=== PATIENT | male | born 1995 | race African-American/Black ===

== ENCOUNTER 2023-10-28 12:27 | Outpatient (OUT) | payer OTHER, SELFPAY ==
--- NOTE | 2023-10-28 12:35 | XR_ITS ---
The [address] [address] Patient Name: AMBROSIO MALONE MRN: [id number] date: 1995 Sex: M Assigned Patient Location: RAD Current Patient Location: Accession/Order Number: [id number] Exam Date: 10/28/2023 12:47 Report Date: 10/29/2023 10:49 At the request of: JOSUE KHAN Procedure: XR hand LT min 3V PROCEDURE: XR hand LT min 3V HISTORY: Chronic Pain Of Left Hand M79.642 ; pain between second and third metacarpals. COMPARISON: None. FINDINGS: BONES:No fracture, acute abnormality, or significant arthropathy. SOFT TISSUES:No visible soft tissue swelling. EFFUSION:None visible. OTHER: Negative. XR/XR hand LT min 3V IMPRESSION: 1. No abnormal or suspicious findings to account for patient's symptoms. Electronically authenticated by: BELIA HUMPHREY Date: 10/29/2023 10:49
== END 2023-10-28 12:28 | disposition home or self-care (01) ==
LOC: RAD 12:30
PROVIDERS: Visit Provider Physician Assistant
DX: M79.642 Pain in left hand (principal); G89.29 Other chronic pain
CPT/HCPCS: 73130

== ENCOUNTER 2023-11-05 09:11 | Outpatient (OUT) | payer OTHER, SELFPAY ==
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
--- NOTE | 2023-11-05 09:42 | XR_ITS ---
The [address] [address] Patient Name: AMBROSIO MALONE MRN: [id number] date: 1995 Sex: M Assigned Patient Location: RAD Current Patient Location: RAD Accession/Order Number: [id number] Exam Date: 11/05/2023 09:30 Report Date: 11/05/2023 09:56 At the request of: JOSUE KHAN Procedure: XR knee YURIY 4V EXAMINATION: XR knee standing BI, XR knee YURIY 4V HISTORY: chronic pain of left knee COMPARISON: No relevant comparison available. FINDINGS: RIGHT FINDINGS: BONES: Normal. No significant arthropathy or acute abnormality. SOFT TISSUES: Negative. No visible soft tissue swelling. OTHER: Negative. LEFT FINDINGS: BONES: Normal. No significant arthropathy or acute abnormality. SOFT TISSUES: Negative. No visible soft tissue swelling. OTHER: Negative. XR/XR knee YURIY 4V IMPRESSION: RIGHT CONCLUSION: Normal LEFT CONCLUSION: Normal Electronically authenticated by: GOLD SADLER Date: 11/05/2023 09:56
--- NOTE | 2023-11-05 09:45 | XR_ITS ---
The [address] [address] Patient Name: AMBROSIO MALONE MRN: [id number] date: 1995 Sex: M Assigned Patient Location: RAD Current Patient Location: RAD Accession/Order Number: [id number] Exam Date: 11/05/2023 09:38 Report Date: 11/05/2023 09:56 At the request of: JOSUE KHAN Procedure: XR knee standing BI EXAMINATION: XR knee standing BI, XR knee YURIY 4V HISTORY: chronic pain of left knee COMPARISON: No relevant comparison available. FINDINGS: RIGHT FINDINGS: BONES: Normal. No significant arthropathy or acute abnormality. SOFT TISSUES: Negative. No visible soft tissue swelling. OTHER: Negative. LEFT FINDINGS: BONES: Normal. No significant arthropathy or acute abnormality. SOFT TISSUES: Negative. No visible soft tissue swelling. OTHER: Negative. XR/XR knee standing BI IMPRESSION: RIGHT CONCLUSION: Normal LEFT CONCLUSION: Normal Electronically authenticated by: GOLD SADLER Date: 11/05/2023 09:56
== END 2023-11-05 09:12 | disposition home or self-care (01) ==
LOC: RAD 09:12
PROVIDERS: Visit Provider Physician Assistant
DX: M25.562 Pain in left knee (principal); G89.29 Other chronic pain; M25.561 Pain in right knee
CPT/HCPCS: 73564; 73565

== ENCOUNTER 2024-04-22 23:00 | Emergency (ER) | payer OTHER, SELFPAY ==
[2024-04-22] VITALS (7 sets, daily range): BP systolic 126; BP diastolic 93; PULSE 103–122; TEMP 37; O2SAT 83–100; BMI 21.1
--- OUTSIDE RECORDS SUMMARY | 2024-04-22 23:07 | XMS_ITS | CCD ---
Author Organization [facility] Informat ion Partnership [facility] Care Team Providers Care Wire Harness Design Engineer Name Role Phone Elizabeth Milton Unavailable RA REHMAN Admitting Unavailable RA REHMAN Attending Unavailable REQUEST, NONE LISTED Primary Care Unavaila ble RA REHMAN Consulting Unavailable JOSUE CHING Attending Unavailable JOSUE [...] 30 mg oral tablet (1 source) Uncompetitive F-jvxcpb-F-aspartate Receptor Antagonist, Sigma-1 Agonist Start: 11-02-2021 take 1 tablet by mouth every six hours [place] DMT 30-30 MG 1 tablet Orally every [...] Test Name Value Interpretation Reference Range Facil ity COVID Quick Testingon 2021 Result Negative [facility] Other Vital Signs Date Time Vital Sign Value Performing Clinician Facility 11-01-2023 10:48-0500 Body mass index (BMI) [Ratio] 21.77 kg/m2 Josue TELLEZ Work Phone: [facility] 11-01-2023 10:48-0500 Body weight 63.05 kg Josue TELLEZ Work Phone: [facility] 11-01-2023 10:48-0500 Diastolic blood pressure 68 mm[Hg] Josue Garciabritt PA Work Phone: [facility] 11-01-2023 10:48-0500 Heart rate 83 /min Josue Garciabritt PA Work Phone: [facility] 11-01-2023 10:48-0500 SaO2% (BldA) [Mass fraction] 94 % Josue Garciabritt PA Work Phone: [facility] 11-01-2023 10:48-0500 Systolic blood pressure 112 mm[Hg] Josue Garciabritt PA Work Phone: [facility] 11-02-2021 14:30-0500 Body height 170.18 cm Elizabeth Yanezault Other [facility] Other 11-02-2021 14:30-0500 Body mass index (BMI) [Ratio] 21.92 kg/m2 Elizabeth Karine Other [facility] Other 11-02-2021 14:30-0500 Body temperature 98.7 [degF] Elizabeth Karine Other [facility] Other 11-02-2021 14:30-0500 Body weight 63.5 kg Elizabeth Karine Other [facility] Other 11-02-2021 14:30-0500 Respiratory rate 21 /min Elizabeth Karine Other [facility] Other 11-02-2021 14:30-0500 SaO2% (BldA) [Mass fraction] 98 % Elizabeth Karine Other [facility] Other Encounters Encounter Date Encounter Type Care Provider Facility Start: 11-01-2023 End: 11-01-2023 ambulatory JOSUE M HEMMER Not Available Start: 11-01-2023 End: 11-01-2023 Office [...] Not Available Start: 08-17-2022 End: 08-17-2022 ambulatory RATHI REHMAN Facility: Start: 11-02-2021 End: 11-02-2021 ambulatory Elizabeth Milton Other [facility] Other Start: 11-02-2021 Office outpatient vi sit 15 minutes Elizabeth Milton [facility] Plan of Treatment Date Care Activity Detail Author Start: 11-01-2023 End: 11-01-2024 XR Knee - bilateral AP W standing XR knees anteroposterior standing bilateral Imaging Routine Chronic pain of left knee Chronic pain of right knee Expected: 11/01/2023, Expires: 11/01/2024 [facility] Work Phone: Comment on above: Expected: 11/01/2023 , Expires: 11/01/2024 Start: 11-01-2023 End: 11-01-2024 XR Knee - left 4 Views XR knee 4+ views left Imaging Routine Chronic pain of left knee Expected: 11/01/2023, Expires: 11/01/2024 [facility] Comment on above: Expected: 11/01/2023 , Expires: 11/01/2024 Start: 11-01-2023 End: 11-01-2024 XR Knee - right 4 Views XR knee 4+ views right Imaging Routine Chronic pain of right knee Expected: 11/01/2023, Expires: 11/01/2024 [facility] Comment on above: Expected: 11/01/2023 , Expires: 11/01/2024 Start: 11-01-2023 End: 11-01-2023 Patient encounter procedure 11/01/2023 11:00 AM EST Office Visit [facility] [address] [facility] [address] [place] [id number] Josue Ching PA [address] [facility] [address] [place] [address] [facility] Start: 05-24-2023 Influenza vaccination Influenza Vacc ine (#1) [facility] Payers Date Payer Category Payer Medicaid [id number] 2023 Medicaid [employer] [facility] [place] [id number] 2023-Present [address] [place] [address] [id number] 1993 Unknown [id number] 1995 Unknown [id number] 1993 Unknown [id number] 1959 Unknown [id number] Social History Date Type Detail Facility Start: 10-24-2023 End: 11-01-2023 Sex Assigned At [facility] [employer] Other Start: 04-19-2006 [facility] Start: 04-19-2006 History of tobacco use Cigarette Smo ker [facility] Start: 10-24-2023 End: 11-01-2023 Cigarettes smoked current (pack per day) - Reported 0.5 [facility] Start: 10-24-2023 Tobacco use and exposure Smokeless tobacco non-user [facility] Start: 10-31-2023 End: 11-01-2023 Alcohol intake Ex-drinker (finding) [facility] Start: 10-24-2023 Tobacco Comment 6-10 cigs/day [facility] Start: 1995 Sex Assigned At Not on file [facility] History of Present illness Narrative 11-01-2023 [...] fail to improve. documented in this encounter [facility] Evaluation note 11-02-2021 Note Date & Type Note Facility 11-02-2021 Evaluation note Encounter Date Diagnosis Assessment Notes 10 Feb, 2022 Contact with and (suspected) exposure to other [...] Patient care instructions given in writting by [facility] document. [facility] Other History general Narrative - Reported 09-23-2015 Note Date & Type Note Facility 09-23-2015 History general N arrative - Reported Type Hospitalization History [facility] 2015 [facility] Other Evaluation note Note Date & Type [...] [facility] DATE CREATED AUTHOR AUTHOR'S EVERETT SANTIAGO 11/02/2023 [facility] FOR RECORDS PERTAINING TO PATIENTS WHO ARE [...] BE BASED ON THE PRIMARY CLINICAL RECORDS. [facility] [employer] provides no warranty or guarantee of the accuracy or completeness of information in this document.
--- NOTE | 2024-04-22 23:12 | XR_ITS ---
The [address] [address] Patient Name: AMBROSIO MALONE MRN: [id number] date: 1995 Sex: M Assigned Patient Location: ER Current Patient Location: ER Accession/Order Number: [id number] Exam Date: 04/22/2024 23:27 Report Date: 04/23/2024 00:41 At the request of: DINAH MCDONALD Procedure: XR chest 1V EXAM: XR chest 1V HISTORY: CP COMPARISON: None. TECHNIQUE: One view of the chest was obtained. FINDINGS: The cardiac silhouette is normal in size. The lungs are clear. There is no significant pneumothorax or pleural effusion. No acute osseous abnormality is seen. XR/XR chest 1V IMPRESSION: 1. No acute cardiopulmonary abnormality. Electronically authenticated by: Esvin TAVERAS Date: 04/23/2024 00:41
--- NOTE | 2024-04-22 23:12 | ECG_ITS ---
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
--- NOTE | 2024-04-22 23:14 | ED.CHESTPAI1 ---
HPI - Chest Pain General Chief Complaint: Chest Pain Stated Complaint: chest pain Time Seen by Provider: 04/22/24 23:07 Source: patient Mode of arrival: walk-in Limitations: no limitations History of Present Illness HPI narrative: 29-year-old male presents to the emergency department for a chief complaint of chest pain. It has been there continuously since 9 AM, about 14 hours. It is in the middle part of his chest and it does not radiate. He does not have a sense of palpitations and he has had no fever cough or complaints to me of shortness of breath. It feels like a heavy pressure on his chest. Related Data Home Medications ?Medication ?Instructions ?Recorded ?Confirmed No Known Home Medications 04/22/24 04/22/24 Allergies Allergy/AdvReac Type Severity Reaction Status Date / Time No Known Drug Allergies Allergy Verified 04/22/24 23:11 Review of Systems ROS Narrative A ten point review of systems is negative except as noted above. Exam Narrative Exam Narrative: Nurses note and vital signs reviewed and patient is not hypoxic. General: The patient appears well and in no apparent distress. Patient is resting comfortably on cart. Skin: Warm, dry, no pallor noted. There is no rash noted. Head: Normocephalic, atraumatic Eye: Normal conjunctiva, no drainage Ears, Nose, Mouth, and Throat: oral mucosa is moist. Nares patent. Cardiovascular: Regular Rate and Rhythm, tachycardic Respiratory: Patient is in no distress, no accessory muscle use, lungs are clear to auscultation, no wheezing, rales or rhonchi Back: non-tender GI: Soft and nontender Musculoskeletal: The patient has no evidence of calf tenderness, no pitting edema, symmetrical pulses noted bilaterally Neurological: A&O, normal speech Psychiatric: Cooperative Constitutional Vital Signs, click to edit/add: Last Vital Signs Temp 98.6 F 04/22/24 23:05 Pulse 87 04/23/24 03:10 Resp 18 04/23/24 03:10 BP 117/69 04/23/24 01:57 Pulse Ox 97 04/23/24 03:10 O2 Del Method Room Air 04/22/24 23:05 Course Vital Signs Vital signs: Vital Signs Temperature 98.6 F 04/22/24 23:05 Pulse Rate 122 H 04/22/24 23:05 Respiratory Rate 18 04/22/24 23:05 Blood Pressure 126/93 H 04/22/24 23:05 Pulse Oximetry 100 04/22/24 23:05 Oxygen Delivery Method Room Air 04/22/24 23:05 Temperature 98.6 F 04/22/24 23:05 Pulse Rate 87 04/23/24 03:10 Respiratory Rate 18 04/23/24 03:10 Blood Pressure 117/69 04/23/24 01:57 Pulse Oximetry 97 04/23/24 03:10 Oxygen Delivery Method Room Air 04/22/24 23:05 MDM - Chest Pain MDM Narrative Medical decision making narrative: Laboratory analysis is negative including troponin. He was given IV Toradol and then IV morphine and he feels improved. I suspect that the patient might have pericarditis and I cannot rule this out. He will be transferred to [facility] and he is excepted there by the hospitalist. He is stable and agreeable for transfer. Treatment diagnosis and disposition were discussed with the patient. Differential Diagnosis Differential diagnosis: Likely pneumothorax, unstable angina pectoris, atypical chest pain, st elevation myocardial infarction, chest pain and other (Pericarditis, myocarditis) Lab Data Attestation: I reviewed the patient's lab results. Labs: Lab Results 04/22/24 04/23/24 Range/Units 23:14 01:55 WBC 14.8 H (4.0-11.0) 10^3/uL RBC 4.23 L (4.70-6.10) 10^6/uL Hgb 14.0 (14.0-18.0) g/dL Hct 40.0 L (42.0-54.0) % MCV 94.6 H (80.0-94.0) fL MCH 33.1 (25.9-34.0) pg MCHC 35.0 (29.9-35.2) g/dL RDW 13.5 (11.0-15.0) % Plt Count 226 (150-450) 10^3/uL MPV 9.7 (9.5-13.5) fL Neut % (Auto) 76.6 H (43.0-75.0) % Lymph % (Auto) 13.0 L (20.5-60.0) % [place] % (Auto) 9.7 (1.7-12.0) % Eos % (Auto) 0.1 L (0.9-7.0) % Baso % (Auto) 0.3 (0.2-2.0) % Neut # (Auto) 11.3 H (1.4-6.5) 10^3/uL Lymph # (Auto) 1.9 (1.2-3.8) 10^3/uL [place] # (Auto) 1.4 H (0.3-0.8) 10^3/uL Eos # (Auto) 0.0 (0.0-0.7) 10^3/uL Baso # (Auto) 0.1 (0.0-0.1) 10^3/uL Abs Immat Gran (auto) 0.05 H (0.00-0.03) 10^3/uL Imm/Tot Granulo (auto) 0.3 (0.0-0.5) % D-Dimer 0.32 (<=0.59) mg/L FEU Sodium 143 (136-145) mmol/L Potassium 3.6 (3.5-5.1) mmol/L Chloride 105 (98-107) mmol/L Carbon Dioxide 28.8 (21.0-32.0) mmol/L Anion Gap 12.8 BUN 7.0 (7.0-18.0) mg/dL Creatinine 0.88 (0.70-1.30) mg/dL Est GFR ( Amer) >60 (>=60) Est GFR (Non-Af Amer) >60 (>=60) BUN/Creatinine Ratio 8.0 Glucose 103 (74-106) mg/dL Calcium 9.2 (8.5-10.1) mg/dL Total Creatine Kinase 276 (39-308) U/L Myoglobin 43 (16-96) ng/mL Troponin I High Sens <4.0 L <4.0 L (4.0-76.1) pg/mL Imaging Data Chest x-ray: Radiologist's impression: ITS Impressions Chest X-Ray 04/22/24 23:12 IMPRESSION: 1. No acute cardiopulmonary abnormality. Electronically authenticated by: Esvin TAVERAS Date: 04/23/2024 00:41 ECG Data Attestation: I personally reviewed and interpreted this ECG as follows: (EKG on my interpretation shows sinus tachycardia with a rate of 115. There seems to be very slight diffuse ST segment elevation. There appears to be some areas of [place] depression) Heart Score History: Moderately Suspicious ECG: NS Repolarization Age: <45 years Risk Factors: No Risk Factors Troponin: <Normal Limit Total Heart Score Recommendations & Risks:: 2 Discharge Plan Discharge Chief Complaint: Chest Pain Clinical Impression: Chest pain Patient Disposition: [facility] Time of Disposition Decision: 01:02 Discharge Location: [facility] Condition: Fair Mode of Transportation: EMS
[2024-04-22 23:23] LABS: Basophils Absolute Auto 0.1 10^3/uL (0.0-0.1); Basophils Percent Auto 0.3 % (0.2-2.0); Eosinophils Percent Auto 0.1 % (0.9-7.0); Immature Granulocytes Abs Auto 0.05 10^3/uL (0.00-0.03); Immature Granulocytes Pct Auto 0.3 % (0.0-0.5); Lymphocytes Absolute Auto 1.9 10^3/uL (1.2-3.8); Mean Corpuscular Hemoglobin 33.1 pg (25.9-34.0); Mean Corpuscular Volume 94.6 fL (80.0-94.0); Mean Platelet Volume 9.7 fL (9.5-13.5); Monocytes Absolute Auto 1.4 10^3/uL (0.3-0.8); Monocytes Percent Auto 9.7 % (1.7-12.0); Neutrophils Absolute Auto 11.3 10^3/uL (1.4-6.5); Neutrophils Percent Auto 76.6 % (43.0-75.0); Platelet Count 226 10^3/uL (150-450); Red Blood Count 4.23 10^6/uL (4.70-6.10); Red Cell Distribution Width 13.5 % (11.0-15.0); White Blood Count 14.8 10^3/uL (4.0-11.0)
[2024-04-22 23:38] LABS: Anion Gap 12.8; Calcium 9.2 mg/dL (8.5-10.1); Carbon Dioxide 28.8 mmol/L (21.0-32.0); Chloride 105 mmol/L (98-107); Estimated GFR (African America >60 (>=60); Estimated GFR (Non-African Ame >60 (>=60); Glucose 103 mg/dL (74-106); Potassium 3.6 mmol/L (3.5-5.1); Sodium 143 mmol/L (136-145)
[2024-04-22 23:40] LABS: D Dimer 0.32 mg/L FEU (<=0.59)
[2024-04-22 23:46] LABS: Troponin I High Sensitivity <4.0 pg/mL (4.0-76.1)
[2024-04-22 23:49] LABS: Creatine Kinase 276 U/L (39-308); Myoglobin 43 ng/mL (16-96)
[2024-04-22] MEDS: KETOROLAC TROMETHAMINE 30 MG/ML VIAL IVP (23:49)
[2024-04-23] VITALS (21 sets, daily range): BP systolic 117; BP diastolic 69; PULSE 82–105; O2SAT 96–100
[2024-04-23] MEDS: MORPHINE SULFATE 4 MG/ML VIAL IV (00:16)
[2024-04-23 02:24] LABS: Troponin I High Sensitivity <4.0 pg/mL (4.0-76.1)
== END 2024-04-23 04:35 | disposition short-term general hospital (02) ==
PROVIDERS: Emergency Provider Emergency Medicine
DX: R07.9 Chest pain, unspecified (principal)
CPT/HCPCS: 36415; 71045; 80048; 82550; 83874; 84484; 85025; 85378; 93005; 96374; 96375; 99285; J1885; J2270

== ENCOUNTER 2024-05-04 10:01 | Outpatient (OUT) | payer OTHER, SELFPAY | END 2024-05-04 10:02 | disposition home or self-care (01) | LOC: CARD 10:01 | PROVIDERS: Visit Provider Physician Assistant | DX: I30.9 Acute pericarditis, unspecified (principal); R00.2 Palpitations | CPT/HCPCS: 93246 ==

== ENCOUNTER 2024-06-08 07:43 | Outpatient (OUT) | payer OTHER, SELFPAY ==
--- OUTSIDE RECORDS SUMMARY | 2024-06-08 07:47 | XMS_ITS | CCD ---
Author Organization [facility] Care Team Providers Care Director Sales Support Name Role Phone Elizabeth Milton Unavailable RA REHMAN Admitting Unavailable RA REHMAN Attending Unavailable JAVIER, NONE LISTED Primary Care Unavaila RA Roche Consulting Unavailable Unavailable Primary Care Provider UnavailMD Martin Chen Admit Provider WANDA Khan Primary Care Provider MD Rani Delong Attending Provider SHIRLEY Perdomo Other Provider Unavailable MD Gilberto Sosa Other Provider MD Mickey Long Other Provider [phone] MD Ashlee Moura Other Provider DO Betty Tubbs Other Provider Fabiola Perdomo Consulting Unavailable Grisel Khan Primary Care Unavailable Martin Phillip Admitting Unavailable Rani Delong Attending Unavailable Gilberto Sosa Consulting Unavailable Mickey Long Consulting Ashlee Villanueva Consulting Unavailable Betty Tubbs Consulting Unavailable GRISEL KHAN Attending Unavailable GRISEL KHAN Attending Unavailable GRISEL KHAN Attending Unavailable GRISEL KHAN Attending Unavailable Medications Current Medications Medication Drug Class(es) Dates Sig (Normalized) Sig (Original) amoxicillin 500 mg oral capsule (1 source) Penicillin-class Antibacterial Start: 11-02-2021 take 1 capsule by mouth three times daily Amoxicillin 500 MG 1 capsule Orally 3 times per day for 10 day(s) Oct, Active colchicine 0.6 mg oral tablet (1 source) Start: 04-24-2024 take 0.6 mg by mouth twice daily Colchicine Active 0.6 MG PO Twice daily 60 April 24, 2024 12:00am dextromethorphan hydrobromide 30 mg / pyrilamine maleate 30 mg oral tablet (1 source) Uncompetitive E-xjjefc-Y-aspartat e Receptor Antagonist, Sigma-1 Agonist Start: 11-02-2021 take 1 tablet by mouth every six hours Swanzey DMT 30-30 MG 1 tablet Orally every 6 hours for 7 days Oct, Active diphenhydrAMINE hydrochloride 25 mg oral capsule (1 source) Histamine-1 Receptor Antagonist Start: 05-27-2018 take 2 capsules by mouth every six hours Diphenhydramine Hcl (Benadryl) 25 mg capsule Active 50 MG PO Q6H May 27, 2018 12:00am until resolution of severe allergic reaction famotidine 20 mg oral tablet (1 source) Histamine-2 Receptor Antagonist Start: 05-27-2018 take 1 tablet by mouth twice daily Famotidine (Pepcid) 20 mg tablet Active 20 MG PO Twice daily May 27, 2018 12:00am fluocinonide 1 mg/ml topical cream (1 source) Corticosteroid Start: 05-27-2018 Fluocinonide Active 1 APPLIC TOPICAL Twice daily May 27, 2018 12:00am fluticasone propionate 0.05 mg/actuat metered dose nasal spray (1 source) Corticosteroid Start: 11-02-2021 take 1 spray(s) nasal route once daily Fluticasone Propionate 50 MCG/ACT 1 spray in each nostril Nasally Once a day for 30 day(s) Oct, Active ibuprofen 800 mg oral tablet (2 sources) Nonsteroidal Anti-inflammatory Drug Start: 04-24-2024 take 800 mg by mouth three times daily Ibuprofen Active 800 MG PO Three times daily 42 April 24, 2024 12:00am Start: 03-28-2018 End: 05-27-2018 take 600 mg by mouth three times daily Ibuprofen Discontinued 600 MG PO Three times daily March 28, 2018 12:00am May 27, 2018 12:59pm meloxicam 15 mg oral tablet (1 source) [...] with food. 30 tablet 2 11/01/2023 Active pantoprazole 40 mg delayed release oral tablet (1 source) Proton Pump Inhibitor Start: 04-24-2024 take 40 mg by mouth once daily Pantoprazole Active 40 MG PO Daily 14 April 24, 2024 12:00am Completed/Discontinued Medications Medication Drug Class(es) Dates Sig (Normalized) Sig (Original) cyclobenzaprine hydrochloride 10 mg oral tablet (1 source) Muscle Relaxant Start: 03-28-2018 End: 05-27-2018 take 10 mg by mouth at bedtime Cyclobenzaprine Discontinued 10 MG PO Bedtime March 28, 2018 2:45pm May 27, 2018 12:59pm Problems Active Problems Problem Classification Problem Date Documented Da te Episodic/Chronic Headache; including migraine (1 source) Headache; Translations: [Headache] 02-13-2021 Episodic Mood disorders (1 source) Manic bipolar I disorder; Translations: [Bipolar disorder, current episode manic without psychotic features, unspecified] Chronic Nonspecific chest pain (3 sources) Chest pain; Translations: [Chest pain, unspecified] Onset: 04-23-2024 04-23-2024 Episodic Other connective tissue disease (3 sources) Chronic pain of left upper limb; Translations: [Pain in left hand] Onset: 10-24-2023 10-24-2023 Episodic Other non-traumatic joint disorders (4 sources) Pain in left knee; Translations: [Pain in joint, lower leg] Onset: 11-01-2023 11-01-2023 Episodic Other skin disorders (4 sources) Rash and other nonspecific skin eruption; Translations: [RASH OTH NONSPECIFIC SKIN ERUPTION] Onset: 08-17-2022 Episodic Ciera-; endo-; and myocarditis; cardiomyopathy (except that caused by tuberculosis or sexually transmitted disease) (3 sources) Acute pericarditis; Translations: [Acute pericarditis, unspecified] Onset: 04-23-2024 04-23-2024 Episodic Substance-related disorders (5 sources) Tobacco dependence syndrome; Translations: [Nicotine dependence, unspecified, uncomplicated] Onset: 10-24-2023 10-24-2023 Chronic Substance-related disorders (3 sources) Marijuana user; Translations: [Cannabis use, unspecified, uncomplicated] Onset: 04-23-2024 04-23-2024 Episodic Viral infection (1 source) Zoster without complications; [...] Results Test Name Value Interpretation Reference Range Facility Alanine aminotransferase [En zymatic activity/volume] in Serum or PlasmaOrdered By: Martin Phillip on 04-24-2024 ALT [Catalytic activity/Vol] 9 U/L Normal 7-52 [facility] Comment on above: Performed By: #### H S TROP, A1C [facility] eA #### [facility] [address] [place] [address] [place] Albumin [Mass/volume] in Ser um or Plasma by Bromocresol green (BCG) dye binding methoOrdered By: Martin Phillip on 04-24-2024 Albumin BCG dye [Mass/Vol] 4.4 g/dL 3.5-5.7 [facility] Alkaline phosphatase [Enzyma tic activity/volume] in Serum or PlasmaOrdered By: Martin Phillip on 04-24-2024 ALP [Catalytic activity/Vol] 61 U/L Normal 34-104 [facility] Comment on above: Performed By: #### H S TROP, A1C WT eA #### [facility] [address] [place] [address] [place] Aspartate aminotransferase [ Enzymatic activity/volume] in Serum or PlasmaOrdered By: Martin Phillip on 04-24-2024 AST [Catalytic activity/Vol] 15 U/L Normal 13-39 [facility] Comment on above: Performed By: #### H S TROP, A1C WTH eA #### [address] Automated basophil %Ordered By: Martin Phillip on 04-24-2024 Basophils/100 WBC (Bld) 0.7 % Normal . [facility] Comment on above: Performed By: #### C BC #### [address] Automated basophil countOrde red By: Martin Phillip on 04-24-2024 Basophils (Bld) [#/Vol] 0.1 10*3/uL Normal 0.0-0.2 [facility] Comment on above: Result Comment: PERF ORMED BY: [place] [address] PATHOLOGIST [employer]IEF DANA GRIJALVA M.D. Performed By: #### C BC #### [address] Automated blood monocyte cou ntOrdered By: Martin Phillip on 04-24-2024 Monocytes (Bld) [#/Vol] 1.3 10*3/uL High 0.0-0.8 [facility] Comment on above: Performed By: #### C BC #### [address] Automated eosinophil %Ordere d By: Martin Phillip on 04-24-2024 Eosinophils/100 WBC (Bld) 3.8 % Normal . [facility] Comment on above: Performed By: #### C BC #### [address] Automated eosinophil countOr dered By: Martin Phillip on 04-24-2024 Eosinophils (Bld) [#/Vol] 0.3 10*3/uL Normal 0.0-0.45 [facility] Comment on above: Performed By: #### C BC #### [address] Automated monocyte %Ordered By: Martin Phillip on 04-24-2024 Monocytes/100 WBC (Bld) 16.2 % Normal . [facility] Comment on above: Performed By: #### C BC #### [facility] [address] Automated neutrophil %Ordere d By: Martin Phillip on 04-24-2024 Neutrophils/100 WBC (Bld) 40.6 % Normal . [facility] Comment on above: Performed By: #### C BC #### [address] Bilirubin.total [Mass/volume ] in Serum or PlasmaOrdered By: Martin Phillip on 04-24-2024 Bilirubin [Mass/Vol] 1.3 mg/dL High 0.3-1.0 [facility] Comment on above: Samples from patient s who have taken Naproxen have shown spurious elevation in Total Bilirubin levels. A metabolite of Naproxen, O-desmethylnaproxen, has been shown to interfere with the Jendrassik-Grof method for measuring Total Bilirubin. Result Comment: Samp les from patients who have taken Naproxen have shown spurious elevation in Total Bilirubin levels. A metabolite of Naproxen, O-desmethylnaproxen, has been shown to interfere with the Jendrassik-Grof method for measuring Total Bilirubin. Performed By: #### H S TROP, A1C WTH eA #### [address] Calcium [Mass/volume] in Ser um or PlasmaOrdered By: Martin Phillip on 04-24-2024 Calcium [Mass/Vol] 9.7 mg/dL Normal 8.6-10.3 [facility] Comment on above: Performed By: #### H S TROP, A1C WTH eA #### [address] Carbon dioxide, total [Moles /volume] in Serum or PlasmaOrdered By: Martin Phillip on 04-24-2024 CO2 [Moles/Vol] 29.7 mmol/L Normal 21.0-31.0 [facility] Comment on above: Performed By: #### H S TROP, A1C WTH eA #### [address] Chloride [Moles/volume] in S casey or PlasmaOrdered By: Martin Phillip on 04-24-2024 Chloride [Moles/Vol] 106 mmol/L Normal 98-107 [facility] Comment on above: Performed By: #### H S TROP, A1C WTH eA #### [address] Complete Blood Count Auto Di ffon 04-24-2024 Mean Corpuscular HGB Conc 33.7 g/dL Normal 32.5-35.6 [facility] Comment on above: Performed By: #### C BC #### [address] NRBC% 0.2 /100{WBC} Normal 0-0.5 [facility] Comment on above: Performed By: #### C BC #### [address] Comprehensive Metabolic Pane wolfgang 04-24-2024 Albumin [Mass/Vol] 4.4 g/dL Normal 3.5-5.7 [facility] Comment on above: Performed By: #### H S TROP, A1C WT eA #### [address] Creatinine Clr Calc Pharmacy 125.20 Normal [facility] Comment on above: Result Comment: PERF ORMED BY: [place] [address] PATHOLOGIST [employer]IEF DANA GRIJALVA M.D. Performed By: #### H S TROP, A1C WT eA #### [place] [address] [place] GFR/1.73 sq M.predicted MDRD (S/P/Bld) [Vol rate/Area] mL/min/{1.73_m2} Normal [facility] Comment on above: Performed By: #### H S TROP, A1C WTH eA #### [place] [address] [place] Creatinine [Mass/volume] in Serum or PlasmaOrdered By: Martin Phillip on 04-24-2024 Creatinine [Mass/Vol] 0.74 mg/dL Normal 0.70-1.30 [facility] Comment on above: Performed By: #### H S TROP, A1C WTH eA #### [facility] [address] Erythrocyte distribution wid th [Ratio] by Automated countOrdered By: Martin Phillip on 04-24-2024 Erythrocyte distribution width (RBC) [Ratio] 14.5 % Normal 12.0-14.8 [facility] Comment on above: Performed By: #### C BC #### [address] Erythrocytes [#/volume] in B lood by Automated countOrdered By: Martin Phillip on 04-24-2024 RBC (Bld) [#/Vol] 4.42 10*6/uL Normal 3.90-5.60 [facility] Comment on above: Performed By: #### C BC #### [address] Glucose [Mass/volume] in Ser um or PlasmaOrdered By: Martin Phillip on 04-24-2024 Glucose [Mass/Vol] 83 mg/dL Normal 70-100 [facility] Comment on above: ADA recommended refe rence rangeRandom Glucose Reference Range is dependent on time and content of last meal. Glucose of more than 200 mg/dL in a nonstressed, ambulatory subject supports the diagnosis of Diabetes Mellitus. Result Comment: [place] om Glucose Reference Range is dependent on time and content of last meal. Glucose of more than 200 mg/dL in a nonstressed, ambulatory subject supports the diagnosis of Diabetes Mellitus. ADA recommended reference range Performed By: #### H S TROP, A1C WTH eA #### [address] Hematocrit [Volume Fraction] of Blood by Automated countOrdered By: Martin Phillip on 04-24-2024 Hematocrit (Bld) [Volume fraction] 42.4 % Normal 38.8-50.0 [facility] Comment on above: Performed By: #### C BC #### [address] Hemoglobin [Mass/volume] in BloodOrdered By: Martin Phillip on 04-24-2024 Hemoglobin (Bld) [Mass/Vol] 14.3 g/dL Normal 13.0-17.0 [facility] Comment on above: Performed By: #### C BC #### [address] Leukocytes [#/volume] correc aba for nucleated erythrocytes in Blood by Automated counOrdered By: Martin Phillip on 04-24-2024 WBC corrected for nucl RBC Auto (Bld) [#/Vol] 7.9 10*3/uL 4.1-10.5 [facility] Leukocytes [#/volume] in Blo od by Automated countOrdered By: Martin Phillip on 04-24-2024 WBC (Bld) [#/Vol] 7.9 10*3/uL Normal 4.1-10.5 [facility] Comment on above: Performed By: #### C BC #### [place] [address] [place] Lymphocytes [#/volume] in Bl ood by Automated countOrdered By: Martin Phillpi on 04-24-2024 Lymphocytes (Bld) [#/Vol] 3.1 10*3/uL Normal 1.00-4.8 [facility] Comment on above: Performed By: #### C BC #### [place] [address] [place] Lymphocytes/100 leukocytes i n Blood by Automated countOrdered By: Martin Phillip on 04-24-2024 Lymphocytes/100 WBC (Bld) 38.7 % Normal . [facility] Comment on above: Performed By: #### C BC #### [address] MCH [Entitic mass] by Automa aba countOrdered By: Martin Phillip on 04-24-2024 MCH (RBC) [Entitic mass] 32.4 pg Normal 27.5-35.2 [facility] Comment on above: Performed By: #### C BC #### [facility] [address] [place] [address] MCHC Auto (RBC) [Mass/Vol]Or dered By: Martin Phillip on 04-24-2024 MCHC (RBC) [Mass/Vol] 33.7 g/dL 32.5-35.6 [facility] MCV [Entitic volume] by Auto mated countOrdered By: Martin Phillip on 04-24-2024 MCV (RBC) [Entitic vol] 96.1 fL Normal 83.5-101 [facility] Comment on above: Performed By: #### C BC #### [address] Neutrophils [#/volume] in Bl ood by Automated countOrdered By: Martin Phillip on 04-24-2024 Neutrophils (Bld) [#/Vol] 3.2 10*3/uL Normal 1.8-7.7 [facility] Comment on above: Performed By: #### C BC #### [address] No Panel InformationOrdered By: Martin Phillip on 04-24-2024 Estimated GFR (CKD-EPI) > 60.0 mL/Min [facility] Creatinine Clearance (Chem 125.20 [facility] Nucleated erythrocytes [Pres ence] in Blood by Automated countOrdered By: Martin Phillip on 04-24-2024 Nucleated RBC Auto Ql (Bld) 0.2 /100{WBC} 0-0.5 [facility] Platelet mean volume [Entiti c volume] in Blood by Automated countOrdered By: Martin Phillip on 04-24-2024 Platelet mean volume (Bld) [Entitic vol] 8.2 fL Normal 6.6-10.1 [facility] Comment on above: Performed By: #### C BC #### [address] Platelets [#/volume] in Bloo d by Automated countOrdered By: Martin Phillip on 04-24-2024 Platelets (Bld) [#/Vol] 230 10*3/uL Normal 150-450 [facility] Comment on above: Performed By: #### C BC #### [facility] [address] Potassium [Moles/volume] in Serum or PlasmaOrdered By: Martin Phillip on 04-24-2024 Potassium [Moles/Vol] 4.1 mmol/L Normal 3.5-5.1 [facility] Comment on above: Performed By: #### H S TROP, A1C WTH eA #### [facility] [address] Protein [Mass/volume] in Ser um or PlasmaOrdered By: Martin Phillip on 04-24-2024 Protein [Mass/Vol] 7.1 g/dL Normal 6.4-8.9 [facility] Comment on above: Performed By: #### H S TROP, A1C WTH eA #### [facility] [address] [place] [address] Serum globulin measurement b y calculation (mass/volume)Ordered By: Martin Phillip on 04-24-2024 Globulin (S) [Mass/Vol] 2.7 g/dL Normal [facility] Comment on above: Performed By: #### H S TROP, A1C WTH eA #### [address] Serum or plasma albumin/glob ulin mass ratioOrdered By: Martin Phillip on 04-24-2024 Albumin/Globulin [Mass ratio] 1.6 {ratio} Normal [facility] Comment on above: Performed By: #### H S TROP, A1C WTH eA #### [facility] [address] [place] [address] Serum or plasma anion gap de terminationOrdered By: Martin Phillip on 04-24-2024 Anion gap [Moles/Vol] 9.4 mmol/L Normal 6.0-15.0 [facility] Comment on above: Performed By: #### H S TROP, A1C WTH eA #### [facility] [address] [place] [address] [place] Sodium [Moles/volume] in Ser um or PlasmaOrdered By: Martin Phillip on 04-24-2024 Sodium [Moles/Vol] 141 mmol/L Normal 136-145 [facility] Comment on above: Performed By: #### H S TROP, A1C WTH eA #### [address] Urea nitrogen [Mass/volume] in Serum or PlasmaOrdered By: Martin Phillip on 04-24-2024 Urea nitrogen [Mass/Vol] 10 mg/dL Normal 7-25 [facility] Comment on above: Performed By: #### H S TROP, A1C WTH eA #### [address] A1C with Estimated Average G luon 04-23-2024 Glucose [Mass/Vol] 114 mg/dL Normal [facility] Comment on above: Result Comment: PERF ORMED BY: [place] [address] PATHOLOGIST [employer] CHIEF DANA GRIJALVA M.D. Performed By: #### H S TROP, A1C WT eA #### [address] NATALIE with Reflexon 04-23-2024 NATALIE with Reflex Negative Normal Negative [facility] Comment on above: Result Comment: Perf ormed at: - [facility] [address] [id number] Program Medical Director: Jevon Enriquez PhD, Phone: [phone] PERFORMED BY: [place] [address] PATHOLOGIST [employer] CHIEF DAAN GRIJALVA M.D. Performed By: #### A NA CHOICE #### [facility] , Amphetamine Screen Ql (U)Ord ered By: Martin Phillip on 04-23-2024 Amphetamines Ql (U) Negative Negative [facility] Barbiturates [Presence] in U rine by Screen methodOrdered By: Martin Phillip on 04-23-2024 Barbiturates Screen Ql (U) Negative Negative [facility] Benzodiazepines Screen Ql (U )Ordered By: Martin Phillip on 04-23-2024 Benzodiazepines Ql (U) Negative Negative [facility] Benzoylecgonine [Presence] i n Urine by Screen methodOrdered By: Martin Phillip on 04-23-2024 Benzoylecgonine Screen Ql (U) Negative Negative [facility] C reactive protein [Mass/vol ume] in Serum or PlasmaOrdered By: Martin Phillip on 04-23-2024 CRP [Mass/Vol] 3.0 mg/dL High 0.0-0.5 [facility] C-Reactive Proteinon 024 C-Reactive Protein 3.0 mg/dL High 0.0-0.5 [facility] Comment on above: Result Comment: PERF ORMED BY: [place] [address] PATHOLOGIST [employer]IE[employer] DANA GRIJALVA M.D. Performed By: #### C RP, CMP #### [facility] [address] [place] [address] Cannabinoids [Presence] in U rine by Screen methodOrdered By: Martin Phillip on 04-23-2024 Cannabinoids Screen Ql (U) Positive High Negative [facility] Comment on above: These are unconfirme d results and should not be used for legal purposes. Drug Cut-Off Concentration: AMPH 1000 ng/mL ANNAMARIA 200 ng/mL KATHRYN 200 ng/mL COCM 300 ng/mL OP 300 ng/mL PCP 25 ng/mL THC 20 ng/mL Cholesterol [Mass/volume] in Serum or PlasmaOrdered By: Martin Phillip on 04-23-2024 Cholesterol [Mass/Vol] 124 mg/dL Low 140-200 [facility] Comment on above: Chol less than 200 m g/dl low riskChol 201-239 mg/dl borderline riskChol 240 mg/dl and greater high risk Result Comment: Chol less than 200 mg/dl low risk Chol 201-239 mg/dl borderline risk Chol 240 mg/dl and greater high risk Performed By: #### H S TROP, A1C WTH eA #### [address] [address] [place] Cholesterol in LDL Calc [Mas s/Vol]Ordered By: Martin Phillip on 04-23-2024 Cholesterol in LDL [Mass/Vol] 57 mg/dL 0-100 [facility] Comment on above: LDL ATP III CLASSIFI CATIONLDL less than 100 mg/dL OptimalLDL 100-129 mg/dL Near or above optimalLDL 130-159 mg/dL Borderline highLDL 160-189 mg/dL HighLDL greater than 189 mg/dL Very high Cholesterol in VLDL Calc [Ma ss/Vol]Ordered By: Martin Phillip on 04-23-2024 Cholesterol in VLDL [Mass/Vol] 8 mg/dL [facility] Complete Blood Count Auto Di ffon 04-23-2024 Basophils (Bld) [#/Vol] 0.1 10*3/uL Normal 0.0-0.2 [facility] Comment on above: Performed By: #### H S TROP, A1C WTH eA #### [facility] [address] [place] [address] [place] Basophils/100 WBC (Bld) 0.6 % Normal . [facility] Comment on above: Performed By: #### H S TROP, A1C WTH eA #### [facility] [address] [place] [address] [place] Eosinophils (Bld) [#/Vol] 0.1 10*3/uL Normal 0.0-0.45 [facility] Comment on above: Performed By: #### H S TROP, A1C WTH eA #### [facility] [address] [place] [address] [place] Eosinophils/100 WBC (Bld) 0.8 % Normal . [facility] Comment on above: Performed By: #### H S TROP, A1C WTH eA #### [facility] [address] [place] [address] [place] Erythrocyte distribution width (RBC) [Ratio] 14.2 % Normal 12.0-14.8 [facility] Comment on above: Performed By: #### H S TROP, A1C WTH eA #### [facility] [address] [place] [address] [place] Hematocrit (Bld) [Volume fraction] 38.7 % Low 38.8-50.0 [facility] Comment on above: Performed By: #### H S TROP, A1C WTH eA #### [address] Hemoglobin (Bld) [Mass/Vol] 12.9 g/dL Low 13.0-17.0 [facility] Comment on above: Performed By: #### H S TROP, A1C WTH eA #### [address] Lymphocytes (Bld) [#/Vol] 3.3 10*3/uL Normal 1.00-4.8 [facility] Comment on above: Performed By: #### H S TROP, A1C WTH eA #### [address] Lymphocytes/100 WBC (Bld) 27.2 % Normal . [facility] Comment on above: Performed By: #### H S TROP, A1C WTH eA #### [address] MCH (RBC) [Entitic mass] 32.0 pg Normal 27.5-35.2 [facility] Comment on above: Performed By: #### H S TROP, A1C WTH eA #### [address] MCV (RBC) [Entitic vol] 96.4 fL Normal 83.5-101 [facility] Comment on above: Performed By: #### H S TROP, A1C WTH eA #### [address] Mean Corpuscular HGB Conc 33.2 g/dL Normal 32.5-35.6 [facility] Comment on above: Performed By: #### H S TROP, A1C WTH eA #### [address] Monocytes (Bld) [#/Vol] 1.6 10*3/uL High 0.0-0.8 [facility] Comment on above: Performed By: #### H S TROP, A1C WTH eA #### [facility] [address] [place] [address] [place] Monocytes/100 WBC (Bld) 13.2 % Normal . T vazquez [facility] Comment on above: Performed By: #### H S TROP, A1C WTH eA #### [facility] [address] [place] [address] [place] Neutrophils (Bld) [#/Vol] 7.1 10*3/uL Normal 1.8-7.7 [facility] Comment on above: Performed By: #### H S TROP, A1C WTH eA #### [facility] [address] [place] [address] [place] Neutrophils/100 WBC (Bld) 58.2 % Normal . [facility] Comment on above: Performed By: #### H S TROP, A1C WTH eA #### [facility] [address] [place] [address] [place] NRBC% 0.1 /100{WBC} Normal 0-0.5 [facility] Comment on above: Performed By: #### H S TROP, A1C WTH eA #### [facility] [address] [place] [address] [place] Platelet mean volume (Bld) [Entitic vol] 8.0 fL Normal 6.6-10.1 [facility] Comment on above: Performed By: #### H S TROP, A1C WTH eA #### [facility] [address] [place] [id number] [place] Platelets (Bld) [#/Vol] 202 10*3/uL Normal 150-450 [facility] Comment on above: Performed By: #### H S TROP, A1C WTH eA #### [facility] [address] [place] [id number] [place] RBC (Bld) [#/Vol] 4.01 10*6/uL Normal 3.90-5.60 [facility] Comment on above: Performed By: #### H S TROP, A1C WTH eA #### [facility] [address] [place] [id number] [place] WBC (Bld) [#/Vol] 12.2 10*3/uL High 4.1-10.5 [facility] Comment on above: Performed By: #### H S TROP, A1C WTH eA #### [address] Comprehensive Metabolic Pane wolfgang 04-23-2024 Albumin [Mass/Vol] 4.1 g/dL Normal 3.5-5.7 [facility] Comment on above: Performed By: #### C RP, CMP #### [address] Albumin/Globulin [Mass ratio] 1.8 {ratio} Normal [facility] Comment on above: Performed By: #### C RP, CMP #### [address] ALP [Catalytic activity/Vol] 60 U/L Normal 34-104 [facility] Comment on above: Performed By: #### C RP, CMP #### [address] ALT [Catalytic activity/Vol] 8 U/L Normal 7-52 [facility] Comment on above: Performed By: #### C RP, CMP #### [address] Anion gap [Moles/Vol] 7.9 mmol/L Normal 6.0-15.0 [facility] Comment on above: Performed By: #### C RP, CMP #### [address] AST [Catalytic activity/Vol] 15 U/L Normal 13-39 [facility] Comment on above: Performed By: #### C RP, CMP #### [address] Bilirubin [Mass/Vol] 1.8 mg/dL High 0.3-1.0 [facility] Comment on above: Result Comment: Samp les from patients who have taken Naproxen have shown spurious elevation in Total Bilirubin levels. A metabolite of Naproxen, O-desmethylnaproxen, has been shown to interfere with the Jencarlaik-Grof method for measuring Total Bilirubin. Performed By: #### C RP, CMP #### [facility] [address] Calcium [Mass/Vol] 8.9 mg/dL Normal 8.6-10.3 [facility] Comment on above: Performed By: #### C RP, CMP #### [address] Chloride [Moles/Vol] 106 mmol/L Normal 98-107 [facility] Comment on above: Performed By: #### C RP, CMP #### [facility] [address] CO2 [Moles/Vol] 28.5 mmol/L Normal 21.0-31.0 [facility] Comment on above: Performed By: #### C RP, CMP #### [address] Creatinine [Mass/Vol] 0.78 mg/dL Normal 0.70-1.30 [facility] Comment on above: Performed By: #### C RP, CMP #### [place] [address] [place] Creatinine Clr Calc Pharmacy 118.78 Normal [facility] Comment on above: Performed By: #### C RP, CMP #### [place] [address] [place] GFR/1.73 sq M.predicted MDRD (S/P/Bld) [Vol rate/Area] mL/min/{1.73_m2} Normal [facility] Comment on above: Performed By: #### C RP, CMP #### [place] [address] [place] Globulin (S) [Mass/Vol] 2.3 g/dL Normal [facility] Comment on above: Performed By: #### C RP, CMP #### [place] [address] [place] Glucose [Mass/Vol] 97 mg/dL Normal 70-100 [facility] Comment on above: Result Comment: [place] Glucose Reference Range is dependent on time and content of last meal. Glucose of more than 200 mg/dL in a nonstressed, ambulatory subject supports the diagnosis of Diabetes Mellitus. ADA recommended reference range Performed By: #### C RP, CMP #### [address] Potassium [Moles/Vol] 3.4 mmol/L Low 3.5-5.1 [facility] Comment on above: Performed By: #### C RP, CMP #### [address] Protein [Mass/Vol] 6.4 g/dL Normal 6.4-8.9 [facility] Comment on above: Performed By: #### C RP, CMP #### [address] Sodium [Moles/Vol] 139 mmol/L Normal 136-145 [facility] Comment on above: Performed By: #### C RP, CMP #### [address] Urea nitrogen [Mass/Vol] 7 mg/dL Normal 7-25 [facility] Comment on above: Performed By: #### C RP, CMP #### [address] Drug Screen,Urineon 04-23-20 24 Amphetamine Screen,Urine Negative Normal Negative [facility] Comment on above: Performed By: #### U RDS #### [address] Barbiturate Screen,Urine Negative Normal Negative [facility] Comment on above: Performed By: #### U RDS #### [address] Benzodiazepines Screen,Urine Negative Normal Negative [facility] Comment on above: Performed By: #### U RDS #### [address] Cannabinoid Screen,Urine Positive High Negative [facility] Comment on above: Result Comment: Thes e are unconfirmed results and should not be used for legal purposes. Drug Cut-Off Concentration: AMPH 1000 ng/mL ANNAMARIA 200 ng/mL KATHRYN 200 ng/mL COCM 300 ng/mL OP 300 ng/mL PCP 25 ng/mL THC 20 ng/mL PERFORMED BY: [place] [address] PATHOLOGIST [employer] CHIEF DANA GRIJALVA M.D. Performed By: #### U RDS #### [address] Cocaine Screen,Urine Negative Normal Negative [facility] Comment on above: Performed By: #### U RDS #### [address] Opiate Screen,Urine Positive High Negative [facility] Comment on above: Performed By: #### U RDS #### [address] Phencyclidine Screen,Urine Negative Normal Negative [facility] Comment on above: Performed By: #### U RDS #### [address] ECG 12 lead ECGon 04-23-2024 ECG 12 lead ECG [facility] Main [place] [address] [place] [address] Electrocardiograph Report Signed Patient: Sean Malone MR#: [id number] : 1995 Acct:[id number] Age/Sex: 29 / M ADM Date: 04/23/24 Loc: Room: [address] [place] [address] Type: ADM INOo Attending Dr: Rani Delong MD Ordering Provider: Rani Delong MD Date of Service: 04/23/2410/16/926 ECG/ECG 12 lead ECG: chest pain Copies to: Test Reason : Blood Pressure : */* mmHG Vent. Rate : 81 BPM Atrial Rate : 81 BPM P-R Int : 142 ms QRS Dur : 92 ms QT Int : 342 ms P-R-T Axes : 33 71 60 degrees QTcB Int : 397 ms Normal sinus rhythm ST elevation, probably due to early repolarization Borderline ECG When compared with ECG of 23-Apr-2024 05:31, (Unconfirmed) No significant change was found Confirmed by BETH MULLIGAN [facility] ([id number][facility] on 04/23/2024 12:35:37 PM Referred By: Electronically Signed By: SHANA WORLEY MD [facility] Transcribed By: MUS Signed By Shana Worley MD, [facility] 04/23/24 1235 Normal [facility] ECG 12 lead ECG [facility] Main [place] [id number] Electrocardiograph Report Signed Patient: Sean Malone MR#: [id number] : 1995 Acct:[id number] Age/Sex: 29 / M ADM Date: 04/23/24 Loc: Room: [address] [place] [address] Type: DIS INOo Attending Dr: Rani Delong MD Ordering Provider: Rani Delong MD Date of Service: 04/23/2410/16/530 ECG/ECG 12 lead ECG: rhythm check Copies to: Test Reason : Blood Pressure : */* mmHG Vent. Rate : 77 BPM Atrial Rate : 77 BPM P-R Int : 136 ms QRS Dur : 88 ms QT Int : 344 ms P-R-T Axes : 30 66 58 degrees QTcB Int : 389 ms Normal sinus rhythm Minimal voltage criteria for LVH, may be normal variant ( Sokolow-Galarza ) St elevation likely early repolarization less likely STEMI; clinical correlation advised Borderline ECG No previous ECGs available Confirmed by Betty Tubbs ([id number]) on 04/28/2024 6:59:05 PM Referred By: Electronically Signed By: Betty Tubbs Transcribed By: MUS Signed By Betty Tubbs DO 4 1859 Normal [facility] ECH echo transthoracicon ECH echo transthoracic [facility] Main [address] [address] Echocardiogram Signed Patient: Sean Malone MR#: [id number] : 1995 Acct:[id number] Age/Sex: 29 / M ADM Date: 04/23/24 Loc: Room: [address] [place] [address] Type: ADM INOo Attending Dr: Rani Delong MD Ordering Provider: Matrin Phillip MD Date of Service: 04/23/2410/16/555 ECH/ECH echo transthoracic: Suspicion of acute pericarditis Copies to: MD Shana Ramires MD, [facility] BSA: 1.7 m2 BP: 111/72 mmHg HR: 81 Reason For Study: Suspicion of acute pericarditis History: Smoker. Interpretation Summary Ejection Fraction = 55-60%. The left ventricular size, thickness and function are normal The left ventricular wall motion is normal. There is no prior echocardiogram noted for this patient. Normal transthoracic echocardiogram. Procedure/Quality: A two-dimensional transthoracic echocardiogram with color flow and Doppler was performed. The study was technically good in quality. There is no prior echocardiogram noted for this patient. Left Ventricle: The left ventricular size, thickness and function are normal. Ejection Fraction = 55-60%. The left ventricular wall motion is normal. Left Atrium: The left atrium appears normal in size. The atrial septum appears normal. Right Atrium: The right atrium appears normal in size. Right Ventricle: The right ventricular size, thickness and function are normal. Aortic Valve: The aortic valve is normal in structure and function. No aortic regurgitation is present. Mitral Valve: The mitral valve is normal in structure and function. There is no mitral regurgitation noted. Tricuspid Valve: The tricuspid valve is normal in structure and function. No tricuspid regurgitation. Pulmonic Valve: The pulmonic valve is normal in structure and function. Arteries: The aortic root is normal size. Pericardium/Pleura: No pericardial effusion seen. There is no pleural effusion. IVC/Hepatic Veins: The inferior vena cava is normal in size, with a normal collapsibility index. Miscellaneous: No thrombus, vegetation or mass is seen. Measurements with Normals IVSd: 0.90 cm (0.7-1.1 cm)LVIDd: 4.2 cm (3.7-5.4 cm) LVPWd: 1.1 cm (0.7-1.1 cm)LVIDs: 3.3 cm (2.3-3.6 cm) LA dimension: 2.7 cm (2.3-4.0 cm)Ao root diam: 2.7 cm(2.0-3.6 cm) asc Aorta Diam: 2.6 cm(2.1-3.4cm) Doppler with Normals RVSP(TR): 28.3 mmHg (18-35mmHg) LV V1 max: 76.4 cm/sec (0.7-1.7m/s)MV E max jose de jesus: 71.6 cm/sec(0.8-1.3m/s) MV A max jose de jesus: 69.4 cm/sec(0.0-0.0m/s) MV E/A: 1.0 (<1.5) MMode/2D Measurements Calculations RVDd: 2.4 cm RV Base: 3.0 cm FS: 21.4 % Ao root area: TAPSE: 2.0 cm RV Mid: 2.2 cm EDV(Teich): 5.7 cm2 RV S Jose De Jesus: RV Length: 5.2 cm 78.6 ml 10.2 cm/sec ESV(Teich): 44.1 ml EF(Teich): 43.8 % __ LVOT diam: 2.0 cm LVLd ap4: 7.3 cm SV(MOD-sp4): LVOT area: 3.1 cm2 EDV(MOD-sp4): 28.0 ml 51.4 ml LVLs ap4: 6.0 cm ESV(MOD-sp4): 23.4 ml EF(MOD-sp4): 54.5 % Doppler Measurements Calculations MV dec time: MV V2 max: E/E' lat: 6.3 MV dec slope: 0.21 sec 71.1 cm/sec E/E' med: 5.3 340.0 cm/sec2 MV max P.0 mmHg MV V2 mean: 48.6 cm/sec MV mean P.0 mmHg MV V2 VTI: 19.5 cm MVA(VTI): 2.4 cm2 __ Ao V2 max: LV V1 max PG: TV max PG: TR max jose de jesus: 102.0 cm/sec 2.3 mmHg 20.0 mmHg 225.0 cm/sec Ao max P.2 mmHg LV V1 mean PG: TR max P.3 mmHg Ao mean P.0 mmHg RAP systole: 8.0 mmHg 2.0 mmHg LV V1 mean: Ao V2 mean: 55.9 cm/sec 74.9 cm/sec LV V1 VTI: 14.6 cm Ao V2 VTI: 18.7 cm RAFAELA(I,D): 2.5 cm2 RAFAELA(V,D): 2.4 cm2 Transcribed By: SCYolis Performed At: 04/23/24 0931 Signed By: Shana Worley MD, [facility] 04/23/24 1639 Normal [facility] Erythrocyte Sedimentation Ra tereza 04-23-2024 ESR (Bld) [Velocity] 4 mm/h Normal 0-14 [facility] Comment on above: Result Comment: PERF ORMED BY: [place] [address] PATHOLOGIST [employer] CHIEF DANA GRIJALVA M.D. Performed By: #### H S TROP, A1C WTH eA #### [address] Erythrocyte sedimentation ra te by Photometric methodOrdered By: Martin Phillip on 04-23-2024 ESR Photometric method (Bld) [Velocity] 4 mm/hr 0-14 [facility] Glucose mean value [Mass/vol ume] in Blood Estimated from glycated hemoglobinOrdered By: Martin Phillip on 04-23-2024 Average glucose Estimated from glycated hemoglobin (Bld) [Mass/Vol] 114 mg/dL [facility] Hemoglobin A1c percentageOrd ered By: Martin Phillip on 04-23-2024 HbA1c (Bld) [Mass fraction] 5.6 % Normal 4.3-5.6 [facility] Comment on above: Increased risk for d iabetes: 5.7 - 6.4diabetes: >6.4glycemic control for adults with diabetes: <7.0 Result Comment: Incr eased risk for diabetes: 5.7 - 6.4 diabetes: >6.4 glycemic control for adults with diabetes: <7.0 Performed By: #### H S TROP, A1C WT eA #### [facility] [address] Lipid Panelon 04-23-2024 LDL Cholesterol,Calculated 57 mg/dL Normal 0-100 [facility] Comment on above: Result Comment: LDL ATP III CLASSIFICATION LDL less than 100 mg/dL Optimal LDL 100-129 mg/dL Near or above optimal LDL 130-159 mg/dL Borderline high LDL 160-189 mg/dL High LDL greater than 189 mg/dL Very high Performed By: #### H S TROP, A1C WT eA #### [facility] [address] Triglyceride w/Reflex 44 mg/dL Normal 0-149 [facility] Comment on above: Result Comment: TRIG ATP III CLASSIFICATION TRIG less than 150 mg/dL Normal TRIG 150-199 mg/dL Borderline high TRIG 200-500 mg/dL High TRIG greater than 500 mg/dL Very high Standard traceable to the Center for Disease Conrtrol and Prevention (CDC) test method. Performed By: #### H S TROP, [address] eA #### [facility] [address] VLDL CHOLESTEROL 8 mg/dL Normal [facility] Comment on above: Performed By: #### H S TROP, [facility] WT eA #### [facility] [address] [place] [id number] [facility] Magnesium [Mass/volume] in S casey or PlasmaOrdered By: Martin Phillip on 04-23-2024 Magnesium [Mass/Vol] 1.8 mg/dL Low 1.9-2.7 [facility] Comment on above: Performed By: #### H S TROP, A1C WT eA #### [facility] [address] Opiates [Presence] in Urine by Screen methodOrdered By: Martin Phillip on 04-23-2024 Opiates Screen Ql (U) Positive High Negative [facility] Phencyclidine Screen Ql (U)O rdered By: Martin Phillip on 04-23-2024 Phencyclidine Ql (U) Negative Negative [facility] Phosphate [Mass/volume] in S casey or PlasmaOrdered By: Martin Phillip on 04-23-2024 Phosphate [Mass/Vol] 4.0 mg/dL Normal 2.5-4.5 [facility] Comment on above: Performed By: #### H Anette ALMONTE, A1C WT eA #### [facility] [address] Serum or plasma high density lipoprotein (HDL) cholesterol measurementOrdered By: Martin Phillip on 04-23-2024 Cholesterol in HDL [Mass/Vol] 58 mg/dL Normal 23-92 [facility] Comment on above: HDL CHOL ATP-III CLA SSIFICATION Cardiovascular RiskHDL > or equal to 60 mg/dL LOWHDL < 40 mg/dL HIGH Result Comment: HDL CHOL ATP-III CLASSIFICATION Cardiovascular Risk HDL > or equal to 60 mg/dL LOW HDL < 40 mg/dL HIGH Performed By: #### H Anette ALMONTE, A1C WT eA #### [facility] [address] Serum or plasma total choles terol/high density lipoprotein (HDL) cholesterol mass ratOrdered By: Martin Phillip on 04-23-2024 Cholesterol.total/Krystyna sterol in HDL [Mass ratio] 2.1 {ratio} Normal <5.0 [facility] Comment on above: Result Comment: PERF ORMED BY: [place] [address] PATHOLOGIST [employer] CHIEF DANA GRIJALVA M.D. Performed By: #### H Anette ALMONTE, [facility] WT eA #### [address] Triglyceride [Mass/volume] i n Serum or PlasmaOrdered By: Martin Phillip on 04-23-2024 Triglyceride [Mass/Vol] 44 mg/dL 0-149 [facility] Comment on above: TRIG ATP III CLASSIF ICATIONTRIG less than 150 mg/dL NormalTRIG 150-199 mg/dL Borderline highTRIG 200-500 mg/dL High TRIG greater than 500 mg/dL Very highStandard traceable to the Center for Disease Conrtrol and Prevention (CDC) test method. Troponin I High Sensitivityo n 04-23-2024 Troponin I High Sensitivity 3.2 pg/mL Normal 0.0-20.0 [facility] Comment on above: Result Comment: PERF ORMED BY: [facility] [address] [place] [address] PATHOLOGIST [employer] CHIEF DANA GRIJALVA M.D. Performed By: #### H S TROP, A1C WTH eA #### [facility] [address] [place] [id number] [facility] Troponin I.cardiac [Mass/vol ume] in Serum or Plasma by Detection limit <= 0.01 ng/Ordered By: Martin Phillip on 04-23-2024 Troponin I.cardiac DL <= 0.01 ng/mL [Mass/Vol] 3.2 pg/mL 0.0-20.0 [facility] COVID Quick Testingon 2021 Result Negative [facility] Other Vital Signs Date Time Vital Sign Value Performing Clinician Facility 04-24-2024 11:31-0400 Body temperature 98.6 [degF] MD Martin Phillip Work Phone: [facility] 04-24-2024 11:31-0400 Diastolic blood pressure 78 mm[Hg] MD Martin Phillip Work Phone: [facility] 04-24-2024 11:31-0400 Heart rate 88 /min MD Martin Phillip Work Phone: [facility] 04-24-2024 11:31-0400 Respiratory rate 16 /min MD Martin Phillip Work Phone: [facility] 04-24-2024 11:31-0400 SaO2% (BldA) [Mass fraction] 100 % MD Martin Phillip Work Phone: [facility] 04-24-2024 11:31-0400 Systolic blood pressure 121 mm[Hg] MD Martin Phillip Work Phone: [facility] 04-24-2024 06:00-0400 Body weight 60.4 kg MD Martin Phillip Work Phone: [facility] 04-23-2024 13:32-0400 Body height 170.18 cm MD Martin Phillip Work Phone: [facility] 11-01-2023 10:48-0500 Body mass index (BMI) [Ratio] 21.77 kg/m2 Grisel Hemmer PA Work Phone: [facility] [email or web address] 11-01-2023 10:48-0500 Body weight 63.05 kg Grisel Hemmer PA Work Phone: [facility] 11-01-2023 10:48-0500 Diastolic blood pressure 68 mm[Hg] Grisel Hemmer PA Work Phone: [facility] 11-01-2023 10:48-0500 Heart rate 83 /min Grisel Hemmer PA Work Phone: [facility] [email or web address] 11-01-2023 10:48-0500 SaO2% (BldA) [Mass fraction] 94 % Grisel Hemmer PA Work Phone: [facility] [email or web address] 11-01-2023 10:48-0500 Systolic blood pressure 112 mm[Hg] Grisel Hemmer PA Work Phone: [facility] [email or web address] 11-02-2021 14:30-0500 Body height 170.18 cm Elizabeth Milton Other [facility] Other 11-02-2021 14:30-0500 Body mass index (BMI) [Ratio] 21.92 kg/m2 Elizabeth Milton Other [facility] Other 11-02-2021 14:30-0500 Body temperature 98.7 [degF] Elizabeth Milton Other [facility] Other 11-02-2021 14:30-0500 Body weight 63.5 kg Elizabeth Milton Other [facility] Other 11-02-2021 14:30-0500 Respiratory rate 21 /min Elizabeth Milton Other [facility] Other 11-02-2021 14:30-0500 SaO2% (BldA) [Mass fraction] 98 % Elizabeth Milton Other [facility] Other Encounters Encounter Date Encounter Type Care Provider Facility Start: 06-01-2024 End: 06-01-2024 ambulatory GRISEL KHAN Not Available Start: 04-30-2024 End: 04-30-2024 ambulatory GRISEL KHAN Not Available Start: 04-23-2024 Non-patient / Non-visit MD Ronnie Phillip Work Phone: [facility] Work Phone: Start: 04-23-2024 End: 04-24-2024 Evaluation and management of inpatient MD Martin Phillip Work Phone: [facility] Work Phone: Start: 04-23-2024 End: 04-24-2024 observation encounter MD Martin Phillip Work Phone: [facility] Work Phone: Start: 04-23-2024 End: 04-24-2024 ambulatory Fabiola Mischler Facility:[facility] Start: 11-01-2023 End: 11-01-2023 Office outpatient visit 25 minutes Grisel Khan PA Work Phone: [facility] Comment on above: Chronic pain of left knee (Primary Dx); Chronic pain of right knee; Chronic pain of left hand Start: 11-01-2023 End: 11-01-2023 ambulatory GRISEL KHAN Not Available Start: 10-31-2023 Chart abstracting Grisel Abel er PA Work Phone: [facility] Start: 10-24-2023 End: 10-24-2023 ambulatory GRISEL KHAN Not Available Start: 08-17-2022 End: 08-17-2022 ambulatory RA REHMAN Facility: Start: 11-02-2021 End: 11-02-2021 ambulatory Elizabeth Karine Other [employer] Other Start: 11-02-2021 Office outpatient vi sit 15 minutes Elizabeth Milton [facility] Plan of Treatment Date Care Activity Detail Author Start: 05-02-2024 [facility] Start: 05-01-2024 [facility] Start: 04-30-2024 [facility] Start: 04-29-2024 [facility] Start: 04-28-2024 [facility] Start: 04-27-2024 [facility] Start: 04-26-2024 [facility] Start: 04-25-2024 [facility] Start: 04-24-2024 [facility] Start: 04-23-2024 Hospital admission [facility] Start: 04-23-2024 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 [facility] Start: 04-23-2024 [facility] Start: 11-01-2023 End: 11-01-2024 XR Knee - bilateral AP W standing XR knees anteroposterior standing bilateral Imaging Routine Chronic pain of left knee Chronic pain of right knee Expected: 11/01/2023, Expires: 11/01/2024 [facility] [email or web address] Work Phone: Comment on above: Expected: 11/01/2023 , Expires: 11/01/2024 Start: 11-01-2023 End: 11-01-2024 XR Knee - left 4 Views XR knee 4+ views left Imaging Routine Chronic pain of left knee Expected: 11/01/2023, Expires: 11/01/2024 [facility] [email or web address] Comment on above: Expected: 11/01/2023 , Expires: 11/01/2024 Start: 11-01-2023 End: 11-01-2024 XR Knee - right 4 Views XR knee 4+ views right Imaging Routine Chronic pain of right knee Expected: 11/01/2023, Expires: 11/01/2024 [facility] Comment on above: Expected: 11/01/2023 , Expires: 11/01/2024 Start: 11-01-2023 End: 11-01-2023 Patient encounter procedure 11/01/2023 11:00 AM EST Office Visit [facility] [address] [facility] [address] [place] [phone] Grisel Khan PA [address] [facility] [address] [place] [address] [facility] Start: 05-24-2023 Influenza vaccination Influenza Vacc ine (#1) [facility] Cefuroxime free [Mass/volume] in Serum or Plasma [facility] Patient Education Pericarditis, Adult (DC) Know your Meds [facility] Work Phone: Patient referral [facility] Work Phone: Payers Date Payer Category Payer Self-pay [id number] 2023 Medicaid [facility] [employer] [place] [id number] 2023-Present [address] [place] [address] [id number] 2023 Medicaid [id number] 1993 Unknown [id number] 1993 Unknown [id number] 1993 Unknown [id number] 1993 Unknown [id number] 1993 Unknown [id number] 1959 Unknown [id number] Unknown [facility] [id number] Unknown Regular Insurance [id number] Unknown HCAP/HFA/FAP Active [id number] Unknown [id number] Social History Date Type Detail Facility Start: 10-24-2023 End: 11-01-2023 Sex Assigned At [facility] [employer] Other Start: 04-19-[address] [facility] Smokes tobacco daily [facility] Start: 04-19-2006 History of tobacco use [...] At Not on file N [facility] Start: 04-23-[address] [facility] Smoker (finding) [facility] Start: 1995 Sex Assigned At Male F [facility] Functional Status Date Assessment Result Facility 04-24-2024 Functional status Patient at Baseline [facility] Work Phone: Mental Status Date Assessment Result Facility 04-24-2024 Cognitive function Cognitive Sta tus Patient at Baseline [facility] Work Phone: Discharge summary 04-24-2024 Note Date & Type Note Facility 04-24-2024 Discharge summary Note Date/Time April 24, 2024 12:47pm [facility] [address] [place] [address] Discharge Summary Signed Patient: Sean Malone MR#: [id number] : 1995 Acct:[id number] Age/Sex: 29 / M Adm Date: 4 Loc: Room: [address] [place] [address]: Rani Delong MD Copies to: SPENCER Ivey MD~ Providers Date of Discharge: 04/24/24 Discharging Provider: Rani Delong Primary Care Provider: Grisel Khan Consults: 04/23/24 05:51 Consult to Cardiology Routine Comment: Consulting Provider: [facility] - Cardiology Reason For Exam: Acute pericarditis Has Provider Been Notified: Yes Date of Notification: 04/23/24 Time of Notification: 07:36 Discharge Diagnosis (1) Acute pericarditis: (2) Tobacco use disorder: (3) Marijuana use: Final Diagnosis Final Discharge Diagnosis: as above Summary Hospital Course Hospital course: Mr. Malone is a 29 year old male with history of tobacco and marijuana use but nosignificant medical history who presented with 1 day history of severe chest pain. Pt states he was in his usual state of health when he developed constant pleuritic chest pain that worsened with laying flat associated with dyspnea. He denied fevers/chills or flu like illness prior to symptoms. He had a wisdom tooth pulled out last week but denied fevers following the procedure. He did notreceive antibiotics. He smokes 1/2 PPD tobacco and marijuana daily but denies illicit drug use. Denies recent weight loss/appetite changes. No family history of lupus. EKG was consistent with diffuse ST elevations with TX depression in aVR consistent with pericarditis. Labs were significant for elevated CRP; normaltroponin; mildly elevated WBC. UDS was positive for opiates (took tramadol for pain) & marijuana. Patient was monitored in the hospital and started on colchicine and ibuprofen with significant improvement and complete resolution ofhis chest pain. Cardiology was consulted, echocardiogram was done which appearsnormal. Recommendation to continue to maintain colchicine for 3 months and ibuprofen for 2 weeks, patient also been initiated on Protonix daily for 2 weekswhile on high-dose NSAIDs, and NATALIE screening still pending at this time. This event could be related to his dental procedure since patient reported some swelling in his mouth and possible infection however he did not receive antibiotics. As of today, patient remained chest pain-free, hemodynamically appears stable, counseled on smoking cessation, patient is feeling much better and back to baseline. Discussed with patient bedside, all question answered, patient is comfortable in agreement with discharge plan at this time. Time spent discussing smoking cessation with patient: 3 to 10 minutes Condition Condition at Discharge: Stable Time Spent with Patient Time spent providing/coordinating discharge services (# min): 32 Discharge Plan Discharge Plan Patient Disposition: Home Activity: No Activity Restriction Diet: Regular Instructions: Pericarditis, Adult (DC), Know your Meds Stand Alone Forms: Work/School Release Form Prescriptions: New ibuprofen 800 mg Tablet 800 mg PO TID 14 Days Qty: 42 0RF pantoprazole 40 mg Tablet,Delayed Release (Dr/Ec) 40 mg PO DAILY 14 Days Qty: 14 0RF colchicine 0.6 mg Tablet 0.6 mg PO BID 30 Days Qty: 60 2RF Continued diphenhydramine HCl [Benadryl] 25 mg capsule 50 mg PO Q6H PRN (Reason: allergic reaction) Qty: 30 0RF Rx Instructions: until resolution of severe allergic reaction fluocinonide 0.1 % cream 1 applic TOPICAL BID PRN (Reason: rash) Qty: 30 0RF Held famotidine [Pepcid] 20 mg tablet 20 mg PO BID Qty: 20 0RF Hold Instructions: Hold while taking protonix since its also antiacid Follow Up: Grisel Khan NP-C [Primary Care Provider] - 04/30/24 9:30 am (You have been scheduled for a follow up appointment for the following date and time, please call to reschedule if needed.) Ashlee Moura MD [Active Staff] - 05/28/24 9:00 am Exam Physical Exam Vital Signs: Temp Pulse Resp BP Pulse Ox O2 Del Method 98.6 F 88 16 121/78 100 Room Air 04/24/24 11:31 04/24/24 11:31 04/24/24 11:31 04/24/24 11:31 04/24/24 11:31 04/24/24 11:31 Narrative: Const General: cooperative HEENT Normal oropharyngeal mucosa without any ulcers or exudates Eyes: Conjunctiva normal Pulmonary Auscultation: clear to auscultation , no crackles, no wheezes Cardiovascular Rate: normal rate Rhythm: regular rhythm Heart Sounds: S1 normal, S2 normal and no murmurs GI Inspection: non-distended Palpation: soft, not firm and nontender. No rigidity or rebound. Deferred Neuro General: alert, awake and oriented x3. No obvious new focal deficit Musculoskeletal: normal range of motion Extrem General: no cyanosis, no pedal edema Psych Appearance: appropriate affect. Grossly normal Diagnostic Studies Completed and Pending Studies Pending studies at discharge: 04/23/24 14:41 NATALIE with Reflex Routine 04/25/24 05:00 Complete Blood Count Auto Diff IN AM 04/26/24 05:00 Complete Blood Count Auto Diff IN AM 04/27/24 05:00 Complete Blood Count Auto Diff IN AM 04/28/24 05:00 Complete Blood Count Auto Diff IN AM 04/29/24 05:00 Complete Blood Count Auto Diff IN AM 04/30/24 05:00 Complete Blood Count Auto Diff IN AM 05/01/24 05:00 Complete Blood Count Auto Diff IN AM 05/02/24 05:00 Complete Blood Count Auto Diff IN AM Labs on day of discharge: 04/24/24 05:03: Corrected WBC 7.9, Uncorrected WBC Count 7.9, RBC 4.42, Hgb 14.3, Hct 42.4, MCV 96.1, MCH 32.4, MCHC 33.7, RDW 14.5, Plt Count 230, MPV 8.2,Neut % (Auto) 40.6, Lymph % (Auto) 38.7, [place] % (Auto) 16.2, Eos % (Auto) 3.8, Baso % (Auto) 0.7, Nucleat RBC Rel Count 0.2, Neut # (Auto) 3.2, Lymph # (Auto) 3.1, [place] # (Auto) 1.3 H, Eos # (Auto) 0.3, Baso # (Auto) 0.1, PHA Creatinine Clear 125.20, Sodium 141, Potassium 4.1, Chloride 106, Carbon Dioxide 29.7, Anion Gap 9.4, BUN 10, Creatinine 0.74, Est GFR (CKD-EPI) > 60.0, Glucose 83, Calcium 9.7, Total Bilirubin 1.3 H, AST 15, ALT 9, Alkaline Phosphatase 61, Total Protein 7.1, Albumin 4.4, Globulin 2.7, Albumin/Globulin Ratio 1.6 Documented By: Rani Delong MD 04/24/24 12 44 Signed By: <Electronically signed by Rani Delong MD> 04/24/24 [id number] [facility] Work Phone: Progress note 04-24-2024 Note Date & Type Note Facility 04-24-2024 Progress note Note Date/Time April 24, 2024 12:28pm [facility] [address] [place] [address] Cardiology Progress Note Signed Patient: Sean Malone MR#: [id number] : 1995 Acct:[id number] Age/Sex: 29 / M Adm Date: 4 Loc: Room: [address] [place] [address] Type: ADM INOo Attending Dr: Rani Delong MD Copies to: ~ Date of Service: 04/24/2024 Subjective Interval history: Mr. Malone is a 29 year old male with history of tobacco and marijuana use but nosignificant medical history who presented with 1 day history of severe chest pain. Pt states he was in his usual state of health when he developed constant pleuritic chest pain that worsened with laying flat associated with dyspnea. He denied fevers/chills or flu like illness prior to symptoms. He had a wisdom tooth pulled out last week but denied fevers following the procedure. He did notreceive antibiotics. He smokes 1/2 PPD tobacco and marijuana daily but denies illicit drug use. Denies recent weight loss/appetite changes. No family history of lupus. EKG was consistent with diffuse ST elevations with TX depression in aVR consistent with pericarditis. Labs were significant for elevated CRP; normal troponin; mildly elevated WBC. UDS was positive for opiates (took tramadol for pain) & marijuana. He was started on colchicine and Ibuprofen. Interim evaluation 04/24/2024: No acute events overnight. Doing well this am. Chest pain has resolved. He has ambulated in the room with no issues. Denies dyspnea, palpitations or light headedness. Afebrile; WBC down to normal. Exam Physical Exam Vital Signs: Temp Pulse Resp BP Pulse Ox O2 Del Method 98.6 F 88 16 121/78 100 Room Air 04/24/24 11:31 04/24/24 11:31 04/24/24 11:31 04/24/24 11:31 04/24/24 11:31 04/24/24 11:31 Narrative: GEN: AAOx3. No acute distress. Neck: No JVD. Lungs: Clear to auscultation bilaterally Heart: Regular rate and rhythm. Normal S1 and S2. No murmurs or rubs appreciated. Abdomen: Soft, nontender, nondistended, bowel sounds present. Extremities: No BLE edema. Neuro: AAOx3. No focal deficits. Objective Labs 04/24/24 05:03 04/24/24 05:03 Labs: Laboratory Results - last 24 hr 04/24/24 05:03 Corrected WBC 7.9 Uncorrected WBC Count 7.9 RBC 4.42 Hgb 14.3 Hct 42.4 MCV 96.1 MCH 32.4 MCHC 33.7 RDW 14.5 Plt Count 230 MPV 8.2 Neut % (Auto) 40.6 Lymph % (Auto) 38.7 [place] % (Auto) 16.2 Eos % (Auto) 3.8 Baso % (Auto) 0.7 Nucleat RBC Rel Count 0.2 Neut # (Auto) 3.2 Lymph # (Auto) 3.1 [place] # (Auto) 1.3 H Eos # (Auto) 0.3 Baso # (Auto) 0.1 PHA Creatinine Clear 125.20 Sodium 141 Potassium 4.1 Chloride 106 Carbon Dioxide 29.7 Anion Gap 9.4 BUN 10 Creatinine 0.74 Est GFR (CKD-EPI) > 60.0 Glucose 83 Calcium 9.7 Total Bilirubin 1.3 H AST 15 ALT 9 Alkaline Phosphatase 61 Total Protein 7.1 Albumin 4.4 Globulin 2.7 Albumin/Globulin Ratio 1.6 A&P - Cardiology (1) Acute pericarditis: Code(s): I30.9 - Acute pericarditis, unspecified (2) Tobacco use disorder: Code(s): F17.200 - Nicotine dependence, unspecified, uncomplicated (3) Marijuana use: Code(s): F12.90 - Cannabis use, unspecified, uncomplicated Plan Assessment: Acute pericarditis. Unclear etiology Tobacco and marijuana use disorder Plan: - ECHO showed Normal LVEF 60-65% with normal wall motion. No pericardial effusion. - Symptoms have significantly improved with Ibuprofen and colchicine. Continue medical therapy: Colchicine 0.6mg BID for 3 months and Ibuprofen 800mg TID for 2weeks. - Protonix 40mg daily for 2 weeks while on high dose NSAIDS - NAATLIE screening sent and pending. Will follow results as outpatient. - Discussed importance of compliance with medication to prevent recurrent pericarditis. - Advised on tobacco cessation - OK to discharge today. Follow up with [facility] in 4 weeks. Documented By: Ashlee Moura MD 04/24/24 1223 Signed By: <Electronically signed by Ashlee Moura MD> 04/24/24 1228 [facility] Work Phone: Consult note 04-23-2024 Note Date & Type Note Facility 04-23-2024 Consult note Note Date/Time April 23, 2024 2:1 8pm [facility] [address] [place] [address] Cardiology Consult Note Signed Patient: Sean Malone MR#: [id number] : 1995 Acct:[id number] Age/Sex: 29 / M Adm Date: 4 Loc: Room: [address] [place] [address] Type: ADM INOo Attending Dr: Rani Delong MD Copies to: SPENCER Ivey MD Obaydah M Daromar, MD~ Cardiology HPI History of Present Illness Consult Date: 04/23/24 Reason for Consult: Acute pericarditis HPI: Mr. Malone is a 29 year old male with history of tobacco and marijuana use but nosignificant medical history who presented with 1 day history of severe chest pain. Pt states he was in his usual state of health when he developed constant pleuritic chest pain that worsened with laying flat associated with dyspnea. He denied fevers/chills or flu like illness prior to symptoms. He had a wisdom tooth pulled out last week but denied fevers following the procedure. He did notreceive antibiotics. He smokes 1/2 PPD tobacco and marijuana daily but denies illicit drug use. Denies recent weight loss/appetite changes. No family history of lupus. EKG was consistent with diffuse ST elevations with TX depression in aVR consistent with pericarditis. Labs were significant for elevated CRP; normal troponin; mildly elevated WBC. UDS was positive for opiates (took tramadol for pain) & marijuana. He was started on colchicine and Ibuprofen. Review of Systems Review of Systems All other systems reviewed & are negative unless noted below or in HPI [facility] Medical History (Updated 04/23/24 @ 15:01 by Ashlee Moura MD) No pertinent past medical history Surgical History (Updated 02/13/21 @ 01:58 by Sanjuanita Fuentes RN) No pertinent past surgical history Social History Smoking Status: Current every day smoker Tobacco Type: cigarettes Substance Use Type: Marijuana Meds Medications and Allergies Allergies No Known Allergies Allergy (Verified 02/13/21 01:58) Home Medications diphenhydramine HCl 25 mg capsule (Benadryl) 50 mg (2 x 25 mg) PO Q6H PRN allergic reaction #30 caps 05/27/18 [Rx] famotidine 20 mg tablet (Pepcid) 20 mg PO BID #20 tabs 05/27/18 [Rx] fluocinonide 0.1 % topical cream 1 applic topical BID PRN rash #30 grams 05/27/18 [Rx] Exam Physical Exam Vital Signs: Temp Pulse Resp BP Pulse Ox O2 Del Method 98.4 F 81 16 115/75 98 Room Air 04/23/24 11:41 04/23/24 11:41 04/23/24 11:41 04/23/24 11:41 04/23/24 11:41 04/23/24 12:00 Narrative: GEN: AAOx3. No acute distress. Neck: No JVD. Lungs: Clear to auscultation bilaterally Heart: Regular rate and rhythm. Normal S1 and S2. No murmurs or rubs appreciated. Abdomen: Soft, nontender, nondistended, bowel sounds present. Extremities: No BLE edema. Neuro: AAOx3. No focal deficits. Results - Cardiology Labs 04/23/24 07:24 04/23/24 07:24 Lab results: Cardiac Enzymes 04/23/24 Range/Units 07:24 AST 15 (13-39) U/L Lipids 04/23/24 Range/Units 07:24 Triglycerides 44 (0-149) mg/dL Cholesterol 124 L (140-200) mg/dL HDL Cholesterol 58 (23-92) mg/dL Cholesterol/HDL Ratio 2.1 (<5.0) CBC 04/23/24 Range/Units 07:24 RBC 4.01 (3.90-5.60) X10E6/uL Hgb 12.9 L (13.0-17.0) g/dL Hct 38.7 L (38.8-50.0) % Plt Count 202 (150-450) x10E3/uL Neut # (Auto) 7.1 (1.8-7.7) x10E3/uL Lymph # (Auto) 3.3 (1.00-4.8) x10E3/uL [place] # (Auto) 1.6 H (0.0-0.8) x10E3/uL Eos # (Auto) 0.1 (0.0-0.45) x10E3/uL Baso # (Auto) 0.1 (0.0-0.2) x10E3/uL Comprehensive Metabolic Panel 04/23/24 Range/Units 07:24 Sodium 139 (136-145) mmol/L Potassium 3.4 L (3.5-5.1) mmol/L Chloride 106 (98-107) mmol/L Carbon Dioxide 28.5 (21.0-31.0) mmol/L BUN 7 (7-25) mg/dL Creatinine 0.78 (0.70-1.30) mg/dL Glucose 97 (70-100) mg/dL Calcium 8.9 (8.6-10.3) mg/dL AST 15 (13-39) U/L ALT 8 (7-52) U/L Alkaline Phosphatase 60 (34-104) U/L Total Protein 6.4 (6.4-8.9) gm/dL Albumin 4.1 (3.5-5.7) gm/dL Intake and Output 04/22/24 04/23/24 04/23/24 23:59 07:59 15:59 Intake Total 0 / 0 Output Total 0 / 0 Balance 0 / 0 Intake: Oral 0 / 0 Output: Urine 0 / 0 Other: Weight 61.2 kg Patient Weight 04/23/24 23:59 Weight 61.2 kg A&P - Cardiology (1) Acute pericarditis: Code(s): I30.9 - Acute pericarditis, unspecified (2) Tobacco use disorder: Code(s): F17.200 - Nicotine dependence, unspecified, uncomplicated (3) Marijuana use: Code(s): F12.90 - Cannabis use, unspecified, uncomplicated Plan Assessment: Acute pericarditis. Unclear etiology Tobacco and marijuana use disorder Plan: - Reviewed ECHO completed today- Normal LVEF 60-65% with normal wall motion. No pericardial effusion. - Symptoms have significantly improved with Ibuprofen and colchicine. Continue medical therapy: Colchicine 0.6mg BID for 3 months and Ibuprofen 800mg TID for 2 weeks. - Protonix 40mg daily for 2 weeks while on high dose NSAIDS - NATALIE screening. - Discussed importance of compliance with medication to prevent recurrent pericarditis. - Advised on tobacco cessation - Plan for discharge tomorrow with [facility] cardiology follow up. Documented By: Ashlee Moura MD 04/23/24 1414 Signed By: <Electronically signed by Ashlee Moura MD> 04/23/24 4643 [facility] Work Phone: Progress note 04-23-2024 Note Date & Type Note Facility 04-23-2024 Progress note Note Date/Time April 23, 2024 12:54pm [facility] [address] [place] [address] Hospitalist Progress Note Signed Patient: Sean Malone MR#: [id number] : 1995 Acct:[id number] Age/Sex: 29 / M Adm Date: 4 Loc: Room: [address] [place] [address] Type: ADM INOo Attending Dr: Rani Delong MD Copies to: ~ Date of Service: 04/23/2024 Subjective Subjective Narrative: This is a 29-year-old male with no significant past medical history presented [facility] ED with main complaints of chest pressure like symptoms which started yesterday morning when he woke up and continued throughout the day gets worse with deep inspiration and with movement. Denies any history of hypertension, diabetes or dyslipidemia. Patient smokes half a pack of cigarettes a day. Denies any family history of heart disease. Denies any drug abuse. Patient also denies any recent viral syndrome. EKG done in [place] shows ST elevation in multiple leads with TX depression. Troponins at [place] was negative Interval history 04/23/2024: Patient was seen and evaluated at bedside. remained afebrile here, WBC 12.2. CRPof 3, ESR WNL. Patient denies any chest pain whatsoever after received Colchicine and ibuprofen here. He reports his chest pain started yesterday morning when he woke up. Reports recent dental procedure with his wisdom tooth removal, did not receive antibiotics at that time and reported some swelling in his oral cavity after dental procedure. Denies recent travel, denies family hx of heart disease , does not take any meds at home, smoker since he was 10 with half a pack a day. Cardiology been consulted. Exam Physical Exam Vital Signs: Temp Pulse Resp BP Pulse Ox O2 Del Method 98.4 F 81 16 115/75 98 Room Air 04/23/24 11:41 04/23/24 11:41 04/23/24 11:41 04/23/24 11:41 04/23/24 11:41 04/23/24 12:00 Narrative: Const General: cooperative HEENT Normal oropharyngeal mucosa without any ulcers or exudates Eyes: Conjunctiva normal Pulmonary Auscultation: clear to auscultation , no crackles, no wheezes Cardiovascular Rate: normal rate Rhythm: regular rhythm Heart Sounds: S1 normal, S2 normal and no murmurs GI Inspection: non-distended Palpation: soft, not firm and nontender. No rigidity or rebound. Deferred Neuro General: alert, awake and oriented x3. No obvious new focal deficit Musculoskeletal: normal range of motion Extrem General: no cyanosis, no pedal edema Psych Appearance: appropriate affect. Grossly normal Objective Lab Results 04/23/24 07:24 04/23/24 07:24 Meds Allergies and Active Meds Allergies No Known Allergies Allergy (Verified 02/13/21 01:58) Active Meds: Active Medications Generic Name Dose Route Start Last Admin Trade Name Freq PRN Reason Stop Dose Admin Acetaminophen 650 mg 04/23/24 05:51 Acetaminophen 325 Mg Tablet PO 04/23/25 05:50 Q6HR PRN Pain Scale 1 - 3 or fever Colchicine 1 mg 04/23/24 09:00 04/23/24 08:22 Colchicine 0.6 Mg Tablet PO 04/23/24 21:01 1 mg BID ELLIE Administration Ibuprofen 600 mg 04/23/24 12:00 04/23/24 11:42 Ibuprofen 600 Mg Tablet PO 04/23/25 11:59 600 mg Q6HR ELLIE Administration Sodium Chloride 0 ml 04/23/24 06:00 04/23/24 09:27 Sodium Chloride 0.9 % 10 Ml Syringe IV-PUSH 04/23/25 05:59 Not Given QSHIFT ELLIE A&P - Hospitalist Assessment/Plan (1) Chest pain: Plan Assessment-with chest pain worse with breathing and movement and EKG findings and no significant risk factors for coronary artery disease high suspicion for acute pericarditis Plan: - telemetry -Started on ibuprofen and colchicine for suspicion of acute pericarditis -Cardiology consulted. Further recs to follow - ESR WNL and CRP slightly elevated -pending echo Patient reports complete resolution of his chest pain with ibuprofen and colchicine, repeat EKG this morning showed diffuse ST elevation, clinically appears more consistent with acute pericarditis, likely precipitated by his recent dental procedure. Awaiting further input from cardiology to determine discharge plan. Discussed with patient at bedside, all questions answered. Documented By: Rani Delong MD 04/23/24 12 49 Signed By: <Electronically signed by Rani Delong MD> 04/23/24 9565 [facility] Work Phone: History and physical note 04-23-2024 Note Date & Type Note Facility 04-23-2024 History and physi avis note Note Date/Time April 23, 2024 6:11am [facility] [address] [place] [address] Hospitalist H&P Signed Patient: Sean Malone MR#: [id number] : 1995 Acct:[id number] Age/Sex: 29 / M Adm Date: 4 Loc: Room: [address] [place] [address] Type: ADM IN Attending Dr: Martin Phillip MD Copies to: MD Grisel Ramires PA-C~ HPI DATE OF EXAMINATION: 04/23/24 CHIEF COMPLAINT: Chest pain HISTORY OF PRESENT ILLNESS: This is a 29-year-old male with no significant past medical history presented [facility] ED with main complaints of chest pressure like symptoms which started yesterday morning when he woke up and continued throughout the day gets worse with deep inspiration and with movement. Denies any history of hypertension, diabetes or dyslipidemia. Patient smokes half a pack of cigarettes a day. Denies any family history of heart disease. Denies any drug abuse. Patient also denies any recent viral syndrome. EKG done in [place] shows ST elevation in multiple leads with TX depression. Troponins at [place] was negative Review of Systems Review of Systems All other systems reviewed & are negative unless noted below or in HPI [facility] Medical History (Updated 04/23/24 @ 06:08 by Martin Phillip MD) No pertinent past medical history Surgical History (Updated 02/13/21 @ 01:58 by Sanjuanita Fuentes RN) No pertinent past surgical history Social History Smoking Status: Current every day smoker Tobacco Type: cigarettes Substance Use Type: Marijuana Meds Medications and Allergies Allergies No Known Allergies Allergy (Verified 02/13/21 01:58) Home Medications diphenhydramine HCl 25 mg capsule (Benadryl) 50 mg (2 x 25 mg) PO Q6H PRN allergic reaction #30 caps 05/27/18 [Rx] famotidine 20 mg tablet (Pepcid) 20 mg PO BID #20 tabs 05/27/18 [Rx] fluocinonide 0.1 % topical cream 1 applic topical BID PRN rash #30 grams 05/27/18 [Rx] Exam Physical Exam Vital Signs: Temp Pulse Resp BP Pulse Ox O2 Del Method 98.4 F 84 18 132/86 100 Room Air 04/23/24 05:39 04/23/24 05:39 04/23/24 05:39 04/23/24 05:39 04/23/24 05:39 04/23/24 05:39 Narrative: General: Awake alert, no acute distress HEENT: head atraumatic, normocephalic, moist mucous membranes Neck: supple no masses, no lymphadenopathy CVS: regular rate and rhythm, no murmurs or gallops Respiratory: clear to auscultation bilaterally, no wheezing or crackles, symmetric expansion GI: soft, nondistended, obese, nontender, positive bowel sounds with no organomegaly Extremity: moves all extremities, no restrictions of movements, no calf tenderness Neuro: AOx3, CN II-VII intact. Moves all extremities in all planes of motion. Skin: dry, intact no rashes or lesions Assessment & Plan Assessment/Plan (1) Chest pain: Plan Assessment-with chest pain worse with breathing and movement and EKG findings and no significant risk factors for coronary artery disease high suspicion for acute pericarditis Plan: -Admit in the regular nursing floor -Continuous telemetry -Started on ibuprofen and colchicine for suspicion of acute pericarditis -Cardiology consulted -Follow-up ESR and CRP -Follow-up labs -Follow-up echo CODE STATUS-full code -DVT prophylaxis-not indicated IP vs OBS Justification Based on differential dx, clinical care plan, and risk of adverse events, if untreated, in my clinical judgement this patient requires an acute care setting as: OBSERVATION because of an expectation of an under 2 midnight stay. Estimated length of stay (# of days): 2 Documented By: Martin Phillip MD 04/23/24605 Signed By: <Electronically signed by Martin Phillip MD> 04/23/[address] [facility] Work Phone: History of Present illness Narrative 11-01-2023 ROSALINDA Ivey - 11/01/2023 11:00 AM EST Note Date & Type Note Facility 11-01-2023 History of Presen t illness Narrative Subjective Patient ID: Sean Malone is a 28 y.o. male who presents [...] fail to improve. documented in this encounter [facility] Healthcare Evaluation note 11-02-2021 Note Date & [...] Patient care instructions given in writting by [facility] At Home document. [facility] Other History general Narrative - Reported 09-23-2015 Note Date & Type Note Facility 09-23-2015 History general N arrative - Reported Type Hospitalization History [facility] [place] [facility] Other Evaluation note Note Date & Type Note Facility Evaluation note Diagnosis Chronic pain of left knee- Primary Chronic pain of right knee Chronic pain of left hand documented in this encounter [facility] Evaluation note Note Date & Type Note Facility Evaluation note Diagnosis Onset Date Acute pericarditis acute Chest pain acute Marijuana use acute Tobacco use disorder acute [facility] Work Phone: Summary Purpose Family History No Family History Records FoundNo Family History Records FoundNo Family History Records Found Advance Directives No Advanced Directives Records Found Advance Directive Response Recorded Date/ Time Advance Directives No March 28 8 2:48pm Chief Complaint and Reason for Visit Chief Complaint r/o pericarditis r/o pericarditis Reason for Visit Acute pericarditis Chest pain Marijuana use Tobacco use disorder Additional Source Comments REASON FOR VISIT (unrecogniz ed section and content) Reason Comments Knee Pain (unrecognized sect ion and content) No Status Records FoundNo Status Records FoundNo Status Records Found INFORMATION SOURCE (unrecogn ized section and content) DATE CREATED AUTHOR 08/21/2022 [facility] DATE CREATED AUTHOR AUTHOR'S ORGANIZ ATION 05/16/2024 [facility] DATE CREATED AUTHOR AUTHOR'S ORGANIZ ATION 06/01/2024 [facility] EPIC Care Teams (unrecognized sec tion and content) Team Status: Active Member Role Status Dates WANDA Landon Primary Care Provider Active Team Status: Inactive Member Role Status Dates Martin Phillip MD Admit Provider Active Start: 2023 End: April 24, 2024 WANDA Landon Primary Care Provider Active Start: April 23, 2024 End: April 24, 2024 Rani Delong MD Attending Provider Active Start: April 23, 2024 End: April 24, 2024 Fabiola Perdomo RN Other Provider Active Star t: April 23, 2024 End: April 24, 2024 Gilberto Sosa MD Other Provider Active Start: A ugust 2023 End: April 24, 2024 Mickey Long MD Other Provider Active Start: April 23, 2024 End: April 24, 2024 Ashlee Moura MD Other Provider Active Start: April 23, 2024 End: April 24, 2024 Betty Tubbs DO Other Provider Active Start: April 23, 2024 End: April 24, 2024 Team Status: Active Member Role Status Dates Martin Phillip MD Admit Provider Active Start: Micheline martines 2023 Grisel Khan NP-C Primary Care Provider Active Start: April 23, 2024 Rani Delong MD Other Provider Active Sta rt: April 23, 2024 Fabiola Perdomo RN Other Provider Active Star t: April 23, 2024 Gilberto Sosa MD Other Provider Active Start: A ugust 2023 Mickey Long MD Other Provider Active Start: April 23 Ashlee Moura MD Attending Provider, Other Provider Active Start: April 23, 2024 Betty Tubbs DO Other Provider Active Start: April 23, 2024 Goals (unrecognized section and content) Goals may be documented in a n alternate section FOR RECORDS PERTAINING TO PATIENTS WHO ARE [...] BE BASED ON THE PRIMARY CLINICAL RECORDS. [employer] provides no warranty or guarantee of the accuracy or completeness of information in this document.
--- NOTE | 2024-06-08 08:00 | CA_ITS ---
Patient Name: AMBROSIO MALONE MR#: [id number] : 1995 Exam Date: 06/08/2024 Ordering Doctor: DR JOSUE TELLEZ ECHOCARDIOGRAM REPORT PROCEDURE: CA ECHO DOPPLER COMPLETE INDICATIONS: Chest pain, pericarditis COMPARISON: None. DESCRIPTION: COMPLETE ECHOCARDIOGRAM Real-time transthoracic echocardiography with 2D, M-mode, spectral and color flow Doppler performed. QUALITY: Technical quality was good. LEFT VENTRICLE: Normal chamber size. Normal left ventricular wall thickness. LV EF: Global left ventricular systolic function is normal; visually estimated ejection fraction is 55%. No significant wall motion abnormalities DIASTOLIC: Normal diastolic function. ATRIAL SEPTUM: Visually appears intact. LEFT ATRIUM: Normal chamber size. RIGHT ATRIUM: Normal chamber size. RIGHT VENTRICLE: Normal chamber size. Normal right ventricular systolic function. TRICUSPID VALVE: Normal mobility and thickness. No stenosis with trivial regurgitation. MITRAL VALVE: Normal mobility and thickness. No evidence of mitral valve stenosis. There is no mitral annular calcification. Trivial mitral regurgitation. AORTIC VALVE: Normal trileaflet appearance. No visible sclerosis. Normal leaflet mobility. No evidence of aortic valve stenosis. No aortic regurgitation. AORTIC ROOT: Normal diameter and appearance. PULMONIC VALVE: Normal thickness and mobility. No stenosis. Trivial regurgitation. PERICARDIUM: No evidence of pericardial effusion. IVC: Not well visualized. CONCLUSION: 1. Global left ventricular systolic function is normal; visually estimated ejection fraction is 55% 2. Normal right ventricular size and systolic function 3. Normal diastolic function 4. The left atrium is normal in size 5. No significant valvular abnormalities 6. No pericardial effusion Adult Echocardiography Procedure Report Left Ventricle LVEDD (3.7 - 5.6 cm): 4.58 cm LVESD (2.2 - 4.0 cm): 3.55 cm LVIVS thickness (0.6 - 1.2 cm): 0.93 cm LVPW thickness (0.5 - 1.0 cm): 0.82 cm e': 0.16 m/s E - e': 3.58 LVOT Max Gradient: 2.64 mm[Hg] LVOT Area (cm2): 0.81 m/s Peak Velocity (LVOT): 0.81 m/s Mean Velocity (LVOT): 0.56 m/s LVOT Diameter 2.16 cm Left Atrium LA Volume Index (2D A2C): 32.00 ml/m2 Left Atrium Systolic Dimension: 2.50 cm Mitral Valve MV E to A Ratio: 0.84 Mitral Valve A-Wave Peak Velocity: 0.70 m/s Mitral Valve E-Wave Peak Velocity: 0.59 m/s Right Ventricle Aorta AO Root Diam: 3.00 cm Aortic Valve AoV Area (Peak Jose De Jesus): 3.37 cm2, 3.37 cm2 AoV Area (VTI): 3.25 cm2, 3.25 cm2 Peak Velocity(Antegrade Flow): 0.88 m/s Peak Gradient(Antegrade Flow): 3.13 mm[Hg] Mean Velocity(Antegrade Flow): 0.58 m/s Mean Gradient(Antegrade Flow): 1.60 mm[Hg] Velocity Time Integral: 18.64 cm Tricuspid Valve Pulmonic Valve Mean Gradient: 2.00 mm[Hg] Mean Velocity: 0.65 m/s Peak Velocity: 0.99 m/s, 0.95 m/s Peak Gradient: 3.59 mm[Hg], 3.92 mm[Hg] Right Atrium Right Atrium Systolic Pressure: 58.04 ml, 58.04 ml Dictated by: Guillermo Bishop M.D. on 06/08/2024 at 14:48 Approved by: Guillermo Bishop M.D. on 06/08/2024 at 14:51
== END 2024-06-08 07:44 | disposition home or self-care (01) ==
LOC: CARD 07:44
PROVIDERS: PCP Physician Assistant; Visit Provider Physician Assistant
DX: I49.8 Other specified cardiac arrhythmias (principal); I49.3 Ventricular premature depolarization; R07.89 Other chest pain; I30.9 Acute pericarditis, unspecified; I44.1 Atrioventricular block, second degree
CPT/HCPCS: 93306

== ENCOUNTER 2025-04-05 10:43 | Outpatient (OUT) | payer SELFPAY ==
--- OUTSIDE RECORDS SUMMARY | 2025-04-02 09:30 | XMS_ITS | Encounter Summary ---
Author Organization [facility] Address [address] [facility] [place] [address] Care Team Providers Care Building Supervisor Name Role Phone Meghann Moffett MD Primary Care Provider [phone] Reason for Visit * Reason Comments medication follow up Encounter Details Date Type Department Care Team (Late st Contact Info) Description 04/02/2025 9:30 AM EDT Office Visit [facility] [address] [facility] [address] [place] [address] Grisel Ching PA 112 [facility] 110 [place] [address] Chronic pain of left hand (Primary Dx); PVC's (premature ventricular contractions); Chronic pain of right knee; Tobacco dependence; Fall, initial encounter Social History Tobacco Use Types Packs/Day Years Used Date Smoking Tobacco: Every Day Cigarettes 0.5 19 Started: 04/19/2006 Smokeless Tobacco: Never Comments:6-10 cigs/day Alcohol Use Standard Drinks/Week Comments Yes 2 (1 standard drink = 0.6 oz pur e alcohol) Twisted Tea Sex and Gender Information Value Date Recorded Sex Assigned at Male 04/29/2024 10:27 AM EDT Legal Sex Male 9:44 PM EDT Gender Identity Male 04/29/2024 10:27 AM EDT Sexual Orientation Not on file documented as of this encounter Last Filed Vital Signs Vital Sign Reading Time Taken Comments Blood Pressure 96/72 04/02/2025 9:40 AM EDT Pulse 68 04/02/2025 9:40 AM EDT Temperature - - Respiratory Rate 16 04/02/2025 9:40 AM EDT Oxygen Saturation 98% 04/02/2025 9:40 AM EDT Inhaled Oxygen Concentration - - Weight 63 kg (139 lb) 04/02/2025 9:40 AM EDT Height 170.2 cm (5' 7 ) 04/02/2025 9:40 AM EDT Body Mass Index 21.77 04/02/2025 9:40 AM EDT documented in this encounter Progress Notes * ROSALINDA Ivey - 04/02/2025 9:30 AM EDT Images from the original note were not included. Subjective Patient ID: Sean Rodriguez is a 30 y.o. male who presents for hand pain. Sean is present today for follow chronic hand pain. Pt has chronic hand pain and is on Meloxicamand is working well for him. On had a fall in the street and hurt his right knee. Has had pain ever since then, feels he hyperextended his knee when he fell. It is swollen and the pain is on the inside of the knee. He has been taking tylenol, Ibuprofen and meloxicam all at the same time and does not help the pain. Was back up to 0.5 PPD smoking, but is back down to 4-5 a day. States he is going to counseling after his appointment today. States mood has been stable. Current Outpatient Medications on File Prior to Visit Medication Sig Dispense Refill escitalopram (Lexapro) 5 MG tablet Take 5 mg by mouth Daily hydrOXYzine pamoate (Vistaril) 50 MG capsule Take 50 mg by mouth every 6 (six) hours if needed for anxiety meloxicam (Mobic) 15 MG tablet Take 1 tablet (15 mg) by mouth Daily Take with food 30 tablet 5 metoprolol succinate XL (Toprol-XL) 25 MG 24 hr tablet Take 25 mg by mouth Daily Do not crush or chew. nicotine (Nicoderm, Step 3) 7 MG/24HR patch Place 1 patch on the skin Daily traZODone (Desyrel) 50 MG tablet Take 50 mg by mouth as needed at bedtime No current facility-administered medications on file prior to visit. I have reviewed and reconciled the history and medication list with the patient today. No Known Allergies Social History Tobacco Use Smoking status: Every Day Current packs/day: 0.25 Average packs/day: 0.5 packs/day for 19.0 years (9.3 ttl pk-yrs) Types: Cigarettes Start date: 04/19/2006 Smokeless tobacco: Never Tobacco comments: 6-10 cigs/day Vaping Use Vaping status: Unknown Substance Use Topics Alcohol use: Yes Alcohol/week: 2.0 standard drinks of alcohol Types: 2 Cans of beer per week Comment: Twisted Tea Drug use: Yes Types: Marijuana No family history on file. Past Medical History: Diagnosis Date Bipolar disorder, current episode manic without psychotic features ([facility]) 06/29/2024 History of being hospitalized 11/20/2024 Suicidal Ideations, Bipolar Disorder Pericarditis ([facility] 04/23/2024 Severe alcohol use disorder ([facility]) 06/29/2024 Past Surgical History: Procedure Laterality Date OTHER SURGICAL HISTORY 04/2019 laceration to left palm - 3 sutures Visit Vitals BP 96/72 Pulse 68 Resp 16 Ht 5' 7 Wt 139 lb SpO2 98% BMI 21.77 kg/m?? Smoking Status Every Day BSA 1.73 m?? Review of Systems Constitutional: Negative for chills, [...] rales. Musculoskeletal: General: No swelling. Right knee: Bony tenderness (Medially) and crepitus present. No swelling. Decreased range of motion(Limited at extremes). No LCL laxity, MCL laxity, ACL laxity or PCL laxity. Instability Tests: Anterior drawer test negative. Posterior drawer test negative. Medial Lencho test positive. Lateral Lencho test negative. Skin: General: Skin is warm and dry. Neurological: General: No focal deficit present. Mental Status: He is alert and oriented to person, place, and time. Gait: Gait abnormal (Antalgic, with limp). Psychiatric: Mood and Affect: Mood normal. Behavior: Behavior normal. Assessment/Plan Diagnoses and all orders for this visit: Chronic pain of left hand He can continue Meloxicam as needed, did remind pt to take it with food, and to not take it with other anti-inflammatories, ie Ibuprofen, due to risk of GI irritation/bleed. Ok to take Tylenol prn. PVC's (premature ventricular contractions) The patient is seeing a healthcare or medical for this condition, treatment is deferred to that specialist. Correspondence from that specialist and any available testing were reviewed during today's visit. Continue Toprol as prescribed. Chronic pain of right knee - XR knee 4+ views right; Future - predniSONE (Deltasone) 10 MG tablet; Take 1 tablet (10 mg) by mouth 3 (three) times a day for 3 days, THEN 1 tablet (10 mg) 2 (two) times a day for 3 days, THEN 1 tablet (10 mg) Daily for 3 days. Start Prednisone as prescribed, take with food. Hold Meloxicam while on the steroid. Will obtain x-rays for further evaluation. May need to consider MRI of the knee depending on x-ray results and response to steroid. RONAL wrap applied today. N/V status intact after placement. Tobacco dependence Discussed smoking cessation with the patient. Encouraged patient to continue to cut back and soon quit smoking. Health risks of smoking, and benefits of quitting reviewed with the patient. Fall, initial encounter - XR knee 4+ views right; Future Will notify pt of the x-ray results once received. He would like to get these done at [facility]. Follow up in about 6 months (around 10/03/2025) for Wellness. documented in this encounter Plan of Treatment Upcoming Encounters Date Type Department Care Team (Late st Contact Info) Description 10/04/2025 8:30 AM EST Office Visit [facility] 112 [facility] 110 [place] [address] Grisel Ching PA [address] [address] Scheduled Orders Name Type Priority Associated Diagnoses Orde r Schedule XR knee 4+ views right Imaging Routine Chronic pain of right knee Fall, initial encounter Expected: 04/02/2025, Expires: 04/02/2026 documented as of this encounter Visit Diagnoses Diagnosis Chronic pain of left hand- Primary PVC's (premature ventricular contractions) Other premature beats Chronic pain of right knee Tobacco dependence Tobacco use disorder Fall, initial encounter documented in this encounter Care Teams Building Supervisor Relationship Specialty Start Date End Date Meghann Moffett MD 112 [facility] 110 [place] [address] PCP - General Family Medicine 11/24/24 documented as of this encounter
--- OUTSIDE RECORDS SUMMARY | 2025-04-05 10:47 | XMS_ITS | Encounter Summary ---
Author Organization [facility] Address [address] [facility] [place] [address] Care Team Providers Care Pipe Organ Mechanic Name Role Phone Grisel Ching Primary Care Provider [phone] Meghann Moffett MD Primary Care Provider [phone] Encounter Details Date Type Department Care Team (Late st Contact Info) Description 11/05/2023 Orders Only [facility] [address] [facility] 110 [place] [phone] Grisel Ching PA [address] [facility] 110 [place] [address] Chronic pain of left knee; Chronic pain of right knee Social History Tobacco Use Types Packs/Day Years Used Date Smoking Tobacco: Every Day Cigarettes 0.5 19 Started: 04/19/2006 Smokeless Tobacco: Never Comments:6-10 cigs/day Alcohol Use Standard Drinks/Week Comments Not Currently 0 (1 standard drink = 0.6 oz pur e alcohol) Sex and Gender Information Value Date Recorded Sex Assigned at Male 04/29/2024 10:27 AM EDT Legal Sex Male 9:44 PM EDT Gender Identity Male 04/29/2024 10:27 AM EDT Sexual Orientation Not on file documented as of this encounter Plan of Treatment Upcoming Encounters Date Type Department Care Team (Late st Contact Info) Description 10/04/2025 8:30 AM EST Office Visit [facility] [address] [facility] [address] [place] [phone] Grisel Ching PA [address] [facility] 110 [place] [address] documented as of this encounter Visit Diagnoses Diagnosis Chronic pain of left knee Chronic pain of right knee documented in this encounter Care Teams Pipe Organ Mechanic Relationship Specialty Start Date End Date Grisel Ching PA 112 [facility] 110 [place], [place] [id number] PCP - General Family Medicine 06/26/24 11/23/24 Meghann Moffett MD 112 [facility] 110 [place] [address] PCP - General Family Medicine 11/24/24 documented as of this encounter
--- OUTSIDE RECORDS SUMMARY | 2025-04-05 10:47 | XMS_ITS | Encounter Summary ---
Author Organization [facility] Address [address] [facility] [place] [address] Care Team Providers Care Training Technician Name Role Phone Grisel Ching Primary Care Provider [phone] Meghann Moffett MD Primary Care Provider [phone] Encounter Details Date Type Department Care Team (Late Contact Info) Description 10/30/2023 Orders Only [facility] [address] [facility] 110 [place] [address] Grisel Ching PA [address] [facility] 110 [place] [address] Chronic pain of left hand Social History Tobacco Use Types Packs/Day Years [...] Encounters Date Type Department Care Team (Late Contact Info) Description 10/04/2025 8:30 AM EST Office Visit [facility] [address] [facility] 110 [place] [phone] Grisel Ching PA [address] [facility] 110 [place] [address] documented as of this encounter Visit Diagnoses Diagnosis Chronic pain of left hand documented in this encounter Care Teams Training Technician Relationship Specialty Start Date End Date Grisel Ching PA 112 [facility] 110 [place] [address] PCP - General Family Medicine 06/26/24 11/23/24 Meghann Moffett MD 112 [facility] 110 [place] [address] PCP - General Family Medicine 11/24/24 documented as of this encounter
--- OUTSIDE RECORDS SUMMARY | 2025-04-05 10:47 | XMS_ITS | Encounter Summary ---
Author Organization [facility] Address [address] [facility] [place] [address] Care Team Providers Care Pointing Machine Operator Name Role Phone Grisel Ching Primary Care Provider [phone] Meghann Moffett MD Primary Care Provider [phone] Encounter Details Date Type Department Care Team (Late st Contact Info) Description 11/05/2023 Orders Only [facility] [address] [facility] 110 [place] [address] A, Unknown Practice [address] [place], [place] [phone] Social History Tobacco Use Types Packs/Day Years [...] Visit [facility] [address] [facility] [address] [place] [address] Grisel Ching PA [address] [facility] [address] [place] [address] documented as of this encounter Procedures Procedure Name Priority Date/Time Associated Diagnosis Comments XR KNEES ANTEROPOSTERIOR STANDING BILATERAL Routine 11/05/2023 10:25 AM EST XR KNEE YURIY 4V OR > Routine 11/05/2023 1 0:22 AM EST documented in this encounter Results * XR knees anteroposterior standing bilateral (11/05/2023 10:25 AM EST) Anatomical Region Laterality Modality Lower Extremities, Knee Bilateral Radiogra phic Imaging us Unknown Practice A IMG XR PROCEDURES Final Resul t * XR KNEE YURIY 4V OR > (11/05/2023 10:22 AM EST) Anatomical Region Laterality Modality Radiographic Noris ging us Unknown Practice A IMG XR PROCEDURES Final Resul t documented in this encounter Visit Diagnoses Not on filedocumented in this encounter Care Teams Pointing Machine Operator Relationship Specialty Start Date End Date Grisel Ching PA [address] [address] PCP - General Family Medicine 06/26/24 11/23/24 Meghann Moffett MD 112 [facility] 110 [place] [address] PCP - General Family Medicine 11/24/24 documented as of this encounter
--- OUTSIDE RECORDS SUMMARY | 2025-04-05 10:47 | XMS_ITS | Encounter Summary ---
Author Organization [facility] Address [address] [facility] [place] [address] Care Team Providers Care Activity Manager Name Role Phone Grisel Ching Primary Care Provider [phone] Meghann Moffett MD Primary Care Provider [phone] Encounter Details Date Type Department Care Team (Late Contact Info) Description 04/23/2024 Abstract [facility] [address] [facility] 110 [place] [address] Unallocated, Noms Provider, [address] [place] [address] Social History Tobacco Use Types Packs/Day Years [...] Visit [facility] [address] [facility] 110 [place] [address] Grisel Ching PA 112 [place] [facility] 110 [place], [place] [phone] documented as of this encounter Visit Diagnoses Not on filedocumented in this encounter Care Teams Activity Manager Relationship Specialty Start Date End Date Grisel Ching PA [address] [place] [facility] 110 [place], [place] [id number] PCP - General Family Medicine 06/26/24 11/23/24 Meghann Moffett MD [address] [place] [facility] 110 [place] [address] PCP - General Family Medicine 11/24/24 documented as of this encounter
--- OUTSIDE RECORDS SUMMARY | 2025-04-05 10:47 | XMS_ITS | Encounter Summary ---
Author Organization [facility] Address [address] [facility] [place] [address] Care Team Providers Care Slab Conditioner Supervisor Name Role Phone Grisel Ching Primary Care Provider [phone] Meghann Moffett MD Primary Care Provider [phone] Encounter Details Date Type Department Care Team (Late Contact Info) Description 04/27/2024 Abstract [facility] [address] [facility] 110 [place] [phone] Grisel Ching PA 112 [facility] 110 [place] [address] Social History Tobacco Use Types Packs/Day Years [...] 10/04/2025 8:30 AM EST Office Visit [facility] [address] [facility] 110 [place] [phone] Grisel Ching PA 112 [facility] 110 [place] [address] documented as of this encounter Visit Diagnoses Not on filedocumented in this encounter Care Teams Slab Conditioner Supervisor Relationship Specialty Start Date End Date Grisel Ching PA 112 [facility] 110 [place], [place] [phone] PCP - General Family Medicine 06/26/24 11/23/24 Meghann Moffett MD 112 [facility] 110 [place] [address] PCP - General Family Medicine 11/24/24 documented as of this encounter
--- OUTSIDE RECORDS SUMMARY | 2025-04-05 10:47 | XMS_ITS | Encounter Summary ---
Author Organization [facility] Address [address] [facility] [place] [address] Care Team Providers Care State Tested Nursing Assistant Name Role Phone Meghann Moffett MD Primary Care Provider [phone] Encounter Details Date Type Department Care Team (Late st Contact Info) Description 04/02/2025 Bamboo flowsheet [facility] [address] [facility] [address] [place] [phone] Grisel Ching PA [address] [facility] 110 [place] [address] Social History Tobacco Use Types Packs/Day Years [...] Visit [facility] [address] [facility] 110 [place] [address] Grisel Ching PA [address] [facility] 110 [place] [address] documented as of this encounter Visit Diagnoses Not on filedocumented in this encounter Care Teams State Tested Nursing Assistant Relationship Specialty Start Date End Date Meghann Moffett MD 112 [place] [address] PCP - General Family Medicine 11/24/24 documented as of this encounter
--- OUTSIDE RECORDS SUMMARY | 2025-04-05 10:47 | XMS_ITS | Encounter Summary ---
Author Organization [facility] Address [address] [facility] [place] [address] Care Team Providers Care Conservator Artifacts Name Role Phone Meghann Moffett MD Primary Care Provider [phone] Encounter Details Date Type Department Care Team (Late Contact Info) Description 02/04/2025 Abstract [facility] [address] [facility] 110 [place] [phone] Meghann Moffett MD [address] [facility] 110 [place] [address] Social History Tobacco Use Types Packs/Day Years [...] [facility] [address] [facility] [address] [place] [phone] Grisel Ching PA [address] [facility] [address] [place] [address] documented as of this encounter Visit Diagnoses Not on filedocumented in this encounter Care Teams Conservator Artifacts Relationship Specialty Start Date End Date Meghann Moffett MD 112 [facility] 110 [place] [address] PCP - General Family Medicine 11/24/24 documented as of this encounter
--- OUTSIDE RECORDS SUMMARY | 2025-04-05 10:47 | XMS_ITS | Clinical Summary ---
Author Organization [facility] Healthcare Address [address] [place] [address] Care Team Providers Care Synchro Assembler Name Role Phone Meghann Moffett MD Primary Care Provider [phone] Allergies No known active allergies Medications meloxicam (Mobic) 15 MG tabletIndicatio ns:Chronic pain of left hand Take 1 tablet (15 mg) by mouth Daily Take with food 30 tablet 5 09/29/2024 Active escitalopram (Lexapro) 5 MG tablet Take 5 mg by mouth Daily 11/23/2024 Active hydrOXYzine pamoate (Vistaril) 50 MG capsule Take 50 mg by mouth every 6 (six) hours if needed for anxiety 11/23/2024 Active traZODone (Desyrel) 50 MG tablet Take 50 mg by mouth as needed at bedtime 11/23/2024 Active nicotine (Nicoderm, Step 3) 7 MG/24HR patch Place 1 patch on the skin Daily 11/23/2024 Active metoprolol succinate XL (Toprol-XL) 25 MG 24 hr tablet Take 25 mg by mouth Daily Do not crush or chew. Active predniSONE (Deltasone) 10 MG tabletIndicatio ns:Chronic pain of right knee Take 1 tablet (10 mg) by mouth 3 (three) times a day for 3 days, THEN 1 tablet (10 mg) 2 (two) times a day for 3 days, THEN 1 tablet (10 mg) Daily for 3 days. 18 tablet 04/02/2025 Active Active Problems Problem Noted Date Diagnosed Date Accelerated junctional rhythm 05/19/2024 Second degree AV block, Mobitz type I 05/19/2024 PVC's (premature ventricular contractions) 05/19 Acute pericarditis ([facility]) 04/30/2024 Chest pain 04/30/2024 Marijuana use 04/30/2024 Chronic pain of left knee 11/01/2023 Chronic pain of right knee 11/01/2023 Chronic pain of left hand 10/24/2023 Tobacco dependence 10/24/2023 Resolved Problems Problem Noted Date Diagnosed Date Resolved Date Severe alcohol use disorder 06/29/2024 06/29/2024 Bipolar disorder, current ep isode manic without psychotic features 06/29/2024 06/29/2024 Encounters Date Type Department Care Team Description 04/02/2025 9:30 AM EDT Office Visit [facility] [address] [facility] [address] [place] [address] Grisel Ching PA Chronic pain of left hand (Primary Dx); PVC's (premature ventricular contractions); Chronic pain of right knee; Tobacco dependence; Fall, initial encounter 04/02/2025 Bamboo flowsheet [facility] [address] [place] [address] [place] [address] Grisel Ching PA 04/02/2025 Travel 03/29/2025 Travel 02/04/2025 Abstract [facility] [address] [facility] [address] [place] [address] Meghann Moffett MD from Last 3 Months Family History Relation Name Status Comments Brother x2 Daughter x1 Father Alive Mother Alive Sister x2 Social History Tobacco Use Types Packs/Day Years Used Date Smoking Tobacco: Every Day Cigarettes 0.5 19 Started: 04/19/2006 Smokeless Tobacco: Never Tobacco Cessation:Ready to Q uit: Not Asked; Counseling Given: Not Answered Comments:6-10 cigs/day Alcohol Use Standard Drinks/Week Comments Yes 2 (1 standard drink = 0.6 oz pur e alcohol) Twisted Tea Sex and Gender Information Value Date Recorded Sex Assigned at Male 04/29/2024 10:27 AM EDT Legal Sex Male 9:44 PM EDT Gender Identity Male 04/29/2024 10:27 AM EDT Sexual Orientation Not on file Last Filed Vital Signs Vital Sign Reading [...] Mass Index 21.77 04/02/2025 9:40 AM EDT Plan of Treatment Upcoming Encounters Date Type Department Care Team (Late st Contact Info) Description 10/04/2025 8:30 AM EST Office Visit [facility] [address] [facility] 110 [place] [id number] Grisel Ching, PA [address] [facility] [address] [place] [address] Health Maintenance Due Date Last Done Comments Influenza Vaccine (#1) 2025 Care Teams Synchro Assembler Relationship Specialty Start Date End Date Meghann oMffett MD [address] [facility] [address] [place] [address] PCP - General Family Medicine 11/24/24
--- OUTSIDE RECORDS SUMMARY | 2025-04-05 10:47 | XMS_ITS | Encounter Summary ---
Author Organization [facility] Address [address] [facility] [place] [address] Care Team Providers Care Nutrition Teacher Name Role Phone Josue Ching Primary Care Provider [phone] Meghann Moffett MD Primary Care Provider [phone] Encounter Details Date Type Department Care Team (Late st Contact Info) Description 10/29/2023 Clinisync Result Encounter [facility] External Department Unsolicited Josue Ching PA [address] [place] [address] Social History Tobacco Use Types Packs/Day Years [...] [facility] [address] [place] [address] Josue Ching PA [address] [place] [address] documented as of this encounter Procedures Procedure Name Priority Date/Time Associated Diagnosis Comments XR HAND 3+ VIEWS LEFT 10/29/2023 10:49 AM EST documented in this encounter Results * XR hand 3+ views left (10/29/2023 10:49 AM EST) Anatomical Region Laterality Modality Upper Extremities, Hand Left Radiogra phic Imaging 10/29/2023 10:4 9 AM EST Narrative 10/29/2023 10:51 [place] [address] XRay Report Signed Patient: SEAN RODRIGUEZ MR#: [id number] : 1995 Acct:[id number] Age/Sex: 28 / M ADM Date: 10/28/23 Loc: [facility] Attending Dr: JOSUE CHING Ordering Physician: JOSUE CHING Date of Service: 10/28/23 Procedure(s): XR hand LT min 3V Accession Number(s): [id number] cc: JOSUE CHING ; Physician,Non-Staff [address] [address] Patient Name: SEAN RODRIGUEZ MRN: [id number] date: 1995 Sex: M Assigned Patient Location: [facility] Current Patient Location: Accession/Order Number: [id number] Exam Date: 10/28/2023 12:47 Report Date: 10/29/2023 10:49 At the request of: JOSUE CHING Procedure: XR hand LT min 3V PROCEDURE: XR hand LT min 3V HISTORY: Chronic Pain Of Left Hand M79.642 ; pain between second and third metacarpals. COMPARISON: None. FINDINGS: BONES:No fracture, acute abnormality, or significant arthropathy. SOFT TISSUES:No visible soft tissue swelling. EFFUSION:None visible. OTHER: Negative. XR/XR hand LT min 3V IMPRESSION: 1. No abnormal or suspicious findings to account for patient's symptoms. Electronically authenticated by: LÁZARO PUTNAM Date: 10/29/2023 10:49 Dictated By: Lázaro Putnam M.D. Signed By: 10/29/23 105 DD/ 104 TD/TT: Packaging Supervisor: Procedure Note Radiology, Radiologist, MD - 10/29/2023 [place] [address] XRay Report Signed Patient: SEAN RODRIGUEZ AMR#: [id number] : 1995Acct:[id number] Age/Sex: 28 / MADM Date: 10/28/23 Loc: RAD Attending Dr: JOSUE CHING Ordering Physician: JOSUE CHING Date of Service: 10/28/23 Procedure(s): XR hand LT min 3V Accession Number(s): [id number] cc: JOSUE CHING ; Physician,Non-Staff [place] [address] [place] [address] Patient Name: SEAN RODRIGUEZ MRN: [facility]:[id number] date: 1995 Sex: M Assigned Patient Location: [facility] Current Patient Location: Accession/Order Number: [id number] Exam Date: 10/28/2023 12:47 Report Date: 10/29/2023 10:49 At the request of: JOSUE CHING Procedure: XR hand LT min 3V PROCEDURE: XR hand LT min 3V HISTORY: Chronic Pain Of Left Hand M79.642 ; pain between second and third metacarpals. COMPARISON: None. FINDINGS: BONES:No fracture, acute abnormality, or significant arthropathy. SOFT TISSUES:No visible soft tissue swelling. EFFUSION:None visible. OTHER: Negative. XR/XR hand LT min 3V IMPRESSION: 1. No abnormal or suspicious findings to account for patient's symptoms. Electronically authenticated by: LÁZARO PUTNAM Date: 10/29/2023 10:49 Dictated By: Lázaro Putnam M.D. Signed By:10/29/23 105 DD/ 104 TD/TT: Packaging Supervisor: Josue Ching PA IMG XR PROCEDURES Final Result documented in this encounter Visit Diagnoses Not on filedocumented in this encounter Care Teams Nutrition Teacher Relationship Specialty Start Date End Date Josue Ching PA [address] [facility] 110 [place] [address] PCP - General Family Medicine 06/26/24 11/23/24 Meghann Moffett MD [address] [facility] [address] [place] [address] PCP - General Family Medicine 11/24/24 documented as of this encounter
--- OUTSIDE RECORDS SUMMARY | 2025-04-05 10:47 | XMS_ITS | Encounter Summary ---
Author Organization [facility] Address [address] [facility] [place] [address] Care Team Providers Care Asphalt Engineer Name Role Phone Josue Ching Primary Care Provider [phone] Meghann Moffett MD Primary Care Provider [phone] Encounter Details Date Type Department Care Team (Late st Contact Info) Description 06/08/2024 Clinisync Result Encounter [facility] External Department Unsolicited Josue Ching PA [address] [place] [address] Social History Tobacco Use Types Packs/Day Years [...] [facility] [address] [place] [address] Josue Ching PA [address] [place] [address] documented as of this encounter Procedures Procedure Name Priority Date/Time Associated Diagnosis Comments CA ECHO DOPPLER COMPLETE 06/08/2024 2:51 PM EDT documented in this encounter Results * CA ECHO DOPPLER COMPLETE (06/08/2024 2:51 PM EDT) Anatomical Region Laterality Modality Other 06/08/2024 2:51 PM EDT Narrative 06/08/2024 2:52 [place] [address] Cardiology Report Signed Patient: SEAN RODRIGUEZ MR#: [id number] : 1995 Acct:[id number] Age/Sex: 29 / M ADM Date: 06/08/24 Loc: CARD Attending Dr: JOSUE CHING Ordering Physician: JOSUE CHING Date of Service: 06/08/24 Procedure(s): CA echo doppler complete Accession Number(s): [id number] cc: JOSUE CHING Patient Name: SEAN RODRIGUEZ MR#: [id number] : 1995 Exam Date: 06/08/2024 Ordering Doctor: DR JOSUE CHING PA ECHOCARDIOGRAM REPORT PROCEDURE: CA ECHO DOPPLER COMPLETE INDICATIONS: Chest pain, pericarditis COMPARISON: None. DESCRIPTION: COMPLETE ECHOCARDIOGRAM Real-time transthoracic echocardiography with 2D, M-mode, spectral and color flow Doppler performed. QUALITY: Technical quality was good. LEFT VENTRICLE: Normal chamber size. Normal left ventricular wall thickness. LV EF: Global left ventricular systolic function is normal; visually estimated ejection fraction is 55%. No significant wall motion abnormalities DIASTOLIC: Normal diastolic function. ATRIAL SEPTUM: Visually appears intact. LEFT ATRIUM: Normal chamber size. RIGHT ATRIUM: Normal chamber size. RIGHT VENTRICLE: Normal chamber size. Normal right ventricular systolic function. TRICUSPID VALVE: Normal mobility and thickness. No stenosis with trivial regurgitation. MITRAL VALVE: Normal mobility and thickness. No evidence of mitral valve stenosis. There is no mitral annular calcification. Trivial mitral regurgitation. AORTIC VALVE: Normal trileaflet appearance. No visible sclerosis. Normal leaflet mobility. No evidence of aortic valve stenosis. No aortic regurgitation. AORTIC ROOT: Normal diameter and appearance. PULMONIC VALVE: Normal thickness and mobility. No stenosis. Trivial regurgitation. PERICARDIUM: No evidence of pericardial effusion. IVC: Not well visualized. CONCLUSION: 1. Global left ventricular systolic function is normal; visually estimated ejection fraction is 55% 2. Normal right ventricular size and systolic function 3. Normal diastolic function 4. The left atrium is normal in size 5. No significant valvular abnormalities 6. No pericardial effusion Adult Echocardiography Procedure Report Left Ventricle LVEDD (3.7 - 5.6 cm): 4.58 cm LVESD (2.2 - 4.0 cm): 3.55 cm LVIVS thickness (0.6 - 1.2 cm): 0.93 cm LVPW thickness (0.5 - 1.0 cm): 0.82 cm e': 0.16 m/s E - e': 3.58 LVOT Max Gradient: 2.64 mm[Hg] LVOT Area (cm2): 0.81 m/s Peak Velocity (LVOT): 0.81 m/s Mean Velocity (LVOT): 0.56 m/s LVOT Diameter 2.16 cm Left Atrium LA Volume Index (2D A2C): 32.00 ml/m2 Left Atrium Systolic Dimension: 2.50 cm Mitral Valve MV E to A Ratio: 0.84 Mitral Valve A-Wave Peak Velocity: 0.70 m/s Mitral Valve E-Wave Peak Velocity: 0.59 m/s Right Ventricle Aorta AO Root Diam: 3.00 cm Aortic Valve AoV Area (Peak Jose De Jesus): 3.37 cm2, 3.37 cm2 AoV Area (VTI): 3.25 cm2, 3.25 cm2 Peak Velocity(Antegrade Flow): 0.88 m/s Peak Gradient(Antegrade Flow): 3.13 mm[Hg] Mean Velocity(Antegrade Flow): 0.58 m/s Mean Gradient(Antegrade Flow): 1.60 mm[Hg] Velocity Time Integral: 18.64 cm Tricuspid Valve Pulmonic Valve Mean Gradient: 2.00 mm[Hg] Mean Velocity: 0.65 m/s Peak Velocity: 0.99 m/s, 0.95 m/s Peak Gradient: 3.59 mm[Hg], 3.92 mm[Hg] Right Atrium Right Atrium Systolic Pressure: 58.04 ml, 58.04 ml Dictated by: Guillermo Bishop M.D. on 06/08/2024 at 14:48 Approved by: Guillermo Bishop M.D. on 06/08/2024 at 14:51 Dictated By: Guillermo Bishop M.D. Signed By: 06/08/24 1452 DD/ 1451 TD/TT: Mechanical Equipment Sales Engineer: Procedure Note Radiology, Radiologist, - 06/08/2024 [place] [address] Cardiology Report Signed Patient: SEAN RODRIGUEZ AMR#: [id number] : 1995Acct:[id number] Age/Sex: 29 / MADM Date: 06/08/24 Loc: CARD Attending Dr: JOSUE CHING Ordering Physician: JOSUE CHING Date of Service: 06/08/24 Procedure(s): CA echo doppler complete Accession Number(s): [id number] cc: JOSUE CHING Patient Name: SEAN RODRIGUEZ MR#: [id number] : 1995 Exam Date: 06/08/2024 Ordering Doctor: DR JOSUE CHING PA ECHOCARDIOGRAM REPORT PROCEDURE: CA ECHO DOPPLER COMPLETE INDICATIONS: Chest pain, pericarditis COMPARISON: None. DESCRIPTION: COMPLETE ECHOCARDIOGRAM Real-time transthoracic echocardiography with 2D, M-mode, spectral and color flow Dopplerperformed. QUALITY: Technical quality was good. LEFT VENTRICLE: Normal chamber size. Normal left ventricular wall thickness. LV EF: Global left ventricular systolic function is normal; visually estimated ejection fraction is 55%. No significant wall motionabnormalities DIASTOLIC: Normal diastolic function. ATRIAL SEPTUM: Visually appears intact. LEFT ATRIUM: Normal chamber size. RIGHT ATRIUM: Normal chamber size. RIGHT VENTRICLE: Normal chamber size. Normal right ventricularsystolic function. TRICUSPID VALVE: Normal mobility and thickness. No stenosis withtrivial regurgitation. MITRAL VALVE: Normal mobility and thickness. No evidence of mitralvalve stenosis. There is no mitral annular calcification. Trivial mitral regurgitation. AORTIC VALVE: Normal trileaflet appearance. No visible sclerosis.Normal leaflet mobility. No evidence of aortic valve stenosis. No aortic regurgitation. AORTIC ROOT: Normal diameter and appearance. PULMONIC VALVE: Normal thickness and mobility. No stenosis. Trivial regurgitation. PERICARDIUM: No evidence of pericardial effusion. IVC: Not well visualized. CONCLUSION: 1. Global left ventricular systolic function is normal; visually estimated ejection fraction is 55% 2. Normal right ventricular size and systolic function 3. Normal diastolic function 4. The left atrium is normal in size 5. No significant valvular abnormalities 6. No pericardial effusion Adult Echocardiography Procedure Report Left Ventricle LVEDD (3.7 - 5.6 cm): 4.58 cm LVESD (2.2 - 4.0 cm): 3.55 cm LVIVS thickness (0.6 - 1.2 cm): 0.93 cm LVPW thickness (0.5 - 1.0 cm): 0.82 cm e': 0.16 m/s E - e': 3.58 LVOT Max Gradient: 2.64 mm[Hg] LVOT Area (cm2): 0.81 m/s Peak Velocity (LVOT): 0.81 m/s Mean Velocity (LVOT): 0.56 m/s LVOT Diameter 2.16 cm Left Atrium LA Volume Index (2D A2C): 32.00 ml/m2 Left Atrium Systolic Dimension: 2.50 cm Mitral Valve MV E to A Ratio: 0.84 Mitral Valve A-Wave Peak Velocity: 0.70 m/s Mitral Valve E-Wave Peak Velocity: 0.59 m/s Right Ventricle Aorta AO Root Diam: 3.00 cm Aortic Valve AoV Area (Peak Jose De Jesus): 3.37 cm2, 3.37 cm2 AoV Area (VTI): 3.25 cm2, 3.25 cm2 Peak Velocity(Antegrade Flow): 0.88 m/s Peak Gradient(Antegrade Flow): 3.13 mm[Hg] Mean Velocity(Antegrade Flow): 0.58 m/s Mean Gradient(Antegrade Flow): 1.60 mm[Hg] Velocity Time Integral: 18.64 cm Tricuspid Valve Pulmonic Valve Mean Gradient: 2.00 mm[Hg] Mean Velocity: 0.65 m/s Peak Velocity: 0.99 m/s, 0.95 m/s Peak Gradient: 3.59 mm[Hg], 3.92 mm[Hg] Right Atrium Right Atrium Systolic Pressure: 58.04 ml, 58.04 ml Dictated by: Guillermo Bishop M.D. on 06/08/2024 at 14:48 Approved by: Guillermo Bishop M.D. on 06/08/2024 at 14:51 Dictated By: Guillermo Bishop M.D. Signed By:06/08/24 1452 DD/ 50 TD/TT: Mechanical Equipment Sales Engineer: Josue [facility] Final Result documented in this encounter Visit Diagnoses Not on filedocumented in this encounter Care Teams Asphalt Engineer Relationship Specialty Start Date End Date Josue Ching PA [address] [address] PCP - General Family Medicine 06/26/24 11/23/24 Meghann Moffett MD [address] [address] PCP - General Family Medicine 11/24/24 documented as of this encounter
--- OUTSIDE RECORDS SUMMARY | 2025-04-05 10:47 | XMS_ITS | Encounter Summary ---
Author Organization [facility] Address [address] [place] [address] Care Team Providers Care Associate Professor Of Education Name Role Phone Grisel Ching Primary Care Provider [phone] Meghann Moffett MD Primary Care Provider [phone] Encounter Details Date Type Department Care Team (Late Contact Info) Description 11/23/2024 Abstract [facility] [address] [facility] 110 [place] [address] Grisel Ching PA [address] [facility] 110 [place] [address] Social History Tobacco Use Types Packs/Day Years [...] EST Office Visit [facility] [address] [facility] 110 [place] [address] Grisel Ching PA [address] [facility] 110 [place] [address] documented as of this encounter Visit Diagnoses Not on filedocumented in this encounter Care Teams Associate Professor Of Education Relationship Specialty Start Date End Date Grisel Ching PA [address] [facility] 110 [place], [place] [id number] PCP - General Family Medicine 06/26/24 11/23/24 Meghann Moffett MD 112 [facility] 110 [place] [address] PCP - General Family Medicine 11/24/24 documented as of this encounter
--- OUTSIDE RECORDS SUMMARY | 2025-04-05 10:47 | XMS_ITS | Encounter Summary ---
Author Organization [facility] Address [address] [facility] [place] [address] Care Team Providers Care Classified Advertising Manager Name Role Phone Grisel Ching Primary Care Provider [phone] Meghann Moffett MD Primary Care Provider [phone] Encounter Details Date Type Department Care Team (Late st Contact Info) Description 10/30/2023 Orders Only [facility] [address] [facility] 110 [place] [address] Unallocated, Noms Provider, [address] [place] [address] Social History Tobacco Use Types Packs/Day Years [...] [facility] [address] [place] [address] Grisel Ching PA [address] [place], [place] [address] documented as of this encounter Procedures Procedure Name Priority Date/Time Associated Diagnosis Comments XR HAND 3+ VIEWS LEFT Routine 10/29/2023 7:48 AM EST XR HAND 1-2 VIEWS LEFT Routine 10/29/2023 7:48 AM EST documented in this encounter Results * XR hand 1 or 2 views left (10/29/2023 7:48 AM EST) Anatomical Region Laterality Modality Upper Extremities, Hand Left Radiogra phic Imaging us N[facility] Provider Unallocated MD IMG XR PROCEDURES F inal Result * XR hand 3+ views left (10/29/2023 7:48 AM EST) Anatomical Region Laterality Modality Upper Extremities, Hand Left Radiogra phic Imaging us [facility] Provider Unallocated MD IMG XR PROCEDURES F inal Result documented in this encounter Visit Diagnoses Not on filedocumented in this encounter Care Teams Classified Advertising Manager Relationship Specialty Start Date End Date Grisel Ching PA [address] [facility] 110 [place] [address] PCP - General Family Medicine 06/26/24 11/23/24 Meghann Moffett MD 112 [facility] 110 [place] [address] PCP - General Family Medicine 11/24/24 documented as of this encounter
--- OUTSIDE RECORDS SUMMARY | 2025-04-05 10:47 | XMS_ITS | Encounter Summary ---
Author Organization [facility] Address [address] [facility] [place] [address] Care Team Providers Care Harbor Department Manager Name Role Phone Meghann Moffett MD Primary Care Provider [phone] Encounter Details Date Type Department Care Team (Latest Contact Info) Description 03/29/2025 Travel Social History Tobacco Use Types Packs/Day Years [...] 8:30 AM EST Office Visit [facility] [address] [place] [address] Grisel Ching PA [address] [place] [address] documented as of this encounter Visit Diagnoses Not on filedocumented in this encounter Care Teams Harbor Department Manager Relationship Specialty Start Date End Date Meghann Moffett MD [address] [place] [address] PCP - General Family Medicine 11/24/24 documented as of this encounter
--- OUTSIDE RECORDS SUMMARY | 2025-04-05 10:47 | XMS_ITS | Encounter Summary ---
Author Organization [facility] Address [address] [facility] [place] [address] Care Team Providers Care Coastal And Estuary Specialist Name Role Phone Grisel Ching Primary Care Provider [phone] Meghann Moffett MD Primary Care Provider [phone] Encounter Details Date Type Department Care Team (Late Contact Info) Description 04/23/2024 Abstract [facility] [address] [facility] 110 [place] [phone] Grisel Ching PA 112 [facility] 110 [place] [address] Social History Tobacco Use Types Packs/Day Years [...] EST Office Visit [facility] [address] [facility] 110 [place] [address] Grisel Ching PA 112 [facility] 110 [place] [address] documented as of this encounter Visit Diagnoses Not on filedocumented in this encounter Care Teams Coastal And Estuary Specialist Relationship Specialty Start Date End Date Grisel Ching PA 112 [facility] 110 [place], [place] [address] PCP - General Family Medicine 06/26/24 11/23/24 Meghann Moffett MD 112 [facility] 110 [place] [address] PCP - General Family Medicine 11/24/24 documented as of this encounter
--- OUTSIDE RECORDS SUMMARY | 2025-04-05 10:47 | XMS_ITS | Patient Health Record ---
Author Organization [facility] Address [address] [place] [address] Care Team Providers Care Solder Cream Maker Name Role Phone Anne Loza Primary Care Provider Reason For Referral No Information Medications Medication SIG (Take, Route, Frequency, Duration) Notes Start Date End Date Status Cyclobenzaprine HCl 5 MG 1 tablet at bed time as needed Orally Once a day; Duration: 30 day(s) Active Social History Tobacco Use: Social History Observation Description Date Details (start date - stop date) Current Smoker 02/21/2006 - NA Tobacco Screen: Question Answer Notes Are you a: current smoker When did you start smoking 02/21/2006 How often do you smoke cigarettes? every day How many cigarettes a day do you smoke? 6-10 How soon after you wake up d o you smoke your first cigarette? after 60 min Are you interested in quitting? Thinking about q uitting Alcohol Screening: Question Answer Notes Did you have a drink containing alcohol in the p ast year? No Points 0 Interpretation Negative Section Notes: Smoking history. 0.5 ppd for 13 years. Occasional alcohol. Occasional marijuana. Denies using any other drugs. Plan Of Treatment No Information Insurance Providers Payer Name Payer Address Payer Phone Subscriber Number Group Number Insured Name Patient Relationship to Insured Coverage Start Date Coverage End Date [employer] [address] [place] [address] [id number] AMBROSIO MALONE Self - patient is the insured 0
--- OUTSIDE RECORDS SUMMARY | 2025-04-05 10:47 | XMS_ITS | Encounter Summary ---
Author Organization [facility] Address [address] [facility] [place] [address] Care Team Providers Care Customer Care Consultant Name Role Phone Meghann Moffett MD Primary Care Provider [phone] Encounter Details Date Type Department Care Team (Latest Contact Info) Description 04/02/2025 Travel Social History Tobacco Use Types Packs/Day [...] CI FM [address] [place] [address] Grisel Ching PA [address] [place] [address] documented as of this encounter Visit Diagnoses Not on filedocumented in this encounter Care Teams Customer Care Consultant Relationship Specialty Start Date End Date Meghann Moffett MD [address] [place] [address] PCP - General Family Medicine 11/24/24 documented as of this encounter
--- OUTSIDE RECORDS SUMMARY | 2025-04-05 10:47 | XMS_ITS | Encounter Summary ---
Author Organization [facility] Address [address] [facility] [place] [address] Care Team Providers Care Clipper And Turner Name Role Phone Josue Ching Primary Care Provider [phone] Meghann Moffett MD Primary Care Provider [phone] Encounter Details Date Type Department Care Team (Late st Contact Info) Description 11/05/2023 Clinisync Result Encounter [facility] External Department Unsolicited Josue Ching PA [address] [place] [address] Social History Tobacco Use Types Packs/Day Years [...] CI FM [address] [place] [address] Josue Ching PA [address] [place] [address] documented as of this encounter Procedures Procedure Name Priority Date/Time Associated Diagnosis Comments XR KNEE STANDING BI 11/05/2023 9 :56 AM EST documented in this encounter Results * XR KNEE STANDING BI (11/05/2023 9:56 AM EST) Anatomical Region Laterality Modality Radiographic Noris ging 11/05/2023 9:56 AM EST Narrative 11/05/2023 9:58 [place] [address] XRay Report Signed Patient: SEAN RODRIGUEZ MR#: [id number] : 1995 Acct:[id number] Age/Sex: 28 / M ADM Date: 11/05/23 Loc: RAD Attending Dr: JOSUE CHING Ordering Physician: JOSUE CHING Date of Service: 11/05/23 Procedure(s): XR knee standing BI Accession Number(s): [id number] cc: JOSUE CHING ; Physician,Non-Staff M.D. [facility] [place] [address] Patient Name: SEAN RODRIGUEZ MRN: [id number] date: 1995 Sex: M Assigned Patient Location: [facility] Current Patient Location: [facility] Accession/Order Number: [id number] Exam Date: 11/05/2023 09:38 Report Date: 11/05/2023 09:56 At the request of: JOSUE CHING Procedure: XR knee standing BI EXAMINATION: XR knee standing BI, XR knee YURIY 4V HISTORY: chronic pain of left knee COMPARISON: No relevant comparison available. FINDINGS: RIGHT FINDINGS: BONES: Normal. No significant arthropathy or acute abnormality. SOFT TISSUES: Negative. No visible soft tissue swelling. OTHER: Negative. LEFT FINDINGS: BONES: Normal. No significant arthropathy or acute abnormality. SOFT TISSUES: Negative. No visible soft tissue swelling. OTHER: Negative. XR/XR knee standing BI IMPRESSION: RIGHT CONCLUSION: Normal LEFT CONCLUSION: Normal Electronically authenticated by: GOLD SADLER Date: 11/05/2023 09:56 Dictated By: Gold Sadler M.D. Signed By: [id number] DD/ 5 TD/TT: Associate Programmer Analyst: Procedure Note Radiology, Radiologist, MD - 11/06/2023 [facility] [place] [id number] XRay Report Signed Patient: SEAN RODRIGUEZ AMR#: [id number] : 1995Acct:[id number] Age/Sex: 28 / MADM Date: 11/05/23 Loc: RAD Attending Dr: JOSUE CHING Ordering Physician: JOSUE CHING Date of Service: 11/05/23 Procedure(s): XR knee standing BI Accession Number(s): [id number] cc: JOSUE CHING ; Physician,Non-Staff M.DIrvin [facility] [place] [address] Patient Name: SEAN RODRIGUEZ MRN: [id number] date: 1995 Sex: M Assigned Patient Location: [facility] Current Patient Location: [facility] Accession/Order Number: [id number] Exam Date: 11/05/2023 09:38 Report Date: 11/05/2023 09:56 At the request of: JOSUE CHING Procedure: XR knee standing BI EXAMINATION: XR knee standing BI, XR knee YURIY 4V HISTORY: chronic pain of left knee COMPARISON: No relevant comparison available. FINDINGS: RIGHT FINDINGS: BONES: Normal. No significant arthropathy or acute abnormality. SOFT TISSUES: Negative. No visible soft tissue swelling. OTHER: Negative. LEFT FINDINGS: BONES: Normal. No significant arthropathy or acute abnormality. SOFT TISSUES: Negative. No visible soft tissue swelling. OTHER: Negative. XR/XR knee standing BI IMPRESSION: RIGHT CONCLUSION: Normal LEFT CONCLUSION: Normal Electronically authenticated by: GOLD SADLER Date: 11/05/2023 09:56 Dictated By: Gold Sadler M.D. Signed By:11/05/2358 DD/ 5 TD/TT: Associate Programmer Analyst: Josue Ching PA IMG XR PROCEDURES Final Result documented in this encounter Visit Diagnoses Not on filedocumented in this encounter Care Teams Clipper And Turner Relationship Specialty Start Date End Date Josue Ching PA [address] [place] [address] PCP - General Family Medicine 06/26/24 11/23/24 Meghann Moffett MD [address] [place] [address] PCP - General Family Medicine 11/24/24 documented as of this encounter
--- OUTSIDE RECORDS SUMMARY | 2025-04-05 10:47 | XMS_ITS | Encounter Summary ---
Author Organization [facility] Address [address] [facility] [place] [address] Care Team Providers Care Craft Superintendent Name Role Phone Josue Ching Primary Care Provider [phone] Meghann Moffett MD Primary Care Provider [phone] Encounter Details Date Type Department Care Team (Late st Contact Info) Description 11/05/2023 Clinisync Result Encounter [facility]S External Department Unsolicited Josue Ching PA [address] [place] [address] Social History Tobacco Use Types Packs/Day Years [...] CI FM [address] [place] [address] Josue Ching PA [address] [place] [address] documented as of this encounter Procedures Procedure Name Priority Date/Time Associated Diagnosis Comments XR KNEE 4+ VIEWS BILATERAL 11/05/2023 9:56 AM EST documented in this encounter Results * XR knee 4+ views bilateral (11/05/2023 9:56 AM EST) Anatomical Region Laterality Modality Lower Extremities, Knee Bilateral Radiogra phic Imaging 11/05/2023 9:56 AM EST Narrative 11/05/2023 9:58 [place] [address] XRay Report Signed Patient: SEAN RODRIGUEZ MR#: [id number] : 1995 Acct:[id number] Age/Sex: 28 / M ADM Date: 11/05/23 Loc: RAD Attending Dr: JOSUE CHING Ordering Physician: JOSUE CHING Date of Service: 11/05/23 Procedure(s): XR knee YURIY 4V Accession Number(s): [id number] cc: JOSUE CHING ; Physician,Non-Staff M.D. [place] [address] Patient Name: SEAN RODRIGUEZ MRN: [id number] date: 1995 Sex: M Assigned Patient Location: [facility] Current Patient Location: [facility] Accession/Order Number: [id number] Exam Date: 11/05/2023 09:30 Report Date: 11/05/2023 09:56 At the request of: JOSUE CHING Procedure: XR knee YURIY 4V EXAMINATION: XR knee standing BI, XR knee YURIY 4V HISTORY: chronic pain of left knee COMPARISON: No relevant comparison available. FINDINGS: RIGHT FINDINGS: BONES: Normal. No significant arthropathy or acute abnormality. SOFT TISSUES: Negative. No visible soft tissue swelling. OTHER: Negative. LEFT FINDINGS: BONES: Normal. No significant arthropathy or acute abnormality. SOFT TISSUES: Negative. No visible soft tissue swelling. OTHER: Negative. XR/XR knee YURIY 4V IMPRESSION: RIGHT CONCLUSION: Normal LEFT CONCLUSION: Normal Electronically authenticated by: GOLD SADLER Date: 11/05/2023 09:56 Dictated By: Gold Sadler M.D. Signed By: 11/05/2358 DD/ 5 TD/TT: Mixer Driver: Procedure Note Radiology, Radiologist, MD - 11/05/2023 [place] [address] XRay Report Signed Patient: SEAN RODRIGUEZ AMR#: [id number] : 1995Acct:[id number] Age/Sex: 28 / MADM Date: 11/05/23 Loc: RAD Attending Dr: JOSUE CHING Ordering Physician: JOSUE CHING Date of Service: 11/05/23 Procedure(s): XR knee YURIY 4V Accession Number(s): [id number] cc: JOSUE CHNIG ; Physician,Non-Staff Lory [facility] [place] [address] Patient Name: SEAN RODRIGUEZ MRN: [facility]:[id number] date: 1995 Sex: M Assigned Patient Location: [facility] Current Patient Location: [facility] Accession/Order Number: [id number] Exam Date: 11/05/2023 09:30 Report Date: 11/05/2023 09:56 At the request of: JOSUE CHING Procedure: XR knee YURIY 4V EXAMINATION: XR knee standing BI, XR knee YURIY 4V HISTORY: chronic pain of left knee COMPARISON: No relevant comparison available. FINDINGS: RIGHT FINDINGS: BONES: Normal. No significant arthropathy or acute abnormality. SOFT TISSUES: Negative. No visible soft tissue swelling. OTHER: Negative. LEFT FINDINGS: BONES: Normal. No significant arthropathy or acute abnormality. SOFT TISSUES: Negative. No visible soft tissue swelling. OTHER: Negative. XR/XR knee YURIY 4V IMPRESSION: RIGHT CONCLUSION: Normal LEFT CONCLUSION: Normal Electronically authenticated by: GOLD SADLER Date: 11/05/2023 09:56 Dictated By: Gold Sadler M.D. Signed By:11/05/2358 DD/ 5 TD/TT: Mixer Driver: Josue TELLEZ IMG XR PROCEDURES Final Result documented in this encounter Visit Diagnoses Not on filedocumented in this encounter Care Teams Craft Superintendent Relationship Specialty Start Date End Date Josue Ching PA [address] [facility] 110 [place] [address] PCP - General Family Medicine 06/26/24 11/23/24 Meghann Moffett MD [address] [facility] 110 [place] [address] PCP - General Family Medicine 11/24/24 documented as of this encounter
--- OUTSIDE RECORDS SUMMARY | 2025-04-05 10:47 | XMS_ITS | Encounter Summary ---
Author Organization [facility] Address [address] [facility] [place] [address] Care Team Providers Care Application Security Architect Name Role Phone Grisel Ching Primary Care Provider [phone] Meghann Moffett MD Primary Care Provider [phone] Encounter Details Date Type Department Care Team (Late Contact Info) Description 11/23/2024 Abstract [facility] [address] [facility] 110 [place] [address] Grisel Ching PA 112 [facility] 110 [place] [address] Social History Tobacco Use Types Packs/Day Years [...] EST Office Visit [facility] FM [address] [facility] 110 [place] [address] Grisel Ching PA [address] [facility] 110 [place] [address] documented as of this encounter Visit Diagnoses Not on filedocumented in this encounter Care Teams Application Security Architect Relationship Specialty Start Date End Date Grisel Ching PA [address] [facility] 110 [place], [place] [address] PCP - General Family Medicine 06/26/24 11/23/24 Meghann Moffett MD [address] [facility] 110 [place] [address] PCP - General Family Medicine 11/24/24 documented as of this encounter
--- OUTSIDE RECORDS SUMMARY | 2025-04-05 10:47 | XMS_ITS | Encounter Summary ---
Author Organization [facility] Address [address] [facility] [place] [address] Care Team Providers Care Rechecker Name Role Phone Josue Ching Primary Care Provider [phone] Meghann Moffett MD Primary Care Provider [phone] Encounter Details Date Type Department Care Team (Late st Contact Info) Description 05/18/2024 Clinisync Result Encounter [facility]S External Department Unsolicited Josue Ching PA [address] [place] [address] Social History Tobacco Use Types Packs/Day Years [...] CI FM [address] [place] [address] Josue Ching PA [address] [place] [address] documented as of this encounter Procedures Procedure Name Priority Date/Time Associated Diagnosis Comments HOLTER MONITOR 8 TO 15 DAYS 05/18/2024 1:58 PM EDT documented in this encounter Results * Holter monitor 8 to 15 days (05/18/2024 1:58 PM EDT) Anatomical Region Laterality Modality Other 05/18/2024 1:58 PM EDT Narrative 05/19/2024 7:07 [place] [address] Cardiology Report Signed Patient: SEAN RODRIGUEZ MR#: [id number] : 1995 Acct:[id number] Age/Sex: 29 / M ADM Date: 05/04/24 Loc: CARD Attending Dr: JOSUE CHING Ordering Physician: JOSUE CHING Date of Service: 05/04/24 Procedure(s): CA holter monitor 7-15 days Accession Number(s): [id number] cc: JOSUE CHING ; Physician,Non-Staff M.DIrvin The [facility] Test Date: 2024-05-18 Pat Name: SEAN RODRIGUEZ Department: Room: - Gender: Male 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: : 1995 Requested By: Order Number: [id number] Reading MD: MIGUEL MAHONEY Interpretive Statements Predominant rhythm is sinus with average rate of 82 bpm Tachycardia - max rate of 183 bpm (sinus tachy) Bradycardia - min rate of 45 bpm Ventricular ectopy - 288 PVC Patient triggered events: none Impression: Predominant rhythm is sinus with average rate of 82 bpm Fastest rate of 183 bpm (sinus tachy) and slowest rate of 45 bpm 288 PVC Longest episode of sinus prashant of 27min 20sec with rates between 50-58 bpm Longest episode of sinus tachy of 1h 33min 49sec with rates between 129-183 bpm Accelerated Junctional rhythm Second degree AV block, Type I No atrial fibirllation Electronically Signed On 05-19-2024 7:06:32 EDT by MIGUEL MAHONEY Dictated By: Miguel Mahoney D.O. Signed By: 05/19/24 0707 05/19/24 0707 DD/ 1358 TD/TT: Garment Liner: Procedure Note Radiology, Radiologist, MD - 05/19/2024 [facility] [place] [id number] Cardiology Report Signed Patient: SEAN RODRIGUEZ AMR#: [id number] : 1995Acct:[id number] Age/Sex: 29 / MADM Date: 05/04/24 Loc: CARD Attending Dr: JOSUE CHING Ordering Physician: JOSUE CHING Date of Service: 05/04/24 Procedure(s): CA holter monitor 7-15 days Accession Number(s): [id number] cc: JOSUE CHING ; Physician,Non-Staff MRegan The [facility] Test Date: 2024-05-18 Pat Name: SEAN RODRIGUEZ Department: Room: - Gender: Male 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: : 1995 Requested By: Order Number: [id number] Reading MD: MIGUEL MAHONEY Interpretive Statements Predominant rhythm is sinus with average rate of 82 bpm Tachycardia - max rate of 183 bpm (sinus tachy) Bradycardia - min rate of 45 bpm Ventricular ectopy - 288 PVC Patient triggered events: none Impression: Predominant rhythm is sinus with average rate of 82 bpm Fastest rate of 183 bpm (sinus tachy) and slowest rate of 45 bpm 288 PVC Longest episode of sinus prashant of 27min 20sec with rates between 50-58 bpm Longest episode of sinus tachy of 1h 33min 49sec with rates [id number] bpm Accelerated Junctional rhythm Second degree AV block, Type I No atrial fibirllation Electronically Signed On 05-19-2024 7:06:32 EDT by MIGUEL MAHONEY Dictated By: Miguel Mahoney D.O. Signed By:05/19/24 0707 05/19/24 0707 DD/ 1358 TD/TT: Garment Liner: Josue TELLEZ [facility] PROCEDURES Final Result documented in this encounter Visit Diagnoses Not on filedocumented in this encounter Care Teams Rechecker Relationship Specialty Start Date End Date Josue Ching PA [address] [address] PCP - General Family Medicine 06/26/24 11/23/24 Meghann Moffett MD [address] [address] PCP - General Family Medicine 11/24/24 documented as of this encounter
--- OUTSIDE RECORDS SUMMARY | 2025-04-05 10:48 | XMS_ITS | Encounter Summary ---
Author Organization [facility] Address [address] [place] [address] Phone Care Team Providers Care Accounting Policy Consultant Name Role Phone Unavailable Primary Care Provider Unavailabl e Encounter Details Date Type Department Care Team (Late st Contact Info) Description 04/23/2024 Scanned Document [facility] [address] [place] [address] Scanning, Generic Provider Social History Tobacco Use Types Packs/Day Years Used Date Smoking Tobacco: Never Assessed Sex and Gender Information Value Date Recorded Sex Assigned at Not on file Legal Sex Male 8:47 AM EDT Gender Identity Not on file Sexual Orientation Not on file documented as of this encounter Plan of Treatment Not on file documented as of this encounter Procedures Procedure Name Priority Date/Time Associated Diagnosis Comments ECHOCARDIOGRAM 04/23/2024 documented in this encounter Results * Echocardiogram (04/23/2024) Narrative 04/23/2024 Ordered by an unspecified provider. us Generic Provider Scanning CV ECHO PROCEDURES Fin al Result documented in this encounter Visit Diagnoses Not on filedocumented in this encounter
--- OUTSIDE RECORDS SUMMARY | 2025-04-05 10:48 | XMS_ITS | Encounter Summary ---
Author Organization [facility] Address [address] [place] [facility] [place] [address] Care Team Providers Care Patternmaker Sample Name Role Phone Grisel Ching Primary Care Provider [phone] Meghann Moffett MD Primary Care Provider [phone] Encounter Details Date Type Department Care Team (Late Contact Info) Description 07/20/2024 Abstract [facility] [address] [facility] 110 [place] [phone] Grisel Ching PA 112 [facility] 110 [place] [address] Social History Tobacco Use Types Packs/Day Years [...] EST Office Visit [facility] FM [address] [facility] 110 [place] [phone] Grisel Ching PA 112 [facility] 110 [place] [address] documented as of this encounter Visit Diagnoses Not on filedocumented in this encounter Care Teams Patternmaker Sample Relationship Specialty Start Date End Date Grisel Ching PA 112 [facility] 110 [place], [place] [address] PCP - General Family Medicine 06/26/24 11/23/24 Meghann Moffett MD 112 [facility] 110 [place] [address] PCP - General Family Medicine 11/24/24 documented as of this encounter
--- OUTSIDE RECORDS SUMMARY | 2025-04-05 10:48 | XMS_ITS | Clinical Summary ---
Author Organization [facility] Address [address] [place] [address] Phone Care Team Providers Care Stringed Instrument Repairer Name Role Phone Unavailable Primary Care Provider Unavailabl e Social History Tobacco Use Types Packs/Day Years Used Date Smoking Tobacco: Never Assessed Sex and Gender Information Value Date Recorded Sex Assigned at Not on file Legal Sex Male 8:47 AM EDT Gender Identity Not on file Sexual Orientation Not on file Plan of Treatment Health Maintenance Due Date Last Done Comments HIV Screening 1995 Lipid Panel 1995 Yearly Adult Physical 1995 MMR Vaccines (1 of 1 - Stand matt series) 1994 Varicella Vaccines (1 of 2 - 13+ 2-dose series) 2006 Hepatitis C Screening 2011 Hepatitis B Vaccines (1 of 3 - 19+ 3-dose series) 01/25/2012 DTaP/Tdap/Td Vaccines (1 - Tdap) 2015 COVID-19 Vaccine (2023-2 5 season) 2024 Influenza Vaccine (#1) 2025 Zoster Vaccines (1 of 2) 2043 HIB Vaccines Aged Out No longer eligi ble based on patient's age to complete this topic HPV Vaccines (No Doses Required) Completed Hepatitis A Vaccines Aged Out No long er eligible based on patient's age to complete this topic IPV Vaccines Aged Out No longer eligi ble based on patient's age to complete this topic Meningococcal Vaccine Aged Out No wolfgang susana eligible based on patient's age to complete this topic Pneumococcal Vaccine: Pediat rics and At-Risk Adult Patients Aged Out No longer sulema gible based on patient's age to complete this topic Rotavirus Vaccines Aged Out No longer eligible based on patient's age to complete this topic Insurance [address] [place] [address] [employer] [address] [place] [address] [employer]
--- OUTSIDE RECORDS SUMMARY | 2025-04-05 10:48 | XMS_ITS | Encounter Summary ---
Author Organization [facility] Address [address] [facility] [place] [address] Care Team Providers Care Runner Man Name Role Phone Grisel Ching Primary Care Provider [phone] Meghann Moffett MD Primary Care Provider [phone] Encounter Details Date Type Department Care Team (Late Contact Info) Description 05/20/2024 Abstract [facility] [address] [facility] 110 [place] [address] Unallocated, Noms Provider, [address] [place] [address] Social History Tobacco Use Types Packs/Day Years [...] [address] [facility] 110 [place] [address] Grisel Ching PA [address] [place] [facility] 110 [place], [place] [address] documented as of this encounter Visit Diagnoses Not on filedocumented in this encounter Care Teams Runner Man Relationship Specialty Start Date End Date Grisel Ching PA [address] [facility] 110 [place], [place] [address] PCP - General Family Medicine 06/26/24 11/23/24 Meghann Moffett MD [address] [facility] 110 [place] [address] PCP - General Family Medicine 11/24/24 documented as of this encounter
--- OUTSIDE RECORDS SUMMARY | 2025-04-05 10:48 | XMS_ITS | Encounter Summary ---
Author Organization [facility] Address [address] [facility] [place] [address] Care Team Providers Care Coat Baster Name Role Phone Grisel Ching Primary Care Provider [phone] Meghann Moffett MD Primary Care Provider [phone] Encounter Details Date Type Department Care Team (Late Contact Info) Description 06/01/2024 Abstract [facility] [address] [facility] 110 [place] [address] Unallocated, Noms Provider, [address] [place] [address] Social History Tobacco Use Types Packs/Day Years [...] Visit N[facility]S CI FM [address] [facility] 110 [place] [address] Grisel Ching PA 112 [facility] 110 [place], [place] [address] documented as of this encounter Visit Diagnoses Not on filedocumented in this encounter Care Teams Coat Baster Relationship Specialty Start Date End Date Grisel Ching PA 112 [facility] 110 [place], [place] [address] PCP - General Family Medicine 06/26/24 11/23/24 Meghann Moffett MD 112 [facility] 110 [place] [address] PCP - General Family Medicine 11/24/24 documented as of this encounter
--- OUTSIDE RECORDS SUMMARY | 2025-04-05 10:48 | XMS_ITS | Encounter Summary ---
Author Organization [facility] Address [address] [facility] [place] [address] Care Team Providers Care Glass Checker Name Role Phone Grisel Ching Primary Care Provider [phone] Meghann Moffett MD Primary Care Provider [phone] Encounter Details Date Type Department Care Team (Late Contact Info) Description 06/15/2024 Abstract [facility] [address] [facility] 110 [place] [address] Unallocated, Noms Provider, [address] [place] [address] Social History Tobacco Use Types Packs/Day Years [...] Visit [facility] CI FM [address] [facility] 110 [place] [address] Grisel Ching PA [address] [place] [facility] 110 [place], [place] [address] documented as of this encounter Visit Diagnoses Not on filedocumented in this encounter Care Teams Glass Checker Relationship Specialty Start Date End Date Grisel Ching PA [address] [place] [facility] 110 [place], [place] [phone] PCP - General Family Medicine 06/26/24 11/23/24 Meghann Moffett MD [address] [facility] 110 [place] [address] PCP - General Family Medicine 11/24/24 documented as of this encounter
--- OUTSIDE RECORDS SUMMARY | 2025-04-05 10:48 | XMS_ITS | Encounter Summary ---
Author Organization [facility] Address [address] [facility] [place] [address] Care Team Providers Care Used Car Renovator Name Role Phone Grisel Ching Primary Care Provider [phone] Meghann Moffett MD Primary Care Provider [phone] Encounter Details Date Type Department Care Team (Late Contact Info) Description 11/23/2024 Abstract [facility] [address] [facility] [address] [place] [id number] Grisel Ching PA 112 [facility] 110 [place] [address] Social History Tobacco Use Types Packs/Day Years [...] EST Office Visit [facility] [address] [facility] [address] [place] [phone] Grisel Ching PA 112 [place] [facility] 110 [place] [address] documented as of this encounter Visit Diagnoses Not on filedocumented in this encounter Care Teams Used Car Renovator Relationship Specialty Start Date End Date Grisel Ching PA 112 [facility] 110 [place], [place] [id number] PCP - General Family Medicine 06/26/24 11/23/24 Meghann Moffett MD 112 [facility] 110 [place] [address] PCP - General Family Medicine 11/24/24 documented as of this encounter
--- OUTSIDE RECORDS SUMMARY | 2025-04-05 10:48 | XMS_ITS | Encounter Summary ---
Author Organization [facility] Address [address] [facility] [place] [address] Care Team Providers Care Computer Education Professor Name Role Phone Grisel Ching Primary Care Provider [phone] Meghann Moffett MD Primary Care Provider [phone] Encounter Details Date Type Department Care Team (Late Contact Info) Description 06/29/2024 Abstract [facility] [address] [facility] 110 [place] [phone] Grisel Ching PA 112 [facility] [address] [place] [address] Social History Tobacco Use Types Packs/Day Years [...] EST Office Visit [facility] [address] [facility] [address] [place] [phone] Grisel Ching PA 112 [facility] 110 [place] [address] documented as of this encounter Visit Diagnoses Not on filedocumented in this encounter Care Teams Computer Education Professor Relationship Specialty Start Date End Date Grisel Ching PA 112 [facility] [address] [place], [place] [id number] PCP - General Family Medicine 06/26/24 11/23/24 Meghann Moffett MD 112 [facility] 110 [place] [address] PCP - General Family Medicine 11/24/24 documented as of this encounter
--- OUTSIDE RECORDS SUMMARY | 2025-04-05 10:48 | XMS_ITS | Encounter Summary ---
Author Organization [facility] Address [address] [facility] [place] [address] Care Team Providers Care Clerk Guide Name Role Phone Grisel Ching Primary Care Provider [phone] Meghann Moffett MD Primary Care Provider [phone] Encounter Details Date Type Department Care Team (Late Contact Info) Description 06/15/2024 Abstract [facility] [address] [facility] 110 [place] [address] Unallocated, Noms Provider, [address] [place] [address] Social History Tobacco Use Types Packs/Day Years [...] Visit [facility] [address] [facility] 110 [place] [address] Grisel Ching PA 112 [place] [facility] 110 [place], [place] [id number] documented as of this encounter Visit Diagnoses Not on filedocumented in this encounter Care Teams Clerk Guide Relationship Specialty Start Date End Date Grisel Ching PA 112 [facility] 110 [place], [place] [id number] PCP - General Family Medicine 06/26/24 11/23/24 Meghann Moffett MD [address] [facility] 110 [place] [address] PCP - General Family Medicine 11/24/24 documented as of this encounter
--- OUTSIDE RECORDS SUMMARY | 2025-04-05 10:48 | XMS_ITS | Encounter Summary ---
Author Organization [facility] Address [address] [facility] [place] [address] Care Team Providers Care Distribution Operations Supervisor Name Role Phone Grisel Ching Primary Care Provider [phone] Meghann Moffett MD Primary Care Provider [phone] Encounter Details Date Type Department Care Team (Late st Contact Info) Description 06/09/2024 Abstract [facility] [address] [facility] 110 [place] [address] Unallocated, Noms Provider, [address] [place] [address] Social History Tobacco Use Types Packs/Day Years [...] Visit [facility] [address] [facility] 110 [place] [address] Grisel Ching PA [address] [facility] 110 [place], [place] [id number] documented as of this encounter Visit Diagnoses Not on filedocumented in this encounter Care Teams Distribution Operations Supervisor Relationship Specialty Start Date End Date Grisel Ching PA [address] [facility] 110 [place], [place] [phone] PCP - General Family Medicine 06/26/24 11/23/24 Meghann Moffett MD [address] [facility] 110 [place] [address] PCP - General Family Medicine 11/24/24 documented as of this encounter
--- OUTSIDE RECORDS SUMMARY | 2025-04-05 10:48 | XMS_ITS | Encounter Summary ---
Author Organization [facility] Address [address] [facility] [place] [address] Care Team Providers Care Customer Training Specialist Name Role Phone Grisel Ching Primary Care Provider [phone] Meghann Moffett MD Primary Care Provider [phone] Encounter Details Date Type Department Care Team (Late st Contact Info) Description 06/26/2024 Abstract [facility] [address] [facility] [address] [place] [address] Unallocated, Noms Provider, [address] [place] [address] Social History Tobacco Use Types Packs/Day Years [...] Visit [facility] [address] [facility] [address] [place] [address] Grisel Ching PA [address] [place] [facility] 110 [place], [place] [id number] documented as of this encounter Visit Diagnoses Not on filedocumented in this encounter Care Teams Customer Training Specialist Relationship Specialty Start Date End Date Grisel Ching PA [address] [place] [facility] 110 [place], [place] [phone] PCP - General Family Medicine 06/26/24 11/23/24 Meghann Moffett MD [address] [place] [facility] 110 [place] [address] PCP - General Family Medicine 11/24/24 documented as of this encounter
--- OUTSIDE RECORDS SUMMARY | 2025-04-05 11:07 | XMS_ITS | CCD ---
Author Organization [facility] CliniSyme Care Team Providers Care Captain Room Service Name Role Phone Elizabeth Milton Unavailable RA REHMAN Admitting Unavailable RA REHMAN Attending Unavailable REQUEST, DR NONE LISTED Primary Care Unavaila ble RA REHMAN Consulting Unavailable Unavailable Primary Care Provider UnavailMD Martin Chen Admit Provider Jeane, HVAC TECHNICIAN-C Grisel Primary Care Provider MD Rani Delong Attending Provider [phone] SHIRLEY Perdomo [facility] Other Provider Unavailable MD Gilberto Sosa Other Provider MD Mickey Long Other Provider [phone] MD Ashlee Moura Other Provider DO Betty Tubbs Other Provider MD Ashlee Moura Attending Provider Grisel Cr Primary Care Provider GRISEL KHAN Attending Unavailable HEMGRISEL DE LA TORRE Attending Unavailable HEMGRISEL DE LA TORRE Attending Unavailable HEMGRISEL DE LA TORRE Attending Unavailable HEMGRISEL DE LA TORRE Attending Unavailable HEMGRISEL DE LA TORRE Attending Unavailable Hemmer HVAC TECHNICIAN-CGrisel Primary Care Provider Bro Osorio DO Emergency Provider [phone] Kash Connor MD Admit Provider Kash Connor MD Attending Provider [phone] Jeane HVAC TECHNICIAN-Grisel Moncada Primary Care Provider [phone] Bro Osorio DO Emergency Provider Nelson Bass MD Attending Provider Kash Connor MD Admit Provider Geeta MULLIGAN, Kash Attending Provider [phone] Meghann Moffett MD Primary Care Provider Ashlee Moura Admitting [facility]available [facility] Ashlee Moura Attending Unavailable Kash Connor Attending Unavailab Kash Sheppard Admitting [facility]availab le [facility] [place] Unavailable Rani Delong Attending Unavailable [facility] Primary [facility] [place] Unavailable Martin Phillip Admitting Unavailable Fabiola Perdomo Consulting Unavailable Gilberto Sosa Consulting Unavailable Mickey Long Consulting Ashlee Villanueva Consulting Unavailable Betty Tubbs Consulting Unavailable Nelson Bass Attending Unavailable Kash Connor Admitting Unavailab le [facility] Un[facility] Medications Current Medications Medication Drug Class(es) Dates Sig (Normalized) Sig (Original) amoxicillin 500 mg oral capsule (1 source) Penicillin-class Antibacterial Start: 11-02-2021 take 1 capsule by mouth three times daily Amoxicillin 500 MG 1 capsule Orally 3 times per day for 10 day(s) Oct, Active dextromethorphan hydrobromide 30 mg / pyrilamine maleate 30 mg oral tablet (1 source) Uncompetitive C-sxhvpy-X-aspartat e Receptor Antagonist, Sigma-1 Agonist Start: 11-02-2021 take 1 tablet by mouth every six hours [place] DMT 30-30 MG 1 tablet Orally every 6 hours for 7 days Oct, Active escitalopram 5 mg oral tablet (5 sources) Serotonin Reuptake Inhibitor Start: 11-23-2024 take 1 tablet by mouth once daily escitalopram (Lexapro) 5 MG tablet Take 5 mg by mouth Daily 11/23/2024 Active fluticasone propionate 0.05 mg/actuat metered dose nasal spray (1 source) Corticosteroid Start: 11-02-2021 take 1 spray(s) nasal route once daily Fluticasone Propionate 50 MCG/ACT 1 spray in each nostril Nasally Once a day for 30 day(s) Oct, Active hydrOXYzine pamoate 50 mg oral capsule (5 sources) Antihistamine Start: 11-23-2024 take 1 capsule by mouth every six hours as needed for anxiety hydrOXYzine pamoate (Vistaril) 50 MG capsule Take 50 mg by mouth every 6 (six) hours if needed for anxiety 11/23/2024 Active meloxicam 15 mg oral tablet (14 sources) Nonsteroidal Anti-inflammatory Drug Start: 07-06-2024 End: 09-29-2024 take 1 tablet by mouth once daily at mealtime meloxicam (Mobic) 15 MG tablet Indications: Chronic pain of left hand Take 1 tablet (15 mg) by mouth Daily Take with food 30 tablet 5 09/29/2024 Active Start: 11-01-2023 take 1 tablet by jose th at mealtime meloxicam (Mobic) 15 MG tablet Indications: Chronic pain of left hand Take 1 tablet (15 mg) by mouth in the morning. Take with food. 30 tablet 2 11/01/2023 Active 24 hr metoprolol succinate 25 mg extended release oral tablet (3 sources) beta-Adrenergic Elisha take 1 tablet by mouth once daily metoprolol succinate XL (Toprol-XL) 25 MG 24 hr tablet Take 25 mg by mouth Daily Do not crush or chew. Active 24 hr nicotine 0.292 mg/hr transdermal system (20 sources) Cholinergic Nicotinic Agonist Start: 11-24-19 25 nicotine (Nicoderm, Step 3) 7 MG/24HR patch Place 1 patch on the skin Daily 11/23/2024 Active Start: 11-23-2024 End: 02-04-2025 Nicotine 7 mg/24 hr Patch 24 Hour Discontinued 7 MG TRANSDERML Daily November 23, 2024 1:00am February 04, 2025 10:32am Start: 06-12-2024 Nicotine Activ e 1 PATCH TRANSDERML June 12, 2024 12:00am Start: 06-01-2024 End: 09-29-2024 nicotine (Nicoderm CQ) 7 MG/ 24HR patch Indications: Tobacco dependence Place 1 patch over 24 hours on the skin 1 (one) time each day at the same time for 14 days 14 patch 06/29/2024 09/29/2024 Discontinued (Therapy completed) Start: 04-30-2024 End: 11-20-2024 apply 1 dose transdermal route every twenty-four hours Nicotine 14 mg/24 hr patch 24 hour Discontinued 1 PATCH TRANSDERML June 12, 2024 12:00am November 20, 2024 5:22pm predniSONE 10 mg oral tablet (2 sources) Start: 04-02-2025 End: 04-11-2025 take 1 tablet by mouth three times daily, then take 1 tablet by mouth twice daily, then take 1 tablet by mouth once daily predniSONE (Deltasone) 10 MG tablet Indications: Chronic pain of right knee Take 1 tablet (10 mg) by mouth 3 (three) times a day for 3 days, THEN 1 tablet (10 mg) 2 (two) times a day for 3 days, THEN 1 tablet (10 mg) Daily for 3 days. 18 tablet 04/02/2025 04/11/2025 Active traMADol hydrochloride 50 mg oral tablet (5 sources) Opioid Agonist Start: 04-14-2024 End: 06-29-2024 take 1 tablet by mouth every six hours as needed traMADol (Ultram) 50 MG tablet Take 50 mg by mouth every 6 (six) hours if needed 04/14/2024 06/29/2024 Discontinued (Therapy completed) traZODone hydrochloride 50 mg oral tablet (5 sources) Serotonin Reuptake Inhibitor Start: 11-23-2024 traZODone (Desyrel) 50 MG tablet Take 50 mg by mouth as needed at bedtime 11/23/2024 Active Completed/Discontinued Medications Medication Drug Class(es) Dates Sig (Normalized) Sig (Original) colchicine 0.6 mg oral tablet (20 sources) Start: 04-24-2024 End: 11-20-2024 take 1 tablet by mouth twice daily Colchicine 0.6 mg tablet Discontinued 0.6 MG PO Twice daily 60 30 June 12, 2024 1:11pm November 20, 2024 5:23pm cyclobenzaprine hydrochloride 10 mg oral tablet (8 sources) Muscle Relaxant Start: 03-28-2018 End: 05-27-2018 take 1 tablet by mouth at bedtime as needed for muscle spasms Cyclobenzaprine 10 mg tablet Discontinued 10 MG PO Bedtime as needed for muscle spasm March 28, 2018 2:45pm May 27, 2018 12:59pm diphenhydrAMINE hydrochloride 25 mg oral capsule (8 sources) Histamine-1 Receptor Antagonist Start: 05-27-2018 End: 06-12-2024 take 2 capsules by mouth every six hours as needed Diphenhydramine Hcl (Benadryl) 25 mg capsule Discontinued 50 MG PO Q6H as needed for allergic reaction May 27, 2018 12:00am June 12, 2024 12:16pm until resolution of severe allergic reaction famotidine 20 mg oral tablet (8 sources) Histamine-2 Receptor Antagonist Start: 05-27-2018 End: 06-12-2024 take 1 tablet by mouth twice daily Famotidine (Pepcid) 20 mg tablet Discontinued 20 MG PO Twice daily May 27, 2018 12:00am June 12, 2024 12:16pm On Hold: Hold while taking protonix since its also antiacid fluocinonide 1 mg/ml topical cream (8 sources) Corticosteroid Start: 05-27-2018 End: 06-12-2024 Fluocinonide 0.1 % cream Discontinued 1 APPLIC TOPICAL Twice daily as needed for rash May 27, 2018 12:00am June 12, 2024 12:16pm ibuprofen 800 mg oral tablet (19 sources) Nonsteroidal Anti-inflammatory Drug Start: 04-24-2024 End: 06-12-2024 take 1 tablet by mouth three times daily Ibuprofen 800 mg Tablet Discontinued 800 MG PO Three times daily 42 April 24, 2024 12:00am June 12, 2024 12:16pm Start: 03-28-2018 End: 05-27-2018 take 1 tablet by mouth three times daily Ibuprofen 600 mg tablet Discontinued 600 MG PO Three times daily March 28, 2018 12:00am May 27, 2018 12:59pm pantoprazole 40 mg delayed release oral tablet (20 sources) Proton Pump Inhibitor Start: 06-29-2024 End: 11-20-2024 take 1 tablet by mouth once daily as needed Pantoprazole 40 mg tablet,delayed release (DR/EC) Discontinued 40 MG PO Daily as needed July 20, 2024 12:00pm November 20, 2024 5:22pm Start: 06-01-2024 take 1 tablet by jose th before mealtime pantoprazole (ProtoNix) 40 MG EC tablet Indications: Epigastric pain Take 1 tablet (40 mg) by mouth in the morning. Take before meals. 30 tablet 2 06/01/2024 Active Start: 06-01-2024 take 1 tablet by jose th before mealtime pantoprazole (ProtoNix) 40 MG EC tablet Indications: Epigastric pain Take 1 tablet (40 mg) by mouth in the morning. Take before meals. 30 tablet 2 06/01/2024 Active Start: 04-24-2024 End: 07-20-2024 take 1 tablet by mouth once daily Pantoprazole 40 mg Tablet,Delayed Release (Dr/Ec) Discontinued 40 MG PO Daily April 24, 2024 12:00am July 20, 2024 12:00pm Problems Active Problems Problem Classification Problem Date Documented Date Episodic/Chronic Abdominal pain (4 sources) Epigastric pain; Translations: [Epigastric pain] 06-29-2024 Episodic Cardiac dysrhythmias (20 sources) EKG: accelerated junctional rhythm; Translations: [Other specified cardiac arrhythmias] Onset: 05-19-2024 05-19-2024 Chronic Conduction disorders (13 sources) Mobitz type I incomplete atrioventricular block; Translations: [Atrioventricular block, second degree] Onset: 05-19-2024 05-19-2024 Chronic E Codes: Fall (2 sources) Fall; Translations: [Unspecified fall, initial encounter] 04-02-2025 Episodic Headache; including migraine (8 sources) Headache; Translations: [Headache] 02-13-2021 Episodic Mood disorders (20 sources) Manic bipolar I disorder; Translations: [Bipolar disorder, current episode manic without psychotic features, unspecified] Onset: 06-29-2024 Resolved: 06-29-2024 06-12-2024 Chronic Other connective tissue disease (18 sources) Chronic pain of left upper limb; Translations: [Pain in left hand] Onset: 10-24-2023 10-24-2023 Episodic Other non-traumatic joint disorders (20 sources) Pain in left knee; Translations: [Pain in joint, lower leg] Onset: 11-01-2023 11-01-2023 Episodic Other skin disorders (4 sources) Rash and other nonspecific skin eruption; Translations: [RASH OTH NONSPECIFIC SKIN ERUPTION] Onset: 08-17-2022 Episodic Substance-related disorders (20 sources) Tobacco dependence syndrome; Translations: [Nicotine dependence, unspecified, uncomplicated] Onset: 10-24-2023 10-24-2023 Chronic Viral infection (1 source) Zoster without complications; Translations: [ZOSTER WITHOUT COMPLICATIONS] Onset: 08-20-2022 Episodic Past or Other Problems Problem Classification Problem Date Documented Da te Episodic/Chronic Alcohol-related disorders (19 sources) Alcohol abuse; Translations: [Alcohol dependence, uncomplicated] Onset: 06-29-2024 Resolved: 06-29-2024 06-12-2024 Chronic Immunizations and screening for infectious disease (1 source) Contact with and (suspected) exposure to other viral communicable diseases Onset: 11-02-2021 Resolved: 11-02-2021 Episodic Nonspecific chest pain (20 sources) Chest pain; Translations: [Chest pain, unspecified] Onset: 04-23-2024 04-23-2024 Episodic Otitis media and related conditions (1 source) Otitis media, unspecified, right ear Onset: 11-02-2021 Resolved: 11-02-2021 Episodic Ciera-; endo-; and myocarditis; cardiomyopathy (except that caused by tuberculosis or sexually transmitted disease) (20 sources) Acute pericarditis; Translations: [Acute pericarditis, unspecified] Onset: 04-23-2024 04-23-2024 Episodic Substance-related disorders (20 sources) Marijuana user; Translations: [Cannabis use, unspecified, uncomplicated] Onset: 04-23-2024 04-23-2024 Episodic Suicide and intentional self-inflicted injury (7 sources) Suicidal thoughts; Translations: [Suicidal ideations] Onset: 11-20-2024 11-20-2024 Episodic Results Test Name Value Interpretation Reference Range Facility Cholesterol [Mass/volume] in Serum or PlasmaOrdered By: Kash Connor on 11-21-2024 Cholesterol [Mass/Vol] Cholesterol [Mass/volume] in Serum or Plasma Low 140-200 [facility] Comment on above: Chol less than 200 m g/dl low riskChol 201-239 mg/dl borderline riskChol 240 mg/dl and greater high risk Cholesterol in HDL [Mass/vol ume] in Serum or PlasmaOrdered By: Kash Connor on 11-21-2024 Cholesterol in HDL [Mass/Vol] Serum or plasma high density lipoprotein (HDL) cholesterol measurement 23-92 [facility] Comment on above: HDL CHOL ATP-III CLA SSIFICATION Cardiovascular RiskHDL > or equal to 60 mg/dL LOWHDL < 40 mg/dL HIGH Cholesterol in LDL Calc [Mas s/Vol]Ordered By: Kash Connor on 11-21-2024 Cholesterol in LDL [Mass/Vol] Cholesterol in LDL [Mass/volume] in Serum or Plasma by calculation 0-100 [facility] Comment on above: LDL ATP III CLASSIFI CATIONLDL less than 100 mg/dL OptimalLDL 100-129 mg/dL Near or above optimalLDL 130-159 mg/dL Borderline highLDL 160-189 mg/dL HighLDL greater than 189 mg/dL Very high Cholesterol in VLDL Calc [Ma ss/Vol]Ordered By: Kash Connor on 11-21-2024 Cholesterol in VLDL [Mass/Vol] Cholesterol in VLDL [Mass/volume] in Serum or Plasma by calculation [facility] ECG 12 lead ECGon 11-21-2024 ECG 12 lead ECG [facility] [place] [address] Electrocardiograph Report Signed Patient: Sean Rodriguez MR#: [id number] : 1995 Acct:[id number] Age/Sex: 29 / M ADM Date: 11/20/24 Loc: Room: [address] [place] [address] Type: ADM IN Attending Dr: Kash Connor MD Ordering Provider: Kash Connor MD Date of Service: 11/21/2410/17/499 ECG/ECG 12 lead ECG: New Admit Copies to: Test Reason : Blood Pressure : */* mmHG Vent. Rate : 67 BPM Atrial Rate : 67 BPM P-R Int : 136 ms QRS Dur : 90 ms QT Int : 376 ms P-R-T Axes : 44 -18 -11 degrees QTcB Int : 397 ms Normal sinus rhythm Minimal voltage criteria for LVH, may be normal variant ( R in aVL ) ST elevation, consider early repolarization, pericarditis, or injury Abnormal ECG Confirmed by Mickey Long ([id number]) on 11/23/2024 7:05:44 AM Referred By: Electronically Signed By: Mickey Long Transcribed By: MUS Signed By Mickey Long MD 11/23/24 0705 Normal [facility] Lipid Panelon 11-21-2024 Cholesterol [Mass/Vol] 130 mg/dL Low 140-200 [facility] Comment on above: Result Comment: Chol less than 200 mg/dl low risk Chol 201-239 mg/dl borderline risk Chol 240 mg/dl and greater high risk Performed By: #### V [id number], LIPID, TSH3 wRFLX ####[place] [id number] [place] [id number] [facility] Cholesterol in HDL [Mass/Vol] 52 mg/dL Normal 23-92 [facility] Comment on above: Result Comment: HDL CHOL ATP-III CLASSIFICATION Cardiovascular Risk HDL > or equal to 60 mg/dL LOW HDL < 40 mg/dL HIGH Performed By: #### V [id number], LIPID, TSH3 wRFLX ####[address] [id number] [place] [address] [facility] Cholesterol.total/Krystyna sterol in HDL [Mass ratio] 2.5 {ratio} Normal <5.0 [facility] Comment on above: Performed By: #### V [id number], LIPID, TSH3 wRFLX ####[address] [address] [facility] LDL Cholesterol,Calculated 67 mg/dL Normal 0-100 [facility] Comment on above: Result Comment: LDL ATP III CLASSIFICATION LDL less than 100 mg/dL Optimal LDL 100-129 mg/dL Near or above optimal LDL 130-159 mg/dL Borderline high LDL 160-189 mg/dL High LDL greater than 189 mg/dL Very high Performed By: #### V [id number], LIPID, TSH3 wRFLX ####[facility] [id number] [place] [address] [facility] Triglyceride w/Reflex 56 mg/dL Normal 0-149 [facility] Comment on above: Result Comment: TRIG ATP III CLASSIFICATION TRIG less than 150 mg/dL Normal TRIG 150-199 mg/dL Borderline high TRIG 200-500 mg/dL High TRIG greater than 500 mg/dL Very high Standard traceable to the Center for Disease Conrtrol and Prevention (CDC) test method. Performed By: #### V [id number], LIPID, TSH3 wRFLX ####[facility] [id number] VLDL CHOLESTEROL 11 mg/dL Normal [facility] Comment on above: Performed By: #### V [id number], LIPID, TSH3 wRFLX ####[facility] Serum or plasma total choles terol/high density lipoprotein (HDL) cholesterol mass ratOrdered By: Kash Connor on 11-21-2024 Cholesterol.total/Krystyna sterol in HDL [Mass ratio] Serum or plasma total cholesterol/high density lipoprotein (HDL) cholesterol mass rat <5.0 [facility] Thyroid Stim Hormone w/Rflxo n 11-21-2024 Thyroid Stim Hormone w/Rflx 0.57 u[iU]/mL Normal 0.45-5.33 [facility] Comment on above: Performed By: #### V [id number], LIPID, TSH3 wRFLX ####[place] [id number] Thyrotropin [Units/volume] i n Serum or PlasmaOrdered By: Kash Connor on 11-21-2024 TSH Qn Thyrotropin [Units/volume] in Serum or Plasma 0.45-5.33 [facility] Triglyceride [Mass/volume] i n Serum or PlasmaOrdered By: Kash Connor on 11-21-2024 Triglyceride [Mass/Vol] Triglyceride [Mass/volume] in Serum or Plasma 0-149 [facility] Comment on above: TRIG ATP III CLASSIF ICATIONTRIG less than 150 mg/dL NormalTRIG 150-199 mg/dL Borderline highTRIG 200-500 mg/dL High TRIG greater than 500 mg/dL Very highStandard traceable to the Center for Disease Conrtrol and Prevention (CDC) test method. Vitamin D 25 Hydroxy Totalon 11-21-2024 Vitamin D 25 Hydroxy Total 8.9 ng/mL Low 30-100 [facility] Comment on above: Result Comment: SARAH MIN D STATUS 25([place])VITAMIN D RANGE (ng/mL) Deficient <20 Insufficient 20 to <30 Sufficient 30 to 100 Reference: Vicki MFMer, Cintia LEON, et al. Evaluation,treatment, and prevention of vitamin D deficiency; an Endocrine Society clinical practice guideline. JCEM. 2010; 96(7):1911-30. PERFORMED BY: [facility] [address] [place] [address] PATHOLOGIST FAMILY HELPER CROW ZAVALA M.D. Performed By: #### V [id number], LIPID, TSH3 wRFLX ####[facility] [id number] [place] [address] [facility] Vitamin D+Metabolites [Mass/ volume] in Serum or PlasmaOrdered By: Kash Connor on 11-21-2024 Vitamin D+Metabolites [Mass/Vol] Vitamin D+Metabolites [Mass/volume] in Serum or Plasma Low 30-100 [facility] Comment on above: VITAMIN D STATUS 25( [place])VITAMIN D RANGE (ng/mL) Deficient <20 Insufficient 20 to <30Sufficient 30 to 100Reference: Mer Torres, Cintia LEON, et al. Evaluation,treatment, and prevention of vitamin D deficiency; an Endocrine Society clinical practice guideline. JCEM. 2010; 96(7):1911-30. Alanine aminotransferase [En zymatic activity/volume] in Serum or PlasmaOrdered By: Bro Osorio on 11-20-2024 ALT [Catalytic activity/Vol] Alanine aminotransferase [Enzymatic activity/volume] in Serum or Plasma 7-52 [facility] Albumin [Mass/volume] in Ser um or Plasma by Bromocresol green (BCG) dye binding methoOrdered By: Bro Osorio on 11-20-2024 Albumin BCG dye [Mass/Vol] Albumin [Mass/volume] in Serum or Plasma by Bromocresol green (BCG) dye binding metho 3.5-5.7 [facility] Alkaline phosphatase [Enzyma tic activity/volume] in Serum or PlasmaOrdered By: Bro Osorio on 11-20-2024 ALP [Catalytic activity/Vol] Alkaline phosphatase [Enzymatic activity/volume] in Serum or Plasma 34-104 [facility] Amphetamine Screen Ql (U)Ord ered By: Bro Osorio on 11-20-2024 Amphetamines Ql (U) Amphetamines screen Negativ e [facility] Appearance of UrineOrdered B y: Bro Osorio on 11-20-2024 Appearance (U) Urine appearance Clear [facility] Aspartate aminotransferase [ Enzymatic activity/volume] in Serum or PlasmaOrdered By: Bro Osorio on 11-20-2024 AST [Catalytic activity/Vol] Aspartate aminotransferase [Enzymatic activity/volume] in Serum or Plasma 13-39 [facility] Bacteria [Presence] in Urine by AutomatedOrdered By: Bro Osorio on 11-20-2024 Bacteria Auto Ql (U) Bacteria [Presence] in Urine by Automated None Seen [facility] Barbiturates [Presence] in U rine by Screen methodOrdered By: Bro Osorio on 11-20-2024 Barbiturates Screen Ql (U) Barbiturates [Presence] in Urine by Screen method Negative [facility] Basophils Auto (Bld) [#/Vol] Ordered By: Bro Osorio on 11-20-2024 Basophils (Bld) [#/Vol] Automated basoph il count 0.0-0.2 [facility] Basophils/100 WBC Auto (Bld) Ordered By: Bro Osorio on 11-20-2024 Basophils/100 WBC (Bld) Automated basophil % . [facility] Benzodiazepines Screen Ql (U )Ordered By: Bro Osorio on 11-20-2024 Benzodiazepines Ql (U) Benzodiazepines [Presence] in Urine by Screen method Negative [facility] Benzoylecgonine [Presence] i n Urine by Screen methodOrdered By: Bro Osorio on 11-20-2024 Benzoylecgonine Screen Ql (U) Benzoylecgonine [Presence] in Urine by Screen method Negative [facility] Bilirubin Test strip Ql (U)O rdered By: Bro Osorio on 11-20-2024 Bilirubin Ql (U) Bilirubin.total [Presence] in Urine by Test strip Negative [facility] Bilirubin.total [Mass/volume ] in Serum or PlasmaOrdered By: Bro Osorio on 11-20-2024 Bilirubin [Mass/Vol] Bilirubin.total [Mass/volume] in Serum or Plasma High 0.3-1.0 [facility] Calcium [Mass/volume] in Ser um or PlasmaOrdered By: Bro Osorio on 11-20-2024 Calcium [Mass/Vol] Calcium [Mass/volume ] in Serum or Plasma 8.6-10.3 [facility] Cannabinoids [Presence] in U rine by Screen methodOrdered By: Bro Osorio on 11-20-2024 Cannabinoids Screen Ql (U) Cannabinoids [Presence] in Urine by Screen method High Negative [facility] Comment on above: These are unconfirme d results and should not be used for legal purposes. Drug Cut-Off Concentration: AMPH 1000 ng/mL ANNAMARIA 200 ng/mL KATHRYN 200 ng/mL COCM 300 ng/mL OP 300 ng/mL PCP 25 ng/mL THC 20 ng/mL Carbon dioxide, total [Moles /volume] in Serum or PlasmaOrdered By: Bro Osorio on 11-20-2024 CO2 [Moles/Vol] Carbon dioxide, tota l [Moles/volume] in Serum or Plasma 21.0-31.0 [facility] Chloride [Moles/volume] in S casey or PlasmaOrdered By: Bro Osorio on 11-20-2024 Chloride [Moles/Vol] Chloride [Moles/volume] in Serum or Plasma 98-107 [facility] Color Auto (U)Ordered By: Robbie Osorio on 11-20-2024 Color (U) Color of Urine by Auto Yellow [facility] Complete Blood Count Auto Di ffon 11-20-2024 Basophils (Bld) [#/Vol] 0.1 10*3/uL Normal 0.0-0.2 [facility] Comment on above: Result Comment: PERF ORMED BY: [facility] [address] [place] [address] PATHOLOGIST FAMILY HELPER CROW ZAVALA M.D. Performed By: #### E APARNA, CBC, CMP ####[facility] [id number] [place] [id number] [place] Basophils/100 WBC (Bld) 0.9 % Normal . [facility] Comment on above: Performed By: #### E APARNA, CBC, CMP ####[facility] [id number] [place] [id number] [place] Eosinophils (Bld) [#/Vol] 0.1 10*3/uL Normal 0.0-0.45 [facility] Comment on above: Performed By: #### E APARNA CBC, CMP ####[address] Eosinophils/100 WBC (Bld) 1.3 % Normal . [facility] Comment on above: Performed By: #### E APARNA CBC, CMP ####[address] Erythrocyte distribution width (RBC) [Ratio] 13.9 % Normal 12.0-14.8 [facility] Comment on above: Performed By: #### E APARNA CBC, CMP ####[address] Hematocrit (Bld) [Volume fraction] 38.8 % Normal 38.8-50.0 [facility] [facility]ician Group Comment on above: Performed By: #### E APARNA CBC, CMP ####[address] Hemoglobin (Bld) [Mass/Vol] 13.7 g/dL Normal 13.0-17.0 [facility] Comment on above: Performed By: #### E APARNA CBC, CMP ####[address] Lymphocytes (Bld) [#/Vol] 2.6 10*3/uL Normal 1.00-4.8 [facility] Comment on above: Performed By: #### E APARNA CBC, CMP ####[address] Lymphocytes/100 WBC (Bld) 35.6 % Normal . [facility] Comment on above: Performed By: #### E APARNA CBC, CMP ####[address] MCH (RBC) [Entitic mass] 33.8 pg Normal 27.5-35.2 [facility] Comment on above: Performed By: #### E APARNA, CBC, CMP ####[address] MCV (RBC) [Entitic vol] 95.9 fL Normal 83.5-101 [facility] Comment on above: Performed By: #### E APARNA, CBC, CMP ####[address] Mean Corpuscular HGB Conc 35.3 g/dL Normal 32.5-35.6 The [facility] Comment on above: Performed By: #### E APARNA, CBC, CMP ####[address] Monocytes (Bld) [#/Vol] 0.8 10*3/uL Normal 0.0-0.8 The [facility] Comment on above: Performed By: #### E APARNA, CBC, CMP ####[address] Monocytes/100 WBC (Bld) 18.16 % Normal 0.00-20.00 [facility] Comment on above: Performed By: #### E APARNA, CBC, CMP ####[address] Monocytes/100 WBC (Bld) 10.8 % Normal . [facility] Comment on above: Performed By: #### E APARNA, CBC, CMP ####[address] Neutrophils (Bld) [#/Vol] 3.8 10*3/uL Normal 1.8-7.7 The [facility] Physician [facility] Comment on above: Performed By: #### E APARNA, CBC, CMP ####[address] Neutrophils/100 WBC (Bld) 51.4 % Normal . [facility] Comment on above: Performed By: #### E APARNA, CBC, CMP ####[address] NRBC% 0.1 /100{WBC} Normal 0-0.5 The [facility] Comment on above: Performed By: #### E APARNA CBC, CMP ####[address] Platelet mean volume (Bld) [Entitic vol] 8.3 fL Normal 6.6-10.1 The [facility] s Physician Group Comment on above: Performed By: #### E APARNA CBC, CMP ####[address] Platelets (Bld) [#/Vol] 234 10*3/uL Normal 150-450 [facility] Comment on above: Performed By: #### E APARNA CBC, CMP ####[address] RBC (Bld) [#/Vol] 4.05 10*6/uL Normal 3.90-5.60 The [facility] Comment on above: Performed By: #### E APARNA CBC, CMP ####[address] WBC (Bld) [#/Vol] 7.3 10*3/uL Normal 4.1-10.5 The [facility] Group Comment on above: Performed By: #### E APARNA CBC, CMP ####[address] Comprehensive Metabolic Pane wolfgang 11-20-2024 Albumin [Mass/Vol] 4.3 g/dL Normal 3.5-5.7 The [facility] Comment on above: Performed By: #### E APARNA CBC, CMP ####[address] Albumin/Globulin [Mass ratio] 1.7 {ratio} Normal The [facility] Comment on above: Performed By: #### E APARNA CBC, CMP ####[address] ALP [Catalytic activity/Vol] 63 U/L Normal 34-104 [facility] Comment on above: Performed By: #### E APARNA CBC, CMP ####[place] [id number] [place] [id number] [facility] ALT [Catalytic activity/Vol] 13 U/L Normal 7-52 [facility] Comment on above: Performed By: #### E APARNA CBC, CMP ####[place] [id number] [place] [id number] [facility] Anion gap [Moles/Vol] 9.0 mmol/L Normal 6.0-15.0 The [facility] Comment on above: Performed By: #### E APARNA CBC, CMP ####[place] [id number] [facility] AST [Catalytic activity/Vol] 22 U/L Normal 13-39 The [facility] Comment on above: Performed By: #### E APARNA CBC, CMP ####[place] [id number] [facility] Bilirubin [Mass/Vol] 1.2 mg/dL High 0.3-1.0 The [facility] Comment on above: Performed By: #### E APARNA CBC, CMP ####[place] [id number] [facility] Calcium [Mass/Vol] 9.3 mg/dL Normal 8.6-10.3 The [facility] Comment on above: Performed By: #### E APARNA CBC, CMP ####[place] [id number] [facility] Chloride [Moles/Vol] 107 mmol/L Normal 98-107 The [facility] Comment on above: Performed By: #### E APARNA CBC, CMP ####[place] [id number] [facility] CO2 [Moles/Vol] 27.8 mmol/L Normal 21.0-31.0 The [facility] Group Comment on above: Performed By: #### E APARNA CBC, CMP ####[place] [id number] [facility] Creatinine [Mass/Vol] 0.87 mg/dL Normal 0.70-1.30 The [facility] Comment on above: Performed By: #### E APARNA CBC, CMP ####[place] [id number] [place] [phone] [facility] Creatinine Clr Calc Pharmacy 110.50 Normal The [facility] Comment on above: Result Comment: PERF ORMED BY: [facility] [address] [place] [address] PATHOLOGIST FAMILY HELPER CROW ZAVALA M.D. Performed By: #### E APARNA CBC, CMP ####[address] GFR/1.73 sq M.predicted MDRD (S/P/Bld) [Vol rate/Area] mL/min/{1.73_m2} Normal The [facility] Comment on above: Performed By: #### E APARNA CBC, CMP ####[address] Globulin (S) [Mass/Vol] 2.5 g/dL Normal T he [facility] Comment on above: Performed By: #### E APARNA CBC, CMP ####[address] Glucose [Mass/Vol] 100 mg/dL Normal 70-100 The [facility] Group Comment on above: Result Comment: [place] Glucose Reference Range is dependent on time and content of last meal. Glucose of more than 200 mg/dL in a nonstressed, ambulatory subject supports the diagnosis of Diabetes Mellitus. ADA recommended reference range Performed By: #### E APARNA CBC, CMP ####[place] [id number] [facility] Potassium [Moles/Vol] 3.8 mmol/L Normal 3.5-5.1 The [facility] Comment on above: Performed By: #### E APARNA CBC, CMP ####[place] [id number] [facility] Protein [Mass/Vol] 6.8 g/dL Normal 6.4-8.9 The [facility] Comment on above: Performed By: #### E APARNA CBC, CMP ####[address] [place] [address] [facility] Sodium [Moles/Vol] 140 mmol/L Normal 136-145 The [facility] Comment on above: Performed By: #### E APARNA, CBC, CMP ####[place] [address] [place] [address] [facility] Urea nitrogen [Mass/Vol] 7 mg/dL Normal 7-25 The [facility] Comment on above: Performed By: #### E APARNA, CBC, CMP ####[address] [address] [facility] Creatinine [Mass/volume] in Serum or PlasmaOrdered By: rBo Osorio on 11-20-2024 Creatinine [Mass/Vol] Creatinine [Mass/volume] in Serum or Plasma 0.70-1.30 [facility] Dipstick and Microscopicon 0 11-20-2024 Appearance (U) Clear Normal Clear The [facility] Group Comment on above: Order Comment: Name Collection Type:: Clean-Voided Midstream Performed By: #### C UU, URDS, ADDONUAPLUS ####[address] [address] [facility] Bacteria,Urine None Seen Normal None Seen The [facility] Comment on above: Order Comment: Name Collection Type:: Clean-Voided Midstream Performed By: #### C UU, URDS, ADDONUAPLUS ####[address] [address] [facility] Bilirubin,Urine Negative Normal Negative The [facility] Comment on above: Order Comment: Name Collection Type:: Clean-Voided Midstream Performed By: #### C UU, URDS, ADDONUAPLUS ####[address] [address] [facility] Color (U) Yellow Normal Yellow The [facility] Comment on above: Order Comment: Name Collection Type:: Clean-Voided Midstream Performed By: #### C UU, URDS, ADDONUAPLUS ####[address] [address] [facility] Glucose Ql (U) Normal Normal Normal The [facility] Comment on above: Order Comment: Name Collection Type:: Clean-Voided Midstream Performed By: #### C UU, URDS, ADDONUAPLUS ####[address] [address] [facility] Hyaline Casts,Urine None Normal 0-8 [facility] Group Comment on above: Order Comment: Name Collection Type:: Clean-Voided Midstream Performed By: #### C UU, URDS, ADDONUAPLUS ####[address] [address] [facility] Ketones Ql (U) Negative Normal Negative The [facility] Comment on above: Order Comment: Name Collection Type:: Clean-Voided Midstream Performed By: #### C UU, URDS, ADDONUAPLUS ####[address] [address] [facility] Leukocyte esterase Test strip Ql (U) 2+ High Negative The [facility] Comment on above: Order Comment: Name Collection Type:: Clean-Voided Midstream Performed By: #### C UU, URDS, ADDONUAPLUS ####[address] [address] [facility] Mucus,Urine 4+ Critically abnormal The [facility] Comment on above: Order Comment: Name Collection Type:: Clean-Voided Midstream Result Comment: PERF ORMED BY: [facility] [address] [place] [place] [phone] PATHOLOGIST FAMILY HELPER CROW ZAVALA M.D. Performed By: #### C UU, URDS, ADDONUAPLUS ####[address] [address] [facility] Nitrite,Urine Negative Normal Negative The [facility] Comment on above: Order Comment: Name Collection Type:: Clean-Voided Midstream Performed By: #### C UU, URDS, ADDONUAPLUS ####[address] [address] [facility] Occult Blood,Urine Negative Normal Negative The [facility] Comment on above: Order Comment: Name Collection Type:: Clean-Voided Midstream Result Comment: PERF ORMED BY: [facility] [address] [place] [address] PATHOLOGIST FAMILY HELPER CROW ZAVALA M.D. Performed By: #### C UU, URDS, ADDONUAPLUS ####[address] [address] [facility] pH (U) 6.5 [pH] Normal 5.0-9.0 The [facility] Comment on above: Order Comment: Name Collection Type:: Clean-Voided Midstream Performed By: #### C UU, URDS, ADDONUAPLUS ####[address] Protein (U) [Mass/Vol] 30 mg/dL High Negative Th e [facility] Comment on above: Order Comment: Name Collection Type:: Clean-Voided Midstream Performed By: #### C UU, URDS, ADDONUAPLUS ####[place] [id number] [facility] RBC,Urine None Seen Normal 0-4 [facility] Comment on above: Order Comment: Name Collection Type:: Clean-Voided Midstream Performed By: #### C UU, URDS, ADDONUAPLUS ####[place] [id number] [facility] Specificy [place],Urine 1.026 Normal 1.001-1.030 [facility] Comment on above: Order Comment: Name Collection Type:: Clean-Voided Midstream Performed By: #### C UU, URDS, ADDONUAPLUS ####[address] [address] [facility] Squamous Epithelial Cell,Urine 1-2 Normal 0-2 [facility] Comment on above: Order Comment: Name Collection Type:: Clean-Voided Midstream Performed By: #### C UU, URDS, ADDONUAPLUS ####[place] [id number] [facility] Urobilinogen,Urine 3 mg/dL High Normal The [facility] Comment on above: Order Comment: Name Collection Type:: Clean-Voided Midstream Performed By: #### C UU, URDS, ADDONUAPLUS ####[address] WBC,Urine 5-9 High 0-4 [facility] Comment on above: Order Comment: Name Collection Type:: Clean-Voided Midstream Performed By: #### C UU, URDS, ADDONUAPLUS ####[address] Drug Screen,Urineon 11-20-19 25 Amphetamine Screen,Urine Negative Normal Negative The [facility] Comment on above: Performed By: #### C UU, URDS, ADDONUAPLUS ####[address] Barbiturate Screen,Urine Negative Normal Negative The [facility] Comment on above: Performed By: #### C UU, URDS, ADDONUAPLUS ####[address] Benzodiazepines Screen,Urine Negative Normal Negative The [facility] Comment on above: Performed By: #### C UU, URDS, ADDONUAPLUS ####[address] Cannabinoid Screen,Urine Positive High Negative The [facility] Comment on above: Result Comment: Thes e are unconfirmed results and should not be used for legal purposes. Drug Cut-Off Concentration: AMPH 1000 ng/mL ANNAMARIA 200 ng/mL KATHRYN 200 ng/mL COCM 300 ng/mL OP 300 ng/mL PCP 25 ng/mL THC 20 ng/mL PERFORMED BY: [facility] [address] [place] [address] PATHOLOGIST FAMILY HELPER CROW ZAVALA M.D. Performed By: #### C UU, URDS, ADDONUAPLUS ####[address] Cocaine Screen,Urine Negative Normal Negative The [facility] Comment on above: Performed By: #### C UU, URDS, ADDONUAPLUS ####[facility] [id number] [place] [address] [facility] Opiate Screen,Urine Negative Normal Negative The [facility] Comment on above: Performed By: #### C UU, URDS, ADDONUAPLUS ####[facility] [id number] [place] [id number] [facility] Phencyclidine Screen,Urine Negative Normal Negative The [facility] Comment on above: Performed By: #### C UU, URDS, ADDONUAPLUS ####[facility] [id number] [place] [id number] [facility] Eosinophils Auto (Bld) [#/Vo l]Ordered By: Bro Osorio on 11-20-2024 Eosinophils (Bld) [#/Vol] Automated eosinophil count 0.0-0.45 [facility] Eosinophils/100 WBC Auto (Bl d)Ordered By: Bro Osorio on 11-20-2024 Eosinophils/100 WBC (Bld) Automated eosinophil % . [facility] Epithelial cells.squamous [# /area] in Urine sediment by Automated countOrdered By: Bro Osorio on 11-20-2024 Epithelial cells.squamous Auto (Urine sed) [#/Area] Epithelial cells.squamous [#/area] in Urine sediment by Automated count 0-2 [facility] Erythrocyte distribution wid th Auto (RBC) [Ratio]Ordered By: Bro Osorio on 11-20-2024 Erythrocyte distribution width (RBC) [Ratio] Erythrocyte distribution width [Ratio] by Automated count 12.0-14.8 [facility] Erythrocytes [#/area] in Uri ne sediment by Automated countOrdered By: Bro Osorio on 11-20-2024 RBC Auto (Urine sed) [#/Area] Erythrocytes [#/area] in Urine sediment by Automated count 0-4 [facility] Ethanol [Mass/volume] in Ser um or PlasmaOrdered By: Bro Osorio on 11-20-2024 Ethanol [Mass/Vol] Ethanol [Mass/volume ] in Serum or Plasma [facility] Comment on above: Test not performed Ethyl Alcohol Profileon 10-25 Ethanol [Mass/Vol] mg/dL Normal The [facility] Comment on above: Performed By: #### E APARNA, CBC, CMP ####[facility] [id number] [place] [id number] [facility] Percent Ethanol Not performed Normal [facility] Comment on above: Result Comment: PERF ORMED BY: [facility] [address] [place] [phone] PATHOLOGIST FAMILY HELPER CROW ZAVALA M.D. Performed By: #### E APARNA, CBC, CMP ####[facility] [id number] [place] [id number] [facility] Globulin Calc (S) [Mass/Vol] Ordered By: Bro Osorio on 11-20-2024 Globulin (S) [Mass/Vol] Serum globulin measurement by calculation (mass/volume) [facility] Glucose [Mass/volume] in Ser um or PlasmaOrdered By: Bro Osorio on 11-20-2024 Glucose [Mass/Vol] Glucose [Mass/volume ] in Serum or Plasma 70-100 [facility] Comment on above: ADA recommended refe rence rangeRandom Glucose Reference Range is dependent on time and content of last meal. Glucose of more than 200 mg/dL in a nonstressed, ambulatory subject supports the diagnosis of Diabetes Mellitus. Glucose [Mass/volume] in Uri ne by Test stripOrdered By: Bro Osorio on 11-20-2024 Glucose Test strip (U) [Mass/Vol] Glucose [Mass/volume] in Urine by Test strip Normal [facility] Hematocrit Auto (Bld) [Volum e fraction]Ordered By: Bro Osorio on 11-20-2024 Hematocrit (Bld) [Volume fraction] Hematocrit [Volume Fraction] of Blood by Automated count 38.8-50.0 [facility] Hemoglobin Test strip Ql (U) Ordered By: Bro Osorio on 11-20-2024 Hemoglobin Ql (U) Hemoglobin [Presence ] in Urine by Test strip Negative [facility] Hemoglobin [Mass/volume] in BloodOrdered By: Bro Osorio on 11-20-2024 Hemoglobin (Bld) [Mass/Vol] Hemoglobin [Mass/volume] in Blood 13.0-17.0 [facility] Hyaline casts [#/area] in Ur ine sediment by Automated countOrdered By: Bro Osorio on 11-20-2024 Hyaline casts Auto (Urine sed) [#/Area] Hyaline casts [#/area] in Urine sediment by Automated count 0-8 [facility] Ketones Test strip Ql (U)Ord ered By: Bro Osorio on 11-20-2024 Ketones Ql (U) Ketones [Presence] i n Urine by Test strip Negative [facility] Leukocyte esterase [Presence ] in Urine by Test stripOrdered By: Bro Osorio on 11-20-2024 Leukocyte esterase Test strip Ql (U) Leukocyte esterase [Presence] in Urine by Test strip High Negative [facility] Leukocytes [#/area] in Urine sediment by Automated countOrdered By: Bro Osorio on 11-20-2024 WBC Auto (Urine sed) [#/Area] Leukocytes [#/area] in Urine sediment by Automated count High 0-4 [facility] Leukocytes [#/volume] correc aba for nucleated erythrocytes in Blood by Automated counOrdered By: Bro Osorio on 11-20-2024 WBC corrected for nucl RBC Auto (Bld) [#/Vol] Leukocytes [#/volume] corrected for nucleated erythrocytes in Blood by Automated coun 4.1-10.5 [facility] Lymphocytes Auto (Bld) [#/Vo l]Ordered By: Bro Osorio on 11-20-2024 Lymphocytes (Bld) [#/Vol] Lymphocytes [#/volume] in Blood by Automated count 1.00-4.8 [facility] Lymphocytes/100 WBC Auto (Bl d)Ordered By: Bro Osorio on 11-20-2024 Lymphocytes/100 WBC (Bld) Lymphocytes/100 leukocytes in Blood by Automated count . [facility] MCH Auto (RBC) [Entitic mass ]Ordered By: Bro Osorio on 11-20-2024 MCH (RBC) [Entitic mass] MCH [Entitic mass] by Automated count 27.5-35.2 [facility] MCHC Auto (RBC) [Mass/Vol]Or dered By: Bro Osorio on 11-20-2024 MCHC (RBC) [Mass/Vol] MCHC [Mass/volume] by Automated count 32.5-35.6 [facility] MCV Auto (RBC) [Entitic vol] Ordered By: Bro Osorio on 11-20-2024 MCV (RBC) [Entitic vol] MCV [Entitic vol ume] by Automated count 83.5-101 [facility] Monocyte distribution width [Entitic volume] in Blood by AutomatedOrdered By: Bro Osorio on 11-20-2024 Monocyte distribution width Auto (Bld) [Entitic vol] Monocyte distribution width [Entitic volume] in Blood by Automated 0.00-20.00 [facility] Monocytes Auto (Bld) [#/Vol] Ordered By: Bro Osorio on 11-20-2024 Monocytes (Bld) [#/Vol] Automated blood monocyte count 0.0-0.8 [facility] Monocytes/100 WBC Auto (Bld) Ordered By: Bro Osorio on 11-20-2024 Monocytes/100 WBC (Bld) Automated monocyte % . [facility] Mucus [Presence] in Urine by AutomatedOrdered By: Bro Osorio on 11-20-2024 Mucus Auto Ql (U) Mucus [Presence] in Urine by Automated Abnormal [facility] Neutrophils Auto (Bld) [#/Vo l]Ordered By: Bro Osorio on 11-20-2024 Neutrophils (Bld) [#/Vol] Neutrophils [#/volume] in Blood by Automated count 1.8-7.7 [facility] Neutrophils/100 WBC Auto (Bl d)Ordered By: Bro Osorio on 11-20-2024 Neutrophils/100 WBC (Bld) Automated neutrophil % . [facility] Nitrite Test strip Ql (U)Ord ered By: Bro Osorio on 11-20-2024 Nitrite Ql (U) Nitrite [Presence] i n Urine by Test strip Negative [facility] No Panel InformationOrdered By: Bro Osorio on 11-20-2024 Estimated GFR (CKD-EPI) > 60.0 mL/Min [facility] Creatinine Clearance (Chem 110.50 [facility] Nucleated erythrocytes [Pres ence] in Blood by Automated countOrdered By: Bro Osorio on 11-20-2024 Nucleated RBC Auto Ql (Bld) Nucleated erythrocytes [Presence] in Blood by Automated count 0-0.5 [facility] Opiates [Presence] in Urine by Screen methodOrdered By: Bro Osorio on 11-20-2024 Opiates Screen Ql (U) Opiates [Presence] in Urine by Screen method Negative [facility] Phencyclidine Screen Ql (U)O rdered By: Bro Osorio on 11-20-2024 Phencyclidine Ql (U) Phencyclidine [Presence] in Urine by Screen method Negative [facility] Platelet mean volume Auto (B ld) [Entitic vol]Ordered By: Bro Osorio on 11-20-2024 Platelet mean volume (Bld) [Entitic vol] Platelet mean volume [Entitic volume] in Blood by Automated count 6.6-10.1 [facility] Platelets Auto (Bld) [#/Vol] Ordered By: Bro Osorio on 11-20-2024 Platelets (Bld) [#/Vol] Platelets [#/vol ume] in Blood by Automated count 150-450 [facility] Potassium [Moles/volume] in Serum or PlasmaOrdered By: Bro Osorio on 11-20-2024 Potassium [Moles/Vol] Potassium [Moles/volume] in Serum or Plasma 3.5-5.1 [facility] Protein Test strip (U) [Mass /Vol]Ordered By: Bro Osorio on 11-20-2024 Protein (U) [Mass/Vol] Protein [Mass/vol ume] in Urine by Test strip High Negative [facility] Protein [Mass/volume] in Ser um or PlasmaOrdered By: Bro Osorio on 11-20-2024 Protein [Mass/Vol] Protein [Mass/volume ] in Serum or Plasma 6.4-8.9 [facility] RBC Auto (Bld) [#/Vol]Ordere d By: Bro Osorio on 11-20-2024 RBC (Bld) [#/Vol] Erythrocytes [#/volume] in Blood by Automated count 3.90-5.60 [facility] Serum or plasma albumin/glob ulin mass ratioOrdered By: Bro Osorio on 11-20-2024 Albumin/Globulin [Mass ratio] Serum or plasma albumin/globulin mass ratio [facility] Serum or plasma anion gap de terminationOrdered By: Bro Osorio on 11-20-2024 Anion gap [Moles/Vol] Serum or plasma an ion gap determination 6.0-15.0 [facility] Sodium [Moles/volume] in Ser um or PlasmaOrdered By: Bro Osorio on 11-20-2024 Sodium [Moles/Vol] Sodium [Moles/volume ] in Serum or Plasma 136-145 [facility] Specific gravity Test strip (U) [Rel density]Ordered By: Bro Osorio on 11-20-2024 Specific gravity (U) [Rel density] Specific gravity of Urine by Test strip 1.001-1.030 [facility] Urea nitrogen [Mass/volume] in Serum or PlasmaOrdered By: Bro Osorio on 11-20-2024 Urea nitrogen [Mass/Vol] Urea nitrogen [Mass/volume] in Serum or Plasma 7-25 [facility] Urine Cultureon 11-20-2024 Bacteria identified Cx Nom (U) <9,000 colonies/ml mixed bacterial skin contaminants 2 Days PERFORMED BY: [facility] [address] [place] [address] PATHOLOGIST FAMILY HELPER CROW ZAVALA M.D. Normal [facility] Comment on above: Performed By: #### C UU, URDS, ADDONUAPLUS ####[facility] [place] [id number] [facility] Urine cultureOrdered By: Merari Osorio on 11-20-2024 Bacteria identified Cx Nom (U) Urine culture [facility] Bacteria identified Cx Nom (U) Urine culture [facility] Urobilinogen Test strip (U) [Mass/Vol]Ordered By: Bro Osorio on 11-20-2024 Urobilinogen (U) [Mass/Vol] Urobilinogen [Mass/volume] in Urine by Test strip High Normal [facility] WBC Auto (Bld) [#/Vol]Ordere d By: Bro Osorio on 11-20-2024 WBC (Bld) [#/Vol] Leukocytes [#/volume ] in Blood by Automated count 4.1-10.5 [facility] pH Test strip (U)Ordered By: Bro Osorio on 11-20-2024 pH (U) pH of Urine by Test strip 5.0-9.0 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 Rate : 67 BPM Atrial Rate : 67 BPM P-R Int : 134 ms QRS Dur : 88 ms QT Int : 382 ms P-R-T Axes : 23 73 64 degrees QTcB Int : 403 ms Normal sinus rhythm Early repolarization Normal ECG Confirmed by Ashlee Moura ([id number]) on 06/12/2024 2:08:20 PM Referred By: Electronically Signed By: Ashlee Moura Transcribed By: MUS Signed By Ashlee Moura MD 4 1408 Normal [facility] Alanine aminotransferase [En zymatic activity/volume] in Serum or PlasmaOrdered By: Martin Phillip on 04-24-2024 ALT [Catalytic activity/Vol] 9 U/L Normal 7-52 [facility] Comment on above: Performed By: #### C MP ####[facility] [place] [id number] [facility] Albumin [Mass/volume] in Ser um or Plasma by Bromocresol green (BCG) dye binding methoOrdered By: Martin Phillip on 04-24-2024 Albumin BCG dye [Mass/Vol] 4.4 g/dL 3.5-5.7 [facility] Alkaline phosphatase [Enzyma tic activity/volume] in Serum or PlasmaOrdered By: Martin Phillip on 04-24-2024 ALP [Catalytic activity/Vol] 61 U/L Normal 34-104 [facility] Comment on above: Performed By: #### C MP ####[facility] [address] Aspartate aminotransferase [ Enzymatic activity/volume] in Serum or PlasmaOrdered By: Martin Phillip on 04-24-2024 AST [Catalytic activity/Vol] 15 U/L Normal 13-39 [facility] Comment on above: Performed By: #### C MP ####[address] Automated basophil %Ordered By: Martin Phillip on 04-24-2024 Basophils/100 WBC (Bld) 0.7 % Normal . [facility] Comment on above: Performed By: #### C BC ####[address] Automated basophil countOrde red By: Martin Phillip on 04-24-2024 Basophils (Bld) [#/Vol] 0.1 10*3/uL Normal 0.0-0.2 [facility] Comment on above: Result Comment: PERF ORMED BY: [facility] [address] [place] [address] PATHOLOGIST FAMILY HELPER DANA GRIJALVA M.D. Performed By: #### C BC ####[address] Automated blood monocyte cou ntOrdered By: Martin Phillip on 04-24-2024 Monocytes (Bld) [#/Vol] 1.3 10*3/uL High 0.0-0.8 [facility] Comment on above: Performed By: #### C BC ####[address] Automated eosinophil %Ordere d By: Martin Phillip on 04-24-2024 Eosinophils/100 WBC (Bld) 3.8 % Normal . [facility] Comment on above: Performed By: #### C BC ####[address] Automated eosinophil countOr dered By: Martin Phillip on 04-24-2024 Eosinophils (Bld) [#/Vol] 0.3 10*3/uL Normal 0.0-0.45 [facility] Comment on above: Performed By: #### C BC ####[id number] [place] [address] [facility] Automated monocyte %Ordered By: Martin Phillip on 04-24-2024 Monocytes/100 WBC (Bld) 16.2 % Normal . [facility] Comment on above: Performed By: #### C BC ####[address] [address] [facility] Automated neutrophil %Ordere d By: Martin Phillip on 04-24-2024 Neutrophils/100 WBC (Bld) 40.6 % Normal . [facility] Comment on above: Performed By: #### C BC ####[place] [id number] [facility] Bilirubin.total [Mass/volume ] in Serum or PlasmaOrdered By: Martin Phillip on 04-24-2024 Bilirubin [Mass/Vol] 1.3 mg/dL High 0.3-1.0 [facility] Comment on above: Samples from patient s [...] measuring Total Bilirubin. Performed By: #### C MP ####[place] [id number] [facility] Calcium [Mass/volume] in Ser um or PlasmaOrdered By: Martin Phillip on 04-24-2024 Calcium [Mass/Vol] 9.7 mg/dL Normal 8.6-10.3 [facility] Comment on above: Performed By: #### C MP ####[address] [address] [facility] Carbon dioxide, total [Moles /volume] in Serum or PlasmaOrdered By: Martin Phillip on 04-24-2024 CO2 [Moles/Vol] 29.7 mmol/L Normal 21.0-31.0 [facility] Comment on above: Performed By: #### C MP ####[address] Chloride [Moles/volume] in S casey or PlasmaOrdered By: Martin Phillip on 04-24-2024 Chloride [Moles/Vol] 106 mmol/L Normal 98-107 [facility] Comment on above: Performed By: #### C MP ####[place] [id number] [facility] Complete Blood Count Auto Di ffon 04-24-2024 Mean Corpuscular HGB Conc 33.7 g/dL Normal 32.5-35.6 [facility] Comment on above: Performed By: #### C BC ####[address] NRBC% 0.2 /100{WBC} Normal 0-0.5 [facility] Comment on above: Performed By: #### C BC ####[place] [id number] [facility] Comprehensive Metabolic Pane wolfgang 04-24-2024 Albumin [Mass/Vol] 4.4 g/dL Normal 3.5-5.7 [facility] Comment on above: Performed By: #### C MP ####[address] Creatinine Clr Calc Pharmacy 125.20 Normal [facility] Comment on above: Result Comment: PERF ORMED BY: [facility] [address] [place] [id number] PATHOLOGIST FAMILY HELPER DANA GRIJALVA M.D. Performed By: #### C MP ####[address] GFR/1.73 sq M.predicted MDRD (S/P/Bld) [Vol rate/Area] mL/min/{1.73_m2} Normal [facility] Comment on above: Performed By: #### C MP ####[place] [id number] [place] [id number] [facility] Creatinine [Mass/volume] in Serum or PlasmaOrdered By: Martni Phillip on 04-24-2024 Creatinine [Mass/Vol] 0.74 mg/dL Normal 0.70-1.30 [facility] Comment on above: Performed By: #### C MP ####[address] Erythrocyte distribution wid th [Ratio] by Automated countOrdered By: Martin Phillip on 04-24-2024 Erythrocyte distribution width (RBC) [Ratio] 14.5 % Normal 12.0-14.8 [facility] Comment on above: Performed By: #### C BC ####[address] Erythrocytes [#/volume] in B lood by Automated countOrdered By: Martin Phillip on 04-24-2024 RBC (Bld) [#/Vol] 4.42 10*6/uL Normal 3.90-5.60 [facility] Comment on above: Performed By: #### C BC ####[address] Glucose [Mass/volume] in Ser um or PlasmaOrdered By: Martin Phillip on 04-24-2024 Glucose [Mass/Vol] 83 mg/dL Normal 70-100 [facility] Comment on above: ADA recommended refe rence rangeRandom Glucose Reference Range is dependent on time and content of last meal. Glucose of more than 200 mg/dL in a nonstressed, ambulatory subject supports the diagnosis of Diabetes Mellitus. Result Comment: [place] om Glucose Reference Range is dependent on time and content of last meal. Glucose of more than 200 mg/dL in a nonstressed, ambulatory subject supports the diagnosis of Diabetes Mellitus. ADA recommended reference range Performed By: #### C MP ####[place] [id number] [facility] Hematocrit [Volume Fraction] of Blood by Automated countOrdered By: Martin Phillip on 04-24-2024 Hematocrit (Bld) [Volume fraction] 42.4 % Normal 38.8-50.0 [facility] Comment on above: Performed By: #### C BC ####[place] [id number] [facility] Hemoglobin [Mass/volume] in BloodOrdered By: Martin Phillip on 04-24-2024 Hemoglobin (Bld) [Mass/Vol] 14.3 g/dL Normal 13.0-17.0 [facility] Comment on above: Performed By: #### C BC ####[place] [id number] [facility] Leukocytes [#/volume] correc aba for nucleated erythrocytes in Blood by Automated counOrdered By: Martin Phillip on 04-24-2024 WBC corrected for nucl RBC Auto (Bld) [#/Vol] 7.9 10*3/uL 4.1-10.5 [facility] Leukocytes [#/volume] in Blo od by Automated countOrdered By: Martin Phillip on 04-24-2024 WBC (Bld) [#/Vol] 7.9 10*3/uL Normal 4.1-10.5 [facility] Comment on above: Performed By: #### C BC ####[address] Lymphocytes [#/volume] in Bl ood by Automated countOrdered By: Martin Phillip on 04-24-2024 Lymphocytes (Bld) [#/Vol] 3.1 10*3/uL Normal 1.00-4.8 [facility] Comment on above: Performed By: #### C BC ####[place] [id number] [facility] Lymphocytes/100 leukocytes i n Blood by Automated countOrdered By: Martin Phillip on 04-24-2024 Lymphocytes/100 WBC (Bld) 38.7 % Normal . [facility] Comment on above: Performed By: #### C BC ####[place] [id number] [facility] MCH [Entitic mass] by Automa aba countOrdered By: Martin Phillip on 04-24-2024 MCH (RBC) [Entitic mass] 32.4 pg Normal 27.5-35.2 [facility] Comment on above: Performed By: #### C BC ####[address] MCHC Auto (RBC) [Mass/Vol]Or dered By: Martin Phillip on 04-24-2024 MCHC (RBC) [Mass/Vol] 33.7 g/dL 32.5-35.6 [facility] MCV [Entitic volume] by Auto mated countOrdered By: Martin Phillip on 04-24-2024 MCV (RBC) [Entitic vol] 96.1 fL Normal 83.5-101 [facility] Comment on above: Performed By: #### C BC ####[address] Neutrophils [#/volume] in Bl ood by Automated countOrdered By: Martin Phillip on 04-24-2024 Neutrophils (Bld) [#/Vol] 3.2 10*3/uL Normal 1.8-7.7 [facility] Comment on above: Performed By: #### C BC ####[address] No Panel InformationOrdered By: Martin Phillip on 04-24-2024 Estimated GFR (CKD-EPI) > 60.0 mL/Min [facility] Creatinine Clearance (Chem 125.20 [facility] Nucleated erythrocytes [Pres ence] in Blood by Automated countOrdered By: Martin Phillip on 04-24-2024 Nucleated RBC Auto Ql (Bld) 0.2 /100{WBC} 0-0.5 [facility] Platelet mean volume [Entiti c volume] in Blood by Automated countOrdered By: Martin Phillip on 04-24-2024 Platelet mean volume (Bld) [Entitic vol] 8.2 fL Normal 6.6-10.1 [facility] Comment on above: Performed By: #### C BC ####[address] Platelets [#/volume] in Bloo d by Automated countOrdered By: Martin Phillip on 04-24-2024 Platelets (Bld) [#/Vol] 230 10*3/uL Normal 150-450 [facility] Comment on above: Performed By: #### C BC ####[address] Potassium [Moles/volume] in Serum or PlasmaOrdered By: Martin Phillip on 04-24-2024 Potassium [Moles/Vol] 4.1 mmol/L Normal 3.5-5.1 [facility] Comment on above: Performed By: #### C MP ####[address] Protein [Mass/volume] in Ser um or PlasmaOrdered By: Martin Phillip on 04-24-2024 Protein [Mass/Vol] 7.1 g/dL Normal 6.4-8.9 [facility] Comment on above: Performed By: #### C MP ####[place] [id number] [facility] Serum globulin measurement b y calculation (mass/volume)Ordered By: Martin Phillip on 04-24-2024 Globulin (S) [Mass/Vol] 2.7 g/dL Normal [facility] Comment on above: Performed By: #### C MP ####[place] [id number] [facility] Serum or plasma albumin/glob ulin mass ratioOrdered By: Martin Phillip on 04-24-2024 Albumin/Globulin [Mass ratio] 1.6 {ratio} Normal [facility] Comment on above: Performed By: #### C MP ####[place] [id number] [facility] Serum or plasma anion gap de terminationOrdered By: Martin Phillip on 04-24-2024 Anion gap [Moles/Vol] 9.4 mmol/L Normal 6.0-15.0 [facility] Comment on above: Performed By: #### C MP ####[place] [id number] [facility] Sodium [Moles/volume] in Ser um or PlasmaOrdered By: Martin Phillip on 04-24-2024 Sodium [Moles/Vol] 141 mmol/L Normal 136-145 [facility] Comment on above: Performed By: #### C MP ####[facility] [place] [id number] [facility] Urea nitrogen [Mass/volume] in Serum or PlasmaOrdered By: Martin Phillip on 04-24-2024 Urea nitrogen [Mass/Vol] 10 mg/dL Normal 7-25 [facility] Comment on above: Performed By: #### C MP ####[address] [id number] [place] [id number] [facility] A1C with Estimated Average G luon 04-23-2024 Glucose [Mass/Vol] 114 mg/dL Normal [facility] Comment on above: Result Comment: PERF ORMED BY: [place] [address] PATHOLOGIST FAMILY HELPER DANA GRIJALVA M.D. Performed By: #### H S TROP, A1C WTH eA #### [facility] [address] NATALIE with Reflexon 04-23-2024 NATALIE with Reflex Negative Normal Negative [facility] Comment on above: Result Comment: Perf ormed at: - [facility] [address] [id number] [place] Supervisor: Jevon Enriquez PhD, Phone: [phone] PERFORMED BY: [place] [address] PATHOLOGIST FAMILY HELPER DANA GRIJALVA M.D. Performed By: #### A NA CHOICE #### [facility] , Amphetamine Screen Ql (U)Ord ered By: Martin Phillip on 04-23-2024 Amphetamines Ql (U) Negative Negative [facility] Barbiturates [Presence] in U rine by Screen methodOrdered By: Martin Phillip on 04-23-2024 Barbiturates Screen Ql (U) Negative Negative [facility] Benzodiazepines Screen Ql (U )Ordered By: Martin Phillip on 04-23-2024 Benzodiazepines Ql (U) Negative Negative [facility] Benzoylecgonine [Presence] i n Urine by Screen methodOrdered By: Martin Phillip on 04-23-2024 Benzoylecgonine Screen Ql (U) Negative Negative [facility] C reactive protein [Mass/vol ume] in Serum or PlasmaOrdered By: Martin Phillip on 04-23-2024 CRP [Mass/Vol] 3.0 mg/dL High 0.0-0.5 [facility] C-Reactive Proteinon 024 C-Reactive Protein 3.0 mg/dL High 0.0-0.5 [facility] Comment on above: Result Comment: PERF ORMED BY: [facility] [address] [place] [address] PATHOLOGIST FAMILY HELPER DANA GRIJALVA M.D. Performed By: #### C MP, CRP #### [facility] [address] Cannabinoids [Presence] in U rine by Screen methodOrdered By: Martin Phillip on 04-23-2024 Cannabinoids Screen Ql (U) Positive High Negative [facility] Comment on above: These are unconfirme d results and should not be used for legal purposes. Drug Cut-Off Concentration: AMPH 1000 ng/mL ANNAMARIA 200 ng/mL KATHRYN 200 ng/mL COCM 300 ng/mL OP 300 ng/mL PCP 25 ng/mL THC 20 ng/mL Cholesterol [Mass/volume] in Serum or PlasmaOrdered By: Martin Phillip on 04-23-2024 Cholesterol [Mass/Vol] 124 mg/dL Low 140-200 [facility] Comment on above: Chol less than 200 m g/dl low riskChol 201-239 mg/dl borderline riskChol 240 mg/dl and greater high risk Result Comment: Chol less than 200 mg/dl low risk Chol 201-239 mg/dl borderline risk Chol 240 mg/dl and greater high risk Performed By: #### E SR, CBC, LIPID, MG, PHOS ####[facility] Cholesterol in LDL Calc [Mas s/Vol]Ordered By: Martin Phillip on 04-23-2024 Cholesterol in LDL [Mass/Vol] 57 mg/dL 0-100 [facility] Comment on above: LDL ATP III CLASSIFI CATIONLDL less than 100 mg/dL OptimalLDL 100-129 mg/dL Near or above optimalLDL 130-159 mg/dL Borderline highLDL 160-189 mg/dL HighLDL greater than 189 mg/dL Very high Cholesterol in VLDL Calc [Ma ss/Vol]Ordered By: Martin Phillip on 04-23-2024 Cholesterol in VLDL [Mass/Vol] 8 mg/dL [facility] Complete Blood Count Auto Di ffon 04-23-2024 Basophils (Bld) [#/Vol] 0.1 10*3/uL Normal 0.0-0.2 [facility] Comment on above: Performed By: #### E SR, CBC, LIPID, MG, PHOS ####[address] Basophils/100 WBC (Bld) 0.6 % Normal . T [facility] Comment on above: Performed By: #### E SR, CBC, LIPID, MG, PHOS ####[address] Eosinophils (Bld) [#/Vol] 0.1 10*3/uL Normal 0.0-0.45 [facility] Comment on above: Performed By: #### E SR, CBC, LIPID, MG, PHOS ####[address] Eosinophils/100 WBC (Bld) 0.8 % Normal . [facility] Comment on above: Performed By: #### E SR, CBC, LIPID, MG, PHOS ####[address] Erythrocyte distribution width (RBC) [Ratio] 14.2 % Normal 12.0-14.8 [facility] Comment on above: Performed By: #### E SR, CBC, LIPID, MG, PHOS ####[address] Hematocrit (Bld) [Volume fraction] 38.7 % Low 38.8-50.0 [facility] Comment on above: Performed By: #### E SR, CBC, LIPID, MG, PHOS ####[address] Hemoglobin (Bld) [Mass/Vol] 12.9 g/dL Low 13.0-17.0 [facility] Comment on above: Performed By: #### E SR, CBC, LIPID, MG, PHOS ####[address] Lymphocytes (Bld) [#/Vol] 3.3 10*3/uL Normal 1.00-4.8 [facility] Comment on above: Performed By: #### E SR, CBC, LIPID, MG, PHOS ####[address] Lymphocytes/100 WBC (Bld) 27.2 % Normal . [facility] Comment on above: Performed By: #### E SR, CBC, LIPID, MG, PHOS ####[address] MCH (RBC) [Entitic mass] 32.0 pg Normal 27.5-35.2 [facility] Comment on above: Performed By: #### E SR, CBC, LIPID, MG, PHOS ####[address] MCV (RBC) [Entitic vol] 96.4 fL Normal 83.5-101 T [facility] Comment on above: Performed By: #### E SR, CBC, LIPID, MG, PHOS ####[address] Mean Corpuscular HGB Conc 33.2 g/dL Normal 32.5-35.6 [facility] Comment on above: Performed By: #### E SR, CBC, LIPID, MG, PHOS ####[address] Monocytes (Bld) [#/Vol] 1.6 10*3/uL High 0.0-0.8 [facility] Comment on above: Performed By: #### E SR, CBC, LIPID, MG, PHOS ####[address] Monocytes/100 WBC (Bld) 13.2 % Normal . T [facility] Comment on above: Performed By: #### E SR, CBC, LIPID, MG, PHOS ####[address] Neutrophils (Bld) [#/Vol] 7.1 10*3/uL Normal 1.8-7.7 [facility] Comment on above: Performed By: #### E SR, CBC, LIPID, MG, PHOS ####[address] Neutrophils/100 WBC (Bld) 58.2 % Normal . [facility] Comment on above: Performed By: #### E SR, CBC, LIPID, MG, PHOS ####[address] NRBC% 0.1 /100{WBC} Normal 0-0.5 [facility] Comment on above: Performed By: #### E SR, CBC, LIPID, MG, PHOS ####[address] Platelet mean volume (Bld) [Entitic vol] 8.0 fL Normal 6.6-10.1 [facility] Comment on above: Performed By: #### E SR, CBC, LIPID, MG, PHOS ####[address] Platelets (Bld) [#/Vol] 202 10*3/uL Normal 150-450 [facility] Comment on above: Performed By: #### E SR, CBC, LIPID, MG, PHOS ####[address] RBC (Bld) [#/Vol] 4.01 10*6/uL Normal 3.90-5.60 [facility] Comment on above: Performed By: #### E SR, CBC, LIPID, MG, PHOS ####[address] WBC (Bld) [#/Vol] 12.2 10*3/uL High 4.1-10.5 [facility] Comment on above: Performed By: #### E SR, CBC, LIPID, MG, PHOS ####[address] Comprehensive Metabolic Pane wolfgang 04-23-2024 Albumin [Mass/Vol] 4.1 g/dL Normal 3.5-5.7 [facility] Comment on above: Performed By: #### C MP, CRP #### [address] Albumin/Globulin [Mass ratio] 1.8 {ratio} Normal [facility] Comment on above: Performed By: #### C MP, CRP #### [address] ALP [Catalytic activity/Vol] 60 U/L Normal 34-104 [facility] Comment on above: Performed By: #### C MP, CRP #### [address] ALT [Catalytic activity/Vol] 8 U/L Normal 7-52 [facility] Comment on above: Performed By: #### C MP, CRP #### [address] Anion gap [Moles/Vol] 7.9 mmol/L Normal 6.0-15.0 [facility] Comment on above: Performed By: #### C MP, CRP #### [address] AST [Catalytic activity/Vol] 15 U/L Normal 13-39 [facility] Comment on above: Performed By: #### C MP, CRP #### [address] Bilirubin [Mass/Vol] 1.8 mg/dL High 0.3-1.0 [facility] Comment on above: Result Comment: Samp les from patients who have taken Naproxen have shown spurious elevation in Total Bilirubin levels. A metabolite of Naproxen, O-desmethylnaproxen, has been shown to interfere with the Jendrassik-Grof method for measuring Total Bilirubin. Performed By: #### C MP, CRP #### [facility] [address] Calcium [Mass/Vol] 8.9 mg/dL Normal 8.6-10.3 [facility] Comment on above: Performed By: #### C MP, CRP #### [facility] [address] [place] [address] [place] Chloride [Moles/Vol] 106 mmol/L Normal 98-107 [facility] Comment on above: Performed By: #### C MP, CRP #### [facility] [address] CO2 [Moles/Vol] 28.5 mmol/L Normal 21.0-31.0 [facility] Comment on above: Performed By: #### C MP, CRP #### [facility] [address] [place] [address] [place] Creatinine [Mass/Vol] 0.78 mg/dL Normal 0.70-1.30 [facility] Comment on above: Performed By: #### C MP, CRP #### [facility] [address] [place] [address] [place] Creatinine Clr Calc Pharmacy 118.78 Normal [facility] Comment on above: Performed By: #### C MP, CRP #### [facility] [address] [place] [id number] [place] GFR/1.73 sq M.predicted MDRD (S/P/Bld) [Vol rate/Area] mL/min/{1.73_m2} Normal [facility] Comment on above: Performed By: #### C MP, CRP #### [facility] [address] [place] [address] [place] Globulin (S) [Mass/Vol] 2.3 g/dL Normal [facility] Comment on above: Performed By: #### C MP, CRP #### [facility] [address] Glucose [Mass/Vol] 97 mg/dL Normal 70-100 [facility] Comment on above: Result Comment: [place] Glucose Reference Range is dependent on time and content of last meal. Glucose of more than 200 mg/dL in a nonstressed, ambulatory subject supports the diagnosis of Diabetes Mellitus. ADA recommended reference range Performed By: #### C MP, CRP #### [address] Potassium [Moles/Vol] 3.4 mmol/L Low 3.5-5.1 [facility] Comment on above: Performed By: #### C MP, CRP #### [address] Protein [Mass/Vol] 6.4 g/dL Normal 6.4-8.9 [facility] Comment on above: Performed By: #### C MP, CRP #### [place] [address] [place] Sodium [Moles/Vol] 139 mmol/L Normal 136-145 [facility] Comment on above: Performed By: #### C MP, CRP #### [place] [address] [place] Urea nitrogen [Mass/Vol] 7 mg/dL Normal 7-25 [facility] Comment on above: Performed By: #### C MP, CRP #### [place] [address] [place] Drug Screen,Urineon 04-23-20 24 Amphetamine Screen,Urine Negative Normal Negative [facility] Comment on above: Performed By: #### U RDS #### [place] [address] [place] Barbiturate Screen,Urine Negative Normal Negative [facility] Comment on above: Performed By: #### U RDS #### [place] [address] [place] Benzodiazepines Screen,Urine Negative Normal Negative [facility] Comment on above: Performed By: #### U RDS #### [address] Cannabinoid Screen,Urine Positive High Negative [facility] Comment on above: Result Comment: Thes e are unconfirmed results and should not be used for legal purposes. Drug Cut-Off Concentration: AMPH 1000 ng/mL ANNAMARIA 200 ng/mL KATHRYN 200 ng/mL COCM 300 ng/mL OP 300 ng/mL PCP 25 ng/mL THC 20 ng/mL PERFORMED BY: [place] [address] PATHOLOGIST FAMILY HELPER DANA GRIJALVA M.D. Performed By: #### U RDS #### [address] Cocaine Screen,Urine Negative Normal Negative [facility] Comment on above: Performed By: #### U RDS #### [address] Opiate Screen,Urine Positive High Negative [facility] Comment on above: Performed By: #### U RDS #### [address] Phencyclidine Screen,Urine Negative Normal Negative [facility] Comment on above: Performed By: #### U RDS #### [address] ECG 12 lead ECGon 04-23-2024 ECG 12 lead ECG [facility] Main [place] [place] [address] Electrocardiograph Report Signed Patient: Sean Rodriguez MR#: [id number] : 1995 Acct:[id number] Age/Sex: 29 / M ADM Date: 04/23/24 Loc: Room: [address] [place] [address] Type: ADM INOo Attending Dr: Rani Delong [...] change was found [id number] on 04/23/2024 12:35:37 PM Referred By: Electronically Signed By: SHANA WORLEY MD FAC Transcribed By: MUS Signed By Shana Worley MD, FACC 04/23/24 1235 Normal [facility] ECG 12 lead ECG [facility] [place] [address] Electrocardiograph Report Signed Patient: Saen Rodriguez MR#: [id number] : 1995 Acct:[id number] Age/Sex: 29 / M ADM Date: 04/23/24 Loc: Room: [address] [place] [address] Type: DIS INOo Attending Dr: Rani Delong [...] MUS Signed By Betty Tubbs DO 4 5277 Normal [facility] ECH echo transthoracicon ECH echo transthoracic [facility] Main [address] [address] Echocardiogram Signed Patient: Sean Rodriguez MR#: [id number] : 1995 Acct:[id number] Age/Sex: 29 / M ADM Date: 04/23/24 Loc: Room: [address] [place] [address] Type: ADM INOo Attending Dr: Rani Delong MD Ordering Provider: Martin Phillip MD Date of Service: 04/23/2410/16/555 ECH/ECH echo transthoracic: Suspicion of acute pericarditis Copies to: MD Shana Ramires MD, [facility] BSA: 1.7 m2 BP: 111/72 mmHg HR: [...] 2.5 cm2 RAFAELA(V,D): 2.4 cm2 Transcribed By: SCV Performed At: 04/23/24 0931 Signed By: Shana Worley MD, [facility] 04/23/24 1639 Normal [facility] Erythrocyte Sedimentation Ra tereza 04-23-2024 ESR (Bld) [Velocity] 4 mm/h Normal 0-14 [facility] Comment on above: Result Comment: PERF ORMED BY: [facility] [address] [place] [address] PATHOLOGIST FAMILY HELPER DANA GRIJALVA M.D. Performed By: #### E SR, CBC, LIPID, MG, PHOS ####[id number] [place] [id number] [facility] Erythrocyte sedimentation ra te by Photometric methodOrdered By: Martin Phillip on 04-23-2024 ESR Photometric method (Bld) [Velocity] 4 mm/hr 0-14 [facility] Glucose mean value [Mass/vol ume] in Blood Estimated from glycated hemoglobinOrdered By: Martin Phillip on 04-23-2024 Average glucose Estimated from glycated hemoglobin (Bld) [Mass/Vol] 114 mg/dL [facility] Hemoglobin A1c percentageOrd ered By: Martin Phillip on 04-23-2024 HbA1c (Bld) [Mass fraction] 5.6 % Normal 4.3-5.6 [facility] Comment on above: Increased risk for d iabetes: 5.7 - 6.4diabetes: >6.4glycemic control for adults with diabetes: <7.0 Result Comment: Incr eased risk for diabetes: 5.7 - 6.4 diabetes: >6.4 glycemic control for adults with diabetes: <7.0 Performed By: #### H S TROP, A1C WTH eA #### [facility] [address] Lipid Panelon 04-23-2024 LDL Cholesterol,Calculated 57 mg/dL Normal 0-100 [facility] Comment on above: Result Comment: LDL ATP III CLASSIFICATION LDL less than 100 mg/dL Optimal LDL 100-129 mg/dL Near or above optimal LDL 130-159 mg/dL Borderline high LDL 160-189 mg/dL High LDL greater than 189 mg/dL Very high Performed By: #### E SR, CBC, LIPID, MG, PHOS ####[place] [id number] [address] Triglyceride w/Reflex 44 mg/dL Normal 0-149 [facility] Comment on above: Result Comment: TRIG ATP III CLASSIFICATION TRIG less than 150 mg/dL Normal TRIG 150-199 mg/dL Borderline high TRIG 200-500 mg/dL High TRIG greater than 500 mg/dL Very high Standard traceable to the Center for Disease Conrtrol and Prevention (CDC) test method. Performed By: #### E SR, CBC, LIPID, MG, PHOS ####[place] [id number] [address] VLDL CHOLESTEROL 8 mg/dL Normal [facility] Comment on above: Performed By: #### E SR, CBC, LIPID, MG, PHOS ####[place] [id number] [place] [id number] [facility] Magnesium [Mass/volume] in S casey or PlasmaOrdered By: Martin Phillip on 04-23-2024 Magnesium [Mass/Vol] 1.8 mg/dL Low 1.9-2.7 [facility] Comment on above: Performed By: #### E SR, CBC, LIPID, MG, PHOS ####[facility] [address] Opiates [Presence] in Urine by Screen methodOrdered By: Martin Phillip on 04-23-2024 Opiates Screen Ql (U) Positive High Negative [facility] Phencyclidine Screen Ql (U)O rdered By: Martin Phillip on 04-23-2024 Phencyclidine Ql (U) Negative Negative [facility] Phosphate [Mass/volume] in S casey or PlasmaOrdered By: Martin Phillip on 04-23-2024 Phosphate [Mass/Vol] 4.0 mg/dL Normal 2.5-4.5 [facility] Comment on above: Performed By: #### E SR, CBC, LIPID, MG, PHOS ####[address] Serum or plasma free cefurox ally measurement (mass/volume)Ordered By: Ashlee Moura on 04-23-2024 Cefuroxime free [Mass/Vol] Negative Negative [facility] Comment on above: Performed at: [address] Director: Jevon Enriquez PhD, Phone: [phone] Serum or plasma high density lipoprotein (HDL) cholesterol measurementOrdered By: Martin Phillip on 04-23-2024 Cholesterol in HDL [Mass/Vol] 58 mg/dL Normal 23-92 [facility] Comment on above: HDL CHOL ATP-III CLA SSIFICATION Cardiovascular RiskHDL > or equal to 60 mg/dL LOWHDL < 40 mg/dL HIGH Result Comment: HDL CHOL ATP-III CLASSIFICATION Cardiovascular Risk HDL > or equal to 60 mg/dL LOW HDL < 40 mg/dL HIGH Performed By: #### E SR, CBC, LIPID, MG, PHOS ####[address] Serum or plasma total choles terol/high density lipoprotein (HDL) cholesterol mass ratOrdered By: Martin Phillip on 04-23-2024 Cholesterol.total/Krystyna sterol in HDL [Mass ratio] 2.1 {ratio} Normal <5.0 [facility] Comment on above: Result Comment: PERF ORMED BY: [place] [address] PATHOLOGIST FAMILY HELPER DANA GRIJALVA M.D. Performed By: #### E SR, CBC, LIPID, MG, PHOS ####[facility] [id number] [place] [id number] [facility] Triglyceride [Mass/volume] i n Serum or PlasmaOrdered By: Martin Phillip on 04-23-2024 Triglyceride [Mass/Vol] 44 mg/dL 0-149 [facility] Comment on above: TRIG ATP III CLASSIF ICATIONTRIG less than 150 mg/dL NormalTRIG 150-199 mg/dL Borderline highTRIG 200-500 mg/dL High TRIG greater than 500 mg/dL Very highStandard traceable to the Center for Disease Conrtrol and Prevention (CDC) test method. Troponin I High Sensitivityo n 04-23-2024 Troponin I High Sensitivity 3.2 pg/mL Normal 0.0-20.0 [facility] Comment on above: Result Comment: PERF ORMED BY: [place] [address] PATHOLOGIST FAMILY HELPER DANA GRIJALVA M.D. Performed By: #### H S TROP, A1C WTH eA #### [facility] [address] [place] [address] Troponin I.cardiac [Mass/vol ume] in Serum or Plasma by Detection limit <= 0.01 ng/Ordered By: Martin Phillip on 04-23-2024 Troponin I.cardiac DL <= 0.01 ng/mL [Mass/Vol] 3.2 pg/mL 0.0-20.0 [facility] COVID Quick Testingon 2021 Result Negative [facility] Other Vital Signs Date Time Vital Sign Value Performing Clinician Facility 04-02-2025 09:40-0400 Body height 170.2 cm Grisel TELLEZ Work Phone: [facility] 04-02-2025 09:40-0400 Body mass index (BMI) [Ratio] 21.77 kg/m2 Grisel TELLEZ Work Phone: [facility] 04-02-2025 09:40-0400 Body weight 63.05 kg Grisel Hemmer PA Work Phone: [facility] 04-02-2025 09:40-0400 Diastolic blood pressure 72 mm[Hg] Grisel Hemmer PA Work Phone: [facility] 04-02-2025 09:40-0400 Heart rate 68 /min Grisel Hemmer PA Work Phone: [facility] 04-02-2025 09:40-0400 Respiratory rate 16 /min Grisel Hemmer PA Work Phone: [facility] 04-02-2025 09:40-0400 SaO2% (BldA) [Mass fraction] 98 % Grisel Hemmer PA Work Phone: [facility] 04-02-2025 09:40-0400 Systolic blood pressure 96 mm[Hg] Grisel Hemmer PA Work Phone: [facility] 02-04-2025 10:38-0400 Body height 172.72 cm Grisel Hemmer HVAC TECHNICIAN-C Work Phone: [facility] 02-04-2025 10:38-0400 Body mass index (BMI) [Ratio] 20.9 kg/m2 Grisel Hemmer HVAC TECHNICIAN-C Work Phone: [facility] 02-04-2025 10:38-0400 Body weight 62.59 kg Grisel Hemmer HVAC TECHNICIAN-C Work Phone: [facility] 02-04-2025 10:38-0400 Diastolic blood pressure 60 mm[Hg] Grisel Hemmer HVAC TECHNICIAN-C Work Phone: [facility] 02-04-2025 10:38-0400 Heart rate 68 /min Grisel Hemmer HVAC TECHNICIAN-C Work Phone: [facility] 02-04-2025 10:38-0400 Respiratory rate 18 /min Grisel Hemmer HVAC TECHNICIAN-C Work Phone: [facility] 02-04-2025 10:38-0400 SaO2% (BldA) [Mass fraction] 97 % Grisel Hemmer HVAC TECHNICIAN-C Work Phone: [facility] 02-04-2025 10:38-0400 Systolic blood pressure 102 mm[Hg] Grisel Hemmer HVAC TECHNICIAN-C Work Phone: [facility] 11-23-2024 11:25-0500 Body temperature 98 [degF] Grisel Hemmer HVAC TECHNICIAN-C Work Phone: [facility] 11-23-2024 11:25-0500 Diastolic blood pressure 60 mm[Hg] Grisel Hemmer HVAC TECHNICIAN-C Work Phone: [facility] 11-23-2024 11:25-0500 Heart rate 81 /min Grisel Hemmer HVAC TECHNICIAN-C Work Phone: [facility] 11-23-2024 11:25-0500 Respiratory rate 16 /min Grisel Hemmer HVAC TECHNICIAN-C Work Phone: [facility] 11-23-2024 11:25-0500 SaO2% (BldA) [Mass fraction] 98 % Grisel Hemmer HVAC TECHNICIAN-C Work Phone: [facility] 11-23-2024 11:25-0500 Systolic blood pressure 107 mm[Hg] Grisel Hemmer HVAC TECHNICIAN-C Work Phone: [facility] 11-23-2024 08:46-0500 Body weight 61 kg Grisel Hemmer HVAC TECHNICIAN-C Work Phone: [facility] 11-20-2024 13:51-0500 Body height 172.72 cm Grisel Hemmer HVAC TECHNICIAN-C Work Phone: [facility] 11-20-2024 12:47-0500 Diastolic blood pressure 60 mm[Hg] Grisel Hemmer HVAC TECHNICIAN-C Work Phone: [facility] 11-20-2024 12:47-0500 Heart rate 86 /min Grisel Hemmer HVAC TECHNICIAN-C Work Phone: [facility] 11-20-2024 12:47-0500 Respiratory rate 18 /min Grisel Hemmer HVAC TECHNICIAN-C Work Phone: [facility] 11-20-2024 12:47-0500 SaO2% (BldA) [Mass fraction] 99 % Grisel Hemmer HVAC TECHNICIAN-C Work Phone: [facility] 11-20-2024 12:47-0500 Systolic blood pressure 118 mm[Hg] Grisel Hemmer HVAC TECHNICIAN-C Work Phone: [facility] 11-20-2024 10:41-0500 Body height 175.26 cm Grisel Hemmer HVAC TECHNICIAN-C Work Phone: [facility] 11-20-2024 10:41-0500 Body temperature 98.1 [degF] Grisel Hemmer HVAC TECHNICIAN-C Work Phone: [facility] 11-20-2024 10:41-0500 Body weight 63.5 kg Grisel Hemmer HVAC TECHNICIAN-C Work Phone: [facility] 09-29-2024 08:34-0500 Body height 170.2 cm Grisel Hemmer PA Work Phone: [facility] 09-29-2024 08:34-0500 Body mass index (BMI) [Ratio] 21.46 kg/m2 Grisel Hemmer PA Work Phone: [facility] 09-29-2024 08:34-0500 Body weight 62.14 kg Grisel Hemmer PA Work Phone: [facility] 09-29-2024 08:34-0500 Diastolic blood pressure 78 mm[Hg] Grisel Hemmer PA Work Phone: [facility] 09-29-2024 08:34-0500 Heart rate 80 /min Grisel Hemmer PA Work Phone: [facility] 09-29-2024 08:34-0500 Respiratory rate 16 /min Grisel Hemmer PA Work Phone: [facility] 09-29-2024 08:34-0500 SaO2% (BldA) [Mass fraction] 96 % Grisel TELLEZ Work Phone: [facility] 09-29-2024 08:34-0500 Systolic blood pressure 112 mm[Hg] Grisel TELLEZ Work Phone: [facility] 07-20-2024 12:03-0400 Body height 172.72 cm MD Martin Phillip Work Phone: [facility] 07-20-2024 12:03-0400 Body mass index (BMI) [Ratio] 20.8 kg/m2 MD Martin Phillip Work Phone: [facility] 07-20-2024 12:03-0400 Body weight 62.14 kg MD Martin Phillip Work Phone: [facility] 07-20-2024 12:03-0400 Diastolic blood pressure 60 mm[Hg] MD Martin Phillip Work Phone: [facility] 07-20-2024 12:03-0400 Heart rate 90 /min MD Martin Phillip Work Phone: [facility] 07-20-2024 12:03-0400 Respiratory rate 18 /min MD Martin Phillip Work Phone: [facility] 07-20-2024 12:03-0400 SaO2% (BldA) [Mass fraction] 97 % MD Martin Phillip Work Phone: [facility] 07-20-2024 12:03-0400 Systolic blood pressure 106 mm[Hg] MD Martin Phillip Work Phone: [facility] 06-29-2024 09:02-0400 Body height 170.2 cm Grisel TELLEZ Work Phone: [facility] 06-29-2024 09:02-0400 Body mass index (BMI) [Ratio] 21.46 kg/m2 Grisel TELLEZ Work Phone: [facility] 06-29-2024 09:02-0400 Body weight 62.14 kg Grisel Hemmer PA Work Phone: [facility] 06-29-2024 09:02-0400 Diastolic blood pressure 64 mm[Hg] Grisel Hemmer PA Work Phone: [facility] 06-29-2024 09:02-0400 Heart rate 71 /min Grisel Hemmer PA Work Phone: [facility] 06-29-2024 09:02-0400 Respiratory rate 16 /min Grisel Hemmer PA Work Phone: [facility] 06-29-2024 09:02-0400 SaO2% (BldA) [Mass fraction] 96 % Grisel Hemmer PA Work Phone: [facility] 06-29-2024 09:02-0400 Systolic blood pressure 98 mm[Hg] Grisel Hemmer PA Work Phone: [facility] 06-12-2024 12:25-0400 Body height 172.72 cm MD Martin Phillip Work Phone: [facility] 06-12-2024 12:25-0400 Diastolic blood pressure 78 mm[Hg] MD Martin Phillip Work Phone: [facility] 06-12-2024 12:25-0400 Heart rate 67 /min MD Martin Phillip Work Phone: [facility] 06-12-2024 12:25-0400 Respiratory rate 18 /min MD Martin Phillip Work Phone: [facility] 06-12-2024 12:25-0400 SaO2% (BldA) [Mass fraction] 98 % MD Martin Phillip Work Phone: [facility] 06-12-2024 12:25-0400 Systolic blood pressure 118 mm[Hg] MD Martin Phillip Work Phone: [facility] 06-01-2024 09:01-0400 Body mass index (BMI) [Ratio] 21.39 kg/m2 Grisel Hemmer PA Work Phone: [facility] 06-01-2024 09:01-0400 Body weight 61.96 kg Grisel Garciamer PA Work Phone: [facility] 06-01-2024 09:01-0400 Diastolic blood pressure 75 mm[Hg] Grisel Hemmer PA Work Phone: [facility] 06-01-2024 09:01-0400 Heart rate 85 /min Grisel Hemmer PA Work Phone: [facility] 06-01-2024 09:01-0400 Respiratory rate 17 /min Grisel Hemmer PA Work Phone: [facility] 06-01-2024 09:01-0400 SaO2% (BldA) [Mass fraction] 97 % Grisel Hemmer PA Work Phone: [facility] 06-01-2024 09:01-0400 Systolic blood pressure 105 mm[Hg] Grisel Hemmer PA Work Phone: [facility] 04-24-2024 11:31-0400 Body temperature 98.6 [degF] MD Martin Phillip Work Phone: [facility] 04-24-2024 11:31-0400 Diastolic blood pressure 78 mm[Hg] MD Martin Phillip Work Phone: [facility] 04-24-2024 11:31-0400 Heart rate 88 /min MD Martin Phillip Work Phone: [facility] 04-24-2024 11:31-0400 Respiratory rate 16 /min MD Martin Phillip Work Phone: [facility] 04-24-2024 11:31-0400 SaO2% (BldA) [Mass fraction] 100 % MD Martin Phillip Work Phone: [facility] 04-24-2024 11:31-0400 Systolic blood pressure 121 mm[Hg] MD Martin hPillip Work Phone: [facility] 04-24-2024 06:00-0400 Body weight 60.4 kg MD Martin Phillip Work Phone: [facility] 04-23-2024 13:32-0400 Body height 170.18 cm MD Martin Phillip Work Phone: [facility] 11-01-2023 10:48-0500 Body mass index (BMI) [Ratio] 21.77 kg/m2 Grisel Hemmer PA Work Phone: [facility] 11-01-2023 10:48-0500 Body weight 63.05 kg Grisel Hemmer PA Work Phone: [facility] 11-01-2023 10:48-0500 Diastolic blood pressure 68 mm[Hg] Grisel Hemmer PA Work Phone: [facility] 11-01-2023 10:48-0500 Heart rate 83 /min Grisel Hemmer PA Work Phone: [facility] 11-01-2023 10:48-0500 SaO2% (BldA) [Mass fraction] 94 % Grisel Hemmer PA Work Phone: [facility] 11-01-2023 10:48-0500 Systolic blood pressure 112 mm[Hg] Grisel Hemmer PA Work Phone: [facility] 11-02-2021 14:30-0500 Body height 170.18 cm Elizabeth Milton Other [facility] Other 11-02-2021 14:30-0500 Body mass index (BMI) [Ratio] 21.92 kg/m2 Elizabeth Milton Other [facility] Other 11-02-2021 14:30-0500 Body temperature 98.7 [degF] Elizabeth Milton Other [facility] Other 11-02-2021 14:30-0500 Body weight 63.5 kg Elziabeth Milton Other [facility] Other 11-02-2021 14:30-0500 Respiratory rate 21 /min Elizabeth Milton Other [facility] Other 11-02-2021 14:30-0500 SaO2% (BldA) [Mass fraction] 98 % Elizabeth Milton Other [facility] Other Encounters Encounter Date Encounter Type Care Provider Facility Start: 04-02-2025 End: 04-02-2025 Bamboo flowsheet Grisel TELLEZ Work Phone: [facility] Start: 04-02-2025 End: 04-02-2025 Bamboo flowsheet Grisel TELLEZ Work Phone: [facility] Start: 04-02-2025 End: 04-02-2025 Office outpatient visit 25 minutes Grisel TELLEZ Work Phone: [facility] Comment on above: Chronic pain of left hand (Primary Dx); PVC's (premature ventricular contractions); Chronic pain of right knee; Tobacco dependence; Fall, initial encounter Start: 03-31-2025 ambulatory Kash Barrera acility:[facility] Start: 02-04-2025 End: 02-04-2025 ambulatory Grisel Khan HVAC TECHNICIAN-C Work Phone: [facility] Work Phone: Start: 02-04-2025 End: 02-04-2025 Patient encounter procedure Grisel Khan HVAC TECHNICIAN-C Work Phone: [facility] Work Phone: Start: 12-02-2024 Registered Recurring Grisel de la torre HVAC TECHNICIAN-C Work Phone: [facility] Start: 11-21-2024 Non-patient / Non-visit Grisel Khan HVAC TECHNICIAN-C Work Phone: [facility] Work Phone: Start: 11-20-2024 End: 11-23-2024 Evaluation and management of inpatient Grisel Garciabritt HVAC TECHNICIAN-C Work Phone: [facility] Work Phone: Start: 09-29-2024 End: 09-29-2024 Bamboo flowsheet Grisel Khan PA Work Phone: [facility] Start: 09-29-2024 End: 09-29-2024 Bamboo flowsheet Grisel Khan PA Work Phone: [facility] Start: 09-29-2024 End: 09-29-2024 Office outpatient visit 10 minutes Grisel Khan PA Work Phone: [facility] Comment on above: Chronic pain of left hand (Primary Dx); Tobacco dependence; Chronic pain of left knee Start: 09-29-2024 End: 09-29-2024 ambulatory GRISEL KHAN Not Available Start: 07-20-2024 End: 07-20-2024 ambulatory MD Martin Phillip Work Phone: [facility] Work Phone: Start: 07-20-2024 End: 07-20-2024 Patient encounter procedure MD Martin Phillip Work Phone: [facility] Card[facility] Work Phone: Start: 06-29-2024 End: 06-29-2024 Office outpatient visit 15 minutes Grisel Khan PA Work Phone: [facility] Comment on above: Epigastric pain (Neyda trupti Dx); Tobacco dependence; Acute pericarditis, unspecified type Start: 06-29-2024 End: 06-29-2024 ambulatory GRISEL KHAN Not Available Start: 06-26-2024 End: 06-26-2024 ambulatory MD Martin Phillip Work Phone: [facility] Work Phone: Start: 06-26-2024 End: 06-26-2024 Patient encounter procedure MD Martin Phillip Work Phone: [facility] Work Phone: Start: 06-12-2024 End: 06-12-2024 ambulatory MD Martin Phillip Work Phone: [facility] Work Phone: Start: 06-12-2024 End: 06-12-2024 Patient encounter procedure MD Martin Phillip Work Phone: [facility] Work Phone: Start: 06-01-2024 End: 06-01-2024 Bamboo flowsheet Grisel Khan PA Work Phone: [facility] Start: 06-01-2024 End: 06-01-2024 Bamboo flowsheet Grisel Khan PA Work Phone: [facility] Start: 06-01-2024 End: 06-01-2024 Office outpatient visit 25 minutes Grisel Khan PA Work Phone: [facility] Comment on above: Accelerated junction al rhythm (Primary Dx); PVC's (premature ventricular contractions); Other chest pain; Acute pericarditis, unspecified type; Second degree AV block, Mobitz type I; Tobacco dependence; Epigastric pain Start: 06-01-2024 End: 06-01-2024 ambulatory GRISEL KHAN Not Available Start: 05-19-2024 Non-patient / Non-visit MD Martin Phillip Work Phone: [facility] Work Phone: Start: 04-30-2024 End: 04-30-2024 ambulatory GRISEL KHAN Not Available Start: 04-23-2024 Non-patient / Non-visit MD Martin Phillip Work Phone: [facility] Work Phone: Start: 04-23-2024 Non-patient / Non-visit MD Martin Phillip Work Phone: [facility] Work Phone: Start: 04-23-2024 End: 04-24-2024 Evaluation and management of inpatient MD Martin Phillip Work Phone: [facility] [place] [facility] Work Phone: Start: 04-23-2024 End: 04-24-2024 observation encounter MD Martin Phillip Work Phone: [facility] Work Phone: Start: 04-23-2024 End: 04-24-2024 ambulatory Rani Delong Facility:[facility] Start: 11-01-2023 End: 11-01-2023 Office outpatient [...] 11-02-2021 End: 11-02-2021 ambulatory Elizabeth Milton Other [employer] Other Start: 11-02-2021 Office outpatient visit 15 minutes Elizabeth Milton [facility] [place] Procedures Date Procedure Procedure Detail Performing Clinician Start: 11-20-2024 Urine culture Grisel de la torre HVAC TECHNICIAN-C Work Phone: Plan of Treatment Date Care Activity Detail Author Start: 10-04-2025 End: 10-04-2025 Patient encounter procedure 10/04/2025 8:30 AM EST Office Visit [facility] [address] [place] [address] Grisel Khan PA [address] [place] [address] [facility] Start: 05-24-2025 Influenza vaccination Influenza Vacc ine (#1) [facility] Start: 04-02-2025 End: 04-02-2026 XR Knee - right 4 Views XR knee 4+ views right Imaging Routine Chronic pain of right knee Fall, initial encounter Expected: 04/02/2025, Expires: 04/02/2026 [facility] Work Phone: Comment on above: Expected: 04/02/2025 , Expires: 04/02/2026 Start: 04-02-2025 End: 04-02-2025 Patient encounter procedure 04/02/2025 9:30 AM EDT Office Visit [facility] [address] [place] [address] Grisel Khan PA [address] [place] [address] Arrived [facility] Comment on above: Arrived Start: 03-29-2025 End: 03-29-2025 Patient encounter procedure 03/29/2025 8:00 AM EDT Office Visit [facility] [address] [place] [address] Grisel Khan PA [address] [place] [address] [facility] Start: 03-22-2025 Influenza vaccination Influenza Vacc ine (#1) [facility] Comment on above: Postponed from 05/24 (Patient Refused) Start: 11-23-2024 [facility] Start: 11-20-2024 Referral to [facility] Start: 11-20-2024 Hospital admission [facility] Start: 11-20-2024 [facility] Start: 11-20-2024 Bacteria identified in Urine by Culture Urine Culture [facility] Start: 11-20-[address] [facility] Start: 09-29-2024 End: 09-29-2024 Patient encounter procedure [facility] Comment on above: Arrived Start: 06-29-2024 End: 06-29-2024 Patient encounter procedure 06/29/2024 9:00 AM EDT Office Visit [facility] [address] [place] [address] Grisel Khan PA [address] [place] [address] [facility] Start: 06-12-2024 [facility] Start: 06-01-2024 End: 06-01-2026 US Heart Transthoracic Transthoracic Echo (TTE) Complete Echocardiography Routine Accelerated junctional rhythm PVC's (premature ventricular contractions) Other chest pain Acute pericarditis, unspecified type Second degree AV block, Mobitz type I Expected: 06/01/2024 (Approximate), Expires: 06/01/2026 [facility] Work Phone: Comment on above: Expected: 06/01/2024 (Approximate), Expires: 06/01/2026 Start: 06-01-2024 End: 06-01-2024 Patient encounter procedure 06/01/2024 9:00 AM EDT Office Visit [facility] [address] [facility] [address] [place] [address] Grisel Khan PA [address] [facility] [address] [place] [address] Arrived [facility] Comment on above: Arrived Start: 05-24-2024 Influenza vaccination Influenza Vacc ine (#1) [facility] Start: 05-02-2024 [facility] Start: 05-01-2024 [facility] Start: 04-30-2024 [facility] Start: 04-29-2024 [facility] Start: 04-28-2024 [facility] Start: 04-27-2024 [facility] Start: 04-26-2024 [facility] Start: 04-25-2024 [facility] Start: 04-24-2024 [facility] Start: 04-23-2024 Hospital admission [facility] Start: 04-23-[address] drier [facility] Start: 04-23-2024 [facility] Start: 11-01-2023 End: 11-01-2024 XR Knee [...] Office Visit [facility] [address] [facility] [address] [place] [address] Grisel Khan PA [address] [facility] [address] [place], [place] [id number] [facility] Start: 05-24-2023 Influenza vaccination Influenza Vacc ine (#1) [facility] Cefuroxime free [Mass/volume] in Serum or Plasma [facility] Patient Education [facility] Work Phone: Patient referral [facility] Work Phone: Payers Date Payer Category Payer Self-pay [id number] 2023 Medicaid [facility] [employer] [place] [id number] 2023-Present [address] [place] [address] [id number] 2023 Medicaid [id number] 1993 Unknown [id number] 1993 Unknown [id number] [id number] 1993 Unknown [id number] [id number] 1993 Unknown [id number] [id number] 1993 Unknown [id number] 2.16.840.1.175935.3.579.2.9 1993 Unknown [id number] [id number] 1993 Unknown [id number] [id number] 1959 Unknown [id number] [id number] Unknown [facility] [id number] Regular Insurance [id number] Unknown HCAP/HFA/FAP Active [id number] Unknown [id number] [id number] Unknown [id number] [id number] Unknown [id number] [id number] Unknown [id number] Social History Date Type Detail Facility Start: 10-24-2023 End: 04-02-2025 Sex Assigned At [facility] [employer] Other Start: 04-19-2006 End: 09-29-2024 Tobacco smoking status WAIS Smokes tobacco daily [facility] Start: 04-19-2006 History of tobacco use Cigarette Smo ker [facility] Start: 10-24-2023 End: 04-02-2025 Cigarettes smoked current (pack per day) - Reported 0.5 [facility] Start: 10-24-2023 End: 09-29-2024 Tobacco use and exposure Smokeless tobacco non-user [facility] Start: 10-31-2023 End: 11-23-2024 Alcohol intake Ex-drinker (finding) [facility] Start: 10-24-2023 Tobacco Comment 6-10 cigs/day [facility] Start: 1995 Sex Assigned At Not on file [facility] Start: 04-23-2024 End: 02-04-2025 Tobacco smoking status NHIS Smoker (finding) [facility] Start: 1995 Sex Assigned At Male F [facility] Start: 04-29-2024 Gender identity Identifies as male gender (finding) [facility] Start: 11-20-2024 End: 02-04-2025 Sex Male (finding) [facility] Start: 04-02-2025 Alcoholic beverage intake Current drinker of alcohol (finding) [facility] Start: 04-02-2025 Alcohol Comment Twisted Tea [facility] Goals Date Patient Goal Desired Activity /State Functional Status Date Assessment Result Facility 11-23-2024 Functional status Patient at Baseline [facility] Work Phone: 04-24-2024 Functional status Patient at Baseline [facility] Work Phone: Mental Status Date Assessment Result Facility 11-23-2024 Cognitive function Cognitive Sta tus Patient at Baseline [facility] Work Phone: 04-24-2024 Cognitive function Cognitive Sta tus Patient at Baseline [facility] Work Phone: Clinical Notes 09-23-2015 to 04-02-2025 ROSALINDA Ivey - 04/02/2025 9:30 AM EDT Note Date & Type Note Facility 04-02-2025 History of Presen t illness Narrative Images from the original note were not included. Subjective Patient ID: Sean Rodriguez is a 30 y.o. male who presents for hand pain. Sean is present today for follow chronic hand pain. Pt has chronic hand pain and is on Meloxicam and is working well for him. On had [...] current episode manic without psychotic features ([facility]) 06/29/2024 History of being hospitalized 11/20/2024 Suicidal Ideations, Bipolar Disorder Pericarditis ([facility] 04/23/2024 Severe alcohol use disorder ([facility]) 06/29/2024 Past Surgical History: Procedure Laterality Date OTHER SURGICAL HISTORY 04/2019 laceration to left palm - 3 sutures Visit Vitals BP 96/72 Pulse 68 Resp 16 Ht 5' 7 Wt 139 lb SpO2 98% BMI 21.77 kg/m Smoking Status Every Day [...] crepitus present. No swelling. Decreased range of motion (Limited at extremes). No LCL laxity, MCL laxity, [...] ventricular contractions) The patient is seeing a medical numerical control operator for this condition, treatment is deferred to [...] would like to get these done at [facility]. Follow up in about 6 months (around 10/03/2025) for Wellness. documented in this encounter [facility] 11-22-2024 Progress note Note Date/Time November 22, 2024 7:22am [facility] [address] [place] [address] Psychiatry Progress Note Signed Patient: Sean Rodriguez MR#: [id number] : 1995 Acct:[id number] Age/Sex: 29 / M Adm Date: 5 Loc: 1S Room: 0W5916-4 Type : ADM IN Attending Dr: Kash Connor MD Copies to: ~ Date of Service: 11/22/2024 Subjective Subjective Narrative: Mr. Rodriguez said he is feeling better and tolearating current med regimen. CIWA score is zero. No objective signs of withdrawal. He said he is doing fairly well. The patient reports improved mood and appetite, improved ability to enjoy certain activities, reduction of feelings of worthlessness or guilt, and improved focus and concentration. He continues to struggle with anxiety occasionally. He denied any symptom that would pose a threat to self or others. He is tolerating the current medication regimen without any side effects. He denied current SI/HI and verbalized the intent to notify staff if he has such thoughts. He denied any suicidal or self-injurious behaviors. I did talk with him about the importance of medication compliance as he believes the medicationsmade a good difference. Sleep and appetite are ok. Discussed importance of outpatient care to ensure stability. Appearance: dressed casually Mental Status: mental status grossly normal Mood: Euthymic mood Affect: Normal affect Speech and Movement: speech and movement normal and speech clear Attitude: cooperative Thought Process: normal Thought Content: Denied hallucinations, no homicidal thoughts and no suicidality Insight: fair Judgment: fair Impulse control: fair Exam Physical Exam Vital Signs: Temp Pulse Resp BP Pulse Ox O2 Del Method 98.0 F 70 16 124/82 100 Room Air 11/21/24 19:00 11/21/24 19:00 11/21/24 19:00 11/21/24 19:00 11/21/24 19:00 11/21/24 19:00 Objective Labs Labs: Abnormal Labs 11/21/24 07:05 Cholesterol 130 L 25-OH Vitamin D Total 8.9 L Assessment/Plan Assessment/Plan (1) Suicidal ideation: (2) Major depressive disorder, recurrent, severe with psychotic symptoms: Plan Continue Lexapro 5 mg PO Q daily Anticipate discharge tomorrow as long as patient remains stable Continue to monitor mental status Encourage group participation and medication compliance Risk, benefits, and alternatives explained Documented By: Kash Connor MD 5 0720 Signed By: <Electronically signed by Kash Connor MD> 11/22/24 0722 [facility] Work Phone: 1(129) 303-877603-02-2025 [place] [address] Psychiatry Progress Note Signed Patient: Sean Rodriguez MR#: [id number] : 1995 Acct:[id number] Age/Sex: 29 / M Adm Date: 5 Loc: Room: [address] [place] [address] Type : ADM IN Attending Dr: Kash Connor MD Copies to: ~ Date of Service: 11/22/2024 Subjective Subjective Narrative: Mr. Rodriguez said he is feeling better and tolearating current med regimen. CIWA score is zero. No objective signs of withdrawal. He said he is doing fairly well. The patient reports improved mood and appetite, improved ability to enjoy certain activities, reduction of feelings of worthlessness or guilt, and improved focus and concentration. He continues to struggle with anxiety occasionally. He denied any symptom that would pose a threat to self or others. He is tolerating the current medication regimen without any side effects. He denied current SI/HI and verbalized the intent to notify staff if he has such thoughts. He denied any suicidal or self-injurious behaviors. I did talk with him about the importance of medication compliance as he believes the medicationsmade a good difference. Sleep and appetite are ok. Discussed importance of outpatient care to ensure stability. Appearance: dressed casually Mental Status: mental status grossly normal Mood: Euthymic mood Affect: Normal affect Speech and Movement: speech and movement normal and speech clear Attitude: cooperative Thought Process: normal Thought Content: Denied hallucinations, no homicidal thoughts and no suicidality Insight: fair Judgment: fair Impulse control: fair Exam Physical Exam Vital Signs: Temp Pulse Resp BP Pulse Ox O2 Del Method 98.0 F 70 16 124/82 100 Room Air 11/21/24 19:00 11/21/24 19:00 11/21/24 19:00 11/21/24 19:00 11/21/24 19:00 11/21/24 19:00 Objective Labs Labs: Abnormal Labs 11/21/24 07:05 Cholesterol 130 L 25-OH Vitamin D Total 8.9 L Assessment/Plan Assessment/Plan (1) Suicidal ideation: (2) Major depressive disorder, recurrent, severe with psychotic symptoms: Plan Continue Lexapro 5 mg PO Q daily Anticipate discharge tomorrow as long as patient remains stable Continue to monitor mental status Encourage group participation and medication compliance Risk, benefits, and alternatives explained Documented By: Kash Connor MD 5 0720 Signed By: 11/22/[address] [facility]03-01-2025 History and physical note Author Kash mendoza [facility] Note Date/Time November 21, 2024 7:28 am [facility] [address] [place] [address] Psychiatry H&P Signed Patient: Sean Rodriguez MR#: [id number] : 1995 Acct:[id number] Age/Sex: 29 / M Adm Date: 5 Loc: Room: [address] [place] [address] Type: ADM IN Attending Dr: Kash Connor MD Copies to: MD Grisel Tyler PA-C~ Date of Service: 11/20/2024 HPI History of Present Illness History of present illness: Mr. Rodriguez is a 29 year old male with a reported history of depression, bipolar disorder, suicidal ideation presents for inpatient admission due to suicidal ideation. Reportedly, patient presented to [facility] emergency department from counselor's office with suicidal thoughts. He states he has struggled with his bipolar disease and having thoughts of suicide for years and years but in the last several weeks is gotten worse. He is not currently on any medications for his bipolar disease. States his only medical history is pericarditis which he had but was cleared from. He denies any recent illness or chest pain or shortness of breath. Denies any other complaints at this time denies thoughts of harming anyone else. Patient was personally seen by me on the day of the encounter. I reviewed the history and performed the reaves elements of the assessment. I formulated the planof care and confirmed this with the medical student as noted below At the time of interview, he presented as anxious and depressed. He rates his anxiety and depression 8/10. He states that this manifests as racing heart and racing thoughts when he feels overwhelmed or when he feels like people do not tell him the truth. Patient states he has a longstanding history of bipolar disorder and was diagnosed as a teenager. He has dealt with anger issues for years and states that everything sets him off. 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 He states he had plans to shoot himself, however he doeshave 2 weapons, and feels like he would not actually go through with it or he would have done it already. Patient states that for the last year and a half hewill see shadows/figures and sometimes hears muffled kids voices and laughter. Patient states that he uses marijuana daily. And will frequently drink a gallonof Jose Armando's over the course of a few days. His last drink was approximately 4 days ago. He is not currently on any psych medications, but states he would be willing to start one. 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 [employer] Review of Systems: Constitutional: Denies chills and Denies fever(s) Eyes: Denies change in vision ENT: Denies abnormal hearing Cardiovascular: Denies chest pain Respiratory: Denies chest congestion and Denies cough Gastrointestinal: Denies change in bowel habits Genitourinary: Admits dysuria Musculoskeletal: Denies pain or paresthesias Integumentary/Breasts: Denies dry skin Neurologic: Denies abnormal gait and Denies abnormal movements Psychiatric: Reports depression, anxiety, and suicidal ideation Physical exam: General: not in any acute distress Skin: intact HEENT: head atraumatic, face symmetrical. Pulm: breathing normally without excessive effort Cardio: heart is regular Abdomen: Normal inspection Musculoskeletal: Moves all extremities, normal strength all extremities. Neuro: Pt alert, oriented x3 CN: Normal olfaction CNII: Visual sam intact CNIII,IV,: EOM intact, no nystagmus. CNV: Sensation intact to light touch. CNVII: Raises eyebrows, smile/frown, puff out cheeks symmetrically. CNVIII: Hearing intact bilaterally. CNIX,X: Voice normal, soft palate elevation normal, symmetrical. CNXI: Shoulder shrug strong, equal bilaterally. CNXII: Tongue protrusion midline Mental Status Exam: Mental Status: mental status grossly normal Mood: depressed mood Affect: constricted affect Speech and Movement: speech and movement normal and speech clear Attitude: cooperative Thought Process: normal Thought Content: denies HI, reported SI and AVH (as above) Insight: limited Judgment: limited [facility] Medical History Tobacco use disorder Bipolar disorder, current episode manic without psychotic features Marijuana use Acute pericarditis Surgical History No pertinent past surgical history Family History Mother Heart disease Father No problems noted. Brother No problems noted. Sister No problems noted. Social History Smoking Status: Current every day smoker Tobacco Type: cigarettes Substance Use Type: Marijuana Meds Medications and Allergies Allergies No Known Allergies Allergy (Verified 11/20/24 10:38) Home Medications No known home meds 11/20/24 [History Confirmed 11/20/24] Exam Physical Exam Vital Signs: Temp Pulse Resp BP Pulse Ox O2 Del Method 98.1 F 92 18 121/73 99 Room Air 11/20/24 10:41 11/20/24 10:41 11/20/24 10:41 11/20/24 10:41 11/20/24 10:41 11/20/24 10:41 Results - Psychiatry Labs 11/20/24 10:58 11/20/24 10:58 Psychiatry Labs: 11/20/24 11/20/24 10:58 11:23 RBC 4.05 Hgb 13.7 Hct 38.8 MCV 95.9 MCH 33.8 MCHC 35.3 RDW 13.9 Plt Count 234 MPV 8.3 Urine Color Yellow Urine Appearance Clear Urine pH 6.5 Ur Specific [place] 1.026 Urine Protein 30 H Urine Glucose (UA) Normal Urine Ketones Negative Urine Occult Blood Negative Urine Nitrite Negative Ur Leukocyte Esterase 2+ H Assessment/Plan (1) Suicidal ideation: (2) Major depressive disorder, recurrent, severe with psychotic symptoms: Plan Patient admitted to with suicidal ideation. Start Lexapro 5 mg PO Q daily CIWA with ativan Will monitor for any signs of alcohol withdrawal Continue to monitor mental status Encourage group participation and medication compliance Risk, benefits, and alternatives explained Documented By: Kash Connor MD 5 [id number] Signed By: <Electronically signed by Kash Connor MD> 11/21/24 0728 [facility] Work Phone: 1(567) 358-583203-01-2025 History [place] [address] Psychiatry H&P Signed Patient: Sean Rodriguez MR#: [id number] : 1995 Acct:[id number] Age/Sex: 29 / M Adm Date: 5 Loc: Room: [address] [place] [address] Type: ADM IN Attending Dr: Kash Connor MD Copies to: MD Grisel Tyler PA-C~ Date of Service: 11/20/2024 HPI History of Present Illness History of present illness: Mr. Rodriguez is a 29 year old male with a reported history of depression, bipolar disorder, suicidal ideation presents for inpatient admission due to suicidal ideation. Reportedly, patient presented to [facility] emergency department from counselor's office with suicidal thoughts. He states he has struggled with his bipolar disease and having thoughts of suicide for years and years but in the last several weeks is gotten worse. He is not currently on any medications for his bipolar disease. States his only medical history is pericarditis which he had but was cleared from. He denies any recent illness or chest pain or shortness of breath. Denies any other complaints at this time denies thoughts of harming anyone else. Patient was personally seen by me on the day of the encounter. I reviewed the history and performedthe reaves elements of the assessment. I formulated the planof care and confirmed this with the medical student as noted below At the time of interview, he presented as anxious and depressed. He rates his anxiety and depression 8/10. He states that this manifests as racing heart and racing thoughts when he feels overwhelmed or when he feels like people do not tell him the truth. Patient states he has a longstanding historyof bipolar disorder and was diagnosed as a teenager. He has dealt with anger issues for years andstates that everything sets him off. Him and his fci girlfriend recently broke up, due to hisanger issues, which was a trigger for his suicidal thoughts. He states he had plans to shoot himself, however he doeshave 2 weapons, and feels like he would not actually go through with it or he would have done it already. Patient states that for the last year and a half hewill see shadows/figures and sometimes hears muffled kids voices and laughter. Patient states that he uses marijuana daily. And will frequently drink a gallonof Jose Armando's over the course of a few days. His last drink was approximately 4 days ago. He is not currently on any psych medications, but states he would be willing to start one. 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 [employer] Review of Systems: Constitutional: Denies chills and Denies fever(s) Eyes: Denies change in vision ENT: Denies abnormal hearing Cardiovascular: Denies chest pain Respiratory: Denies chest congestion and Denies cough Gastrointestinal: Denies change in bowel habits Genitourinary: Admits dysuria Musculoskeletal: Denies pain or paresthesias Integumentary/Breasts: Denies dry skin Neurologic: Denies abnormal gait and Denies abnormal movements Psychiatric: Reports depression, anxiety, and suicidal ideation Physical exam: General: not in any acute distress Skin: intact HEENT: head atraumatic, face symmetrical. Pulm: breathing normally without excessive effort Cardio: heart is regular Abdomen: Normal inspection Musculoskeletal: Moves all extremities, normal strength all extremities. Neuro: Pt alert, oriented x3 CN: Normal olfaction CNII: Visual sam intact CNIII,IV,: EOM intact, no nystagmus. CNV: Sensation intact to light touch. CNVII: Raises eyebrows, smile/frown, puff out cheeks symmetrically. CNVIII: Hearing intact bilaterally. CNIX,X: Voice normal, soft palate elevation normal, symmetrical. CNXI: Shoulder shrug strong, equal bilaterally. CNXII: Tongue protrusion midline Mental Status Exam: Mental Status: mental status grossly normal Mood: depressed mood Affect: constricted affect Speech and Movement: speech and movement normal and speech clear Attitude: cooperative Thought Process: normal Thought Content: denies HI, reported SI and AVH (as above) Insight: limited Judgment: limited [facility] Medical History Tobacco use disorder Bipolar disorder, current episode manic without psychotic features Marijuana use Acute pericarditis Surgical History No pertinent past surgical history Family History Mother Heart disease Father No problems noted. Brother No problems noted. Sister No problems noted. Social History Smoking Status: Current every day smoker Tobacco Type: cigarettes Substance Use Type: Marijuana Meds Medications and Allergies Allergies No Known Allergies Allergy (Verified 11/20/24 10:38) Home Medications No known home meds 11/20/24 [History Confirmed 11/20/24] Exam Physical Exam Vital Signs: Temp Pulse Resp BP Pulse Ox O2 Del Method 98.1 F 92 18 121/73 99 Room Air 11/20/24 10:41 11/20/24 10:41 11/20/24 10:41 11/20/24 10:41 11/20/24 10:41 11/20/24 10:41 Results - Psychiatry Labs 11/20/24 10:58 11/20/24 10:58 Psychiatry Labs: 11/20/24 11/20/24 10:58 11:23 RBC 4.05 Hgb 13.7 Hct 38.8 MCV 95.9 MCH 33.8 MCHC 35.3 RDW 13.9 Plt Count 234 MPV 8.3 Urine Color Yellow Urine Appearance Clear Urine pH 6.5 Ur Specific [place] 1.026 Urine Protein 30 H Urine Glucose (UA) Normal Urine Ketones Negative Urine Occult Blood Negative Urine Nitrite Negative Ur Leukocyte Esterase 2+ H Assessment/Plan (1) Suicidal ideation: (2) Major depressive disorder, recurrent, severe with psychotic symptoms: Plan Patient admitted to with suicidal ideation. Start Lexapro 5 mg PO Q daily CIWA with ativan Will monitor for any signs of alcohol withdrawal Continue to monitor mental status Encourage group participation and medication compliance Risk, benefits, and alternatives explained Documented By: Kash Connor MD [id number] Signed By: 11/21/[address] [facility]02-28-2025 Chief complaint+Reason for visit Narrative* Chief Complaint Admit Date medical clearance November 20, 2024 12:46pm medical clearance November 21, 2024 5:55 am Reason for Visit Admit Date Bipolar disorder, current ep isode manic without psychotic features November 20, 2024 12:46pm Major depressive disorder, r ecurrent, severe with psychotic symptoms November 20, 2024 12:46pm Suicidal ideation November 20, 2024 12:46pm [facility] Work Phone: 1([phone] 221-846702-28-2025 Chief complaint+Reason for visit Narrative * Chief Complaint Admit Date medical clearance November 20, 2024 12:46pm medical clearance November 21, 2024 5:55 am December 02, 2024 12: 16pm 6 month f/u February 04, 2025 10:19 am Reason for Visit Admit Date Bipolar disorder, current ep isode manic without psychotic features November 20, 2024 12:46pm Major depressive disorder, r ecurrent, severe with psychotic symptoms November 20, 2024 12:46pm Suicidal ideation November 20, 2024 12:46pm Bipolar disorder, current ep isode manic without psychotic features February 04, 2025 10:19am Marijuana use February 04, 2025 10:19 am Pericarditis February 04, 2025 10:19 am Severe alcohol use disorder February 04 10:19am Tobacco use disorder February 04, 2025 10:1 9am [facility] Work Phone: 1(983) 933-507302-28-2025 Evaluation note* Diagnosis Onset Date Resolution Status Admit Date Bipolar disorder, current episode manic without psychotic features acute October 12:46pm Major depressive disorder, recurrent, severe with psychotic symptoms acute October 12:46pm Suicidal ideation acute 2024 12:46pm [facility] Work Phone: 1(209) 557-998502-28-2025 Evaluation note* Diagnosis Onset Date Resolution Status Admit Date Bipolar disorder, current episode manic without psychotic features acute October 12:46pm Major depressive disorder, recurrent, severe with psychotic symptoms acute October 12:46pm Suicidal ideation resolved 2024 12:46pm Bipolar disorder, current episode manic without psychotic features acute February 04 10:19am Marijuana use acute February 04, 025 10:19am Pericarditis acute February 04 10:19am Severe alcohol use disorder acute February 04, 2025 10:19am Tobacco use disorder acute February 04, 2025 10:19am [facility] Work Phone: 1([phone]) 615-539301-07-2025 History of Present illness Narrative* ROSALINDA Ivey - 09/29/2024 8:30 AM EST Images from the original note were not included. HPI Med Refill Additional comments: Meloxicam - will use good rx Last edited by Lenore Brown LPN on 09/29/2024 8:34 AM. Subjective Patient ID: Sean Rodriguez is a 29 y.o. male who presents for epigastric pain. Sean is present today for follow up epigastric pain. He was seen 3 months ago and was prescribedPantoprazole, he states that pain has improved and he does not even take the medication. Current Outpatient Medications on File Prior to Visit Medication Sig Dispense Refill [DISCONTINUED] colchicine 0.6 MG tablet Take 0.6 mg by mouth in the morning and 0.6 mg before bedtime. [DISCONTINUED] meloxicam (Mobic) 15 MG tablet TAKE 1 TABLET BY MOUTH IN THE MORNING WITH FOOD 30 tablet 2 [DISCONTINUED] nicotine (Nicoderm CQ) 7 MG/24HR patch Place 1 patch over 24 hours on the skin 1 (one) time each day at the same time for 14 days 14 patch 0 [DISCONTINUED] pantoprazole (ProtoNix) 40 MG EC tablet Take 1 tablet (40 mg) by mouth in the morning. Take before meals. 90 tablet 1 No current facility-administered medications on file prior to visit. I have reviewed and reconciled the history and medication list with the patient today. No Known Allergies Social History Tobacco Use Smoking status: Every Day Current packs/day: 0.25 Average packs/day: 0.5 packs/day for 18.4 years (9.2 ttl pk-yrs) Types: Cigarettes Start date: 04/19/2006 Smokeless tobacco: Never Tobacco comments: 6-10 cigs/day Vaping Use Vaping status: Unknown Substance Use Topics Alcohol use: Not Currently Drug use: Yes Types: Marijuana No family history on file. Past Medical History: Diagnosis Date Bipolar disorder, current episode manic without psychotic features ([facility] 06/29/2024 Pericarditis 04/23/2024 Severe alcohol use disorder ([facility] 06/29/2024 Past Surgical History: Procedure Laterality Date OTHER SURGICAL HISTORY 04/2019 laceration to left palm - 3 sutures Visit Vitals BP 112/78 Pulse 80 Resp 16 Ht 5' 7 Wt 137 lb SpO2 96% BMI 21.46 kg/m Smoking Status Every Day BSA 1.71 m Review of Systems Constitutional: Negative for [...] rhonchi or rales. Musculoskeletal: General: No swelling. Skin: General: Skin is warm and dry. Neurological: General: No focal deficit present. Mental Status: He is alert and oriented to person, place, and time. Psychiatric: Mood and Affect: Mood normal. Behavior: Behavior normal. Assessment/Plan Diagnoses and all orders for this visit: Chronic pain of left hand - meloxicam (Mobic) 15 MG tablet; Take 1 tablet (15 mg) by mouth Daily Take with food Refill provided on the above. Patient can continue to take it as needed. Reminded pt to take it with food. Tobacco dependence Pt states he is down to 2-3 cigarettes at night. Encouraged pt to continue to work on cutting back and soon quit smoking. Chronic pain of left knee Stable with Meloxicam as needed. Follow up in about 6 months (around 03/29/2025) for Medication Follow Up. documented in this encounterSalem Memorial District [id number] History of Present illness Narrative* ROSALINDA Ivey - 06/29/2024 9:00 AM EDT Images from the original note were not included. HPI Med Refill Additional comments: Nicoderm patch Last edited by Lenore Brown LPN on 06/29/2024 9:02 AM. Subjective Patient ID: Sean Rodriguez is a 29 y.o. male who presents for epigastric pain. Sean is present today for follow up epigastric pain. At his last appt on 06/01 he was started on Pantoprazole and he states it has helped his pain. He states he has like 3 pills left so not sure if he should stay on it or not. He did just get his holter monitor on Saturday and has a follow up on with cardiology. Has to wear the holter monitor for two weeks. Getting kicked off of Medicaid 07/23/2024. States has cut back a lot on alcohol, down to one drink every two weeks. Current Outpatient Medications on File Prior to Visit Medication Sig Dispense Refill colchicine 0.6 MG tablet Take 0.6 mg by mouth in the morning and 0.6 mg before bedtime. meloxicam (Mobic) 15 MG tablet Take 1 tablet (15 mg) by mouth in the morning. Take with food. 30 tablet 2 [DISCONTINUED] nicotine (Nicoderm CQ) 7 MG/24HR patch Place 1 patch over 24 hours on the skin 1 (one) time each day at the same time for 14 days 14 patch 0 [DISCONTINUED] pantoprazole (ProtoNix) 40 MG EC tablet Take 1 tablet (40 mg) by mouth in the morning. Take before meals. 30 tablet 2 [DISCONTINUED] traMADol (Ultram) 50 MG tablet Take 50 mg by mouth every 6 (six) hours if needed No current facility-administered medications on file prior to visit. I have reviewed and reconciled the history and medication list with the patient today. No Known Allergies Social History Tobacco Use Smoking status: Every Day Current packs/day: 0.50 Average packs/day: 0.5 packs/day for 18.2 years (9.1 ttl pk-yrs) Types: Cigarettes Start date: 04/19/2006 Smokeless tobacco: Never Tobacco comments: 6-10 cigs/day Vaping Use Vaping status: Unknown Substance Use Topics Alcohol use: Not Currently Drug use: Yes Types: Marijuana No family history on file. Past Medical History: Diagnosis Date Bipolar disorder, current episode manic without psychotic features ([facility]) 06/29/2024 Pericarditis 04/23/2024 Severe alcohol use disorder ([facility]) 06/29/2024 Past Surgical History: Procedure Laterality Date OTHER SURGICAL HISTORY 04/2019 laceration to left palm - 3 sutures Visit Vitals BP 98/64 Pulse 71 Resp 16 Ht 5' 7 Wt 137 lb SpO2 96% BMI 21.46 kg/m Smoking Status Every Day BSA 1.71 m Review of Systems Constitutional: Negative for chills, fatigue and fever. Respiratory: Negative for cough, shortness of breath and wheezing. Cardiovascular: Negative for chest pain, palpitations and leg swelling. Gastrointestinal: Negative for abdominal pain, constipation, diarrhea, nausea and vomiting. Skin: Negative for rash. Objective Physical Exam [...] rhonchi or rales. Musculoskeletal: General: No swelling. Skin: General: Skin is warm and dry. Neurological: General: No focal deficit present. Mental Status: He is alert and oriented to person, place, and time. Psychiatric: Mood and Affect: Mood normal. Behavior: Behavior normal. Assessment/Plan Diagnoses and all orders for this visit: Epigastric pain - pantoprazole (ProtoNix) 40 MG EC tablet; Take 1 tablet (40 mg) by mouth in the morning. Take before meals. Much improved with the above. Refill provided so he can take it as needed now. Tobacco dependence - nicotine (Nicoderm CQ) 7 MG/24HR patch; Place 1 patch over 24 hours on the skin 1 (one) time eachday at the same time for 14 days Pt is down to 4-5 cigarettes a day. Provided him with refill on the above. Encouraged him to continue to gradually cut back and soon quit smoking. Acute pericarditis, unspecified type The patient is seeing a medical numerical control operator for this condition, treatment is deferred to that specialist. Correspondence from that specialist and any available testing were reviewed during today's visit. Will see pt back in 3-6 months. Follow up in about 3 months (around 09/29/2024) for Recheck. documented in this encounterSalem Memorial District [id number] History of Present illness Narrative* ROSALINDA Ivey - 06/01/2024 9:00 AM EDT Images from the original note were not included. HPI Med Refill Additional comments: Nicotine patches Last edited by Hailey Hemphill MA on 06/01/2024 9:01 AM. Subjective Patient ID: Sean Rodriguez is a 29 y.o. male who presents for a follow up. Sean is in today for a follow up on his chest pain, states he is still feeling the palpitations and having the same chest pain/SOB he was having. Says he has an apt with cardiology on june 12. Also states he's been having stomach pain that just starts out of no where, says it started whenhe started taking ibuprofen so for the last month he's been having issues with his stomach. Smoking 1-2 cigarettes a day. States his Cardiology appointment was initially 05/28, they cancelled it and booked him an appointment for the , he called back due to still having symptoms, so they got him an appt for the . Current Outpatient Medications on File Prior to Visit Medication Sig Dispense Refill colchicine 0.6 MG tablet Take 0.6 mg by mouth in the morning and 0.6 mg before bedtime. meloxicam (Mobic) 15 MG tablet Take 1 tablet (15 mg) by mouth in the morning. Take with food. 30 tablet 2 traMADol (Ultram) 50 MG tablet Take 50 mg by mouth every 6 (six) hours if needed [DISCONTINUED] ibuprofen 800 MG tablet Take 800 mg by mouth in the morning and 800 mg in the evening and 800 mg before bedtime. [DISCONTINUED] nicotine (Nicoderm CQ) 14 MG/24HR patch Place 1 patch over 24 hours on the skin 1 (one) time each day at the same time 42 patch 0 [DISCONTINUED] pantoprazole (ProtoNix) 40 MG EC tablet Take 40 mg by mouth in the morning. Take before meals. No current facility-administered medications on file prior to visit. I have reviewed and reconciled the history and medication list with the patient today. No Known Allergies Social History Tobacco Use Smoking status: Every Day Current packs/day: 0.50 Average packs/day: 0.5 packs/day for 18.1 years (9.1 ttl pk-yrs) Types: Cigarettes Start date: 04/19/2006 Smokeless tobacco: Never Tobacco comments: 6-10 cigs/day Vaping Use Vaping status: Unknown Substance Use Topics Alcohol use: Not Currently Drug use: Yes Types: Marijuana No family history on file. Past Medical History: Diagnosis Date Pericarditis 04/23/2024 Past Surgical History: Procedure Laterality Date OTHER SURGICAL HISTORY 04/2019 laceration to left palm - 3 sutures Visit Vitals BP 105/75 Pulse 85 Resp 17 Wt 136 lb 9.6 oz SpO2 97% BMI 21.39 kg/m Smoking Status Every Day BSA 1.71 m Review of Systems Constitutional: Negative for chills, fatigue and fever. Respiratory: Positive for shortness of breath. Negative for cough and wheezing. Cardiovascular: Positive for chest pain and palpitations. Negative for leg swelling. Gastrointestinal: Positive for abdominal pain (Epigastric). Negative for constipation, diarrhea, nausea and vomiting. Skin: Negative for rash. Objective Physical Exam [...] rhonchi or rales. Musculoskeletal: General: No swelling. Skin: General: Skin is warm and dry. Neurological: General: No focal deficit present. Mental Status: He is alert and oriented to person, place, and time. Psychiatric: Mood and Affect: Mood normal. Behavior: Behavior normal. Assessment/Plan Diagnoses and all orders for this visit: Accelerated junctional rhythm - Transthoracic Echo (TTE) Complete; Future Pt continues to be symptomatic. Does have an appointment scheduled with Cardiology on 06/12/2024. Encouraged him to keep his appointment with them as scheduled. PVC's (premature ventricular contractions) - Transthoracic Echo (TTE) Complete; Future Reviewed the holter monitor results with patient in detail. Other chest pain - Transthoracic Echo (TTE) Complete; Future Continues to be symptomatic. Acute pericarditis, unspecified type - Transthoracic Echo (TTE) Complete; Future Will obtain updated ECHO at [facility] for re-evaluation due to ongoing symptoms. Second degree AV block, Mobitz type I - Transthoracic Echo (TTE) Complete; Future See above. Tobacco dependence - nicotine (Nicoderm CQ) 7 MG/24HR patch; Place 1 patch over 24 hours on the skin 1 (one) time eachday at the same time for 14 days Is down to 1-2 cigarettes a day. Advised him this is excellent. Provided pt with the 7 mg patches. Encouraged him to continue to cut back and soon quit smoking completely. Epigastric pain - pantoprazole (ProtoNix) 40 MG EC tablet; Take 1 tablet (40 mg) by mouth in the morning. Take before meals. Restart the above as prescribed. Advised suspect this is due to recent high does anti-inflammatory medication. He is to continue to hold the Meloxicam for now. Avoid spicy foods, avoid tomato based products. He is to contact the office if symptoms persist or worsen. Follow up in about 4 weeks (around 06/29/2024) for Recheck. documented in this encounterSalem Memorial District [id number] Discharge summary Author Rani Delong [facility] April 24, 2024 12:47pm Note Date/Time April 24, 2024 12: 47pm [facility] [address] [place] [address] Discharge Summary Signed Patient: Sean Rodriguez MR#: [id number] : 1995 Acct:[id number] Age/Sex: 29 / M Adm Date: 4 Loc: Room: [address] [place] [address]: Rani Delong MD Copies to: [...] above Summary Hospital Course Hospital course: Mr. Rodriguez is a 29 year old male with [...] was consistent with diffuse ST elevations with IA depression in aVR consistent with pericarditis. Labs [...] Room Air 04/24/24 11:31 04/24/24 11:31 04/24/24 11:04/24/24 11:31 04/24/24 11:31 04/24/24 11:31 Narrative: Const [...] % (Auto) 40.6, Lymph % (Auto) 38.7, [place] % (Auto) 16.2, Eos % (Auto) 3.8, Baso % (Auto) 0.7, Nucleat RBC Rel Count 0.2, Neut # (Auto) 3.2, Lymph # (Auto) 3.1, [place] # (Auto) 1.3 H, Eos # (Auto) [...] <Electronically signed by Rani Delong MD> 04/24/24 1247 [facility] Work Phone: 1(202) 728-478308-02-2024 Progress note Author Ashlee Moura [facility] April 24, 2024 12:28pm Note Date/Time April 24, 2024 12: 28pm [facility] [address] [place] [address] Cardiology Progress Note Signed Patient: Sean Rodriguez MR#: [id number] : 1995 Acct:[id number] Age/Sex: 29 / M Adm Date: 4 Loc: Room: [address] [place] [address] Type: ADM INOo Attending Dr: Rani Delong MD Copies to: ~ Date of Service: 04/24/2024 Subjective Interval history: Mr. Rodriguez is a 29 year old male with [...] was consistent with diffuse ST elevations with IA depression in aVR consistent with pericarditis. Labs [...] % (Auto) 40.6 Lymph % (Auto) 38.7 [place] % (Auto) 16.2 Eos % (Auto) 3.8 Baso % (Auto) 0.7 Nucleat RBC Rel Count 0.2 Neut # (Auto) 3.2 Lymph # (Auto) 3.1 [place] # (Auto) 1.3 H Eos # (Auto) [...] while on high dose NSAIDS - NATALIE screening sent and pending. Will follow results as outpatient. - Discussed importance of compliance with medication to prevent recurrent pericarditis. - Advised on tobacco cessation - OK to discharge today. Follow up with [facility] in 4 weeks. Documented By: Ashlee Moura MD 04/24/241222 Signed By: <Electronically signed by Ashlee Moura MD> 04/24/24 [facility] Work Phone: 1(337) 448-630308-01-2024 Consult note Author Ashlee Moura [facility] April 23, 2024 3:02pm Note Date/Time April 23, 2024 2:1 8pm [facility] [address] [place] [address] Cardiology Consult Note Signed Patient: Sean Rodriguez MR#: [id number] : 1995 Acct:[id number] Age/Sex: 29 / M Adm Date: 4 Loc: Room: [address] [place] [address] Type: ADM INOo Attending Dr: Rani Delong MD Copies to: SPENCER Ivey MD Obaydah M Daromar, MD~ Cardiology HPI History of Present Illness Consult Date: 04/23/24 Reason for Consult: Acute pericarditis HPI: Mr. Rodriguez is a 29 year old male with [...] was consistent with diffuse ST elevations with IA depression in aVR consistent with pericarditis. Labs were significant for elevated CRP; normal troponin; mildly elevated WBC. UDS was positive for opiates (took tramadol for pain) & marijuana. He was started on colchicine and Ibuprofen. Review of Systems Review of Systems All other systems reviewed & are negative unless noted below or in HPI [facility] Medical History (Updated 04/23/24 @ 15:01 by [...] x10E3/uL Lymph # (Auto) 3.3 (1.00-4.8) x10E3/uL [place] # (Auto) 1.6 H (0.0-0.8) x10E3/uL Eos [...] cessation - Plan for discharge tomorrow with [facility] cardiology follow up. Documented By: Ashlee Moura MD 04/23/24 1416 Signed By: <Electronically signed by Ashlee Moura MD> 04/23/24 1509 [facility] Work Phone: 1(562) 833-469608-01-2024 Progress note Author Rani Delong [facility] April 23, 2024 12:54pm Note Date/Time April 23, 2024 12: 54pm [facility] [address] [place] [address] Hospitalist Progress Note Signed Patient: Sean Rodriguez MR#: [id number] : 1995 Acct:[id number] Age/Sex: 29 / M Adm Date: 4 Loc: Room: [address] [place] [address] Type: ADM INOo Attending Dr: Rani Delong MD Copies to: ~ Date of Service: 04/23/2024 Subjective Subjective Narrative: This is a 29-year-old male with no significant past medical history presented [facility] ED with main complaints of chest pressure [...] any recent viral syndrome. EKG done in [place] shows ST elevation in multiple leads with IA depression. Troponins at [place] was negative Interval history 04/23/2024: Patient was [...] <Electronically signed by Rani Delong MD> 04/23/[address] [place] [address] Ctr Work Phone: 1(749) 137-696208-01-2024 History and physical note Author Martin Phillip [facility] April 23, 2024 6:11am Note Date/Time April 23, 2024 6:1 1am [facility] [address] [place] [address] Hospitalist H&P Signed Patient: Sean Rodriguez MR#: [id number] : 1995 Acct:[id number] Age/Sex: 29 / M Adm Date: 4 Loc: Room: [address] [place] [address] Type: ADM IN Attending Dr: Martin Phillip MD Copies to: MD Grisel Ramires PA-C~ HPI DATE OF EXAMINATION: 04/23/24 CHIEF COMPLAINT: Chest pain HISTORY OF PRESENT ILLNESS: This is a 29-year-old male with no significant past medical history presented [facility] ED with main complaints of chest pressure [...] any recent viral syndrome. EKG done in [place] shows ST elevation in multiple leads with IA depression. Troponins at [place] was negative Review of Systems Review of Systems All other systems reviewed & are negative unless noted below or in HPI [facility] Medical History (Updated 04/23/24 @ 06:08 by [...] 04/23/24605 Signed By: <Electronically signed by Martin Phlilip MD> 04/23/24 0611 [facility] Work Phone: 1(328) 219-827402-09-2024 History of Present illness Narrative* ROSALINDA Ivey - 11/01/2023 11:00 AM EST Subjective Patient ID: Sean Rodriguez is a [...] food. Advised of risks of GI s/e. Didoffer referral to Ortho, pt would like to hold off at this time. Follow up if symptoms worsen or fail to improve. documented in this encounterSalem Memorial District [id number] Evaluation note* Encounter Date Diagnosis Assessment Notes Treatment Notes Treatment Clinical Notes Oct, Contact with and (suspected) exposure [...] has COVID that you follow current CDC recommendations. These can be found at CDC.GOV. Follow [...] care instructions given in writting by [facility] Care At Home document. [facility] Other 01-01-2016 History general Narrative - Reported* Type Description Date Hospitalization History [facility] [place] psych sep 2015 [facility] Other Chief complaint+Reason for visit Narrative* Chief Complaint Admit Date medical clearance November 20, 2024 12:46pm Reason for Visit Admit Date Bipolar disorder, current ep isode manic without psychotic features November 20, 2024 12:46pm Suicidal ideation November 20, 2024 12:46pm [facility] Work Phone: evaluation note* Diagnosis Chronic pain of left knee- Primary Chronic pain of right knee Chronic pain of left hand documented in this encounter [facility] HealthcareEvaluation note* Diagnosis Onset Date Resolution Status Acute pericarditis acute Chest pain acute Marijuana use acute Tobacco use disorder acute [facility] Work Phone: evaluation note* Diagnosis Onset Date Resolution Status Chest pain resolved [facility] Work Phone: Evaluation note* Diagnosis Onset Date Resolution Status Marijuana use acute Tobacco use disorder acute Chest pain resolved Bipolar disorder, current ep isode manic without psychotic features acute Marijuana use acute Pericarditis acute Severe alcohol use disorder acute Tobacco use disorder acute [facility] Work Phone: Evaluation note* Diagnosis Epigastric pain- Primary Abdominal pain, epigastric Tobacco dependence Tobacco use disorder Acute pericarditis, unspecified type [facility] Diagnosis Onset Date Resolution Status Marijuana use acute Tobacco use disorder acute Chest pain resolved Bipolar disorder, current ep isode manic without psychotic features acute Marijuana use acute Pericarditis acute Severe alcohol use disorder acute Tobacco use disorder acute Bipolar disorder, current ep isode manic without psychotic features acute Marijuana use acute Pericarditis acute Severe alcohol use disorder acute Tobacco use disorder acute [facility] Work Phone: Evaluation note* Diagnosis Accelerated junctional rhythm- Primary PVC's (premature ventricular contractions) Other premature beats Other chest pain Acute pericarditis, unspecified type Second degree AV block, Mobitz type I Other second degree atrioventricular block Tobacco dependence Tobacco use disorder Epigastric pain Abdominal pain, epigastric [facility] Diagnosis Chronic pain of left hand- Primary Tobacco dependence Tobacco use disorder Chronic pain of left knee [facility] Diagnosis Onset Date Resolution Status Admit Date Bipolar disorder, current episode manic without psychotic features acute October 12:46pm Suicidal ideation acute 2024 12:46pm [facility] Work Phone: Evaluation note* Diagnosis Chronic pain of left hand- Primary PVC's (premature ventricular contractions) Other premature beats Chronic pain of right knee Tobacco dependence Tobacco use disorder Fall, initial encounter documented in this encounter [facility] Healthcare Summary Purpose Family History No Family History Records Found Relationship Condition Age at Onset Recorded Date/T ally mother Heart disease Unknown Advance Directives No Advanced Directives Records Found Advance Directive Response Recorded Date/ Time Advance Directives No March 28 2:48pm Advance Directive Response Recorded Date/ Time Advance Directives No March 28 8 1:48pm Chief Complaint and Reason for Visit Chief Complaint r/o pericarditis r/o pericarditis Reason for Visit Acute pericarditis Chest pain Marijuana use Tobacco use disorder Chief Complaint r/o pericarditis r/o pericarditis [facility] Reason for Visit Chest pain Chief Complaint r/o pericarditis r/o pericarditis [facility] Reason for Visit Marijuana use Tobacco use disorder Chest pain Bipolar disorder, current episode manic without psychotic features Marijuana use Pericarditis Severe alcohol use disorder Tobacco use disorder Chief Complaint r/o pericarditis r/o pericarditis [facility] 04/24 N31.9 Zio Reason for Visit Marijuana use Tobacco use disorder Chest pain Bipolar disorder, current episode manic without psychotic features Marijuana use Pericarditis Severe alcohol use disorder Tobacco use disorder Chief Complaint r/o pericarditis r/o pericarditis [facility] 04/24 N31.9 Zio losing insurance needed to come in before the 30 Reason for Visit Marijuana use Tobacco use disorder Chest pain Bipolar disorder, current episode manic without psychotic features Marijuana use Pericarditis Severe alcohol use disorder Tobacco use disorder Bipolar disorder, current episode manic without psychotic features Marijuana use Pericarditis Severe alcohol use disorder Tobacco use disorder Reason for Referral Specialty Diagnoses / Procedures Referred By Conthumaira t Referred To Contact Radiology Diagnoses Accelerated junctional rhythm PVC's (premature ventricular contractions) Other chest pain Acute pericarditis, unspecified type Second degree AV block, Mobitz type I Procedures Transthoracic Echo (TTE) Grisel Mcconnell PA [address] [facility] [address] [place] [address] [facility] [address] [place] [address] Phone: [phone] Referral ID Status Reason Start Date Expiration Date Visits Requested Visits Authorized [id number] Incomplete Perform Procedure 06/01/2024 11/28/2024 1 1 Additional Source Comments REASON FOR VISIT (unrecogniz ed section and content) Reason Comments Knee Pain Reason Comments Med Refill Nicoderm patch Reason Comments Med Refill Nicotine patches Reason Comments Med Refill Meloxicam - will use good rx Reason Comments medication follow up (unrecognized sect ion and content) No Status Records FoundNo Status Records FoundNo Status Records Found INFORMATION SOURCE (unrecogn ized section and content) DATE CREATED AUTHOR 08/21/2022 [facility] DATE CREATED AUTHOR AUTHOR'S ORGANIZ ATION 10/05/2024 [facility] EPIC DATE CREATED AUTHOR AUTHOR'S ORGANIZ ATION 04/04/2025 [facility] Care Teams (unrecognized sec tion and content) Team Status: Active Member Role Status Dates WANDA Landon Primary Care Provider Active Team Status: Inactive Member Role Status Dates WANDA Landon Primary Care Provider Active Start: November 20, 2024 End: November 23, 2024 Bro Osorio DO Emergency Provider Active Start: November 20, 2024 End: November 23, 2024 Kash Connor MD Admit Provide r, Attending Provider Active Start: November 20, 2024 End: November 23, 2024 Team Status: Active Member Role Status Dates WANDA Landon Primary Care Provider Active Start: November 21, 2024 Bro Osorio DO Emergency Provider Active Start: November 21, 2024 Kash Connor MD Admit Provide r, Attending Provider, Other Provider Active Start: November 21, 2024 Team Status: Active Member Role Status Dates Grisel Khan , HVAC TECHNICIAN-C Primary Care Provider Active Start: November 20, 2024 Bro Osorio DO Emergency Provider Active Start: November 20, 2024 Kash Connor MD Admit Provide r, Attending Provider Active Start: November 20, 2024 Team Status: Inactive Member Role Status Dates Martin Phillip MD Admit Provider Active Start: 2023 End: April 24, 2024 Grisel Khan , HVAC TECHNICIAN-C Primary Care Provider Active Start: April 23, [...] Phillip MD Admit Provider Active Start: 2023 Grisel Khan , HVAC TECHNICIAN-C Primary Care Provider Active Start: April 23, [...] Other Provider Active Start: April 23, 2024 Team Status: Active Member Role Status Dates Grisel Khan , HVAC TECHNICIAN-C Primary Care Provider Active Start: April 23, 2024 Miguel Gipson DO Attending Provider Active Sta rt: April 23, 2024 Team Status: Active Member Role Status Dates Grisel Khan , HVAC TECHNICIAN-C Primary Care Provider Active Start: May 19, 2024 Miguel Gipson DO Attending Provider Active Sta rt: May 19, 2024 Team Status: Inactive Member Role Status Dates Grisel Khan HVAC TECHNICIAN-C Primary Care Provider Active Start: June 12, 2024 End: June 12, 2024 Ashlee Moura MD Attending Provider Active Sta rt: June 12, 2024 End: June 12, 2024 Team Status: Active Member Role Status Dates Grisel Khan HVAC TECHNICIAN-C Primary Care Provider Active Start: June 12, 2024 Ashlee Moura MD Attending Provider Active Sta rt: June 12, 2024 Team Status: Inactive Member Role Status Dates Grisel Khan HVAC TECHNICIAN-C Primary Care Provider Active Start: June 26, 2024 End: June 26, 2024 Ashlee Moura MD Attending Provider Active Sta rt: June 26, 2024 End: June 26, 2024 Captain Room Service Relationship Specialty Start Date End Date Grisel Khan PA [address] [facility] [address] [place] [address] PCP - General Family Medicine 06/26/24 Team Status: Inactive Member Role Status Dates Grisel Khan NP-C Primary Care Provider Active Start: July 20, 2024 End: July 20, 2024 Ashlee Moura MD Attending Provider Active Sta rt: July 20, 2024 End: July 20, 2024 Captain Room Service Relationship Specialty Start Date End Date Grisel Khan PA [address] [facility] [address] [place] [address] PCP - General Family Medicine 06/26/24 Captain Room Service Relationship Specialty Start Date End Date Grisel Khan PA [address] [facility] [address] [place] [address] PCP - General Family Medicine 06/26/24 Team Status: Inactive Member Role Status Dates Grisel Khan HVAC TECHNICIAN-C Primary Care Provider Active Start: November 20, 2024 End: November 23, 2024 Bro Osorio DO Emergency Provider Active Start: November 20, 2024 End: November 23, 2024 Nelson Bass MD Attending Provider Active St art: November 20, 2024 End: November 23, 2024 Kash Connor MD Admit Provider Active Start: November 20, 2024 End: November 23, 2024 Team Status: Active Member Role Status Dates WANDA Landon Primary Care Provider Active Start: December 02, 2024 Kash Connor MD Attending Provider Active Start: December 02, 2024 Team Status: Inactive Member Role Status Dates WANDA Landon Primary Care Provider Active Start: February 04, 2025 End: February 04, 2025 Ashlee Moura MD Attending Provider Active Sta rt: February 04, 2025 End: February 04, 2025 Captain Room Service Relationship Specialty Start Date End Date Meghann Moffett MD [address] [facility] [address] [place] [address] PCP - General Family Medicine 11/24/24 Captain Room Service Relationship Specialty Start Date End Date Meghann Moffett MD [address] [facility] [address] [place] [address] PCP - General Family Medicine 11/24/24 Goals (unrecognized section and content) Goals may [...] BE BASED ON THE PRIMARY CLINICAL RECORDS. [employer] [facility]. provides no warranty or guarantee of the accuracy or completeness of information in this document.
--- NOTE | 2025-04-05 11:25 | XR_ITS ---
The [address] [address] Patient Name: AMBROSIO MALONE MRN: [id number] date: 1995 Sex: M Assigned Patient Location: RAD Current Patient Location: [facility] Accession/Order Number: [id number] Exam Date: 04/05/2025 12:01 Report Date: 04/05/2025 12:03 At the request of: GRISEL KHAN Procedure: XR knee RT 4V RIGHT KNEE - 4 views COMPARISON: 11/05/2023 CLINICAL DATA: Chronic right knee pain with worsening after fall on March 26. AP, lateral, internal oblique and sunrise views were obtained. No acute fracture or dislocation is identified. No patellar subluxation is seen. The joint spaces are maintained. No hypertrophy is noted. There is no significant knee effusion or soft tissue swelling. XR/XR knee RT 4V IMPRESSION: NO ACUTE BONY INJURY. Impression dictated by: Grisel Houser M.D. 04/05/2025 12:03 PM Dictation Location: [place] [address] Electronically authenticated by: [id number] Y Date: 04/05/2025 12:03
== END 2025-04-05 10:44 | disposition home or self-care (01) ==
PROVIDERS: PCP Physician Assistant; Visit Provider Physician Assistant
DX: M25.561 Pain in right knee (principal); G89.29 Other chronic pain; W19.XXXA Unspecified fall, initial encounter
CPT/HCPCS: 73564

== ENCOUNTER 2025-08-02 08:42 | Emergency (ER) | payer SELFPAY ==
--- OUTSIDE RECORDS SUMMARY | 2025-07-27 11:17 | XMS_ITS | Continuity of Care Document ---
Author Organization [facility] Address [address] [place] [address] Phone Care Team Providers Care Bread Oven Operator Name Role Phone Dontrell Ahuja DDS Unavailable Unavailable Allergies, Adverse Reactions, Alerts Substance Reaction Status Criticality No Known Allergies Active No Inform ation Medications Medication Instructions Dosage Effective Dates (start - stop) Status Comments hydroxyzine HCl 10 mg tablet - Active trazodone 50 mg tablet take 1 tablet by oral route every day at bedtime 50 MG - Active Problems Condition Type Effective Dates (start - stop) Clini avis Status Comments No Known Problems Procedures Procedure Date Bitewings Four Films Intraoral-periapical 1st Film Prophylaxis Adult Moderate Risk [employer] [place] Dis Dec Oral Hygiene Instruction Periodic Oral Eval Estab Patient 2024 Moderate Risk Prophylaxis Adult [employer] [place] Dis Jun Oral Hygiene Instruction Bitewings Four Films Periodic Oral Eval Estab Patient 2023 Moderate Risk Prophylaxis Adult Oral Hygiene Instruction Tobacco Counseling [employer] [place] Dis Dec Prophylaxis Adult [employer] [place] Dis May Tobacco Counseling Oral Hygiene Instruction Bitewings Four Films Prophylaxis Adult High Risk [employer] [place] Dis Oct Oral Hygiene Instruction Periodic Oral Eval Estab Patient 2022 Resin Composite 2s; Posterior 2 Resin Composite 2s; Posterior 2 [employer] [place] Dis Oct Tobacco Counseling Oral Hygiene Instruction Bitewings Four Films Prophylaxis Adult Oral Hygiene Instruction Periodic Oral Eval Estab Patient 2021 Oral Hygiene Instruction Resin Composite 3s; Posterior 2 Resin Composite 2s; Posterior 2 Resin Composite 1s; Posterior 1 [employer] [place] Dis Jul Resin Composite 2s; Posterior 1 Resin One Surface; Anterior Oral Hygiene Instruction Prophylaxis Adult Oral Hygiene Instruction Oral Hygiene Instruction Resin Composite 2s; Posterior 1 Resin Composite 3s; Posterior 1 [employer] [place] Dis Nov Resin Composite 3s; Posterior 1 Resin Composite 1s; Posterior 1 Resin Composite 3s; Posterior 1 Resin Composite 3s; Posterior 1 Resin Three Surfaces Anterior 1 Resin Three Surfaces Anterior 1 Oral Hygiene Instruction Prophylaxis Adult Oral Hygiene Instruction Oral Hygiene Instruction Extract; Erupted Th/exposted Rt 021 Extract; Erupted Th/exposted Rt 021 Resin Composite 1s; Posterior 1 Root Canal-bicuspid Intraoral-periapical 1st Film 0 Oral Hygiene Instruction Comp Oral Eval New/estab Patient 2019 Panoramic Film Bitewings Four Films Intraoral-periapical 1st Film 0 Latvfmfbj-rycxyrrput-ldve Additional Jul Eawbtyrkg-taxrpnjdsq-rjqy Additional Jul Evbspokjx-umioxjatxa-gwyv Additional Jul Ofrdfkauf-eyxvshqjgm-wklu Additional Jul Qchkupjom-imzncsacez-uxll Additional Jul OFFICE/OUTPATIENT VISIT, EST SPECIMEN HANDLING OFFICE/OUTPATIENT VISIT, EST OFFICE/OUTPATIENT VISIT, NEW HIV-1 SPECIMEN HANDLING ODH ZITHROMAX Condoms Advance Directives Directive Yes / No Effective Date File Name No Information Encounters Encounter Description Practice Location Reason(s) For Visit Diagnoses Date Provider Providers Copied on Encounter [facility], [address] [place] [address], [id number], tel:[phone] Dental Clinic No Information Seymour NESS Yixue. [address] [place] [address], [id number], [place]. tel:[phone] [facility], [address] [place] [address], [id number], [place] tel:[phone] Dental Clinic pa (chief complaint) Body mass index [BMI] 21.0-21.9, adultEncounter for screening for dental disorders [facility] Eleuterio. [address] [place] [address], [id number] , [place]. tel:[phone] [facility], [address] [place] [address], [id number], [place] tel:[phone] Dental Clinic pa (chief complaint) Encounter for screening for dental disorders [facility] GRANT Rileyal. [address] [place] [address], [id number] , [place]. tel:[phone] [facility], [address] [place] [address], [id number], [place] tel:[phone] [facility] PA (chief complaint) Body mass index [BMI] 21.0-21.9, adultEncounter for screening for dental disorders Masoud Mcclellan. [address] [place], [place], [id number] , [place]. tel:[phone] [facility], [address] [place] [address], [id number], [place] tel:[phone] [facility] PA (chief complaint) Encounter for screening for dental disorders Masoud DDS Danay. . tel:[phone] [facility], [address] [place] [address], [id number], [place] tel:[phone] Dental [facility] PA (chief complaint) Encounter for screening for dental disorders Masoud HALES Danay. . tel: [phone] [facility], [address] [place] [address], [id number], [place] tel:[phone] Dental Clinic filling (chief complaint) Encounter for screening for dental disorders Masoud HALES Danay. . tel:[phone] [facility], [address] [place] [address], [id number], [place] tel:[phone] Dental Clinic prophy (chief complaint) Encounter for screening for dental disorders Saeed Salmon. [address] [place] [address], [id number], [place]. tel:[phone] [facility], [address] [place] [address], [id number], [place] tel:[phone] Dental Clinic FILLING (chief complaint) Encounter for screening for dental disorders Lorne Spain. [address] [place] [address], [id number] , [place]. tel:[phone] [facility], [address] [place] [address], [id number], [place] tel:[phone] Dental Clinic Filling (chief complaint) Encounter for screening for dental disorders Lorne Spain. [address] [place], [place], [id number] , [place]. tel:[phone] [facility], [address] [place], [place], [id number], [place] tel:[phone] Dental Clinic Filling appt. (chief complaint) Encounter for screening for dental disorders Saeed Salmon. [address] [place], [address], [place]. tel:[phone] [facility], [address] [place], [place], [id number], [place] tel:[phone] Dental Clinic prophy (chief complaint) Encounter for screening for dental disorders Saeed Salmon. [address] [place], [address], [place]. tel:[phone] [facility], [address] [place] [address], [id number], [place] tel:[phone] Dental Clinic filling (chief complaint) Encounter for screening for dental disorders Lorne Spain. [address] [place], [place], [id number] , [place]. tel:[phone] [facility], [address] [place] [address], [id number], [place] tel:[phone] Dental Clinic juli (chief complaint) Encounter for screening for dental disorders Patrice Garcia. [address] [place], [place], [id number] , [place]. tel:[phone] [facility], [address] [place] [address], [id number], [place] tel:[phone] Dental Clinic filling (chief complaint) Encounter for screening for dental disorders Patrice Garcia. [address] [place], [place], [id number] , [place]. tel:[phone] [facility], [address] [place] [address], [id number], [place] tel:[phone] Dental Clinic prophy (chief complaint) Encounter for screening for dental disorders Patrice DDS Jose. [address] [place], [place], [id number] , [place]. tel:[phone] [facility], [address] [place], [place], [id number], [place] tel:[phone] Dental Clinic filling (chief complaint) Encounter for screening for dental disorders Patrice DDS Jose. [address] [place], [place], [id number] , [place]. tel:[phone] [facility], [address] [place], [place], [id number], [place] tel:[phone] [facility] Clinic Endo (chief complaint) Encounter for screening for dental disorders Patrice DDS Jose. [address] [place], [place], [id number] , [place]. tel:[phone] [facility], [address] [place], [place], [id number], [place] tel:[phone] Dental Clinic DN (chief complaint) Encounter for screening for dental disorders Patrice DDS Jose. [address] [place], [place], [id number] , [place]. tel:[phone] OFFICE/OUTPAT IENT VISIT, [facility], [address] [place], [place], [id number], [place] tel:[phone] [facility] No Information Abril Renteria. [address] [place], [place], [id number] , [place]. tel:[phone] OFFICE/OUTPAT IENT VISIT, [facility], [address] [place], [place], [id number], [place] tel:[phone] [facility] No Information Abril Renteria. [address] [place], [place], [id number] , [place]. [phone] OFFICE/OUTPAT IENT VISIT, [facility], [address], [place], [id number], [place] tel:[phone] [facility] No Information Abril Renteria. [address], [place], [id number] , [place]. tel:[phone] Family History Family Member Type Diagnosis Age At Onset Father Problem Alive and well Mother Problem Alive and well Payers Payer name Insurance type Covered republican ID Authoriza tion(s) No Information Social History Type Description Quantity Date Captured Comments Sex Male Smoking Status No Information Sexual Orientation Straight or heterosexual Gender Identity Male Chief Complaint And Reason For Visit No Information Reason For Referral Reason For Referral No Information Plan Of Treatment Date Type Action Status Goal Hep A. Due on du e Goal Unhealthy drug use screening . Due on due Goal Tdap Vaccine. Due on 2024 due Goal Tdap. Due on due Goal Hepatitis C screening. Due o n due Goal Depression screening. Due on due Goal PRAPARE ASSESSMENT. Due on A due Goal RLP. Due on due Goal Influenza vaccine. Due on Ap due Goal Dietary manageme nt education, guidance, and counseling completed Goal Depression screening. Due on due Goal Hepatitis C screening. Due o n due Goal Tdap. Due on due Goal Unhealthy drug use screening . Due on due Goal RLP. Due on due Goal PRAPARE ASSESSMENT. Due on O due Goal Influenza vaccine. Due on Oc due Goal Tdap Vaccine. Due on 2023 due Goal Tdap Vaccine. Due on 2023 due Goal Unhealthy drug use screening . Due on due Goal PRAPARE ASSESSMENT. Due on A due Goal Depression screening. Due on due Goal Tdap. Due on due Goal Influenza vaccine. Due on Ap due Goal RLP. Due on due Goal Hepatitis C screening. Due o n due Goal Dietary manageme nt education, guidance, and counseling completed Goal Tdap Vaccine. Due on 2022 due Goal PRAPARE ASSESSMENT. Due on S due Goal RLP. Due on due Goal Depression screening. Due on due Goal Influenza vaccine. Due on Se due Goal Tdap. Due on due Goal Influenza vaccine. Due on due Goal PRAPARE ASSESSMENT. Due on due Goal Tdap. Due on due Goal Depression screening. Due on due Goal RLP. Due on due Goal Tdap Vaccine. Due on 2022 due Goal RLP. Due on due Goal Depression screening. Due on due Goal Tdap. Due on due Goal PRAPARE ASSESSMENT. Due on O ct due Goal Influenza vaccine. Due on Oc t due Goal Tobacco cessation counseling completed Goal Tobacco cessation counseling completed Appointment Sean Rodriguez BOOKED History Of Present Illness Encounter Date Complaint History Of Prese nt Illness pa pa pa pa PA PA PA PA PA PA filling filling prophy prophy FILLING FILLING Filling Filling Filling appt. prophy prophy filling filling juli juli filling continue with tr eatment prophy prophy filling continue with tr eatment Endo Endo, Continue t reatment , Tooth #4 DN Functional Status Date Functional Assessmen t No Information Instructions Date Instruction Additional Infor chasidy Giving encouragement to exercise Related to Body mass index [BMI] 21.0-21.9, adult Dietary management e ducation, guidance, and counseling Related to Body mass index [BMI] 21.0-21.9, adult Giving encouragement to exercise Related to Body mass index [BMI] 21.0-21.9, adult Dietary management e ducation, guidance, and counseling Related to Body mass index [BMI] 21.0-21.9, adult Assessments Type Assessment Date No Information Patient Care Teams Name Effective Dates (start - stop) Status Members No Information
[2025-08-02 08:48] VITALS: BP 107/69; PULSE 76; TEMP 37.1; O2SAT 99; BMI 21.9
--- OUTSIDE RECORDS SUMMARY | 2025-08-02 09:12 | XMS_ITS | Encounter Summary ---
Author Organization [facility] Address [address] [facility] [place] [address] Care Team Providers Care Blueprint Reproducer Name Role Phone Josue Ching Primary Care Provider [phone] Meghann Moffett MD Primary Care Provider [phone] Encounter Details DateTypeDepartmentCare Team (Latest Contact Info)Tlzjndxsfzf64/13/2024linisync Result Encounter [facility] External Department Unsolicited Josue Ching PA [address] [place] [address] Social History Tobacco UseTypesPacks/DayYears UsedDateSmoking Tobacco: Every DayCigarettes0.5 19.3Started: 04/19/2006Smokeless Tobacco: Never Comments:6-10 cigs/day Alcohol UseStandard Drinks/WeekCommentsNot Currently0 (1 standard drink = 0.6 oz pure alcohol)Sex and Gender InformationValueDate RecordedSex Assigned at Male04/29/2024 10:27 AM EDTLegal GxoDsww2512/05/2022 9:44 PM EDTGender Identity Male04/29/2024 10:27 AM EDTSexual OrientationNot on filedocumented as of this encounter Plan of Treatment DateTypeDepartmentCare Team (Latest Contact Info)Qmyxfgyppfi96/12/2026 8:30 AM ESTOffice Visit [facility] [address] [place] [address] Josue Ching PA [address] [place], [place] [address] documented as of this encounter Procedures Procedure NamePriorityDate/TimeAssociated DiagnosisCommentsXR KNEE 4+ VIEWS XBYIGXXTH56/13/2024 9:56 AM EST documented in this encounter Results * XR knee 4+ views bilateral (11/05/2023 9:56 AM EST)Anatomical RegionLaterality ModalityLower Extremities, KneeBilateralRadiographic ImagingSpecimen (Source) Anatomical Location / LateralityCollection Method / VolumeCollection Time Received Time11/05/2023 9:56 AM EST Narrative 11/05/2023 9:58 AM EST [facility] ?[address] ? [place] [address] ?XRay Report ? Signed ? Patient: SEAN RODRIGUEZ ?MR#: [id number] ?? : 1995 ?Acct:[id number] ?? Age/Sex: 28 / M ?ADM Date: 11/05/23 ?? Loc: RAD ? Attending Dr: JOSUE CHING ? Ordering Physician: JOSUE CHING ?? Date of Service: 11/05/23 ?? Procedure(s): XR knee YURIY 4V ?? Accession Number(s): [id number] ? cc: JOSUE CHING ; Physician,Non-Staff M.D. ? The [facility] ? [address] [facility] ? [place] [address] ? Patient Name: ?? SEAN RODRIGUEZ ? MRN: [facility]:[id number] ? date: 1995 ?Sex: M ?? Assigned Patient Location: RAD ?? Current Patient Location: RAD ?? Accession/Order Number: [id number] ?? Exam Date: 11/05/2023 ??09:30 ?Report Date: 11/05/2023 ??09:56 ? At the request of: ?? JOSUE CHING ? Procedure: ??XR knee YURIY 4V ? EXAMINATION: XR knee standing BI, XR knee YURIY 4V ? HISTORY: chronic pain of left knee ? COMPARISON: No relevant comparison available. ? FINDINGS: ? RIGHT FINDINGS: ?? BONES: Normal. No significant arthropathy or acute abnormality. ?? SOFT TISSUES: Negative. No visible soft tissue swelling. ?? OTHER: Negative. ? LEFT FINDINGS: ?? BONES: Normal. No significant arthropathy or acute abnormality. ?? SOFT TISSUES: Negative. No visible soft tissue swelling. ?? OTHER: Negative. ? XR/XR knee YURIY 4V ?? IMPRESSION: ? RIGHT CONCLUSION: Normal ?? LEFT CONCLUSION: Normal ? Electronically authenticated by: GOLD ??VIKTORIYA ?? Date: 11/05/2023 ??09:56 ? Dictated By: ?Gold Sadler M.D. ? Signed By: ?11/05/23 0958 ? DD/ 0956 ? TD/TT: ? Hot Mill Worker: Procedure Note Radiology, Radiologist, MD - 11/05/2023 [place] [address] XRay Report Signed Patient: SEAN RODRIGUEZ AMR#: [id number] : 1995Acct:[id number] Age/Sex: 28 / MADM Date: 11/05/23 Loc: [facility] Attending Dr: JOSUE CHING Ordering Physician: JOSUE CHING Date of Service: 11/05/23 Procedure(s): XR knee YURIY 4V Accession Number(s): [id number] cc: JOSUE CHING ; Physician,Non-Staff M.DIrvin The [place] [id number] Patient Name: SEAN RODRIGUEZ MRN: [facility]:[id number] date: 1995 Sex: M Assigned Patient Location: [facility] Current Patient Location: [facility] Accession/Order Number: [id number] Exam Date: 11/05/2023 09:30 Report Date: 11/05/2023 [...] Sadler M.D. Signed By:11/05/2358 DD/ 5 TD/TT: Hot Mill Worker: Authorizing ProviderResult TypeResult StatusJosue Ching PAIMG XR PROCEDURES Final Result documented in this encounter Visit Diagnoses Not on filedocumented in this encounter Care Teams Team MemberRelationshipSpecialtyStart DateEnd Date Josue Ching PA [address] [facility] [address] [place] [address] PCP - GeneralFamily Ityzkkqi95/4/243 Meghann Moffett MD [address] [facility] [address] [place] [address] PCP - GeneralFamily Medicine11/24/24documented as of this encounter
--- OUTSIDE RECORDS SUMMARY | 2025-08-02 09:12 | XMS_ITS | Patient Health Record ---
Author Organization [facility] Address [address] [place] [address] Care Team Providers Care [facility] Worker Name Role Phone azarFabiterranceAnne Primary Care Provider [phone] Reason For Referral No Information Medications Medication SIG (Take, Route, Frequency, Duration) Notes Start Date End Date Status Cyclobenzaprine HCl 5 MG Tablet 1 tablet at bedtime as needed Orally Once a day; Duration: 30 day(s) Active Social History Tobacco Use: Social History Observation Description Date Details (start date - stop date) Current Smoker 02/21/2006 - NA Social History GeneralSocial InfoQuestionAnswerNotesSubstance abuse/mental health issues of patient/familyPatient -Illegal Drug UseSmokes marijuana occasionallyFamily Member -DeniesAbility to understand healthcare/treatmentPatient:GoodTobacco Screen:When did you start oswsifu4902/21/2006re you a:current smoker? How often do you smoke cigarettes?every day? How many cigarettes a day do you smoke?6-10? How soon after you wake up do you smoke your first cigarette?after 60 min? Are you interested in quitting?Thinking about quittingSocial/Support Concerns: Patient:NoAlcohol Screening:Did you have a drink containing alcohol in the past year?MqMofbcp7ZsnfglvgiethazUrsxuianJyqkcyklv affecting healthPoor/Risky Behaviors:Denies-Communication Barrier:Language Barrier?:NoFood Insecurity ScreeningSocial InfoQuestionAnswerNotesFood Insecurity ScreeningWithin the last 12 months, have you been worried about your food running out before you received money to buy more?NoWithin the last 12 months, did the food you buy not last, and you didn't have money to buy more?NoSection Notes: Smoking history. 0.5 ppd for 13 years. Occasional alcohol. Occasional marijuana. Denies using any other drugs. Plan Of Treatment No Information Insurance Providers Payer Name Payer Address Payer Phone Subscriber Number Group Number Insured Name Patient Relationship to Insured Coverage Start Date Coverage End Date [facility] [facility] [address] [place] [address] [id number] AMBROSIO MALONE Self - patient is the insured 0
--- OUTSIDE RECORDS SUMMARY | 2025-08-02 09:12 | XMS_ITS | Clinical Summary ---
Author Organization [facility] Address [address] [place] [address] Phone Care Team Providers Care Line Leader Name Role Phone Unavailable Primary Care Provider Unavailabl e Social History Tobacco UseTypesPacks/DayYears UsedDateSmoking Tobacco: Never AssessedSex and Gender InformationValueDate RecordedSex Assigned at BirthNot on fileLegal Sex Male04/24/2024 8:47 AM EDTGender IdentityNot on fileSexual OrientationNot on file Plan of Treatment Health MaintenanceDue DateLast DoneCommentsHIV Knzcfcqmp1993Lipid Panel 1993Yearly Adult Uelqzqnr1993MMR Vaccines (1 of 1 - Standard series) 1994Hepatitis C Zkvhnlpws14/04/2011Hepatitis B Vaccines (1 of 3 - 19+ 3- dose series)01/25/2012DTaP/Tdap/Td Vaccines (1 - Tdap)2015HPV Vaccines (1 - 3-dose standard series)01/25/2020Influenza Vaccine (#1)5COVID-19 Vaccine (1 - 2024- season)2025Zoster Vaccines (1 of 2)2043HIB VaccinesAged OutNo longer eligible based on patient's age to complete this topic Hepatitis A VaccinesAged OutNo longer eligible based on patient's age to complete this topicIPV VaccinesAged OutNo longer eligible based on patient's age to complete this topicMeningococcal VaccineAged OutNo longer eligible based on patient's age to complete this topicPneumococcal Vaccine: Pediatrics and At-Risk Adult PatientsAged OutNo longer eligible based on patient's age to complete this topicRotavirus VaccinesAged OutNo longer eligible based on patient's age to complete this topic Insurance * Guarantor: Bib Rdoriguez TypeRelation to PatientDate of BirthPhone Billing AddressPersonal/MjchasVdme1995 [facility] [address] [place] [address]
--- OUTSIDE RECORDS SUMMARY | 2025-08-02 09:12 | XMS_ITS | Encounter Summary ---
Author Organization [facility] Address [address] [facility] [place] [address] Care Team Providers Care Threader Name Role Phone Josue Ching Primary Care Provider [phone] Meghann Moffett MD Primary Care Provider [phone] Encounter Details DateTypeDepartmentCare Team (Latest Contact Info)Auqoatmtwxd03/16/2024Clinisync Result Encounter [facility] External Department Unsolicited Josue Ching PA [address] [place] [address] Social History Tobacco UseTypesPacks/DayYears UsedDateSmoking Tobacco: Every DayCigarettes0.5 19.3Started: 04/19/2006Smokeless Tobacco: Never Comments:6-10 cigs/day Alcohol UseStandard Drinks/WeekCommentsNot Currently0 (1 standard drink = 0.6 oz pure alcohol)Sex and Gender InformationValueDate RecordedSex Assigned at Male04/29/2024 10:27 AM EDTLegal NbsZbst8512/05/2022 9:44 PM EDTGender Identity Male04/29/2024 10:27 AM EDTSexual OrientationNot on filedocumented as of this encounter Plan of Treatment DateTypeDepartmentCare Team (Latest Contact Info)Vzdxlxxpomw31/12/2026 8:30 AM ESTOffice Visit [facility] [address] [place] [address] Josue Ching PA [address] [place], [place] [address] documented as of this encounter Procedures Procedure NamePriorityDate/TimeAssociated DiagnosisCommentsCA ECHO DOPPLER EZYKZTMA91/16/2024 2:51 PM EDT documented in this encounter Results * CA ECHO DOPPLER COMPLETE (06/08/2024 2:51 PM EDT)Anatomical RegionLaterality ModalityOtherSpecimen (Source)Anatomical Location / LateralityCollection Method / VolumeCollection TimeReceived Time06/08/2024 2:51 PM EDT Narrative 06/08/2024 2:52 PM EDT [facility] ?[address] ? [place] [address] ? Cardiology Report ? Signed ? Patient: SEAN RODRIGUEZ A ?MR#: [id number] ?? : 1995 ?Acct:[id number] ?? Age/Sex: 29 / M ?ADM Date: 06/08/24 ?? Loc: CARD ? Attending Dr: JOSUE CHING ? Ordering Physician: JOSUE CHING ?? Date of Service: 06/08/24 ?? Procedure(s): CA echo doppler complete ?? Accession Number(s): [id number] ? cc: JOSUE CHING ? Patient Name: ? SEAN RODRIGUEZ ? MR#: [id number] ? : 1995 ? Exam Date: 06/08/2024 ?? Ordering Doctor: DR JOSUE TELLEZ ? ECHOCARDIOGRAM REPORT ? PROCEDURE: ? CA ECHO DOPPLER COMPLETE ? INDICATIONS: ? Chest pain, pericarditis ? COMPARISON: ? None. ? DESCRIPTION: ? COMPLETE ECHOCARDIOGRAM Real-time transthoracic ?? echocardiography with 2D, M-mode, spectral and color flow Doppler performed. ? QUALITY: ? Technical quality was good. ? LEFT VENTRICLE: ? Normal chamber size. Normal left ventricular wall ?? thickness. ? LV EF: ? Global left ventricular systolic function is normal; visually ?? estimated ejection fraction is 55%. ??No significant wall motion abnormalities ?? DIASTOLIC: ? Normal diastolic function. ?? ATRIAL SEPTUM: ? Visually appears intact. ?? LEFT ATRIUM: ? Normal chamber size. ?? RIGHT ATRIUM: ? Normal chamber size. ?? RIGHT VENTRICLE: ? Normal chamber size. Normal right ventricular systolic ?? function. ? TRICUSPID VALVE: ? Normal mobility and thickness. No stenosis with trivial ?? regurgitation. ? MITRAL VALVE: ? Normal mobility and thickness. ?? No evidence of mitral valve ?? stenosis. ??There is no mitral annular calcification. Trivial mitral ?? regurgitation. ? AORTIC VALVE: ? Normal trileaflet appearance. No visible sclerosis. ??Normal ?? leaflet mobility. ??No evidence of aortic valve stenosis. No aortic ?? regurgitation. ? AORTIC ROOT: ? Normal diameter and appearance. ? PULMONIC VALVE: ? Normal thickness and mobility. No stenosis. Trivial ?? regurgitation. ? PERICARDIUM: ? No evidence of pericardial effusion. ? IVC: ? Not well visualized. ? CONCLUSION: ? 1. Global left ventricular systolic function is normal; visually estimated ?? ejection fraction is 55% ?? 2. Normal right ventricular size and systolic function ?? 3. Normal diastolic function ?? 4. The left atrium is normal in size ?? 5. No significant valvular abnormalities ?? 6. No pericardial effusion ? Adult Echocardiography Procedure Report ?? Left Ventricle ?? LVEDD (3.7 - 5.6 cm): ? 4.58 cm ?? LVESD (2.2 - 4.0 cm): ? 3.55 cm ?? LVIVS thickness (0.6 - 1.2 cm): ? 0.93 cm ?? LVPW thickness (0.5 - 1.0 cm): ? 0.82 cm ?? e': ? 0.16 m/s ?? E - e': ? 3.58 ?? LVOT Max Gradient: ? 2.64 mm[Hg] ?? LVOT Area (cm2): ? 0.81 m/s ?? Peak Velocity (LVOT): ? 0.81 m/s ?? Mean Velocity (LVOT): ? 0.56 m/s ?? LVOT Diameter ? 2.16 cm ?? Left Atrium ?? LA Volume Index (2D A2C): ? 32.00 ml/m2 ?? Left Atrium Systolic Dimension: ? 2.50 cm ?? Mitral Valve ?? MV E to A Ratio: ? 0.84 ?? Mitral Valve A-Wave Peak Velocity: ? 0.70 m/s ?? Mitral Valve E-Wave Peak Velocity: ? 0.59 m/s ?? Right Ventricle ?? Aorta ?? AO Root Diam: ? 3.00 cm ?? Aortic Valve ?? AoV Area (Peak Jose De Jesus): ? 3.37 cm2, 3.37 cm2 ?? AoV Area (VTI): ? 3.25 cm2, 3.25 cm2 ?? Peak Velocity(Antegrade Flow): ? 0.88 m/s ?? Peak Gradient(Antegrade Flow): ? 3.13 mm[Hg] ?? Mean Velocity(Antegrade Flow): ? 0.58 m/s ?? Mean Gradient(Antegrade Flow): ? 1.60 mm[Hg] ?? Velocity Time Integral: ? 18.64 cm ?? Tricuspid Valve ?? Pulmonic Valve ?? Mean Gradient: ? 2.00 mm[Hg] ?? Mean Velocity: ? 0.65 m/s ?? Peak Velocity: ? 0.99 m/s, 0.95 m/s ?? Peak Gradient: ? 3.59 mm[Hg], 3.92 mm[Hg] ?? Right Atrium ?? Right Atrium Systolic Pressure: ? 58.04 ml, 58.04 ml ? Dictated by: Guillermo Bishop M.D. on 06/08/2024 at 14:48 ? Approved by: Guillermo Bishop M.D. on 06/08/2024 at 14:51 ? Dictated By: ?Guillermo Bishop M.D. ? Signed By: ?06/08/24 1452 ? DD/ 1451 ? TD/TT: ? Sales Driver: Procedure Note Radiology, Radiologist, MD - 06/08/2024 [facility] [place] [facility] [address] [place] [address] Cardiology Report Signed Patient: SEAN RODRIGUEZ AMR#: [id number] : 1995Acct:[id number] Age/Sex: 29 / MADM Date: 06/08/24 Loc: CARD Attending Dr: JOSUE CHING Ordering Physician: JOSUE CHING Date of Service: 06/08/24 Procedure(s): CA echo doppler complete Accession Number(s): [id number] cc: JOSUE CHING Patient Name: SEAN RODRIGUEZ MR#: [id number] : 1995 Exam Date: 06/08/2024 Ordering Doctor: [...] Guillermo Bishop M.D. Signed By:06/08/24 1452 DD/ 145 TD/TT: Sales Driver: Authorizing ProviderResult TypeResult [facility] Final Result documented in this encounter Visit Diagnoses Not on filedocumented in this encounter Care Teams Team MemberRelationshipSpecialtyStart DateEnd Date Josue Ching PA [address] [place], [place] [address] PCP - GeneralFamily Xiogupgi74/4/243 Meghann Moffett MD [address] [place] [address] PCP - GeneralFamily Medicine11/24/24documented as of this encounter
--- OUTSIDE RECORDS SUMMARY | 2025-08-02 09:12 | XMS_ITS | Encounter Summary ---
Author Organization [facility] Address [address] [facility] [place] [address] Care Team Providers Care Enamel Finisher Name Role Phone Josue Ching Primary Care Provider [phone] Meghann Moffett MD Primary Care Provider [phone] Encounter Details DateTypeDepartmentCare Team (Latest Contact Info)Dycspxuicfn91/13/2024linisync Result Encounter [facility] External Department Unsolicited Josue Ching PA [address] [place] [address] Social History Tobacco UseTypesPacks/DayYears UsedDateSmoking Tobacco: Every DayCigarettes0.5 19.3Started: 04/19/2006Smokeless Tobacco: Never Comments:6-10 cigs/day Alcohol UseStandard Drinks/WeekCommentsNot Currently0 (1 standard drink = 0.6 oz pure alcohol)Sex and Gender InformationValueDate RecordedSex Assigned at Male04/29/2024 10:27 AM EDTLegal NqtJrvm5912/05/2022 9:44 PM EDTGender Identity Male04/29/2024 10:27 AM EDTSexual OrientationNot on filedocumented as of this encounter Plan of Treatment DateTypeDepartmentCare Team (Latest Contact Info)Ttsgwosmtgh74/12/2026 8:30 AM ESTOffice Visit [facility] [address] [place] [address] Josue Ching PA [address] [place], [place] [address] documented as of this encounter Procedures Procedure NamePriorityDate/TimeAssociated DiagnosisCommentsXR KNEE STANDING BI 11/05/2023 9:56 AM EST documented in this encounter Results * XR KNEE STANDING BI (11/05/2023 9:56 AM EST)Anatomical RegionLaterality ModalityRadiographic ImagingSpecimen (Source)Anatomical Location / Laterality Collection Method / VolumeCollection TimeReceived Time11/05/2023 9:56 AM EST Narrative 11/05/2023 9:58 AM EST [facility] ?[address] ? [place], [place] [address] ?XRay Report ? Signed ? Patient: SEAN RODRIGUEZ A ?MR#: [id number] ?? : 1995 ?Acct:[id number] ?? Age/Sex: 28 / M ?ADM Date: 11/05/23 ?? Loc: RAD ? Attending Dr: JOSUE CHING ? Ordering Physician: JOSUE CHING ?? Date of Service: 11/05/23 ?? Procedure(s): XR knee standing BI ?? Accession Number(s): [id number] ? cc: JOSUE CHING ; Physician,Non-Staff M.D. ? [facility] ? [address] ? [place] [address] ? Patient Name: ?? SEAN RODRIGUEZ ? MRN: [facility]:[id number] ? date: 1995 ?Sex: M ?? Assigned Patient Location: RAD ?? Current Patient Location: RAD ?? Accession/Order Number: [id number] ?? Exam Date: 11/05/2023 ??09:38 ?Report Date: 11/05/2023 ??09:56 ? At the request of: ?? JOSUE CHING ? Procedure: ??XR knee standing BI ? EXAMINATION: XR knee standing BI, XR [...] swelling. ?? OTHER: Negative. ? XR/XR knee standing BI ?? IMPRESSION: ? RIGHT CONCLUSION: Normal ?? LEFT CONCLUSION: Normal ? Electronically authenticated by: GOLD ??VIKTORIYA ?? Date: 11/05/2023 ??09:56 ? Dictated By: ?Gold Sadler M.D. ? Signed By: ?11/05/23 0958 ? DD/ 0956 ? TD/TT: ? Production Scheduler: Procedure Note Radiology, Radiologist, MD - 11/06/2023 [place] [address] XRay Report Signed Patient: SEAN RODRIGUEZ AMR#: [id number] : 1995Acct:[id number] Age/Sex: 28 / MADM Date: 11/05/23 Loc: [facility] Attending Dr: JOSUE CHING Ordering Physician: JOSUE CHING Date of Service: 11/05/23 Procedure(s): XR knee standing BI Accession Number(s): [id number] cc: JOSUE CHING ; Physician,Non-Staff M.DIrvin The [place] [id number] Patient Name: SEAN RODRIGUEZ MRN: [facility]:[id number] date: 1995 Sex: M Assigned Patient Location: [facility] Current Patient Location: [facility] Accession/Order Number: [id number] Exam Date: 11/05/2023 09:38 Report Date: 11/05/2023 [...] By: Gold Sadler M.D. Signed By:11/05/2358 DD/ TD/TT: Production Scheduler: Authorizing ProviderResult TypeResult StatusJosue Ching PAIMG XR PROCEDURES Final Result documented in this encounter Visit Diagnoses Not on filedocumented in this encounter Care Teams Team MemberRelationshipSpecialtyStart DateEnd Date Josue Ching PA [address] [place] [address] PCP - GeneralFamily Brflvyxh70/4/243 Meghann Moffett MD [address] [place] [address] PCP - GeneralFamily Medicine11/24/24documented as of this encounter
--- OUTSIDE RECORDS SUMMARY | 2025-08-02 09:12 | XMS_ITS | Clinical Summary ---
Author Organization [facility] Address [address] [place] [address] Care Team Providers Care Chief Sales Officer Name Role Phone Meghann Moffett MD Primary Care Provider [phone] Allergies No known active allergies Medications MedicationSigDispense QuantityRefillsLast FilledStart DateEnd DateStatus meloxicam (Mobic) 15 MG tablet Indications:Chronic pain of left handTake 1 tablet (15 mg) by mouth Daily Take with food 30 tablet 5Active escitalopram (Lexapro) 5 MG tablet Take 5 mg by mouth Daily5Active hydrOXYzine pamoate (Vistaril) 50 MG capsule Take 50 mg by mouth every 6 (six) hours if needed for beuqpie10/03/2025Active traZODone (Desyrel) 50 MG tablet Take 50 mg by mouth as needed at kxeqscf12/03/2025Active nicotine (Nicoderm, Step 3) 7 MG/24HR patch Place 1 patch on the skin Daily5Active metoprolol succinate XL (Toprol-XL) 25 MG 24 hr tablet Take 25 mg by mouth Daily Do not crush or chew.Active Active Problems ProblemNoted DateDiagnosed DateAccelerated junctional mkjddn7605/19/2024Second degree AV block, Mobitz type I4PVC's (premature ventricular contractions)4Acute pericarditis ([facility])4Chest pain 04/30/2024Marijuana use4Chronic pain of left knee4Chronic pain of right knee4Chronic pain of left hand10/24/2023Tobacco dependence 10/24/2023 Resolved Problems ProblemNoted DateDiagnosed DateResolved DateSevere alcohol use disorder ipolar disorder, current episode manic without psychotic Encounters DateTypeDepartmentCare FhhvUmdtunydjpq32/03/2025bstract [facility] [place] [facility] [address] [place] [address] Meghann Moffett MD 05/06/2025bstract [facility] [place] [facility] [address] [place] [address] Meghann Moffett MD from Last 3 Months Family History XloclgtjHqvqGyydjqXvezyytjKgczqxtl5Crecoyrtm3BmqpbqZqcocVsnqyeNkmsfRnqhzdx9 Social History Tobacco UseTypesPacks/DayYears UsedDateSmoking Tobacco: Every DayCigarettes0.5 19.3Started: 04/19/2006Smokeless Tobacco: Never Tobacco Cessation:Ready to Q uit: Not Asked; Counseling Given: Not Answered Comments:6-10 cigs/day Alcohol UseStandard Drinks/WeekCommentsYes2 (1 standard drink = 0.6 oz pure alcohol)Twisted TeaSex and Gender InformationValueDate RecordedSex Assigned at GqajyCoum86/07/2024 10:27 AM EDTLegal MtyLmgk3712/05/2022 9:44 PM EDTGender DztrmpewGoqq35/07/2024 10:27 AM EDTSexual OrientationNot on file Last Filed Vital Signs Vital SignReadingTime TakenCommentsBlood Efjdtucj34/7207 9:40 AM EDT Vcqch268404/02/2025 9:40 AM EDTTemperature--Respiratory Sznp629404/02/2025 9:40 AM EDTOxygen Kusxvncfwj54%04/02/2025 9:40 AM EDTInhaled Oxygen Concentration-- Kdnfmh10 kg (139 lb)04/02/2025 9:40 AM CLHJtxhwa312.2 cm (5' 7 )04/02/2025 9:40 AM EDTBody Mass Index21.770707/2025 9:40 AM EDT Plan of Treatment DateTypeDepartmentCare Team (Latest Contact Info)Prwuxgbtkiy64/12/2026 8:30 AM ESTOffice Visit [facility] [place] [facility] [address] [facility] [address] [place] [address] Grisel Ching PA [address] [facility] [address] [place] [address] Health MaintenanceDue DateLast DoneCommentsPneumococcal Vaccine: Pediatrics (0 to 5 Years) and At-Risk Patients (6 to 64 Years) (1 of 2 - PCV)01/25/2012COVID- 19 Vaccine (2024-26 season)/12/2020, 05/06/2021Influenza Vaccine (#1)2025 Care Teams Team MemberRelationshipSpecialtyStart DateEnd Date Meghann Moffett MD [address] [facility] [address] [place] [address] PCP - GeneralFamily Medicine11/24/24
--- OUTSIDE RECORDS SUMMARY | 2025-08-02 09:12 | XMS_ITS | Encounter Summary ---
Author Organization [facility] Address [address] [facility] [place] [address] Care Team Providers Care Ergonomic Specialist Name Role Phone Josue Ching Primary Care Provider Meghann Moffett MD Primary Care Provider [phone] Encounter Details DateTypeDepartmentCare Team (Latest Contact Info)Pbaeghdzpyv83/26/2024Clinisync Result Encounter [facility] External Department Unsolicited Josue Ching PA [address] [place] [address] Social History Tobacco UseTypesPacks/DayYears UsedDateSmoking Tobacco: Every DayCigarettes0.5 19.3Started: 04/19/2006Smokeless Tobacco: Never Comments:6-10 cigs/day Alcohol UseStandard Drinks/WeekCommentsNot Currently0 (1 standard drink = 0.6 oz pure alcohol)Sex and Gender InformationValueDate RecordedSex Assigned at Male04/29/2024 10:27 AM EDTLegal LurJrjd4912/05/2022 9:44 PM EDTGender Identity Male04/29/2024 10:27 AM EDTSexual OrientationNot on filedocumented as of this encounter Plan of Treatment DateTypeDepartmentCare Team (Latest Contact Info)Pobewrfcsdq96/12/2026 8:30 AM ESTOffice Visit [facility] [address] [place] [phone] Josue Ching PA [address] [place], [place] [id number] documented as of this encounter Procedures Procedure NamePriorityDate/TimeAssociated DiagnosisCommentsHOLTER MONITOR 8 TO 15 DAYS05/18/2024 1:58 PM EDT documented in this encounter Results * Holter monitor 8 to 15 days (05/18/2024 1:58 PM EDT)Anatomical Region LateralityModalityOtherSpecimen (Source)Anatomical Location / Laterality Collection Method / VolumeCollection TimeReceived Time05/18/2024 1:58 PM EDT Narrative 05/19/2024 7:07 AM EDT [facility] ?[address] ? [place] [address] ? Cardiology Report ? Signed ? Patient: SEAN RODRIGUEZ ?MR#: [id number] ?? : 1995 ?Acct:[id number] ?? Age/Sex: 29 / M ?ADM Date: 05/04/24 ?? Loc: CARD ? Attending Dr: JOSUE CHING ? Ordering Physician: JOSUE CHING ?? Date of Service: 05/04/24 ?? Procedure(s): CA holter monitor 7-15 days ?? Accession Number(s): [id number] ? cc: JOSUE CHING ; Physician,Non-Staff M.D. ?[facility] ? Test Date: ?2024-05-18 ?? Pat Name: ? SEAN RODRIGUEZ ?Department: ? Room: ? - ?? Gender: ? Male ? Photo Mask Inspector: ? : ?1995 ? Requested By: ?? Order Number: [id number] ?Reading MD: ?? MIGUEL ??DENZEL ? Interpretive Statements ?? Predominant rhythm is sinus with average rate of 82 bpm ?? Tachycardia ?? - max rate of 183 bpm (sinus tachy) ?? Bradycardia ?? - min rate of 45 bpm ?? Ventricular ectopy ?? - 288 PVC ?? Patient triggered events: none ? Impression: ?? Predominant rhythm is sinus with average rate of 82 bpm ?? Fastest rate of 183 bpm (sinus tachy) and slowest rate of 45 bpm ?? 288 PVC ?? Longest episode of sinus prashant of 27min 20sec with rates between 50-58 bpm ?? Longest episode of sinus tachy of 1h 33min 49sec with rates between 129-183 ?? bpm ?? Accelerated Junctional rhythm ?? Second degree AV block, Type I ?? No atrial fibirllation ? Electronically Signed On 05-19-2024 7:06:32 EDT by MIGUEL ??DENZEL ? Dictated By: ?Miguel Mahoney D.O. ? Signed By: ?05/19/24 0707 ?05/19/24 0707 ? DD/ 1358 ? TD/TT: ? Hairspring Studder: Procedure Note Radiology, Radiologist, - 05/19/2024 [place] [address] Cardiology Report Signed Patient: SEAN RODRIGUEZ AMR#: [id number] : 1995Acct:[id number] Age/Sex: 29 / MADM Date: 05/04/24 Loc: CARD Attending Dr: JOSUE CHING Ordering Physician: JOSUE CHING Date of Service: 05/04/24 Procedure(s): CA holter monitor 7-15 days Accession Number(s): [id number] cc: JOSUE CHING ; Physician,Non-Staff M.DIrvin [facility] Test Date: 2024-05-18 Pat Name: SEAN RODRIGUEZ Department: Room: - Gender: Male Photo Mask Inspector: : 1995 Requested By: Order Number: [id number] Jose MD: MIGUEL MAHONEY Interpretive Statements Predominant rhythm [...] tachy of 1h 33min 49sec with rates uyqchij608-682 bpm Accelerated Junctional rhythm Second degree AV block, Type I No atrial fibirllation Electronically Signed On 05-19-2024 7:06:32 EDT by MIGUEL MAHONEY Dictated By: Miguel Mahoney D.O. Signed By:05/19/24 0707 05/19/24 0707 DD/ 1358 TD/TT: Hairspring Studder: Authorizing ProviderResult TypeResult StatusJsoue Ching PACV CARDIAC SERVICES PROCEDURESFinal Result documented in this encounter Visit Diagnoses Not on filedocumented in this encounter Care Teams Team MemberRelationshipSpecialtyStart DateEnd Date Josue Ching PA [address] [facility] [address] [place] [address] PCP - GeneralFamily Stcqtlla61/4/243 Meghann Moffett MD [address] [place] [address] PCP - Generalmily Medicine11/24/24documented as of this encounter
--- OUTSIDE RECORDS SUMMARY | 2025-08-02 09:12 | XMS_ITS | Encounter Summary ---
Author Organization [facility] Address [address] [facility] [place] [address] Care Team Providers Care Cooling System Operator Name Role Phone Josue Ching Primary Care Provider [phone] Meghann Moffett MD Primary Care Provider [phone] Encounter Details DateTypeDepartmentCare Team (Latest Contact Info)Yluauwcsunv89/06/2024Clinisync Result Encounter [facility] External Department Unsolicited Josue Ching PA [address] [place] [address] Social History Tobacco UseTypesPacks/DayYears UsedDateSmoking Tobacco: Every DayCigarettes0.5 19.3Started: 04/19/2006Smokeless Tobacco: Never Comments:6-10 cigs/day Alcohol UseStandard Drinks/WeekCommentsNot Currently0 (1 standard drink = 0.6 oz pure alcohol)Sex and Gender InformationValueDate RecordedSex Assigned at Male04/29/2024 10:27 AM EDTLegal OmjFrlj1112/05/2022 9:44 PM EDTGender Identity Male04/29/2024 10:27 AM EDTSexual OrientationNot on filedocumented as of this encounter Plan of Treatment DateTypeDepartmentCare Team (Latest Contact Info)Llqiquhbugi93/12/2026 8:30 AM ESTOffice Visit [facility] [address] [place] [address] Josue Ching PA [address] [place], [place] [phone] documented as of this encounter Procedures Procedure NamePriorityDate/TimeAssociated DiagnosisCommentsXR HAND 3+ VIEWS LEFT 10/29/2023 10:49 AM EST documented in this encounter Results * XR hand 3+ views left (10/29/2023 10:49 AM EST)Anatomical RegionLaterality ModalityUpper Extremities, HandLeftRadiographic ImagingSpecimen (Source) Anatomical Location / LateralityCollection Method / VolumeCollection Time Received Time10/29/2023 10:49 AM EST Narrative 10/29/2023 10:51 AM EST [facility] ?[address] ? [place] [address] ?XRay Report ? Signed ? Patient: SEAN RODRIGUEZ ?MR#: [id number] ?? : 1995 ?Acct:[id number] ?? Age/Sex: 28 / M ?ADM Date: 10/28/23 ?? Loc: RAD ? Attending Dr: JOSUE CHING ? Ordering Physician: JOSUE CHING ?? Date of Service: 10/28/23 ?? Procedure(s): XR hand LT min 3V ?? Accession Number(s): [id number] ? cc: JOSUE CHING ; Physician,Non-Staff M.D. ? [facility] ? [address] [facility] ? [place] [address] ? Patient Name: ?? SEAN RODRIGUEZ ? MRN: [facility]:[id number] ? date: 1995 ?Sex: M ?? Assigned Patient Location: RAD ?? Current Patient Location: ? Accession/Order Number: [id number] ?? Exam Date: 10/28/2023 ??12:47 ?Report Date: 10/29/2023 ??10:49 ? At the request of: ?? JOSUE CHING ? Procedure: ??XR hand LT min 3V ? PROCEDURE: XR hand LT min 3V ? HISTORY: Chronic Pain Of Left Hand M79.642 ; pain between second and third ?? metacarpals. ? COMPARISON: None. ? FINDINGS: ?? BONES:No fracture, acute abnormality, or significant arthropathy. ?? SOFT TISSUES:No visible soft tissue swelling. ?? EFFUSION:None visible. ?? OTHER: Negative. ? XR/XR hand LT min 3V ?? IMPRESSION: ? 1. No abnormal or suspicious findings to account for patient's symptoms. ? Electronically authenticated by: BELIA ??MILAGRO ?? Date: 10/29/2023 ??10:49 ? Dictated By: ?Belia Putnam M.D. ? Signed By: ?10/29/23 1051 ? DD/ 1049 ? TD/TT: ? Scientific Process Operator: Procedure Note Radiology, Radiologist, - 10/29/2023 [place] [address] XRay Report Signed Patient: SEAN RODRIGUEZ AMR#: [id number] : 1995Acct:[id number] Age/Sex: 28 / MADM Date: 10/28/23 Loc: [facility] Attending Dr: JOSUE CHING Ordering Physician: JOSUE CHING Date of Service: 10/28/23 Procedure(s): XR hand LT min 3V Accession Number(s): [id number] cc: JOSUE CHING ; Physician,Non-Staff M.DIrvin [facility] [place] [id number] Patient Name: SEAN RODRIGUEZ MRN: [id number] date: 1995 Sex: M Assigned Patient Location: [facility] Current Patient Location: Accession/Order Number: [id number] Exam Date: 10/28/2023 12:47 Report Date: 10/29/2023 [...] account for patient's symptoms. Electronically authenticated by: BELIA PUTNAM Date: 10/29/2023 10:49 Dictated By: Belia Putnam M.D. Signed By:10/29/23 1051 DD/ 1049 TD/TT: Scientific Process Operator: Authorizing ProviderResult TypeResult StatusJosue Ching PAIMG XR PROCEDURES Final Result documented in this encounter Visit Diagnoses Not on filedocumented in this encounter Care Teams Team MemberRelationshipSpecialtyStart DateEnd Date Josue Ching PA [address] [place] [address] PCP - GeneralFamily Innqileh83/4/243 Meghann Moffett MD [address] [place], [place] [address] PCP - GeneralFamily Medicine11/24/24documented as of this encounter
--- OUTSIDE RECORDS SUMMARY | 2025-08-02 09:12 | XMS_ITS | Encounter Summary ---
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 Name Role Phone Meghann Moffett MD Primary Care Provider [phone] Encounter Details DateTypeDepartmentCare Team (Latest Contact Info)Taoxebaxsor61/03/2025bstract [facility] [address] [facility] [address] [place] [address] Meghann Moffett MD [address] [place] [address] Social History Tobacco UseTypesPacks/DayYears UsedDateSmoking Tobacco: Every DayCigarettes0.5 19.3Started: 04/19/2006Smokeless Tobacco: Never Comments:6-10 cigs/day Alcohol UseStandard Drinks/WeekCommentsYes2 (1 standard drink = 0.6 oz pure alcohol)Twisted TeaSex and Gender InformationValueDate RecordedSex Assigned at CovvmVujp20/07/2024 10:27 AM EDTLegal ZufVoae4612/05/2022 9:44 PM EDTGender CqzvgmdsQbbs47/07/2024 10:27 AM EDTSexual OrientationNot on filedocumented as of this encounter Plan of Treatment DateTypeDepartmentCare Team (Latest Contact Info)Hohzkrtsjkr18/12/2026 8:30 AM ESTOffice Visit [facility] [address] [place] [address] Grisel Ching, ROSALINDA [address] [place], [place] [address] documented as of this encounter Visit Diagnoses Not on filedocumented in this encounter Care Teams Team MemberRelationshipSpecialtyStart DateEnd Date Meghann Moffett MD [address] [facility] [address] [place], [place] [phone] PCP - GeneralFamily Medicine11/24/24documented as of this encounter
--- OUTSIDE RECORDS SUMMARY | 2025-08-02 09:14 | XMS_ITS | CCD ---
Author Organization [facility] Care Team Providers Care Grain Miller Helper Name Role Phone KarineChapitoie Unavailable RA REHMAN Admitting Unavailable RA REHMAN Attending Unavailable REQUEST, DR NONE LISTED Primary Care Unavaila ble RA REHMAN Consulting Unavailable Unavailable Primary Care Provider UnavailMD Martin Chen Admit Provider Jeane, GAS WELDER-C Grisel Primary Care Provider MD Rani Delong Attending Provider [phone] SHIRLEY Perdomo [facility] Other Provider Unavailable MD Gilberto Sosa Other Provider MD Mickey Long Other Provider [phone] MD Ashlee Moura Other Provider DO Betty Tubbs Other Provider MD Ashlee Moura Attending Provider Grisel Cr Primary Care Provider Hembritt GAS WELDER-CGrisel Primary Care Provider Bro Osorio DO Emergency Provider Kash Connor MD Admit Provider Kash Connor MD Attending Provider Hembritt GAS WELDER-CGrisel Primary Care Provider Bro Osorio DO Emergency Provider Nelson Bass MD Attending Provider Kash Connor MD Admit Provider Kash Connor MD Attending Provider Meghann Moffett MD Primary Care Provider GRISEL KHAN Attending Unavailable GRISEL KHAN Attending Unavailable GRISEL KHAN Attending Unavailable GRISEL KHAN Attending Unavailable GRISEL KHAN Attending Unavailable Hembritt GAS WELDER-C, Grisel Primary Care Provider Kash Connor MD Attending Provider Ashlee Moura MD Attending Provider Grisel Cr Primary Care Provider Hembritt GAS WELDER-C, Grisel Primary Care Provider Ashlee Moura MD Attending Provider Kash Connor MD Attending Provider Damion Rosa DO Emergency Provider [facility] ALEXIAS, Dontrell Attending Unavailable Grisel Khan Primary Care Unavailable Nelson Bass Attending Unavailable Kash Connor Admitting Unavailab Damion Nguyen Admitting Unavailable Damion Rosa Attending Unavailable Grisel Khan Primary Care Unavailable Grisel Khan Primary Care Unavailable Kash Connor Admitting Unavailab le Kash Connor Attending Unavailab le Medications Current Medications MedicationDrug Class(es)DatesSig (Normalized)Sig (Original)amoxicillin 500 mg oral capsule (1 source)Penicillin-class AntibacterialStart: 79-15-8935xzie 1 capsule by mouth three times dailyAmoxicillin 500 MG 1 capsule Orally 3 times per day for 10 day(s) Oct, Activedextromethorphan hydrobromide 30 mg / pyrilamine maleate 30 mg oral tablet (1 source)Uncompetitive O-ykyirn-Y-aspartate Receptor Antagonist, Sigma-1 AgonistStart: 27-63-3394pgdp 1 tablet by mouth every six hoursCapron DMT 30-30 MG 1 tablet Orally every 6 hours for 7 days Oct, Activeescitalopram 5 mg oral tablet (10 sources)Serotonin Reuptake InhibitorStart: 15-80-6591msdq 2 tablets by mouth once dailyStart: 11-23-2024 End: 65-70-2851peuw 1 tablet by mouth once dailyEscitalopram Oxalate 5 mg Tablet Discontinued 5 MG PO Daily 30 November 23, 2024 12:00am May 06, 2025 7:22amfluticasone propionate 0.05 mg/actuat metered dose nasal spray (1 source)CorticosteroidStart: 05-32-2135vwuc 1 spray(s) nasal route once daily Fluticasone Propionate 50 MCG/ACT 1 spray in each nostril Nasally Once a day for 30 day(s) Oct, ActivehydrOXYzine pamoate 50 mg oral capsule (8 sources)AntihistamineStart: 52-09-0956hjsc 1 capsule by mouth every six hours as needed for anxietymeloxicam 15 mg oral tablet (15 sources)Nonsteroidal Anti-inflammatory DrugStart: 07-06-2024 End: 50-16-1738qdne 1 tablet by mouth once daily at mealtimemeloxicam (Mobic) 15 MG tablet Indications: Chronic pain of left hand Take 1 tablet (15 mg) by mouth Daily Take with food 30 tablet 5 09/29/2024 ActiveStart: 38-80-5307gdcr 1 tablet by mouth at mealtimemeloxicam (Mobic) 15 MG tablet Indications: Chronic pain of left hand Take 1 tablet (15 mg) by mouth in the morning. Take with food. 30 tablet 2 11/01/2023 Oimeur26 hr metoprolol succinate 25 mg extended release oral tablet (10 sources)beta-Adrenergic BlockerStart: 02-04-2025 End: 87-26-9695lyya 1 tablet by mouth once daily24 hr nicotine 0.292 mg/hr transdermal system (20 sources)Cholinergic Nicotinic AgonistStart: 10-66-5096aignydap (Nicoderm, Step 3) 7 MG/24HR patch Place 1 patch on the skin Daily 11/23/2024 ActiveStart: 11-23-2024 End: 38-77-9234Ayjyhgbd 7 mg/24 hr Patch 24 Hour Discontinued 7 MG TRANSDERML Daily 30 November 23, 2024 12:00am February 04, 2025 9:32amStart: 06-12-2024 Nicotine Active 1 PATCH TRANSDERML June 12, 2024 12:00amStart: 06-01-2024 End: 36-92-5183kmswhseh (Nicoderm CQ) 7 MG/24HR patch Indications: Tobacco dependence Place 1 patch over 24 hours on the skin 1 (one) time each day at the same time for 14 days 14 patch 06/29/2024 09/29/2024 Discontinued (Therapy completed)Start: 04-30-2024 End: 05-21-5269auurm 1 dose transdermal route every twenty-four hoursNicotine 14 mg/24 hr patch 24 hour Discontinued 1 PATCH TRANSDERML June 11, 2024 11:00pm November 20, 2024 4:22pmpredniSONE 10 mg oral tablet (3 sources)Start: 04-02-2025 End: 76-33-2361undp 1 tablet by mouth three times daily, then take 1 tablet by mouth twice daily, then take 1 tablet by mouth once dailypredniSONE (Deltasone) 10 MG tablet Indications: Chronic pain of right knee Take 1 tablet (10 mg) by mouth 3 (three) times a day for 3 days, THEN 1 tablet (10 mg) 2 (two) times a day for 3 days, THEN1 tablet (10 mg) Daily for 3 days. 18 tablet 04/02/2025 04/11/2025 ActivetraMADol hydrochloride 50 mg oral tablet (5 sources)Opioid AgonistStart: 04-14-2024 End: 42-18-3370gzfr 1 tablet by mouth every six hours as neededtraMADol (Ultram) 50 MG tablet Take 50 mg by mouth every 6 (six) hours if needed 04/14/2024 06/29/2024 Discontinued (Therapy completed)traZODone hydrochloride 50 mg oral tablet (8 sources)Serotonin Reuptake InhibitorStart: 36-28-5097esaa 1 tablet by mouth once daily at bedtime as needed Completed/Discontinued Medications MedicationDrug Class(es)DatesSig (Normalized)Sig (Original)colchicine 0.6 mg oral tablet (20 sources)Start: 04-24-2024 End: 59-25-0554eakz 1 tablet by mouth twice dailyColchicine 0.6 mg tablet Discontinued 0.6 MG PO Twice daily 60 30 2 June 12, 2024 12:11pm November 20, 2024 4:23pmcyclobenzaprine hydrochloride 10 mg oral tablet (10 sources)Muscle RelaxantStart: 03-28-2018 End: 43-89-7033llnm 1 tablet by mouth at bedtime as needed for muscle spasms Cyclobenzaprine 10 mg tablet Discontinued 10 MG PO Bedtime as needed for muscle spasm 7 0 March 1:45pm May 27, 2018 11:59amdiphenhydrAMINE hydrochloride 25 mg oral capsule (10 sources)Histamine-1 Receptor AntagonistStart: 05-27-2018 End: 52-82-5546xyax 2 capsules by mouth every six hours as neededDiphenhydramine Hcl (Benadryl) 25 mg capsule Discontinued 50 MG PO Q6H as needed for allergic reaction 30 0 May 26, 2018 11:00pm June 12, 2024 11:16am until resolution of severe allergic reactionfamotidine 20 mg oral tablet (10 sources)Histamine-2 Receptor AntagonistStart: 05-27-2018 End: 05-45-1961ilfj 1 tablet by mouth twice dailyFamotidine (Pepcid) 20 mg tablet Discontinued 20 MG PO Twice daily 20 May 26, 2018 11:00pm June 12, 2024 11:16am On Hold: Hold while taking protonix since its also antiacidfluocinonide 1 mg/ml topical cream (10 sources)CorticosteroidStart: 05-27-2018 End: 20-32-6599Loohfpwrzgsb 0.1 % cream Discontinued 1 APPLIC TOPICAL Twice daily as needed for rash 30 0 May 26, 2018 11:00pm June 12, 2024 11:16amibuprofen 800 mg oral tablet (20 sources)Nonsteroidal Anti-inflammatory DrugStart: 04-24-2024 End: 19-80-9445gqbk 1 tablet by mouth three times dailyIbuprofen 800 mg Tablet Discontinued 800 MG PO Three times daily 42 14 0 April 23, 2024 11:00pm pt2023 11:16amStart: 03-28-2018 End: 35-67-5906nbph 1 tablet by mouth three times dailyIbuprofen 600 mg tablet Discontinued 600 MG PO Three times daily 20 0 March 27, 2018 11:00pm May 27, 2018 11:59ampantoprazole 40 mg delayed release oral tablet (20 sources)Proton Pump InhibitorStart: 06-29-2024 End: 29-10-2230uzlv 1 tablet by mouth once daily as neededPantoprazole 40 mg tablet,delayed release (DR/EC) Discontinued 40 MG PO Daily as needed July 20, 2024 11:00am November 20, 2024 4:22pmStart: 92-28-7885kkpw 1 tablet by mouth before mealtimepantoprazole (ProtoNix) 40 MG EC tablet Indications: Epigastric pain Take 1 tablet (40 mg) by mouthin the morning. Take before meals. 30 tablet 2 06/01/2024 ActiveStart: 82-93-0633svfy 1 tablet by mouth before mealtimepantoprazole (ProtoNix) 40 MG EC tablet Indications: Epigastric pain Take 1 tablet (40 mg) by mouthin the morning. Take before meals. 30 tablet 2 06/01/2024 ActiveStart: 04-24-2024 End: 78-10-4268jyfa 1 tablet by mouth once dailyPantoprazole 40 mg Tablet,Delayed Release (Dr/Ec) Discontinued 40 MG PO Daily 14 14 0 April 23, 2024 11:00pm July 20, 2024 11:00am Problems Active Problems Problem ClassificationProblemDateDocumented DateEpisodic/ChronicAbdominal pain (4 sources)Epigastric pain; Translations: [Epigastric pain]50-25-7165Bwlsepfl Alcohol-related disorders (20 sources)Alcohol abuse; Translations: [Alcohol dependence, uncomplicated] Onset: 06-29-2024 Resolved: 466243-43-6409NkmhhkfWmxwtkc dysrhythmias (20 sources)EKG: accelerated junctional rhythm; Translations: [Other specified cardiac arrhythmias]Onset: 968190-87-9709EmwymnkRnysdepqyo disorders (19 sources)Mobitz type I incomplete atrioventricular block; Translations: [Atrioventricular block, second degree]Onset: 645102-82-4920WgeaflbJ Codes: Fall (2 sources)Fall; Translations: [Unspecified fall, initial encounter]04-02-2025 EpisodicHeadache; including migraine (10 sources)Headache; Translations: [Headache]37-98-9749AjhuveugZyej disorders (20 sources)Manic bipolar I disorder; Translations: [Bipolar disorder, current episode manic without psychotic features, unspecified]Onset: 06-29-2024 Resolved: 834175-57-5192MxvmrexGjzgucjkeoq chest pain (20 sources)Chest pain; Translations: [Chest pain, unspecified]Onset: 04-30-2024 61-68-1461KfobsrtnNine wounds of extremities (1 source)Laceration without foreign body of left little finger without damage to nail, initial encounter; Translations: [Laceration without foreign body of left little finger without damage to nail, initial encounter]Onset: 07-24-2025 EpisodicOpen wounds of head; neck; and trunk (1 source)Laceration - injury; Translations: [Open wound(s) (multiple) of unspecified site(s), without mention of complication]48-51-8107IwehfsacExtdc injuries and conditions due to external causes (1 source)Closed injury of head; Translations: [Unspecified injury of head, initial encounter]26-66-3989SwszfgagTyoma skin disorders (4 sources)Rash and other nonspecific skin eruption; Translations: [RASH OTH NONSPECIFIC SKIN ERUPTION]Onset: 97-33-9998MwlxojlgNlzi-; endo-; and myocarditis; cardiomyopathy (except that caused by tuberculosis or sexually transmitted disease) (20 sources)Acute pericarditis; Translations: [Acute pericarditis, unspecified] Onset: 553658-84-0492LvefotovPrrvwyqpb-zeltods disorders (20 sources)Tobacco dependence syndrome; Translations: [Nicotine dependence, unspecified, uncomplicated]Onset: 175518-85-2742DjxlcxaOcjyzdyox-egfiyar disorders (20 sources)Marijuana user; Translations: [Cannabis use, unspecified, uncomplicated]Onset: 982730-42-9637GkunwjhlNotna infection (1 source)Zoster without complications; Translations: [ZOSTER WITHOUT COMPLICATIONS]Onset: 34-25-5489Rgybqnzg Past or Other Problems Problem ClassificationProblemDateDocumented DateEpisodic/ChronicImmunizations and screening for infectious disease (1 source)Contact with and (suspected) exposure to other viral communicable diseasesOnset: 11-02-2021 Resolved: 46-84-0282SjqfzquuYncys connective tissue disease (20 sources)Chronic pain of left upper limb; Translations: [Pain in left hand] Onset: 033196-70-1097IicszgpbTunvf non-traumatic joint disorders (20 sources)Pain in left knee; Translations: [Pain in joint, lower leg]Onset: 100566-05-0182UbrkzxplPuxnas media and related conditions (1 source)Otitis media, unspecified, right earOnset: 11-02-2021 Resolved: 46-93-4515KnkhaudvDtvrzuo and intentional self-inflicted injury (9 sources)Suicidal thoughts; Translations: [Suicidal ideations]Onset: 462174-64-9595Xycdyawp Results Test NameValueInterpretationReference RangeFacilityCT cervical spine wo conon 19-77-9098BO cervical spine wo [facility] [place] [address] [place] [address] CT Scan Report Signed Patient: Sean Malone MR#: [id number] 259 : 1995 Acct:[id number] Age/Sex: 30 / M ADM Date: 07/24/25 Loc: ER Room: Type: [facility] ER Attending Dr: Copies to: Damion Rosa DO Ordering Provider: Damion Rosa DO Date of Service: 07/24/25 CT/CT cervical spine wo con: inj CT CERVICAL SPINE WITHOUT CONTRAST WITH 3D RECONSTRUCTIONS: CLINICAL HISTORY: Injury COMPARISON: None TECHNIQUE: Spiral axial unenhanced images were obtained through the cervical spine. Sagittal, coronal and 3D volume-rendered reconstructions were also reviewed. This CT exam was performed using one or more following dose reduction techniques: Automated exposure control, adjustment of the mA and/or kV according to patient size, or use of iterative reconstruction technique. FINDINGS: No fracture dislocation. Vertebral heights and disc space heights preserved. No significant degenerative change by CT. Incomplete union anterior arch of C1. Prevertebral soft tissues unremarkable. 3 mm nodule right lung apex. CT/CT cervical spine wo con IMPRESSION: NO CERVICAL SPINE FRACTURE Impression dictated by: Popeye Curtis M.D. 07/25/2025 9:14 AM Dictation Location: RADIO-PC-29 Transcribed By: JAYMIE 07/25/2514 Dictated By: Popeye Curtis MD 07/25/25910 Signed By: 07/25/25 0914YelenaRutherford Regional Health System Physician GroupCT head/brain wo conon 55-87-0555RM head/brain wo [facility] [place] [id number] CT Scan Report Signed Patient: Sean Malone MR#: [id number] 259 : 1995 Acct:[id number] Age/Sex: 30 / M ADM Date: 07/24/25 Loc: ER Room: Type: [facility] ER Attending Dr: Copies to: Damion Rosa DO Ordering Provider: Damion Rosa DO Date of Service: 07/24/25 CT/CT head/brain wo con: head inj CT BRAIN WITHOUT CONTRAST: CLINICAL HISTORY: Head injury COMPARISON: None TECHNIQUE: Contiguous axial unenhanced images were obtained through the brain. This CT exam was performed using one or more following dose reduction techniques: Automated exposure control, adjustment of the mA and/or kV according to patient size, or use of iterative reconstruction technique. FINDINGS: There is no evidence of midline shift, intra or extra-axial fluid collection, hemorrhage or CT evidence of of acute large vascular distribution stroke. Krishan cisterna magna Visualized intraorbital contents appear unremarkable. Visualized paranasal sinuses are clear. The surrounding soft tissues are normal. CT/CT head/brain wo con IMPRESSION: NO ACUTE INTRACRANIAL ABNORMALITY. Impression dictated by: Popeye Curtis M.D. 07/25/2025 9:11 AM Dictation Location: RADIO-PC-29 Transcribed By: JAYMIE 07/25/25910 Dictated By: Popeye Curtis MD 07/25/2510 Signed By: 07/25/25 0911YelenaRutherford Regional Health System Physician GroupXR foot LT min 3V*on 07-25-2025 XR foot LT min 3V*[facility] Main [address] [address] XRay Report Signed Patient: Sean Malone MR#: [id number] 259 : 1995 Acct:[id number] Age/Sex: 30 / M ADM Date: 07/24/25 Loc: ER Room: Type: [facility] ER Attending Dr: Copies to: Damion Rosa DO Ordering Provider: Damion Rosa DO Date of Service: 07/24/25 XR/XR foot LT min 3V*: toe pain LEFT FOOT - 3 views CLINICAL HISTORY: Great toe pain COMPARISON: None FINDINGS: No fracture-dislocation. Mild soft tissue swelling involving the great toe. Otherwise, Soft tissues unremarkable XR/XR foot LT min 3V* IMPRESSION: NO ACUTE OSSEOUS FINDINGS. Impression dictated by: Popeye Curtis M.D. 07/25/2025 10:58 AM Dictation Location: [place] [address] Transcribed By: [facility] 07/25/25 1058 Dictated By: Popeye Curtis MD 07/25/25 1057 Signed By: 07/25/25 [facility] Physician GroupAlanine aminotransferase [Enzymatic activity/volume] in Serum or PlasmaOrdered By: Mickey Teran on 34-29-1146NVN [Catalytic activity/Vol]17 U/LNormal7-52[facility] CampusComment on above:Performed By: #### ETOH, CMP, CBC #### [facility] [address] [place] [id number] USAAlbumin [Mass/volume] in Serum or Plasma by Bromocresol green (BCG) dye binding methoOrdered By: Mickey Teran on 60-54-7695Mbdlcbk BCG dye [Mass/Vol]4.7 g/dL3.5-5.7FSumma Health Barberton CampusAlkaline phosphatase [Enzymatic activity/volume] in Serum or PlasmaOrdered By: Mickey Teran on 41-34-5757AGV [Catalytic activity/Vol]77 U/KVrxnmp03-937QziwmyngyTrinity Health System East CampusComment on above:Performed By: #### ETOH, CMP, CBC #### [facility] [address] [place] [address] USAAspartate aminotransferase [Enzymatic activity/volume] in Serum or PlasmaOrdered By: Mickey Teran on 36-65-8965XHM [Catalytic activity/Vol]24 U/YKdevkf84-81AknvkfsdmTrinity Health System East CampusComment on above: Performed By: #### ETOH, CMP, CBC #### [place] [address] USABasophils [#/volume] in Blood by Automated countOrdered By: Mickey Teran on 46-88-0321Npkufwigf (Bld) [#/Vol]0.1 10*3/uLNormal 0.0-0.2FSumma Health Barberton CampusComment on above:Result Comment: PERFORMED BY: [place] [address] PATHOLOGIST [employer]MS DEVELOPER CIERRA ALSTON M.D.Performed By: #### ETOH, CMP, CBC #### [place] [address] USABasophils/100 leukocytes in Blood by Automated count Ordered By: Mickey Teran on 12-99-4160Tlpywcceo/100 WBC (Bld)1.1 %Normal. [facility] CampusComment on above:Performed By: #### ETOH, CMP, CBC #### [place] [address] USABilirubin.total [Mass/volume] in Serum or PlasmaOrdered By: Mickey Teran on 48-22-3052Hmrrtsphc [Mass/Vol]0.5 mg/dLNormal0.3-1.0 [facility] CampusComment on above:Performed By: #### ETOH, CMP, CBC #### [facility] [address] [place] [address] USACalcium [Mass/volume] in Serum or PlasmaOrdered By: Mickey Teran on 80-88-6279Tioaacm [Mass/Vol]9.4 mg/dLNormal8.6-10.3FSumma Health Barberton CampusComment on above:Performed By: #### ETOH, CMP, CBC #### [place] [address] USACarbon dioxide, total [Moles/volume] in Serum or Plasma Ordered By: Mickey Teran on 45-77-7741SV8 [Moles/Vol]16.3 mmol/LLow 21.0-31.0[facility] CampusComment on above:Performed By: #### ETOH, CMP, CBC #### [place] [address] USAChloride [Moles/volume] in Serum or PlasmaOrdered By: Mickey Teran on 80-17-5465Uccmqnpc [Moles/Vol]107 mmol/NGglpzh12-550 [facility] CampusComment on above:Performed By: #### ETOH, CMP, CBC #### [place] [address] USAComplete Blood Count Auto Diffon 45-96-9517Hyjn Corpuscular HGB Conc34.2 g/jBMjhlyz55.5-35.6The [facility] Physician GroupComment on above:Performed By: #### ETOH, CMP, CBC #### [place] [address] USAMonocytes/100 WBC (Bld)19.77 %Normal0.00-20.00The [facility] Physician GroupComment on above:Performed By: #### ETOH, CMP, CBC #### [place] [address] USANRBC%0.1 /100{WBC}Normal0-0.5The [facility] Physician Group Comment on above:Performed By: #### ETOH, CMP, CBC #### [place] [address] USAWhite Blood Count11.0 [CFU]/mLHigh4.1-10.5The [facility] Physician GroupComment on above:Performed By: #### ETOH, CMP, CBC #### [place] [address] USAComprehensive Metabolic Panelon 92-33-9154Mjnptvd [Mass/Vol]4.7 g/dLNormal3.5-5.7The [facility] Physician GroupComment on above: Performed By: #### ETOH, CMP, CBC #### [place] [address] USACreatinine Clr Calc Bpgyigvs10.20NormalThe [facility] Physician GroupComment on above:Result Comment: PERFORMED BY: [place] [address] PATHOLOGIST [employer]MS DEVELOPER CIERRA ALSTON M.D.Performed By: #### ETOH, CMP, CBC #### [place] [address] USAGFR/1.73 sq M.predicted MDRD (S/P/Bld) [Vol rate/Area] mL/min/{1.73_m2}NormalThe [facility] Physician GroupComment on above:Performed By: #### ETOH, CMP, CBC #### [place] [address] USACreatinine [Mass/volume] in Serum or PlasmaOrdered By: Mickey Teran on 22-65-0006Yryifqzvej [Mass/Vol]1.08 mg/dLNormal0.70-1.30 [facility] CampusComment on above:Performed By: #### ETOH, CMP, CBC #### [place] [address] USAEosinophils [#/volume] in Blood by Automated countOrdered By: Mickey Teran on 89-01-1823Sfppqldsakh (Bld) [#/Vol]0.3 10*3/uLNormal 0.0-0.45[facility] CampusComment on above:Performed By: #### ETOH, CMP, CBC #### [place] [address] USAEosinophils/100 leukocytes in Blood by Automated count Ordered By: Mickey Teran on 94-20-0802Ivrpkqwgzek/100 WBC (Bld)2.9 %Normal .[facility] CampusComment on above:Performed By: #### ETOH, CMP, CBC #### [place] [address] USAErythrocyte distribution width [Ratio] by Automated count Ordered By: Mickey Teran on 46-41-9347Okjahzrwjnb distribution width (RBC) [Ratio]14.3 %Vhvctx62.0-14.8[facility] CampusComment on above: Performed By: #### ETOH, CMP, CBC #### [facility] [address] [place] [address] USAErythrocytes [#/volume] in Blood by Automated countOrdered By: Mickey Teran on 22-92-3567EPL (Bld) [#/Vol]4.59 10*6/uLNormal 3.90-5.60[facility] CampusComment on above:Performed By: #### ETOH, CMP, CBC #### [facility] [address] [place], [place] [address] USAEthanol [Mass/volume] in Serum or PlasmaOrdered By: Mickey Teran on 91-13-4826Udraokm [Mass/Vol]141 mg/dLNormUniversity Hospitals Lake West Medical CenterComment on above:Performed By: #### ETOH, CMP, CBC #### [facility] [address] [place] [address] USAEthyl Alcohol Profileon 38-43-5701Ospfzjg Ethanol0.141 % NormalThe [facility] Physician GroupComment on above:Result Comment: PERFORMED BY: [place] [address] PATHOLOGIST [employer] HRMS DEVELOPER CIERRA ALSTON M.D.Performed By: #### ETOH, CMP, CBC #### [facility] [address] [place] [address] USAGlomerular filtration rate [Volume Rate/Area] in Serum, Plasma or Blood by CreatinineOrdered By: Mickey Teran on 07-24-2025 Glomerular filtration rate [Volume Rate/Area] in Serum, Plasma or Blood by Creatinine> 60.0 mL/MinTrinity Health System East CampusGlucose [Mass/volume] in Serum or PlasmaOrdered By: Mickey Teran on 88-74-0235Beubnnd [Mass/Vol]95 mg/sYSsfeel54-532RsudjocouTrinity Health System East CampusComment on above:ADA recommended reference rangeRandom Glucose Reference Range is dependent on time and content of last meal. Glucose of more than 200 mg/dL in a nonstressed, ambulatory subject supports the diagnosisof Diabetes Mellitus.Result Comment: Random Glucose Reference Range is dependent on time and content of last meal. Glucose of more than 200 mg/dL in a nonstressed, ambulatory subject supports the diagnosis of Diabetes Mellitus. ADA recommended reference rangePerformed By: #### ETOH, CMP, CBC #### [facility] [address] [place] [address] USAHematocrit [Volume Fraction] of Blood by Automated count Ordered By: Mickey Teran on 74-57-4512Nbbpdasxnl (Bld) [Volume fraction] 43.7 %Fzkvkl05.8-50.0[facility] CampusComment on above:Performed By: #### ETOH, CMP, CBC #### [place] [address] USAHemoglobin [Mass/volume] in BloodOrdered By: Mickey Teran on 35-28-9666Dvowlcttxa (Bld) [Mass/Vol]14.9 g/iRGeicce46.0-17.0 [facility] CampusComment on above:Performed By: #### ETOH, CMP, CBC #### [place] [address] USALeukocytes [#/volume] corrected for nucleated erythrocytes in Blood by Automated counOrdered By: Mickey Teran on 36-23-7013VFY corrected for nucl RBC Auto (Bld) [#/Vol]11.0 10*3/uLHigh4.1-10.5FSumma Health Barberton CampusLeukocytes [#/volume] in Blood by Automated countOrdered By: Mickey Teran on 89-40-8038ZOF (Bld) [#/Vol]11.0 10*3/uLHigh4.1-10.5 [facility] CampusComment on above:Performed By: #### ETOH, CMP, CBC #### [place] [address] USALymphocytes [#/volume] in Blood by Automated countOrdered By: Mickey Teran on 36-71-3113Xfbgglqyjxl (Bld) [#/Vol]3.7 10*3/uLNormal 1.00-4.8Tr[facility] System East CampusComment on above:Performed By: #### ETOH, CMP, CBC #### [facility] [address] [place] [id number] USALymphocytes/100 leukocytes in Blood by Automated count Ordered By: Mickey Teran on 81-94-7635Bejmjqhpqtf/100 WBC (Bld)33.3 % Normal.[facility] CampusComment on above:Performed By: #### ETOH, CMP, CBC #### [facility] [address]H [Entitic mass] by Automated countOrdered By: Mickey Teran on 02-01-0676NRB (RBC) [Entitic mass]32.6 beChsxjr01.5-35.2FSumma Health Barberton CampusComment on above:Performed By: #### ETOH, CMP, CBC #### [facility] [address] [place] [address] [facility] Auto (RBC) [Mass/Vol]Ordered By: Mickey Teran on 91-49-9040XYOF (RBC) [Mass/Vol]34.2 g/dL32.5-35.6FSumma Health Barberton CampusMCV [Entitic volume] by Automated countOrdered By: Mickey Teran on 92-32-3832QWU (RBC) [Entitic vol]95.3 uJMmdbyd48.5-101Tr[facility] CampusComment on above:Performed By: #### ETOH, CMP, CBC #### [facility] [address] [address] USAMonocyte distribution width [Entitic volume] in Blood by AutomatedOrdered By: Mickey Teran on 46-85-9814Lgxyqiwj distribution width Auto (Bld) [Entitic vol]19.77 %0.00-20.00[facility] Monocytes [#/volume] in Blood by Automated countOrdered By: Mickey Teran on 67-56-3490Luygnjcql (Bld) [#/Vol]1.0 10*3/uLHigh0.0-0.8[facility] CampusComment on above:Performed By: #### ETOH, CMP, CBC #### [facility] [address] [address] USAMonocytes/100 leukocytes in Blood by Automated count Ordered By: Mickey Teran on 67-58-6490Bwvkzuvtj/100 WBC (Bld)8.7 %Normal. [facility] CampusComment on above:Performed By: #### ETOH, CMP, CBC #### [facility] [address] [address] USANeutrophils [#/volume] in Blood by Automated countOrdered By: Mickey Teran on 75-87-8124Rqunhzbaedu (Bld) [#/Vol]6.0 10*3/uLNormal 1.8-7.7FSumma Health Barberton CampusComment on above:Performed By: #### ETOH, CMP, CBC #### [facility] [address] [address] USANeutrophils/100 leukocytes in Blood by Automated count Ordered By: Mickye Teran on 80-69-4704Mlbjdtkbrpq/100 WBC (Bld)54.0 % Normal.[facility] East CampusComment on above:Performed By: #### ETOH, CMP, CBC #### [facility] [address] [place] [address] USANo Panel InformationOrdered By: Mickey Teran on 08-12-0190Wnzrdsal Creatinine Clearance (Chem88.20[facility] CampusNucleated erythrocytes [Presence] in Blood by Automated countOrdered By: Mickey Teran on 56-17-0714Kbqkioxfd RBC Auto Ql (Bld)0.1 /100{WBC}0-0.5 [facility] CampusPlatelet mean volume [Entitic volume] in Blood by Automated countOrdered By: Mickey Teran on 39-85-2706Fbopucew mean volume (Bld) [Entitic vol]7.9 fLNormal6.6-10.1FSumma Health Barberton Campus Comment on above:Performed By: #### ETOH, CMP, CBC #### [facility] [address] [place] [address] USAPlatelets [#/volume] in Blood by Automated countOrdered By: Mickey Teran on 10-54-6629Oxfjoimmz (Bld) [#/Vol]248 10*3/uLNormal 150-450Tr[facility] CampusComment on above:Performed By: #### ETOH, CMP, CBC #### [facility] [address] [place] [address] USAPotassium [Moles/volume] in Serum or PlasmaOrdered By: Mickey Teran on 44-62-4186Izjezyomv [Moles/Vol]3.7 mmol/LNormal3.5-5.1 [facility] CampusComment on above:Performed By: #### ETOH, CMP, CBC #### [place] [address] USAProtein [Mass/volume] in Serum or PlasmaOrdered By: Mickey Teran on 19-41-4536Ghpjlzk [Mass/Vol]7.5 g/dLNormal6.4-8.9[facility] CampusComment on above:Performed By: #### ETOH, CMP, CBC #### [place] [address] USASerum globulin measurement by calculation (mass/volume) Ordered By: Mickey Teran on 60-61-2731Qvyhywqs (S) [Mass/Vol]2.8 g/dL [facility] Hospital - AkronComment on above:Performed By: #### ETOH, CMP, CBC #### [facility] [address] [place] [address] USASerum or plasma albumin/globulin mass ratioOrdered By: Mickey Teran on 67-42-2128Msglldf/Globulin [Mass ratio]1.7 {ratio}[facility]ot Memorial HospitalComment on above:Performed By: #### ETOH, CMP, CBC #### [place] [address] USASerum or plasma anion gap determinationOrdered By: Mickey Teran on 96-34-3550Waplj gap [Moles/Vol]19.4 mmol/LHigh6.0-15.0[facility] CampusComment on above:Performed By: #### ETOH, CMP, CBC #### [facility] [address] [place] [address] USASerum or plasma ethanol measurement (mass/volume)Ordered By: Mickey Teran on 33-14-0932Ttiqnsa [Mass/Vol]0.141 %[facility] Westodium [Moles/volume] in Serum or PlasmaOrdered By: Mickey Teran on 81-44-9434Czwlji [Moles/Vol]139 mmol/ZMuuzir142-073UvzdggcusTrinity Health System East CampusComment on above:Performed By: #### ETOH, CMP, CBC #### [facility] [address] [address] USAUrea nitrogen [Mass/volume] in Serum or PlasmaOrdered By: Mickey Teran on 69-43-0172Gzan nitrogen [Mass/Vol]12 mg/dLNormal7-25 [facility] CampusComment on above:Performed By: #### ETOH, CMP, CBC #### [facility] [address] [address] USAXR Knee - right 4 Viewson 41-53-02[place], [place] [address] XRay Report Signed Patient: SEAN MALONE MR#: [id number] : 1995 Acct:[id number] Age/Sex: 30 / M ADM Date: 04/05/25 Loc: RAD Attending Dr: GRISEL KHAN Ordering Physician: GRISEL KHAN Date of Service: 04/05/25 Procedure(s): XR knee RT 4V Accession Number(s): [id number] cc: GRISEL KHAN [place] [id number] Patient Name: SEAN MALONE MRN: [id number] date: 1995 Sex: M Assigned Patient Location: RAD Current Patient Location: RAD Accession/Order Number: [id number] Exam Date: 04/05/2025 12:01 Report Date: 04/05/2025 12:03 At the request of: GRISEL KHAN Procedure: XR knee RT 4V RIGHT KNEE - 4 views COMPARISON: 11/05/2023 CLINICAL DATA: Chronic right knee pain with worsening after fall on March 26. AP, lateral, internal oblique and sunrise views were obtained. No acute fracture or dislocation is identified. No patellar subluxation is seen. The joint spaces are maintained. No hypertrophy is noted. There is no significant knee effusion or soft tissue swelling. XR/XR knee RT 4V IMPRESSION: NO ACUTE BONY INJURY. Impression dictated by: Grisel Houser M.D. 04/05/2025 12:03 PM Dictation Location: [place] [address] Electronically authenticated by: [id number] Y Date: 04/05/2025 12:03 Dictated By: Grisel Houser M.D. Signed By: 04/05/25 1206 DD/ 1203 TD/TT: Registered Public Surveyor:TBHRadiology, Radiologist, MD - 04/05/2025 [address] [place] [id number] XRay Report Signed Patient: SEAN MALONE MR#: [id number] : 1995 Acct:[id number] Age/Sex: 30 / M ADM Date: 04/05/25 Loc: RAD Attending Dr: GRISEL KHAN Ordering Physician: GRISEL KHAN Date of Service: 04/05/25 Procedure(s): XR knee RT 4V Accession Number(s): [id number] cc: GRISEL KHAN [place] [id number] Patient Name: SEAN MALONE MRN: [id number] date: 1995 Sex: M Assigned Patient Location: RAD Current Patient Location: RAD Accession/Order Number: [id number] Exam Date: 04/05/2025 12:01 Report Date: 04/05/2025 12:03 At the request of: GRISEL KHAN Procedure: XR knee RT 4V RIGHT KNEE - 4 views COMPARISON: 11/05/2023 CLINICAL DATA: Chronic right knee pain with worsening after fall on March 26. AP, lateral, internal oblique and sunrise views were obtained. No acute fracture or dislocation is identified. No patellar subluxation is seen. The joint spaces are maintained. No hypertrophy is noted. There is no significant knee effusion or soft tissue swelling. XR/XR knee RT 4V IMPRESSION: NO ACUTE BONY INJURY. Impression dictated by: Grisel Houser M.D. 04/05/2025 12:03 PM Dictation Location: [place] [address] Electronically authenticated by: [id number] Y Date: 04/05/2025 12:03 Dictated By: Grisel Houser M.D. Signed By: 04/05/25 1206 DD/ 1203 TD/TT: Registered Public Surveyor: [facility] HealthcareRadiology Study observation (narrative)[facility] HealthcareXR Knee - right 4 ViewsOrdered By: Radiologist Radiology on 24-52-4063[facility] Work Phone: cholesterol [Mass/volume] in Serum or PlasmaOrdered By: Kash Connor on 52-99-5212Jygzzcotzfy [Mass/Vol]Cholesterol [Mass/volume] in Serum or FjomghQkk860-568PtgijkevoTrinity Health System East Campus Comment on above:Chol less than 200 mg/dl low riskChol 201-239 mg/dl borderline riskChol 240 mg/dl and greater high riskCholesterol in HDL [Mass/volume] in Serum or PlasmaOrdered By: Kash Connor on 97-07-9636Rlntmeuqhew in HDL [Mass/Vol]Serum or plasma high density lipoprotein (HDL) cholesterol fyjxngtwcbp51-61IuaqtdvhwTrinity Health System East CampusComment on above:HDL CHOL ATP- III CLASSIFICATION Cardiovascular RiskHDL > or equal to 60 mg/dL LOWHDL < 40 mg/dL HIGHCholesterol in LDL Calc [Mass/Vol]Ordered By: Kash Connor on 17-30-1362Rzkstwfnwhd in LDL [Mass/Vol]Cholesterol in LDL [Mass/volume] in Serum or Plasma by calculation-[facility] CampusComment on above:LDL ATP III CLASSIFICATIONLDL less than 100 mg/dL OptimalLDL 100-129 mg/dL Near or above lmpwqawLJI491-630 mg/dL Borderline highLDL 160-189 mg/dL HighLDL greater than 189 mg/dL Very highCholesterol in VLDL Calc [Mass/Vol]Ordered By: Kash Connor on 21-22-1633Jerfqxugxfd in VLDL [Mass/Vol]Cholesterol in VLDL [Mass/volume] in Serum or Plasma by calculationTrinity Health System East CampusECG 12 lead ECGon 07-96-0277GNN 12 lead ECGOHIOHEALTH [place] [address] Electrocardiograph Report Signed Patient: Sean Malone MR#: [id number] : 1995 Acct:[id number] Age/Sex: 29 / M ADM Date: 11/20/24 Loc: Room: [address] [place] [address] Type: ADM IN Attending Dr: Kash Connor [...] injury Abnormal ECG Confirmed by Mickey Long ([id number]) on 11/23/2024 7:05:44 AM Referred By: Electronically Signed By: Mickey Long Transcribed By: MUS Signed By Mickey Long MD 11/23/24 0705[facility] Physician GroupLipid Panelon 11-21-2024 Cholesterol [Mass/Vol]130 mg/qHOif239-132G[facility] Physician GroupComment on above:Result Comment: Chol less than 200 mg/dl low risk Chol 201-239 mg/dl borderline risk Chol 240 mg/dl and greater high riskPerformed By: #### LIPID, TSH3 wRFLX, [id number] #### [facility] [address] [place] [address] USACholesterol in HDL [Mass/Vol]52 mg/xZMthddd54-12Kzk [facility] Physician GroupComment on above:Result Comment: HDL CHOL ATP-III CLASSIFICATION Cardiovascular Risk HDL > or equal to 60 mg/dL LOW HDL < 40 mg/dL HIGHPerformed By: #### LIPID, TSH3 wRFLX, [id number] #### [facility] [address] [place] [address] USACholesterol.total/Cholesterol in HDL [Mass ratio]2.5 {ratio}Normal<5.0The [facility] Physician GroupComment on above:Performed By: #### LIPID, TSH3 wRFLX, [id number] #### [facility] [address] [place] [address] USALDL Cholesterol,Wwzvrtvqtj90 mg/dLNormal0-100The [facility] Physician GroupComment on above:Result Comment: LDL ATP III CLASSIFICATION LDL less than 100 mg/dL Optimal LDL 100-129 mg/dL Near or above optimal LDL 130-159 mg/dL Borderline high LDL 160-189 mg/dL High LDL greater than 189 mg/dL Very highPerformed By: #### LIPID, TSH3 wRFLX, [id number] #### [facility] [address] [place] [address] USATriglyceride w/Kfztaf60 mg/dLNormal0-149The [facility] Physician GroupComment on above:Result Comment: TRIG ATP III CLASSIFICATION TRIG less than 150 mg/dL Normal TRIG 150-199 mg/dL Borderline high TRIG 200-500 mg/dL High TRIG greater than 500 mg/dL Very high Standard traceable to the Center for Disease Conrtrol and Prevention (CDC) test method.Performed By: #### LIPID, TSH3 wRFLX, [id number] #### [facility] [address] [place] [address] USAVLDL OZNQNVHGQHE59 mg/dLNormalThe [facility] Physician GroupComment on above:Performed By: #### LIPID, TSH3 wRFLX, [id number] #### [facility] [address] [place] [address] USASerum or plasma total cholesterol/high density lipoprotein (HDL) cholesterol mass ratOrdered By: Kash Connor on 11-21-2024 Cholesterol.total/Cholesterol in HDL [Mass ratio]Serum or plasma total cholesterol/high density lipoprotein (HDL) cholesterol mass rat<5.0[facility] CampusThyroid Stim Hormone w/Rflxon 67-42-1943Tjxgdjz Stim Hormone w/Rflx0.57 u[iU]/mLNormal0.45-5.33The [facility] Physician GroupComment on above:Performed By: #### LIPID, TSH3 wRFLX, [id number] #### [facility] [address] [place] [address] USAThyrotropin [Units/volume] in Serum or PlasmaOrdered By: Kash Connor on 47-37-6500HOQ QnThyrotropin [Units/volume] in Serum or Plasma0.45-5.33[facility] CampusTriglyceride [Mass/volume] in Serum or PlasmaOrdered By: Kash Connor on 14-50-4173Anhifbjhhvuj [Mass/Vol]Triglyceride [Mass/volume] in Serum or Plasma0-149[facility] CampusComment on above:TRIG ATP III CLASSIFICATIONTRIG less than 150 mg/dL NormalTRIG 150-199 mg/dL Borderline highTRIG 200-500 mg/dL High TRIG greater than 500 mg/dL Very highStandard traceable to the Center for Disease Co nrtrol and Prevention (CDC) test method.Vitamin D 25 Hydroxy Totalon 11-21-2024 Vitamin D 25 Hydroxy Total8.9 ng/cTKfu60-715Lsl [facility] Physician GroupComment on above:Result Comment: VITAMIN D STATUS 25(OH)VITAMIN D RANGE (ng/mL) Deficient <20 Insufficient 20 to <30 Sufficient 30 to 100 Reference: Vicki MF,Mer NC, Cintia LEON, et al. Evaluation,treatment, and prevention of vitamin D deficiency; an Endocrine Society clinical practice guideline. JCEM. 2011 Mar; 96(7):1911-30. PERFORMED BY: [facility] [address] [place] [id number] PATHOLOGIST [employer] HRMS DEVELOPER CROW ZAVALA M.D.Performed By: #### LIPID, TSH3 wRFLX, [id number] #### [facility] [address] [place] [address] [facility]ICAL CENTERVitamin D+Metabolites [Mass/volume] in Serum or Plasma Ordered By: Kash Connor on 70-63-1470Ehaxfeg D+Metabolites [Mass/Vol] Vitamin D+Metabolites [Mass/volume] in Serum or GgennzSwe46-474WlcrsmgclTrinity Health System East CampusComment on above:VITAMIN D STATUS 25(OH)VITAMIN D RANGE (ng/mL) Deficient <20 Insufficient 20 to <67Tritkrogfu42 to 100Reference: Vciki MF,Mer NC, Cintia LEON, et al. Evaluation,treatment, and prevention of vitamin D deficiency; an Endocrine Society clinical practice guideline. JCEM. 2010; 96(7):1911-30.Alanine aminotransferase [Enzymatic activity/volume] in Serum or PlasmaOrdered By: Bro Osorio on 11-20-2024 ALT [Catalytic activity/Vol]Alanine aminotransferase [Enzymatic activity/volume] in Serum or Plasma7-52[facility] CampusAlbumin [Mass/volume] in Serum or Plasma by Bromocresol green (BCG) dye binding methoOrdered By: Bro Osorio on 37-00-1083Zvxqfye BCG dye [Mass/Vol]Albumin [Mass/volume] in Serum or Plasma by Bromocresol green (BCG) dye binding metho3.5-5.7FSumma Health Barberton CampusAlkaline phosphatase [Enzymatic activity/volume] in Serum or PlasmaOrdered By: Bro Osorio on 26-69-0876HOE [Catalytic activity/Vol] Alkaline phosphatase [Enzymatic activity/volume] in Serum or Srjzdf43-277 [facility] CampusAmphetamine Screen Ql (U)Ordered By: Bro Osorio on 09-38-6149Rmrftilidkqw Ql (U)Amphetamines screenNegativeTrinity Health System East CampusAppearance of UrineOrdered By: Bro Osorio on 22-39-0934Oluriuqnpn (U)Urine appearanceCleAdams County Regional Medical Center Aspartate aminotransferase [Enzymatic activity/volume] in Serum or PlasmaOrdered By: Bro Osorio on 10-90-4285ZUV [Catalytic activity/Vol]Aspartate aminotransferase [Enzymatic activity/volume] in Serum or Yfifie82-01TmyrvdwcsTrinity Health System East CampusBacteria [Presence] in Urine by AutomatedOrdered By: Bro Osorio on 33-63-1612Nzgerbsq Auto Ql (U)Bacteria [Presence] in Urine by AutomatedNone SeenTrinity Health System East CampusBarbiturates [Presence] in Urine by Screen methodOrdered By: Bro Osorio on 72-08-5348Cxrsuyfkcknn Screen Ql (U)Barbiturates [Presence] in Urine by Screen methodNegativeTrinity Health System East CampusBasophils Auto (Bld) [#/Vol]Ordered By: Bro Osorio on 59-29-1557Ltsrseabr (Bld) [#/Vol]Automated basophil count0.0-0.2FSumma Health Barberton CampusBasophils/100 WBC Auto (Bld)Ordered By: Bro Osorio on 76-51-3774Fyxxskrse/100 WBC (Bld)Automated basophil %.[facility] CampusBenzodiazepines Screen Ql (U)Ordered By: Bro Osorio on 45-00-3149Hrvwdrxpfmmydit Ql (U)Benzodiazepines [Presence] in Urine by Screen methodNegSamaritan North Health CenterBenzoylecgonine [Presence] in Urine by Screen methodOrdered By: Bro Osorio on 40-78-1687Mcqwwonrgntpvsz Screen Ql (U)Benzoylecgonine [Presence] in Urine by Screen methodNegative [facility] CampusBilirubin Test strip Ql (U)Ordered By: Bro Osorio on 25-69-7035Blrfuvokt Ql (U)Bilirubin.total [Presence] in Urine by Test stripNegativeTrinity Health System East CampusBilirubin.total [Mass/volume] in Serum or PlasmaOrdered By: Bro Osorio on 11-20-2024 Bilirubin [Mass/Vol]Bilirubin.total [Mass/volume] in Serum or PlasmaHigh0.3-1.0 [facility] CampusCalcium [Mass/volume] in Serum or PlasmaOrdered By: Bro Osorio on 62-78-8277Ymyykac [Mass/Vol]Calcium [Mass/volume] in Serum or Plasma8.6-10.3FSumma Health Barberton CampusCannabinoids [Presence] in Urine by Screen methodOrdered By: Bro Osorio on 33-04-7569Jgyitlzgarkp Screen Ql (U)Cannabinoids [Presence] in Urine by Screen methodHighNegative [facility] CampusComment on above:These are unconfirmed results and should not be used for legal purposes. Drug Cut-Off Concentration: AMPH 1000 ng/mL ANNAMARIA 200 ng/mL KATHRYN 200 ng/mL COCM 300 ng/mL OP 300 ng/mL PCP 25 ng/mL THC 20 ng/mLCarbon dioxide, total [Moles/volume] in Serum or PlasmaOrdered By: Bro Osorio on 73-30-9480OG1 [Moles/Vol]Carbon dioxide, total [Moles/volume] in Serum or Pefuwn73.0-31.0[facility] Chloride [Moles/volume] in Serum or PlasmaOrdered By: Bro Osorio on 02-72-6418Mbzixngp [Moles/Vol]Chloride [Moles/volume] in Serum or Nzzomd59-234 [facility] CampusColor Auto (U)Ordered By: Bro Osorio on 62-40-9903Aaghf (U)Color of Urine by AutoYellowTrinity Health System East Campus Complete Blood Count Auto Diffon 53-54-3988Nordaouwc (Bld) [#/Vol]0.1 10*3/uL Normal0.0-0.2The [facility] Physician GroupComment on above:Result Comment: PERFORMED BY: [facility] [address] [place] [address] PATHOLOGIST [employer] HRMS DEVELOPER CROW ZAVALA M.D.Performed By: #### CBC, CMP, ETOH ####[facility] [address] [place] [address] USABasophils/100 WBC (Bld)0.9 %Normal.The [facility] Physician GroupComment on above:Performed By: #### CBC, CMP, ETOH ####[facility] [address] [place] [address] USAEosinophils (Bld) [#/Vol]0.1 10*3/uLNormal0.0-0.45The [facility] Physician GroupComment on above:Performed By: #### CBC, CMP, ETOH ####[place] [address] USAEosinophils/100 WBC (Bld)1.3 %Normal.The [facility] Physician GroupComment on above:Performed By: #### CBC, CMP, ETOH ####[place] [address] USAErythrocyte distribution width (RBC) [Ratio]13.9 %Vqiway04.0-14.8 The [facility] Physician GroupComment on above:Performed By: #### CBC, CMP, ETOH ####[place] [address] [place] Hematocrit (Bld) [Volume fraction]38.8 %Xbwhbb64.8-50.0The [facility] Physician GroupComment on above:Performed By: #### CBC, CMP, ETOH ####[place] [address] USAHemoglobin (Bld) [Mass/Vol] 13.7 g/wBHoonhp08.0-17.0The [facility] Physician GroupComment on above:Performed By: #### CBC, CMP, ETOH ####[place] [address] USALymphocytes (Bld) [#/Vol]2.6 10*3/uLNormal1.00-4.8 The [facility] Physician GroupComment on above:Performed By: #### CBC, CMP, ETOH ####[place] [id number] [place] Lymphocytes/100 WBC (Bld)35.6 %Normal.The [facility] Physician GroupComment on above:Performed By: #### CBC, CMP, ETOH ####[place] [address] USAMCH (RBC) [Entitic mass]33.8 rjFvtmaz75.5-35.2 The [facility] Physician GroupComment on above:Performed By: #### CBC, CMP, ETOH ####[place] [address] USAMCV (RBC) [Entitic vol]95.9 tDJdujkv05.5-101The [facility] Physician GroupComment on above:Performed By: #### CBC, CMP, ETOH ####[place] [address] USAMean Corpuscular HGB Conc35.3 g/dLNormal 32.5-35.6The [facility] Physician GroupComment on above:Performed By: #### CBC, CMP, ETOH ####[place] [address] USAMonocytes (Bld) [#/Vol]0.8 10*3/uLNormal0.0-0.8The [facility]ician Group Comment on above:Performed By: #### CBC, CMP, ETOH ####[place] [address] USAMonocytes/100 WBC (Bld)18.16 % Normal0.00-20.00The [facility] Physician GroupComment on above:Performed By: #### CBC, CMP, ETOH ####[place] [address] USAMonocytes/100 WBC (Bld)10.8 %Normal.The [facility] Comment on above:Performed By: #### CBC, CMP, ETOH ####[place] [address] USANeutrophils (Bld) [#/Vol]3.8 10*3/uLNormal1.8-7.7The [facility] Physician GroupComment on above:Performed By: #### CBC, CMP, ETOH ####[place] [address] USANeutrophils/100 WBC (Bld)51.4 %Normal.The [facility] Comment on above:Performed By: #### CBC, CMP, ETOH ####[place] [address] USANRBC%0.1 /100{WBC}Normal0-0.5 [facility] Physician GroupComment on above:Performed By: #### CBC, CMP, ETOH ####[place] [address] [place] Platelet mean volume (Bld) [Entitic vol]8.3 fLNormal6.6-10.1The [facility] Physician GroupComment on above:Performed By: #### CBC, CMP, ETOH ####[place] [address] USAPlatelets (Bld) [#/Vol]234 10*3/hNXdxbaw653-148Qqt [facility] Physician GroupComment on above: Performed By: #### CBC, CMP, ETOH ####[place] [address] USARBC (Bld) [#/Vol]4.05 10*6/uLNormal3.90-5.60The [facility] Physician GroupComment on above:Performed By: #### CBC, CMP, ETOH ####[place] [address] USAWBC (Bld) [#/Vol]7.3 10*3/uLNormal4.1-10.5The [facility] Physician GroupComment on above:Performed By: #### CBC, CMP, ETOH ####[place] [address] USAComprehensive Metabolic Panelon 11-20-2024 Albumin [Mass/Vol]4.3 g/dLNormal3.5-5.7The [facility] Physician GroupComment on above:Performed By: #### CBC, CMP, ETOH ####[place] [address] USAAlbumin/Globulin [Mass ratio]1.7 {ratio}Normal The [facility] Physician GroupComment on above:Performed By: #### CBC, CMP, ETOH ####[place] [address] USAALP [Catalytic activity/Vol]63 U/IAvapfo75-816Jfd [facility] Physician GroupComment on above:Performed By: #### CBC, CMP, ETOH ####[place] [place] [address] USAALT [Catalytic activity/Vol]13 U/L Normal7-52The [facility] Physician GroupComment on above:Performed By: #### CBC, CMP, ETOH ####[place] [address] [place] [address] USAAnion gap [Moles/Vol]9.0 mmol/LNormal6.0-15.0The [facility] Group Comment on above:Performed By: #### CBC, CMP, ETOH ####[place] [place] [address] USAAST [Catalytic activity/Vol]22 U/CKdwjqg02-51Jwc [facility] Physician GroupComment on above:Performed By: #### CBC, CMP, ETOH ####[address] [address] USABilirubin [Mass/Vol]1.2 mg/dLHigh0.3-1.0The [facility] Comment on above:Performed By: #### CBC, CMP, ETOH ####[address] [address] USACalcium [Mass/Vol]9.3 mg/dL Normal8.6-10.3The [facility] Physician GroupComment on above:Performed By: #### CBC, CMP, ETOH ####[address] [address] USAChloride [Moles/Vol]107 mmol/UPljuuv85-617Rur [facility] Comment on above:Performed By: #### CBC, CMP, ETOH ####[address] [address] USACO2 [Moles/Vol]27.8 mmol/L Jibdmu21.0-31.0The [facility] Physician GroupComment on above:Performed By: #### CBC, CMP, ETOH ####[address] [address] USACreatinine [Mass/Vol]0.87 mg/dLNormal0.70-1.30The [facility] Physician GroupComment on above:Performed By: #### CBC, CMP, ETOH ####[address] [place] [address] USACreatinine Clr Calc Pharmacy 110.50NoRutherford Regional Health System Physician GroupComment on above:Result Comment: PERFORMED BY: [facility] [address] [id number] PATHOLOGIST [employer] HRMS DEVELOPER CROW ZAVALA M.D.Performed By: #### CBC, CMP, ETOH ####[address] [place] [address] USAGFR/1.73 sq M.predicted MDRD (S/P/Bld) [Vol rate/Area]mL/min/{1.73_m2}NormalThe [facility] Physician GroupComment on above:Performed By: #### CBC, CMP, ETOH ####[address] [place] [address] USAGlobulin (S) [Mass/Vol]2.5 g/dLNoRutherford Regional Health System Physician GroupComment on above:Performed By: #### CBC, CMP, ETOH ####[address] [place] [address] USAGlucose [Mass/Vol]100 mg/dNZetfjh35-139Qlj [facility] Physician GroupComment on above:Result Comment: Random Glucose Reference Range is dependent on time and content of last meal. Glucose of more than 200 mg/dL in a nonstressed, ambulatory subject supports the diagnosis of Diabetes Mellitus. ADA recommended reference rangePerformed By: #### CBC, CMP, ETOH ####[address] [place] [address] USAPotassium [Moles/Vol] 3.8 mmol/LNormal3.5-5.1The [facility] Physician GroupComment on above:Performed By: #### CBC, CMP, ETOH ####[address] [place] [address] USAProtein [Mass/Vol]6.8 g/dLNormal6.4-8.9The [facility] Physician GroupComment on above:Performed By: #### CBC, CMP, ETOH ####[facility] [place] [address] USASodium [Moles/Vol] 140 mmol/VZoqaom621-542Fqa [facility] Physician GroupComment on above:Performed By: #### CBC, CMP, ETOH ####[facility] [place] [address] USAUrea nitrogen [Mass/Vol]7 mg/dLNormal7-25The [facility] Physician GroupComment on above:Performed By: #### CBC, CMP, ETOH ####[address] [place] [address] [place] Creatinine [Mass/volume] in Serum or PlasmaOrdered By: Bro Osorio on 12-99-9276Cmfxcinjun [Mass/Vol]Creatinine [Mass/volume] in Serum or Plasma 0.70-1.30[facility] CampusDipstick and Microscopicon 11-20-2024 Appearance (U)ClearNormalClearThe [facility] Physician GroupComment on above: Order Comment: Name Collection Type:: Clean-Voided MidstreamPerformed By: #### URDS, ADDONUAPLUS, CUU ####[address] [address] USABacteria,UrineNone SeenNormalNone SeenThe [facility] Physician GroupComment on above:Order Comment: Name Collection Type:: Clean- Voided MidstreamPerformed By: #### URDS, ADDONUAPLUS, CUU ####[address] [address] USABilirubin,UrineNegativeNormal NegativeThe [facility] Physician GroupComment on above:Order Comment: Name Collection Type:: Clean-Voided MidstreamPerformed By: #### URDS, ADDONUAPLUS, CUU ####[address] [address] [place] Color (U)YellowNormalYellowThe [facility] Physician GroupComment on above:Order Comment: Name Collection Type:: Clean-Voided MidstreamPerformed By: #### URDS, ADDONUAPLUS, CUU ####[id number] USAGlucose Ql (U)NormalNormalNormalThe [facility] Physician GroupComment on above:Order Comment: Name Collection Type:: Clean-Voided MidstreamPerformed By: #### URDS, ADDONUAPLUS, CUU ####[id number] USAHyaline Casts,UrineNoneNormal0-8The [facility] Physician GroupComment on above:Order Comment: Name Collection Type:: Clean- Voided MidstreamPerformed By: #### URDS, ADDONUAPLUS, CUU ####[place] [address] USAKetones Ql (U)NegativeNormal NegativeThe [facility] Physician GroupComment on above:Order Comment: Name Collection Type:: Clean-Voided MidstreamPerformed By: #### URDS, ADDONUAPLUS, CUU ####[id number] [place] Leukocyte esterase Test strip Ql (U)2+HighNegativeThe [facility] Comment on above:Order Comment: Name Collection Type:: Clean-Voided Midstream Performed By: #### URDS, ADDONUAPLUS, CUU ####[id number] USAMucus,Urine4+Critically abnormalThe [facility] Physician GroupComment on above:Order Comment: Name Collection Type:: Clean- Voided MidstreamResult Comment: PERFORMED BY: [facility] [address] [place] [id number] PATHOLOGIST [employer] HRMS DEVELOPER CROW ZAVALA M.D.Performed By: #### URDS, ADDONUAPLUS, CUU ####[id number] [place] Nitrite,UrineNegativeNormalNegativeThe [facility]ician GroupComment on above:Order Comment: Name Collection Type:: Clean-Voided MidstreamPerformed By: #### URDS, ADDONUAPLUS, CUU ####[address] [place] [address] USAOccult Blood,UrineNegativeNormalNegativeThe [facility] Physician GroupComment on above:Order Comment: Name Collection Type:: Clean-Voided MidstreamResult Comment: PERFORMED BY: [facility] [address] [id number] PATHOLOGIST [employer] HRMS DEVELOPER CROW ZAVALA M.D.Performed By: #### URDS, ADDONUAPLUS, CUU ####[place] [address] USApH (U) 6.5 [pH]Normal5.0-9.0The [facility] Physician GroupComment on above:Order Comment: Name Collection Type:: Clean-Voided MidstreamPerformed By: #### URDS, ADDONUAPLUS, CUU ####[place] [address] USAProtein (U) [Mass/Vol]30 mg/dLHighNegativeThe [facility]ician GroupComment on above:Order Comment: Name Collection Type:: Clean-Voided MidstreamPerformed By: #### URDS, ADDONUAPLUS, CUU ####[id number] USARBC,UrineNone SeenNormal0-4The [facility]ician GroupComment on above:Order Comment: Name Collection Type:: Clean-Voided MidstreamPerformed By: #### URDS, ADDONUAPLUS, CUU ####[place] [address] USASpecificy [place],Urine1.722Etpaat9.001-1.030The [facility] Physician GroupComment on above:Order Comment: Name Collection Type:: Clean-Voided MidstreamPerformed By: #### URDS, ADDONUAPLUS, CUU ####[place] [address] USASquamous Epithelial Cell,Tjlyt8-9Xhxuhb7-6Sjw [facility]ician GroupComment on above:Order Comment: Name Collection Type:: Clean-Voided MidstreamPerformed By: #### URDS, ADDONUAPLUS, CUU ####[id number] USAUrobilinogen,Urine3 mg/dLHighNormalThe [facility] GroupComment on above:Order Comment: Name Collection Type:: Clean-Voided MidstreamPerformed By: #### URDS, ADDONUAPLUS, CUU ####[place] [address] [place] WBC,Dbwyv3-2Ials4-0Uth [facility] GroupComment on above:Order Comment: Name Collection Type:: Clean-Voided MidstreamPerformed By: #### URDS, ADDONUAPLUS, CUU ####[place] [address] USADrug Screen,Urineon 96-86-9226Dltulmzstzi Screen,UrineNegativeNormal NegativeThe [facility]ician GroupComment on above:Performed By: #### URDS, ADDONUAPLUS, CUU ####[place] [address] USABarbiturate Screen,UrineNegativeNormalNegativeThe [facility] GroupComment on above:Performed By: #### URDS, ADDONUAPLUS, CUU ####[id number] USABenzodiazepines Screen,UrineNegativeNormalNegativeThe [facility] GroupComment on above: Performed By: #### URDS, ADDONUAPLUS, CUU ####[place] [address] USACannabinoid Screen,UrinePositiveHighNegative The [facility] Physician GroupComment on above:Result Comment: These are unconfirmed results and should not be used for legal purposes. Drug Cut-Off Concentration: AMPH 1000 ng/mL ANNAMARIA 200 ng/mL KATHRYN 200 ng/mL COCM 300 ng/mL OP 300 ng/mL PCP 25 ng/mL THC 20 ng/mL PERFORMED BY: [facility] [id number] PATHOLOGIST [employer] HRMS DEVELOPER CROW ZAAVLA M.D.Performed By: #### URDS, ADDONUAPLUS, CUU ####[facility] [address] [place] [address] USACocaine Screen,UrineNegativeNormalNegativeThe [facility]ician GroupComment on above:Performed By: #### URDS, ADDONUAPLUS, CUU ####[facility] [address] [place] [address] USAOpiate Screen,UrineNegativeNormal NegativeThe [facility]ician GroupComment on above:Performed By: #### URDS, ADDONUAPLUS, CUU ####[facility] [address] [place] [address] USAPhencyclidine Screen,UrineNegativeNormalNegativeThe [facility] GroupComment on above:Performed By: #### URDS, ADDONUAPLUS, CUU ####[facility] [address] [id number] [place] Eosinophils Auto (Bld) [#/Vol]Ordered By: Bro Osorio on 11-20-2024 Eosinophils (Bld) [#/Vol]Automated eosinophil count0.0-0.45[facility] CampusEosinophils/100 WBC Auto (Bld)Ordered By: Bro Osorio on 69-10-9444Mduffxuxboz/100 WBC (Bld)Automated eosinophil %.[facility] CampusEpithelial cells.squamous [#/area] in Urine sediment by Automated countOrdered By: Bro Osorio on 23-57-9827Xuirrrgwpo cells.squamous Auto (Urine sed) [#/Area]Epithelial cells.squamous [#/area] in Urine sediment by Automated count0-2FSumma Health Barberton CampusErythrocyte distribution width Auto (RBC) [Ratio]Ordered By: Bro Osorio on 05-47-8315Eqqmlxivmbz distribution width (RBC) [Ratio]Erythrocyte distribution width [Ratio] by Automated count12.0-14.8[facility] CampusErythrocytes [#/area] in Urine sediment by Automated countOrdered By: Bro Osorio on 11-20-2024 RBC Auto (Urine sed) [#/Area]Erythrocytes [#/area] in Urine sediment by Automated count0-4FSumma Health Barberton CampusEthanol [Mass/volume] in Serum or PlasmaOrdered By: Bro Osorio on 38-86-8006Kqlpgvf [Mass/Vol] Ethanol [Mass/volume] in Serum or PlasmaTrinity Health System East CampusComment on above:Test not performedEthyl Alcohol Profileon 12-36-4165Kqvtviy [Mass/Vol] mg/dLNoRutherford Regional Health System Physician GroupComment on above:Performed By: #### CBC, CMP, ETOH ####[facility] [address] [place] [address] USAPercent EthanolNot performedNoRutherford Regional Health System Physician GroupComment on above:Result Comment: PERFORMED BY: [facility] [address] [id number] PATHOLOGIST [employer] HRMS DEVELOPER CROW ZAVALA M.D.Performed By: #### CBC, CMP, ETOH ####[facility] [place] [address] USAGlobulin Calc (S) [Mass/Vol]Ordered By: Bro Osorio on 71-59-5888Jrgcpskk (S) [Mass/Vol] Serum globulin measurement by calculation (mass/volume)[facility] CampusGlucose [Mass/volume] in Serum or PlasmaOrdered By: Bro Osorio on 16-50-7044Lbxopol [Mass/Vol]Glucose [Mass/volume] in Serum or Plasma 70-100[facility] CampusComment on above:ADA recommended reference rangeRandom Glucose Reference Range is dependent on time and content of last meal. Glucose of more than 200 mg/dL in a nonstressed, ambulatory subject supports the diagnosisof Diabetes Mellitus.Glucose [Mass/volume] in Urine by Test stripOrdered By: Bro Osorio on 57-19-1003Cxynoxh Test strip (U) [Mass/Vol]Glucose [Mass/volume] in Urine by Test stripNormalTrinity Health System East CampusHematocrit Auto (Bld) [Volume fraction]Ordered By: Bro Osorio on 89-36-3175Klsowozdlf (Bld) [Volume fraction]Hematocrit [Volume Fraction] of Blood by Automated count38.8-50.0[facility] CampusHemoglobin Test strip Ql (U)Ordered By: rBo Osorio on 11-20-2024 Hemoglobin Ql (U)Hemoglobin [Presence] in Urine by Test stripNegSamaritan North Health CenterHemoglobin [Mass/volume] in BloodOrdered By: Bro Osorio on 31-35-8809Rwhsxfncxc (Bld) [Mass/Vol]Hemoglobin [Mass/volume] in Blood13.0-17.0[facility] CampusHyaline casts [#/area] in Urine sediment by Automated countOrdered By: Bro Osorio on 36-48-9287Pkryjzh casts Auto (Urine sed) [#/Area]Hyaline casts [#/area] in Urine sediment by Automated count0-8[facility] CampusKetones Test strip Ql (U) Ordered By: Bro Osorio on 66-14-8674Mwqthaz Ql (U)Ketones [Presence] in Urine by Test stripNegSamaritan North Health CenterLeukocyte esterase [Presence] in Urine by Test stripOrdered By: Bro Osorio on 11-20-2024 Leukocyte esterase Test strip Ql (U)Leukocyte esterase [Presence] in Urine by Test stripHighNegSamaritan North Health CenterLeukocytes [#/area] in Urine sediment by Automated countOrdered By: Bro Osorio on 87-34-3542OIR Auto (Urine sed) [#/Area]Leukocytes [#/area] in Urine sediment by Automated countHigh04FSumma Health Barberton CampusLeukocytes [#/volume] corrected for nucleated erythrocytes in Blood by Automated counOrdered By: Bro Osorio on 46-21-9996YXC corrected for nucl RBC Auto (Bld) [#/Vol]Leukocytes [#/volume] corrected for nucleated erythrocytes in Blood by Automated coun4.1-10.5FSumma Health Barberton CampusLymphocytes Auto (Bld) [#/Vol]Ordered By: Bro Osorio on 57-04-4291Pkuhtlroxun (Bld) [#/Vol]Lymphocytes [#/volume] in Blood by Automated count1.00-4.8[facility] CampusLymphocytes/100 WBC Auto (Bld)Ordered By: Bro Osorio on 26-09-0139Miytlkmbxrt/100 WBC (Bld) Lymphocytes/100 leukocytes in Blood by Automated count.[facility] CampusMCH Auto (RBC) [Entitic mass]Ordered By: Bro Osorio on 89-89-4433OIM (RBC) [Entitic mass]MCH [Entitic mass] by Automated count27.5-35.2 [facility] CampusMCHC Auto (RBC) [Mass/Vol]Ordered By: Bro Osorio on 54-85-3074HALG (RBC) [Mass/Vol]MCHC [Mass/volume] by Automated count 32.5-35.6FTrinity Health SystemV Auto (RBC) [Entitic vol]Ordered By: Bro Osorio on 02-48-6960YQW (RBC) [Entitic vol]MCV [Entitic volume] by Automated count83.5-101[facility] CampusMonocyte distribution width [Entitic volume] in Blood by AutomatedOrdered By: Bro Osorio on 70-54-3966Fxfmyhxf distribution width Auto (Bld) [Entitic vol]Monocyte distribution width [Entitic volume] in Blood by Automated0.00-20.00[facility] CampusMonocytes Auto (Bld) [#/Vol]Ordered By: Bro Osorio on 94-77-5242Snquorzrh (Bld) [#/Vol]Automated blood monocyte count0.0-0.8 [facility] CampusMonocytes/100 WBC Auto (Bld)Ordered By: Bro Osorio on 59-00-1076Hcmhtgcrm/100 WBC (Bld)Automated monocyte %. [facility] CampusMucus [Presence] in Urine by AutomatedOrdered By: Bro Osorio on 74-11-3981Pjqyb Auto Ql (U)Mucus [Presence] in Urine by AutomatedAbnormalTrinity Health System East CampusNeutrophils Auto (Bld) [#/Vol]Ordered By: Bro Osorio on 73-34-3308Lvfpsoflifw (Bld) [#/Vol] Neutrophils [#/volume] in Blood by Automated count1.8-7.7FSumma Health Barberton CampusNeutrophils/100 WBC Auto (Bld)Ordered By: Bro Osorio on 26-64-9361Smijiebjokr/100 WBC (Bld)Automated neutrophil %.[facility] CampusNitrite Test strip Ql (U)Ordered By: Bro Osorio on 95-24-9736Syyxqtc Ql (U)Nitrite [Presence] in Urine by Test stripNegative [facility] CampusNo Panel InformationOrdered By: Bro Osorio on 67-55-0583Gdapxevhj GFR (CKD-EPI)> 60.0 mL/MinTrinity Health System East CampusPharmacy Creatinine Clearance (Hlnp172.50[facility] CampusNucleated erythrocytes [Presence] in Blood by Automated count Ordered By: Bro Osorio on 85-63-1850Huxubqwsq RBC Auto Ql (Bld)Nucleated erythrocytes [Presence] in Blood by Automated count0-0.5FSumma Health Barberton CampusOpiates [Presence] in Urine by Screen methodOrdered By: Bro Osorio on 65-49-0611Dvjsocv Screen Ql (U)Opiates [Presence] in Urine by Screen methodNegSamaritan North Health CenterPhencyclidine Screen Ql (U) Ordered By: Bro Osorio on 61-55-5218Wbvrdqjpllfag Ql (U)Phencyclidine [Presence] in Urine by Screen methodNegSamaritan North Health Center Platelet mean volume Auto (Bld) [Entitic vol]Ordered By: Bro Osorio on 96-94-8499Tndjuxsw mean volume (Bld) [Entitic vol]Platelet mean volume [Entitic volume] in Blood by Automated count6.6-10.1FSumma Health Barberton Campus Platelets Auto (Bld) [#/Vol]Ordered By: Bro Osorio on 29-64-1610Otgnjqbuh (Bld) [#/Vol]Platelets [#/volume] in Blood by Automated -918BhvhvmiayTrinity Health System East CampusPotassium [Moles/volume] in Serum or PlasmaOrdered By: Bro Osorio on 25-65-2891Wrfkofqyw [Moles/Vol]Potassium [Moles/volume] in Serum or Plasma3.5-5.1FSumma Health Barberton CampusProtein Test strip (U) [Mass/Vol]Ordered By: Bro Osorio on 62-19-1464Pyupxhq (U) [Mass/Vol] Protein [Mass/volume] in Urine by Test stripHighNegSamaritan North Health CenterProtein [Mass/volume] in Serum or PlasmaOrdered By: Bro Osorio on 21-82-8982Wkpkumk [Mass/Vol]Protein [Mass/volume] in Serum or Plasma 6.4-8.9[facility] CampusRBC Auto (Bld) [#/Vol]Ordered By: Bro Osorio on 98-38-6677WPO (Bld) [#/Vol]Erythrocytes [#/volume] in Blood by Automated count3.90-5.60[facility] Westerum or plasma albumin/globulin mass ratioOrdered By: Bro Osorio on 11-20-2024 Albumin/Globulin [Mass ratio]Serum or plasma albumin/globulin mass ratio [facility] Westerum or plasma anion gap determinationOrdered By: Bro Osorio on 25-53-0550Jlnas gap [Moles/Vol]Serum or plasma anion gap determination6.0-15.0[facility] Westodium [Moles/volume] in Serum or PlasmaOrdered By: Bro Osorio on 63-30-6570Xeghzn [Moles/Vol] Sodium [Moles/volume] in Serum or Zsjupz601-760KbjxogqncTrinity Health System East Campus Specific gravity Test strip (U) [Rel density]Ordered By: Bro Osorio on 83-06-7335Nkbgzvat gravity (U) [Rel density]Specific gravity of Urine by Test strip1.001-1.030[facility] CampusUrea nitrogen [Mass/volume] in Serum or PlasmaOrdered By: Bro Osorio on 78-25-7099Erev nitrogen [Mass/Vol]Urea nitrogen [Mass/volume] in Serum or Plasma7-25[facility] CampusUrine Cultureon 17-35-5384Xzoowutf identified Cx Nom (U)<9,000 colonies/ml mixed bacterial skin contaminants 2 Days PERFORMED BY: [facility] [address] [place] [address] PATHOLOGIST [employer] HRMS DEVELOPER CROW ZAVALA M.D.NormalThe [facility] Physician GroupComment on above: Performed By: #### URKLAUDIA, KELLEN CASTAÑEDA ####[facility] [address] [place] [id number] USAUrine cultureOrdered By: Bro Osorio on 49-85-3736Uajmwgqv identified Cx Nom (U)Urine cultureTrinity Health System East CampusBacteria identified Cx Nom (U)Urine cultureTrinity Health System East CampusUrobilinogen Test strip (U) [Mass/Vol]Ordered By: Bro Osorio on 35-66-6266Kycduhbboorp (U) [Mass/Vol]Urobilinogen [Mass/volume] in Urine by Test stripMount Carmel Health SystemWBC Auto (Bld) [#/Vol]Ordered By: Bro Jo on 64-29-2539FLK (Bld) [#/Vol]Leukocytes [#/volume] in Blood by Automated count4.1-10.5FSumma Health Barberton CampuspH Test strip (U)Ordered By: Bro Osorio on 74-25-8455aE (U)pH of Urine by Test strip 5.0-9.0[facility] CampusCA ECHO DOPPLER COMPLETEon 75-39-7954[place] [address] Cardiology Report Signed Patient: SEAN MALONE MR#: [id number] : 1995 Acct:[id number] Age/Sex: 29 / M ADM Date: 06/08/24 Loc: CARD Attending Dr: GRISEL KHAN Ordering Physician: GRISEL KHAN Date of Service: 06/08/24 Procedure(s): CA echo doppler complete Accession Number(s): [id number] cc: GRISEL KHAN Patient Name: SEAN MALONE MR#: [id number] : 1995 Exam Date: 06/08/2024 Ordering Doctor: DR GRISEL TELLEZ ECHOCARDIOGRAM REPORT PROCEDURE: CA ECHO DOPPLER COMPLETE [...] Guillermo Bishop M.D. Signed By: 06/08/24 1452 (more content not included)...TBHRadiology, Radiologist, MD - 06/08/2024 [place] [address] Cardiology Report Signed Patient: SEAN MALONE MR#: [id number] : 1995 Acct:[id number] Age/Sex: 29 / M ADM Date: 06/08/24 Loc: CARD Attending Dr: GRISEL KHAN Ordering Physician: GRISEL KHAN Date of Service: 06/08/24 Procedure(s): CA echo doppler complete Accession Number(s): [id number] cc: GRISEL KHAN Patient Name: SEAN MALONE MR#: [id number] : 1995 Exam Date: 06/08/2024 Ordering Doctor: DR GRISEL TELLEZ ECHOCARDIOGRAM REPORT PROCEDURE: CA ECHO DOPPLER COMPLETE [...] Signed By: 06/08/24 1452 DD/ 1451 TD/TT: Registered Public Surveyor: ROLANDO HealthcareRadiology Study observation (narrative)P[facility] HOSPITALAnette HealthcareCA ECHO DOPPLER COMPLETEOrdered By: Radiologist Radiology on 77-13-6418[facility] Work Phone: Holter monitor 8 to 15 dayson 22-24-0758[place]av[place], [place] [address] Cardiology Report Signed Patient: SEAN MALONE MR#: [id number] : 1995 Acct:[id number] Age/Sex: 29 / M ADM Date: 05/04/24 Loc: CARD Attending Dr: GRISEL KHAN Ordering Physician: GRISEL KHAN Date of Service: 05/04/24 Procedure(s): CA holter monitor 7-15 days Accession Number(s): [id number] cc: GRISEL KHAN ; Physician,Non-Staff Lory [facility] Test Date: 2024-05-18 Pat Name: SEAN MALONE Department: Room: - 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 Signed By: 05/19/24 0707 05/19/24706 DD/ 1358 TD/TT: Registered Public Surveyor: ROLANDO [facility] Medical CenterHolter monitor 8 to 15 daysOrdered By: Radiologist Radiology on 46-34-1744QYXACameron Regional Medical Center Work Phone: [facility] John Hospitalter monitor 8 to 15 dayson 17-08-4062Vsaopjcam Study observation (narrative)[facility] HealthcareAlanine aminotransferase [Enzymatic activity/volume] in Serum or PlasmaOrdered By: Martin Phillip on 39-79-2558WUM [Catalytic activity/Vol]9 U/L7-52[facility] CampusAlbumin [Mass/volume] in Serum or Plasma by Bromocresol green (BCG) dye binding metho Ordered By: Martin Phillip on 34-38-4842Rxjiooa BCG dye [Mass/Vol]4.4 g/dL3.5-5.7 [facility] CampusAlkaline phosphatase [Enzymatic activity/volume] in Serum or PlasmaOrdered By: Martin Phillip on 95-28-5294IJG [Catalytic activity/Vol]61 U/G86-436ItsaoowkaTrinity Health System East CampusAspartate aminotransferase [Enzymatic activity/volume] in Serum or PlasmaOrdered By: Martin Phillip on 25-42-0890XVN [Catalytic activity/Vol]15 U/N42-70EizautohcTrinity Health System East CampusBasophils Auto (Bld) [#/Vol]Ordered By: Martin Phillip on 04-24-2024 Basophils (Bld) [#/Vol]0.1 10*3/uL0.0-0.2FSumma Health Barberton Campus Basophils/100 WBC Auto (Bld)Ordered By: Martin Phillip on 37-49-5264Wqsehcsyd/100 WBC (Bld)0.7 %.[facility] CampusBilirubin.total [Mass/volume] in Serum or PlasmaOrdered By: Martin Phillip on 32-79-5729Pqdqtgdnp [Mass/Vol]1.3 mg/dLHigh0.3-1.0[facility] CampusComment on above:Samples from patients who have taken Naproxen have shown spurious elevation in Total Bilirubin levels. A metabolite of Naproxen, O-desmethylnaproxen, has been shown to interfere with the Caleb-Sofia method for measuring Total Bilirubin. Calcium [Mass/volume] in Serum or PlasmaOrdered By: Martin Phillip on 04-24-2024 Calcium [Mass/Vol]9.7 mg/dL8.6-10.3FSumma Health Barberton CampusCarbon dioxide, total [Moles/volume] in Serum or PlasmaOrdered By: Martin Phillip on 90-58-9611RD2 [Moles/Vol]29.7 mmol/L21.0-31.0[facility] Chloride [Moles/volume] in Serum or PlasmaOrdered By: Martin Phillip on 04-24-2024 Chloride [Moles/Vol]106 mmol/T93-560JdrzzmvzwTrinity Health System East CampusCreatinine [Mass/volume] in Serum or PlasmaOrdered By: Martin Phillip on 11-42-9390Krtyagrixe [Mass/Vol]0.74 mg/dL0.70-1.30[facility] CampusEosinophils Auto (Bld) [#/Vol]Ordered By: Martin Phillip on 93-75-3452Clhbmqkfxac (Bld) [#/Vol]0.3 10*3/uL0.0-0.45[facility] CampusEosinophils/100 WBC Auto (Bld) Ordered By: Martin Phillip on 48-27-6976Ftcxquaaspp/100 WBC (Bld)3.8 %.[facility] CampusErythrocyte distribution width Auto (RBC) [Ratio]Ordered By: Martin Phillip on 74-35-4468Vdfbwjdjjrg distribution width (RBC) [Ratio]14.5 % 12.0-14.8[facility] CampusGlobulin Calc (S) [Mass/Vol]Ordered By: Martin Phillip on 05-39-9892Nuaoilnh (S) [Mass/Vol]2.7 g/dLTrinity Health System East CampusGlucose [Mass/volume] in Serum or PlasmaOrdered By: Martin Phillip on 84-64-4101Fvopuot [Mass/Vol]83 mg/hL69-729ThgsagvgcTrinity Health System [facility] Campus Comment on above:ADA recommended reference rangeRandom Glucose Reference Range is dependent on time and content of last meal. Glucose of more than 200 mg/dL in a nonstressed, ambulatory subject supports the diagnosisof Diabetes Mellitus. Hematocrit Auto (Bld) [Volume fraction]Ordered By: Martin Phililp on 04-24-2024 Hematocrit (Bld) [Volume fraction]42.4 %38.8-50.0[facility] CampusHemoglobin [Mass/volume] in BloodOrdered By: Martin Phillip on 04-24-2024 Hemoglobin (Bld) [Mass/Vol]14.3 g/dL13.0-17.0[facility] Leukocytes [#/volume] corrected for nucleated erythrocytes in Blood by Automated counOrdered By: Martin Phillip on 06-84-3976TSI corrected for nucl RBC Auto (Bld) [#/Vol]7.9 10*3/uL4.1-10.5FSumma Health Barberton CampusLymphocytes Auto (Bld) [#/Vol]Ordered By: Martin Phillip on 23-23-5472Phembyrflxw (Bld) [#/Vol]3.1 10*3/uL1.00-4.8[facility] CampusLymphocytes/100 WBC Auto (Bld) Ordered By: Martin Phillip on 01-07-2720Ctxavseolcu/100 WBC (Bld)38.7 %.[facility] CampusMCH Auto (RBC) [Entitic mass]Ordered By: Martin Phillip on 08-06-6702TPU (RBC) [Entitic mass]32.4 pg27.5-35.2FSumma Health Barberton CampusMCHC Auto (RBC) [Mass/Vol]Ordered By: Martin Phillip on 58-31-1518FKVK (RBC) [Mass/Vol]33.7 g/dL32.5-35.6FSumma Health Barberton CampusMCV Auto (RBC) [Entitic vol]Ordered By: Martin Phillip on 04-73-6976PJY (RBC) [Entitic vol]96.1 fL 83.5-101[facility] CampusMonocytes Auto (Bld) [#/Vol]Ordered By: Martin Phillip on 46-83-7281Nppbpxerk (Bld) [#/Vol]1.3 10*3/uLHigh0.0-0.8[facility] CampusMonocytes/100 WBC Auto (Bld)Ordered By: Martin Phillip on 08-59-3056Utwiitadz/100 WBC (Bld)16.2 %.[facility] Neutrophils Auto (Bld) [#/Vol]Ordered By: Martin Phillip on 46-66-8485Antmpyvfezg (Bld) [#/Vol]3.2 10*3/uL1.8-7.7FSumma Health Barberton CampusNeutrophils/100 WBC Auto (Bld)Ordered By: Martin Phillip on 65-64-9414Ilapafvetzz/100 WBC (Bld)40.6 %.[facility] CampusNo Panel InformationOrdered By: Martin Phillip on 35-43-5542Oaqqetgev GFR (CKD-EPI)> 60.0 mL/MinTrinity Health System East CampusPharmacy Creatinine Clearance (Tanw464.20[facility] Nucleated erythrocytes [Presence] in Blood by Automated countOrdered By: Martin Phillip on 53-52-0218Ulmmotili RBC Auto Ql (Bld)0.2 /100{WBC}0-0.5FSumma Health Barberton CampusPlatelet mean volume Auto (Bld) [Entitic vol]Ordered By: Martin Phillip on 09-93-9683Catnqkdv mean volume (Bld) [Entitic vol]8.2 fL6.6-10.1 [facility] CampusPlatelets Auto (Bld) [#/Vol]Ordered By: Martin Phillip on 74-39-6238Omyhmpuqj (Bld) [#/Vol]230 10*3/wG087-145PqmejookiTrinity Health System East CampusPotassium [Moles/volume] in Serum or PlasmaOrdered By: Martin Phillip on 42-67-8230Dfpvcsczp [Moles/Vol]4.1 mmol/L3.5-5.1FSumma Health Barberton CampusProtein [Mass/volume] in Serum or PlasmaOrdered By: Martin Phillip on 20-20-4811Huzasib [Mass/Vol]7.1 g/dL6.4-8.9[facility] CampusRBC Auto (Bld) [#/Vol]Ordered By: Martin Phillip on 44-74-9137DUR (Bld) [#/Vol]4.42 10*6/uL3.90-5.60[facility] Westerum or plasma albumin/globulin mass ratioOrdered By: Martin Phillip on 18-14-8109Dypovuw/Globulin [Mass ratio]1.6 {ratio}[facility] Westerum or plasma anion gap determinationOrdered By: Martin Phillip on 16-69-2272Maler gap [Moles/Vol]9.4 mmol/L6.0-15.0[facility] Westodium [Moles/volume] in Serum or PlasmaOrdered By: Martin Phillip on 79-47-0653Mogway [Moles/Vol]141 mmol/U960-723 [facility] CampusUrea nitrogen [Mass/volume] in Serum or Plasma Ordered By: Martin Phillip on 97-77-1331Fiuo nitrogen [Mass/Vol]10 mg/dL7-25 [facility] CampusWBC Auto (Bld) [#/Vol]Ordered By: Martin Phillip on 26-11-7877NXX (Bld) [#/Vol]7.9 10*3/uL4.1-10.5FSumma Health Barberton CampusAmphetamine Screen Ql (U)Ordered By: Martin Phillip on 82-04-6215Sncdrjlansug Ql (U)NegativeNegSamaritan North Health CenterBarbiturates [Presence] in Urine by Screen methodOrdered By: Martin Phillip on 41-79-8495Cgvszypldmex Screen Ql (U)NegativeNegSamaritan North Health CenterBenzodiazepines Screen Ql (U)Ordered By: Martin Phillip on 29-26-3190Mzzlhscsjovvjoc Ql (U)Negative NegativeTrinity Health System East CampusBenzoylecgonine [Presence] in Urine by Screen methodOrdered By: Martin Phillip on 88-08-6854Vdjgqrkezpnxomh Screen Ql (U) NegativeNegSamaritan North Health CenterC reactive protein [Mass/volume] in Serum or PlasmaOrdered By: Martin Phillip on 58-63-3757BFS [Mass/Vol]3.0 mg/dLHigh0.0-0.5FSumma Health Barberton CampusCannabinoids [Presence] in Urine by Screen methodOrdered By: Martin Phillip on 04-23-2024 Cannabinoids Screen Ql (U)PositiveHighNegSamaritan North Health Center Comment on above:These are unconfirmed results and should not be used for legal purposes. Drug Cut-Off Concentration: AMPH 1000 ng/mL ANNAMARIA 200 ng/mL KATHRYN 200 ng/mL COCM 300 ng/mL OP 300 ng/mL PCP 25 ng/mL THC 20 ng/mLCholesterol [Mass/volume] in Serum or PlasmaOrdered By: Martin Phillip on 81-76-0084Culrllzoryo [Mass/Vol]124 mg/rTQpo389-802DxznsafokTrinity Health System East CampusComment on above: Chol less than 200 mg/dl low riskChol 201-239 mg/dl borderline riskChol 240 mg/dl and greater high riskCholesterol in LDL Calc [Mass/Vol]Ordered By: Martin Phillip on 23-65-8817Umlsguglcab in LDL [Mass/Vol]57 mg/dL0-100[facility] CampusComment on above:LDL ATP III CLASSIFICATIONLDL less than 100 mg/dL OptimalLDL 100-129 mg/dL Near or above eswbutcMVG879-359 mg/dL Borderline highLDL 160-189 mg/dL HighLDL greater than 189 mg/dL Very highCholesterol in VLDL Calc [Mass/Vol]Ordered By: Martin Phillip on 59-91-1027Atjvzaiokek in VLDL [Mass/Vol]8 mg/dLTrinity Health System East CampusErythrocyte sedimentation rate by Photometric methodOrdered By: Martin Phillip on 36-27-1890FFH Photometric method (Bld) [Velocity]4 mm/hr0-14[facility] CampusGlucose mean value [Mass/volume] in Blood Estimated from glycated hemoglobinOrdered By: Martin Phillip on 12-10-4436Kalkrma glucose Estimated from glycated hemoglobin (Bld) [Mass/Vol]114 mg/dLTrinity Health System East CampusHemoglobin A1c percentage Ordered By: Martin Phillip on 78-75-3249NgT3q (Bld) [Mass fraction]5.6 %4.3-5.6 [facility] CampusComment on above:Increased risk for diabetes: 5.7 - 6.4diabetes: >6.4glycemic control for adults with diabetes: <7.0 Magnesium [Mass/volume] in Serum or PlasmaOrdered By: Martin Phillip on 04-23-2024 Magnesium [Mass/Vol]1.8 mg/dLLow1.9-2.7FSumma Health Barberton CampusOpiates [Presence] in Urine by Screen methodOrdered By: Martin Phillip on 40-15-2525Qompmii Screen Ql (U)PositiveHighNegativeTrinity Health System East CampusPhencyclidine Screen Ql (U)Ordered By: Martin Phillip on 22-54-8981Uphonrifwvblv Ql (U)Negative NegativeTrinity Health System East CampusPhosphate [Mass/volume] in Serum or PlasmaOrdered By: Martin Phillip on 07-68-9846Hgceylqzs [Mass/Vol]4.0 mg/dL2.5-4.5 [facility] Westerum or plasma free cefuroxime measurement (mass/volume)Ordered By: Ashlee Moura on 55-89-1218Etwwhupyak free [Mass/Vol] NegativeNegativeTrinity Health System East CampusComment on above:Performed at: [facility] [id number] Director: Jevon Enriquez PhD, Phone: [phone] or plasma high density lipoprotein (HDL) cholesterol measurementOrdered By: Martin Phillip on 36-36-4454Tmalxuxlpzg in HDL [Mass/Vol]58 mg/gX80-98QamxuprrgTrinity Health System East CampusComment on above:HDL CHOL ATP-III CLASSIFICATION Cardiovascular RiskHDL > or equal to 60 mg/dL LOWHDL < 40 mg/dL HIGHSerum or plasma total cholesterol/high density lipoprotein (HDL) cholesterol mass ratOrdered By: Martin Phillip on 04-23-2024 Cholesterol.total/Cholesterol in HDL [Mass ratio]2.1 {ratio}<5.0[facility] CampusTriglyceride [Mass/volume] in Serum or PlasmaOrdered By: Martin Phillip on 77-52-9192Vemniufmoseq [Mass/Vol]44 mg/dL0-149[facility] CampusComment on above:TRIG ATP III CLASSIFICATIONTRIG less than 150 mg/dL NormalTRIG 150-199 mg/dL Borderline highTRIG 200-500 mg/dL High TRIG greater than 500 mg/dL Very highStandard traceable to the Center for Disease Co nrtrol and Prevention (CDC) test method.Troponin I.cardiac [Mass/volume] in Serum or Plasma by Detection limit <= 0.01 ng/Ordered By: Martin Phillip on 23-50-8122Cdqbuznk I.cardiac DL <= 0.01 ng/mL [Mass/Vol]3.2 pg/mL0.0-20.0 [facility] CampusNo Panel InformationOrdered By: Radiologist Radiology on 22-60-2949[facility] Work Phone: No Panel Informationon 36-50-5044Gvrhiajey Study observation (narrative)[facility]OMS HealthcareXR KNEE STANDING BIon 42-16-8671DgyNorm[place], [place] [address] XRay Report Signed Patient: SEAN MALONE MR#: [id number] : 1995 Acct:[id number] Age/Sex: 28 / M ADM Date: 11/05/23 Loc: RAD Attending Dr: GRISEL KHAN Ordering Physician: GRISEL KHAN Date of Service: 11/05/23 Procedure(s): XR knee standing BI Accession Number(s): [id number] cc: GRISEL KHAN ; Physician,Non-Staff M.D. The [address] [address] Patient Name: SEAN MALONE MRN: [id number] date: 1995 Sex: M Assigned Patient Location: [facility] Current Patient Location: RAD Accession/Order Number: [id number] Exam Date: 11/05/2023 09:38 Report Date: 11/05/2023 09:56 At the request of: GRISEL KHAN Procedure: XR knee standing BI EXAMINATION: XR [...] Dictated By: Gold Sadler M.D. Signed By: 11/05/23957 DD/ 5 TD/TT: Registered Public Surveyor:Mandeep Spencer MD - 11/06/2023 [place] [address] XRay Report Signed Patient: SEAN MALONE MR#: [id number] : 1995 Acct:[id number] Age/Sex: 28 / M ADM Date: 11/05/23 Loc: RAD Attending Dr: GRISEL KHAN Ordering Physician: GRISEL KHAN Date of Service: 11/05/23 Procedure(s): XR knee standing BI Accession Number(s): [id number] cc: GRISEL KHAN ; Physician,Non-Staff M.DIrvin The [place] [address] Patient Name: SEAN MALONE MRN: [id number] date: 1995 Sex: M Assigned Patient Location: [facility] Current Patient Location: [facility] Accession/Order Number: [id number] Exam Date: 11/05/2023 09:38 Report Date: 11/05/2023 09:56 At the request of: GRISEL KHAN Procedure: XR knee standing BI EXAMINATION: XR [...] Dictated By: Gold Sadler M.D. Signed By: 11/05/23957 DD/ 5 TD/TT: Registered Public Surveyor: ROLANDO [facility] CenterXR Knee - bilateral 4 Viewson 58-42-7369YaoNorm[place], [place] [address] XRay Report Signed Patient: SEAN MALONE MR#: [id number] : 1995 Acct:[id number] Age/Sex: 28 / M ADM Date: 11/05/23 Loc: RAD Attending Dr: GRISEL KHAN Ordering Physician: GRISEL KHAN Date of Service: 11/05/23 Procedure(s): XR knee YURIY 4V Accession Number(s): [id number] cc: GRISEL KHAN ; Physician,Non-Staff M.DIrvin The [place] [address] Patient Name: SEAN MALONE MRN: [facility]:[id number] date: 1995 Sex: M Assigned Patient Location: [facility] Current Patient Location: [facility] Accession/Order Number: [id number] Exam Date: 11/05/2023 09:30 Report Date: 11/05/2023 09:56 At the request of: GRISEL KHAN Procedure: XR knee YURIY 4V EXAMINATION: XR [...] Dictated By: Gold Sadler M.D. Signed By: 11/05/23 0958 DD/ 0956 TD/TT: Registered Public Surveyor:GUNNERadiologалександр, Radiologist, - 11/05/2023 [place] [address] XRay Report Signed Patient: SEAN MALONE MR#: [id number] : 1995 Acct:[id number] Age/Sex: 28 / M ADM Date: 11/05/23 Loc: RAD Attending Dr: GRISEL KHAN Ordering Physician: GRISEL KHAN Date of Service: 11/05/23 Procedure(s): XR knee YURIY 4V Accession Number(s): [id number] cc: GRISEL KHAN ; Physician,Non-Staff M.D. [place] [address] Patient Name: SEAN MALONE MRN: [id number] date: 1995 Sex: M Assigned Patient Location: RAD Current Patient Location: [facility] Accession/Order Number: [id number] Exam Date: 11/05/2023 09:30 Report Date: 11/05/2023 09:56 At the request of: GRISEL KHAN Procedure: XR knee YURIY 4V EXAMINATION: XR [...] Gold Sadler M.D. Signed By: 11/05/2358 DD/ TD/TT: Registered Public Surveyor: ROLANDO Zaman Hand - left 3 View[address] 31-54-3817[place]cv[place], [place] [address] XRay Report Signed Patient: SEAN MALONE MR#: [id number] : 1995 Acct:[id number] Age/Sex: 28 / M ADM Date: 10/28/23 Loc: RAD Attending Dr: GRISEL KHAN Ordering Physician: GRISEL KHAN Date of Service: 10/28/23 Procedure(s): XR hand LT min 3V Accession Number(s): [id number] cc: GRISEL KHAN ; Physician,Non-Staff Lory The [address] [address] Patient Name: SEAN MALONE MRN: [id number] date: 1995 Sex: M Assigned Patient Location: RAD Current Patient Location: Accession/Order Number: [id number] Exam Date: 10/28/2023 12:47 Report Date: 10/29/2023 10:49 At the request of: GRISEL KHAN Procedure: XR hand LT min 3V PROCEDURE: [...] 10:49 Dictated By: Belia Putnam M.D. Signed By: 10/29/23 1051 DD/ 1049 TD/TT: Registered Public Surveyor:GUNNERadiology, Radiologist, - 10/29/2023 [place] [address] XRay Report Signed Patient: SEAN MALONE MR#: [id number] : 1995 Acct:[id number] Age/Sex: 28 / M ADM Date: 10/28/23 Loc: RAD Attending Dr: GRISEL KHAN Ordering Physician: GRISEL KHAN Date of Service: 10/28/23 Procedure(s): XR hand LT min 3V Accession Number(s): [id number] cc: GRISEL KHAN ; Physician,Non-Staff [place] [facility] [place] [address] Patient Name: SEAN MALONE MRN: [facility]:[id number] date: 1995 Sex: M Assigned Patient Location: RAD Current Patient Location: Accession/Order Number: [id number] Exam Date: 10/28/2023 12:47 Report Date: 10/29/2023 10:49 At the request of: GRISEL KHAN Procedure: XR hand LT min 3V PROCEDURE: [...] 10:49 Dictated By: Belia Putnam M.D. Signed By: 10/29/23 1051 DD/ 1049 TD/TT: Registered Public Surveyor: ROLANDO HealthcareRadiology Study observation (narrative)[facility] HealthcareXR Hand - left 3 ViewsOrdered By: Radiologist Radiology on 39-67-4090[facility] Work Phone: cOVID Quick Testingon 87-73-0762KygjtmOadkjfjqTlszq [employer] Other Vital Signs Date TimeVital SignValuePerforming QrmkvbbeiOgmusaxy27-51-7790 01:56-0500 Diastolic blood zpmescjx97 mm[Hg]Grisel Khan GAS WELDER-C Work Phone: [facility]11-02-2025 01:56-0500 Heart rate71 /Mulu Garciamer GAS WELDER-C Work Phone: [facility]11-02-2025 01:56-0500 Respiratory rate20 /Mulu Garciamer GAS WELDER-C Work Phone: [facility]11-02-2025 01:56-0500 SaO2% (BldA) [Mass fraction]95 %Grisel Hemmer GAS WELDER-C Work Phone: 1(867)[address] [place], [place] 3523511-02-2025 01:56-0500 Systolic blood jaurhcmh724 mm[Hg]Grisel Hemmer GAS WELDER-C Work Phone: 1(707)[address] [place], [place] 3523511-01-2025 23:22-0400 Body ymyttj947.72 cmTulioen Hemmer GAS WELDER-C Work Phone: 1(498)[address] [place], [place] 3523511-01-2025 23:22-0400 Body zksnmmdqxqy42.4 [degF]Grisel Hemmer GAS WELDER-C Work Phone: 1(149)[address] [place], [place] 3523511-01-2025 23:22-0400 Body cqqmpu33.5 kgTulioen Hemmer GAS WELDER-C Work Phone: 1(184)[address] [place], [place] 3523507-11-2025 09:40-0400 Body loghrp606.2 cmTulioen Hemmer PA Work Phone: 1(748)[address] [place], [place] 3611607-11-2025 09:40-0400Body mass index (BMI) [Ratio]21.77 kg/f1Rdrvo Hemmer PA Work Phone: 1(982)[address] [place], [place] 3611607-11-2025 09:40-0400Body .05 kgKaren Hemmer PA Work Phone: 1(159)[address] [place], [place] 3611607-11-2025 09:40-0400Diastolic blood aficxgca64 mm[Hg]Grisel Hemmer PA Work Phone: 1(721)[address] [place], [place] 3611607-11-2025 09:40-0400Heart rate68 /min Grisel Hemmer PA Work Phone: 1(145)[address] [place], [place] 3611607-11-2025 09:40-0400Respiratory rate16 /minTulioen Hemmer PA Work Phone: 1(330)[address] [place], [place] 3611607-11-2025 09:40-0531QzW8% (BldA) [Mass fraction]98 %Grisel Hemmer PA Work Phone: 1(141)[address] [place], [place] 3611607-11-2025 09:40-0400Systolic blood fuipjcpu92 mm[Hg]Grisel Hemmer PA Work Phone: [facility] CenterSybnudxmpl55-09-6440 10:38-0400Body wlxgor404.72 cmKaren Hemmer GAS WELDER-C Work Phone: 1(684)[address] [place], [place] 3523505-15-2025 10:38-0400 Body mass index (BMI) [Ratio]20.9 kg/v1Haujr Hemmer GAS WELDER-C Work Phone: 1(419)[address] [place], [place] 3523505-15-2025 10:38-0400 Body qkdqye69.59 kgKaren Hemmer GAS WELDER-C Work Phone: 1(308)[address] [place], [place] 3523505-15-2025 10:38-0400 Diastolic blood nqostxuk09 mm[Hg]Grisel Hemmer GAS WELDER-C Work Phone: 1(073)[address] [place], [place] 3523505-15-2025 10:38-0400 Heart rate68 /minKaren Hemmer GAS WELDER-C Work Phone: 1(419)[address] [place], [place] 3523505-15-2025 10:38-0400 Respiratory rate18 /minKaren Hemmer GAS WELDER-C Work Phone: 1(739)[address] [place], [place] 3523505-15-2025 10:38-0400 SaO2% (BldA) [Mass fraction]97 %Grisel Hemmer GAS WELDER-C Work Phone: 1(884)[address] [place], [place] 3523505-15-2025 10:38-0400 Systolic blood doyvftvq873 mm[Hg]Grisel Hemmer GAS WELDER-C Work Phone: 1(419)[address] [place], [place] 3523503-03-2025 11:25-0500 Body ukclplwpwgm05 [degF]Grisel Hemmer GAS WELDER-C Work Phone: 1(739)[address] [place], [place] 3523503-03-2025 11:25-0500 Diastolic blood koojkzey07 mm[Hg]Grisel Hemmer GAS WELDER-C Work Phone: 1(698)[address] [place], [place] 3523503-03-2025 11:25-0500 Heart rate81 /minKaren Hemmer GAS WELDER-C Work Phone: 1(140)516-[address] [place], [place] 1286303-03-2025 11:25-0500 Respiratory rate16 /minKaren Hemmer GAS WELDER-C Work Phone: [phone])[address] [place], [place] 3523503-03-2025 11:25-0500 SaO2% (BldA) [Mass fraction]98 %Grisel Hemmer GAS WELDER-C Work Phone: [phone])[address] [place], [place] 3523503-03-2025 11:25-0500 Systolic blood zkacwmew416 mm[Hg]Grisel Hemmer GAS WELDER-C Work Phone: [phone])[address] [place], [place] 3523503-03-2025 08:46-0500 Body kgKaren Hemmer GAS WELDER-C Work Phone: [phone])[address] [place], [place] 3523502-28-2025 13:51-0500 Body bprsen364.72 cmKaren Hemmer GAS WELDER-C Work Phone: 1(616)[address] [place], [place] 3523502-28-2025 12:47-0500 Diastolic blood dkdrrbvo28 mm[Hg]Grisel Hemmer GAS WELDER-C Work Phone: [phone])[address] [place], [place] 3523502-28-2025 12:47-0500 Heart rate86 /minKaren Hemmer GAS WELDER-C Work Phone: 1(757)[address] [place], [place] 3523502-28-2025 12:47-0500 Respiratory rate18 /minKaren Hemmer GAS WELDER-C Work Phone: 1(311)[address] [place], [place] 3523502-28-2025 12:47-0500 SaO2% (BldA) [Mass fraction]99 %Grisel Hemmer GAS WELDER-C Work Phone: [phone])[address] [place], [place] 3523502-28-2025 12:47-0500 Systolic blood ukfdkuho931 mm[Hg]Grisel Hemmer GAS WELDER-C Work Phone: 1419)[address] [place], [place] 3523502-28-2025 10:41-0500 Body gohvoa338.26 cmKaren Hemmer GAS WELDER-C Work Phone: 1(225)[address] [place], [place] 3523502-28-2025 10:41-0500 Body fmslmxmactn35.1 [degF]Grisel Hemmer GAS WELDER-C Work Phone: 1(932)108-[address] [place], [place] 7865302-28-2025 10:41-0500 Body uyjtbg44.5 kgKaren Hemmer GAS WELDER-C Work Phone: 1(400)[address]01-07-2025 08:34-0500 Body ukjuaa851.2 cmKaren Hemmer PA Work Phone: 1(453)236-[address] [place], [place] [address]Rfeqtrxubp64-78-3651 08:34-0500Body mass index (BMI) [Ratio]21.46 kg/s5Opzba Hemmer PA Work Phone: [facility] CenterIlzogzwfvo25-93-8111 08:34-0500Body wmdmmo77.14 kgKaren Hemmer PA Work Phone: [facility] CenterMtctrbsnaq21-16-4093 08:34-0500Diastolic blood dupmknyh82 mm[Hg]Grisel Hemmer PA Work Phone: [facility] CenterTdepklbann04-38-2924 08:34-0500Heart rate80 /min Grisel Hemmer PA Work Phone: 1(724)[facility]-0433[facility] CenterZiviapqiia42-68-8434 08:34-0500Respiratory rate16 /minTulioen Hemmer PA Work Phone: [facility] CenterKepituvowt07-19-7185 08:34-6141NeR6% (BldA) [Mass fraction]96 %Grisel Hemmer PA Work Phone: [facility] CenterWtvrcjajkc25-67-5209 08:34-0500Systolic blood mm[Hg]Grisel Hemmer PA Work Phone: [facility] CenterIjwajwdbvw11-83-0343 12:03-0400Body xeqzra142.72 cmMD Martinrichard Antunezki Work Phone: [facility]10-28-2024 12:03-0400 Body mass index (BMI) [Ratio]20.8 kg/m2MD Martin Marjan Work Phone: [facility]10-28-2024 12:03-0400 Body ouityx01.14 kgMD Martin Marjan Work Phone: [facility]10-28-2024 12:03-0400 Diastolic blood mm[Hg]MD Martin Phillip Work Phone: [facility]10-28-2024 12:03-0400 Heart rate90 /minMD Martin Marjan Work Phone: [facility]10-28-2024 12:03-0400 Respiratory rate18 /min Martin Phillip Work Phone: [address] [place], [place] 4444210-28-2024 12:03-0400 SaO2% (BldA) [Mass fraction]97 %MD Martin Phillip Work Phone: [facility]10-28-2024 12:03-0400 Systolic blood yfyqwbrn228 mm[Hg]MD Martin Phillip Work Phone: [address] [place], [place] 4444210-07-2024 09:02-0400 Body xsvnow999.2 cmTulioen Hemmer PA Work Phone: [facility] CenterWydwblseqq51-82-3637 09:02-0400Body mass index (BMI) [Ratio]21.46 kg/p7Qkcax Hemmer PA Work Phone: [facility] CenterNkrsxgwdlk84-81-6048 09:02-0400Body wgddba45.14 kgGrisel Hemmer PA Work Phone: [facility] CenterGupoymirgv14-13-0903 09:02-0400Diastolic blood akjckcko35 mm[Hg]Grisel Hemmer PA Work Phone: [facility] CenterEutddxykse71-00-1882 09:02-0400Heart rate71 /min Grisel Hemmer PA Work Phone: [facility] CenterIugmgsbwno36-02-9767 09:02-0400Respiratory rate16 /minTulioen Hemmer PA Work Phone: [facility] CenterWdusvuzvjt81-33-0835 09:02-0528QvF6% (BldA) [Mass fraction]96 %Grisel Hemmer PA Work Phone: [facility] CenterTeezljycsw66-04-5735 09:02-0400Systolic blood fyvdapqa10 mm[Hg]Grisel Garciamer PA Work Phone: [facility] CenterBlcocaxjky99-14-8173 12:25-0400Body etynju796.72 cmMD Martin Phillip Work Phone: [facility]09-20-2024 12:25-0400 Diastolic blood ykucgvjh53 mm[Hg]MD Martin Phillip Work Phone: [facility]09-20-2024 12:25-0400 Heart rate67 /minMD Martin Phillip Work Phone: [phone]09-20-2024 12:25-0400 Respiratory rate18 /minMD Martin Phililp Work Phone: [phone])[phone] [place], [place] 1283609-20-2024 12:25-0400 SaO2% (BldA) [Mass fraction]98 %MD Martin Phillip Work Phone: [facility]09-20-2024 12:25-0400 Systolic blood zanddntc728 mm[Hg]MD Martin Phillip Work Phone: [facility]09-09-2024 09:01-0400 Body mass index (BMI) [Ratio]21.39 kg/v4Yfsar Hemmer PA Work Phone: [facility] [id number] 09:01-0400Body undhdy53.96 kgGrisel Hemmer PA Work Phone: [facility] CenterKgqalqkucf55-32-5770 09:01-0400Diastolic blood vwdlxzes82 mm[Hg]Grisel Hemmer PA Work Phone: [facility] CenterQbwuxqzdvk76-20-2810 09:01-0400Heart rate85 /min Grisel Hemmer PA Work Phone: [facility] CenterJoqjqtbtcq25-75-9523 09:01-0400Respiratory rate17 /minKaren Hemmer PA Work Phone: noSSM Health CareHwpjrggvzr36-62-1940 09:01-9948PtS8% (BldA) [Mass fraction]97 %Grisel TELLEZ Work Phone: noSSM Health CareKyyewziyxx95-66-2242 09:01-0400Systolic blood cldhlebi080 mm[Hg]Grisel TELLEZ Work Phone: noSSM Health CareWpguupamwe11-36-5314 11:31-0400Body temperature 98.6 [degF]MD Martin Phillip Work Phone: [address] [place], [place] 4444208-02-2024 11:31-0400 Diastolic blood piohaonk14 mm[Hg]MD Martin Phillip Work Phone: [address] [place], [place] 4444208-02-2024 11:31-0400 Heart rate88 /minMD Martin Phillip Work Phone: [phone] [place], [place] 1283608-02-2024 11:31-0400 Respiratory rate16 /minMD Martin Phillip Work Phone: [address] [place], [place] 4444208-02-2024 11:31-0400 SaO2% (BldA) [Mass fraction]100 %MD Martin Phillip Work Phone: [facility]08-02-2024 11:31-0400 Systolic blood fweazder101 mm[Hg]MD Martin Phillip Work Phone: [address] [place], [place] 4444208-02-2024 06:00-0400 Body cpybvz93.4 kgMD Martin Phillip Work Phone: [address] [place], [place] 4444208-01-2024 13:32-0400 Body xhmdus009.18 cmMD Martin Phillip Work Phone: [address] [place], [place] 4444202-09-2024 10:48-0500 Body mass index (BMI) [Ratio]21.77 kg/i6OoofyGrisel TELLEZ Work Phone: [facility] CenterZxxrufyhno25-40-7557 10:48-0500Body jhhuvh22.05 kgGrisel Garciamer PA Work Phone: noEvergageIzglekyssb42-63-9054 10:48-0500Diastolic blood sgkuwpwt46 mm[Hg]Grisel Garciamer PA Work Phone: noEvergageCxbxmxoszp79-54-1481 10:48-0500Heart rate83 /min Grisel Hemmer PA Work Phone: noEvergageTnopksxcqy92-15-5453 10:48-9729QoH4% (BldA) [Mass fraction]94 %Grisel Garciamer PA Work Phone: noEvergageJhubdbgkiw96-71-0352 10:48-0500Systolic blood yjjqqwqi150 mm[Hg]Grisel Garciamer PA Work Phone: noEvergageRbpswervce57-91-4425 14:30-0500Body gxdkqo136.18 cmSjanusz Milton Other [facility] Other 02-10-2022 14:30-0500Body mass index (BMI) [Ratio] 21.92 kg/n2Mqsecuuuzanmol Milton Other [employer] Other 02-10-2022 14:30-0500Body zppytzaiefm74.7 [degF] Elizabeth Milton Other [facility] Other 02-10-2022 14:30-0500Body zzixvw48.5 kgStanmol Milton Other [employer] Other 02-10-2022 14:30-0500Respiratory rate21 /minSjanusz Milton Other [facility] Other 02-10-2022 14:30-0472MuS3% (BldA) [Mass fraction]98 % Elizabeth Milton Other [facility] Other Encounters Encounter DateEncounter TypeCare ProviderFacilityStart: 21-33-2873ubuxhipgdv Dontrell [facility] DEPARTMENTStart: 07-24-2025 End: 23-88-5135Pewsybbwp department patient visitGrisel Hemmer GAS WELDER-C Work Phone: [phone]-Zlmjxngbp Room Work Phone: Start: 97-66-6032ummzftmrxqFtnjl Hemmer [facility]: 66-46-8744Gltsbrvypr Recurring Kash CAPPS CredibleStart: 05-06-2025 End: 47-37-1599tvylygvrlaGkcln Hemmer GAS WELDER-C Work Phone: [facility] Work Phone: Start: 05-06-2025 End: 69-74-2893Htsnkuc encounter procedureAshlee Moura MD-[facility] Work Phone: Start: 01-53-5426Xbndvpmexw RecurringKash CAPPS CredibleStart: 04-05-2025 End: 55-85-2712Mrdkcdsxw Result EncounterGrisel Khan PA Work Phone: [facility] External Department UnsolicitedStart: 04-05-2025 End: 92-85-2853Foekjlvjm Result EncounterGrisel Khan PA Work Phone: [facility] External Department UnsolicitedStart: 04-02-2025 End: 40-92-4469Bvmzam flowsTico Garciamer PA Work Phone: [facility] CI FMStart: 04-02-2025 End: 81-03-4710Vmnvyw flowsTico Garciamer PA Work Phone: [facility] CI FMStart: 04-02-2025 End: 94-88-7122Boodxq outpatient visit 25 minutesGrisel Khan PA Work Phone: [facility] CI FMComment on above:Chronic pain of left hand (Primary Dx); PVC's (premature ventricular contractions); Chronic pain of right knee; Tobacco dependence; Fall, initial encounterStart: 04-02-2025 End: 01-29-5752uicvfjcjdgEJKBQ M HEMMERNot AvailableStart: 02-04-2025 End: 15-21-8107datvnyjaahTqvel Hemmer GAS WELDER-C Work Phone: [facility] Work Phone: Start: 02-04-2025 End: 10-58-1306Xkavcnu encounter procedureGrisel Hemmer GAS WELDER-C Work Phone: [facility] Physician [facility] Work Phone: Start: 81-82-5639Euatspofdh RecurringKaren Hemmer GAS WELDER-C Work Phone: [facility]trEVERGRE[facility] CredibleStart: 65-47-2408Oyw-patient / Non-visitGrisel Hemmer GAS WELDER-C Work Phone: [facility] Work Phone: Start: 11-20-2024 End: 51-81-6441Geqtkhvblh and management of inpatientGrisel Hemmer GAS WELDER-C Work Phone: [facility] Work Phone: Start: 09-29-2024 End: 08-06-2936Eargrf flowsTico Khan PA Work Phone: [facility] CI FMStart: 09-29-2024 End: 74-54-4345Lfkvbd Richar Khan PA Work Phone: [facility] CI FMStart: 09-29-2024 End: 86-16-5976Ykzhgf outpatient visit 10 minutesGrisel Khan PA Work Phone: [facility] CI FMComment on above:Chronic pain of left hand (Primary Dx); Tobacco dependence; Chronic pain of left kneeStart: 09-29-2024 End: 04-90-4557whyxjtevjtLEEYX M HEMMERNot AvailableStart: 07-20-2024 End: 19-71-3640ilazgkoqhnUZ Arpan Karki Work Phone: [facility] Work Phone: Start: 07-20-2024 End: 58-76-9629Txmejxs encounter procedureMD Martin Phillip Work Phone: [facility] Work Phone: Start: 06-29-2024 End: 64-35-0920Plckck outpatient visit 15 minutesGrisel TELLEZ Work Phone: [facility] CI FMComment on above:Epigastric pain (Primary Dx); Tobacco dependence; Acute pericarditis, unspecified typeStart: 06-29-2024 End: 30-58-5837yueaintmwyKYFOH M HEMMERNot AvailableStart: 06-26-2024 End: 46-86-4285mqrstsfudnRQ Martin Phillip Work Phone: [facility] Work Phone: Start: 06-26-2024 End: 08-17-7468Huqfgfu encounter procedureMD Martin Phillip Work Phone: [facility] Work Phone: Start: 06-12-2024 End: 67-89-7845gjdldamaxnKO Arpan Karki Work Phone: [facility] Work Phone: Start: 06-12-2024 End: 20-39-9973Bzidqie encounter procedureMD Martin Phillip Work Phone: [facility] Work Phone: Start: 06-08-2024 End: 69-20-6283Xhkaxnzax Result EncounterGrisel TELLEZ Work Phone: [facility] External Department UnsolicitedStart: 06-08-2024 End: 74-62-9666Oazamhavk Result EncounterKaren M Jeane PA Work Phone: [facility] External Department UnsolicitedStart: 06-01-2024 End: 08-91-4340Zqrdcw flowsTico Garciabritt PA Work Phone: [facility] CI FMStart: 06-01-2024 End: 66-67-4861Jpydwm flowsRose Marysaji Colin Jeane PA Work Phone: [facility] CI FMStart: 06-01-2024 End: 48-82-0742Ehzbva outpatient visit 25 minutesGrisel Shaw Jeane PA Work Phone: [facility] CI FMComment on above:Accelerated junctional rhythm (Primary Dx); PVC's (premature ventricular contractions); Other chest pain; Acute pericarditis, unspecified type; Second degree AV block, Mobitz type I; Tobacco dependence; Epigastric painStart: 06-01-2024 End: 14-70-3782hqfnypubpaEMYGZ M HEMMERNot AvailableStart: 86-98-5886Ssx-patient / Non-visitMD Martin Phillip Work Phone: [facility] Work Phone: Start: 05-18-2024 End: 05-43-2458Kilxvwfbt Result EncounterGrisel Shaw Jeane PA Work Phone: n[facility] External Department UnsolicitedStart: 05-18-2024 End: 11-43-6196Ddjshfsbo Result EncounterrGisel Shaw Jeane PA Work Phone: [facility] External Department UnsolicitedStart: 04-30-2024 End: 00-82-8022tknmvfdlueLBBST M HEMMERNot AvailableStart: 43-72-7595Faa-patient / Non-visitMD Martin Phillip Work Phone: [facility] Work Phone: Start: 30-58-8363Cig-patient / Non-visitMD Martin Phillip Work Phone: [facility] Work Phone: Start: 04-23-2024 End: 32-96-4760Nlxknuwerw and management of inpatientMD Martin Phillip Work Phone: [facility] Work Phone: Start: 04-23-2024 End: 46-71-0208xbsvuaayxon encounterMD Martin Phillip Work Phone: [facility] Work Phone: Start: 11-05-2023 End: 37-82-3760Ychiagdao Result EncounterGrisel TELLEZ Work Phone: n[facility] External Department UnsolicitedStart: 11-05-2023 End: 76-18-0419Elolttrlw Result EncounterGrisel Khan PA Work Phone: [facility] External Department UnsolicitedStart: 11-01-2023 End: 40-03-1403Kkoeas outpatient visit 25 minutesGrisel TELLEZ Work Phone: [facility] CI FMComment on above:Chronic pain of left knee (Primary Dx); Chronic pain of right knee; Chronic pain of left handStart: 97-94-5728Yhlow abstractingGrisel TELLEZ Work Phone: [facility] CI FMStart: 10-29-2023 End: 24-50-0447Qjkdgvlkw Result Sage Khan PA Work Phone: [facility] External Department UnsolicitedStart: 10-29-2023 End: 01-52-5197Pinpcgzgp Result EncounterGrisel Khan PA Work Phone: [facility] External Department UnsolicitedStart: 08-17-2022 End: 37-07-9087njnypckjwfZIMZL PARKERFacility:W3Eqxaf: 11-02-2021 End: 19-51-6872jaddjrhvgxHppmqmvgk Breault Other [facility] [employer] Other Start: 52-02-4819Rzdppu outpatient visit 15 minutes [facility]zJ[facility] [place] Procedures DateProcedureProcedure DetailPerforming ClinicianStart: 91-59-6933Djlvirbieg exam knee complete 4/more viewsTulioen Colin Hemmer PA Work Phone: Start: 54-01-0207Vytun cultureKarsaji Hemmer GAS WELDER-C Work Phone: Start: 01-36-6522UL ECHO DOPPLER COMPLETETulioen Colin Hemmer PA Work Phone: Start: 59-38-6152KUHJYJ MONITOR 8 TO 15 DAYSKaren Colin Hemmer PA Work Phone: Start: 99-22-0761Ldbpvtnjog exam knee complete 4/more viewsTulioen Colin Hemmer PA Work Phone: Start: 16-35-4328PE KNEE STANDING BITluioen Colin Hemmer PA Work Phone: Start: 84-08-1773Tmbce hand minimum 3 viewsTulioen Colin Hemmer PA Work Phone: Plan of Treatment DateCare ActivityDetailAuthorStart: 10-04-2025 End: 40-55-9488Ahwrhsf encounter procedureNOMS CI FMStart: 69-02-6173IH cervical spine without contrastCT cervical spine wo [facility] Start: 17-26-4150UT Cervical spine [facility]Tr[facility] Start: 50-62-5132VV of head without contrastCT head/brain wo [facility] Hospitaltart: 09-28-9161YN Unspecified body region WO contrast [facility] CenterStart: 05-52-5129S-ray of left footXR foot LT min 3V*[facility]art: 87-50-4432TA Foot - left GE 3 ViewsRegency Hospital [facility] Westtart: 91-30-5949Rzyanhbid vaccination Influenza Vaccine (#1)[facility] HealthcareStart: 04-02-2025 End: 98-51-7054PU Knee - right 4 ViewsXR knee 4+ views right Imaging Routine Chronic pain of right knee Fall, initial encounter Expected:04/02/2025, Expires: 04/02/2026[facility] Work Phone: Comment on above:Expected: 04/02/2025, Expires: 04/02/2026Start: 04-02-2025 End: 54-53-4066Rlnhmge encounter xitomitao19/11/2025 9:30 AM EDT Office Visit [facility] [address] [place] [address] Grisel Khan PA [address] [place] [address] ArrivedNOMS CI FMComment on above:ArrivedStart: 03-29-2025 End: 72-59-6616Arhcgzh encounter osfsfejds25/07/2025 8:00 AM EDT Office Visit [facility] [address] [place] [phone] Grisel Khan PA [address] [place] [address] [facility] CI FMStart: 05-67-5663Pjcytwdcq vaccination Influenza Vaccine (#1)[facility] HealthcareComment on above:Postponed from 05/24/2024 (Patient Refused)Start: 30-18-3745RkawpsuatRegency Hospital Cleveland Westtart: 47-33-5355Julnaflf to Social ServicesRegency Hospital [facility] Westtart: 55-52-6615Zcsxkpcf admissionRegency Hospital Cleveland Westtart: 11-20-2024 [facility]: 42-97-8193Snxlymmc identified in Urine by CultureUrine CultureRegency Hospital Cleveland Westtart: 03-23-0432Codbh cultureRegency Hospital Cleveland Westtart: 09-29-2024 End: 02-61-9017Ffbmyst encounter procedureNOMS CI FMComment on above:Arrived Start: 06-29-2024 End: 80-48-5145Kfhzibo encounter cmvkbwydm14/07/2024 9:00 AM EDT Office Visit [facility] [address] [place] [phone] Grisel Khan PA [address] [place] [address] [facility] CI FMStart: 58-53-8182NymzulrwuMercy Health Defiance Hospital CenterStart: 06-01-2024 End: 74-48-7535OQ Heart TransthoracicTransthoracic Echo (TTE) Complete Echocardiography Routine Accelerated junctional rhythm PVC's (premature ventricular contractions) Other chest pain Acute pericarditis, unspecified type Second degreeAV block, Mobitz type I Expected: 06/01/2024 (Approximate), Expires: 06/01/2026[facility] Work Phone: Comment on above:Expected: 06/01/2024 (Approximate), Expires: 06/01/2026Start: 06-01-2024 End: 28-67-7120Cgbxjbj encounter ghlgezaju26/09/2024 9:00 AM EDT Office Visit [facility] [address] [facility] [address] [place] [address] Grisel Khan PA [address] [place] [address] ArrivedNOMS CI FMComment on above:ArrivedStart: 89-45-8014Ognlapwvy vaccinationInfluenza Vaccine (#1)[facility] HealthcareStart: 80-80-7753MdzovljxjMercy Health Defiance Hospital CenterStart: 17-75-5670GswsendgzMercy Health Defiance Hospital CenterStart: 92-56-3227OwbjeddmrMercy Health Defiance Hospital CenterStart: 47-42-8683UxdpiftkiMercy Health Defiance Hospital CenterStart: 73-87-1061HtyfmbsnbMercy Health Defiance Hospital CenterStart: 83-47-1997HmhxjdlbeMercy Health Defiance Hospital CenterStart: 48-07-1069YeudqttvjMercy Health Defiance Hospital CenterStart: 28-55-0091MibysaghlMercy Health Defiance Hospital CenterStart: 33-55-6475LulfepopkMercy Health Defiance Hospital CenterStart: 31-14-3603Iabeorxs admissionMercy Health Defiance Hospital CenterStart: 04-23-2024 Referral to cardiologistMercy Health Defiance Hospital CenterStart: 04-23-2024 [facility] CenterStart: 11-01-2023 End: 84-88-3614VU Knee - bilateral AP W standingXR knees anteroposterior standing bilateral Imaging Routine Chronic pain of left knee Chronic pain of right knee Expected: 11/01/2023, Expires: 11/01/2024[facility] Work Phone: Comment on above:Expected: 11/01/2023, Expires: 11/01/2024Start: 11-01-2023 End: 02-88-5107OA Knee - left 4 ViewsXR knee 4+ views left Imaging Routine Chronic pain of left knee Expected: 11/01/2023, Expires: 11/01/2024[facility] HealthcareComment on above:Expected: 11/01/2023, Expires: 11/01/2024Start: 11-01-2023 End: 04-71-8083YE Knee - right 4 ViewsXR knee 4+ views right Imaging Routine Chronic pain of right knee Expected: 11/01/2023, Expires: 11/01/2024[facility] HealthcareComment on above:Expected: 11/01/2023, Expires: 11/01/2024Start: 11-01-2023 End: 60-64-7026Bworezy encounter umtkbglau61/09/2024 11:00 AM EST Office Visit [facility] [address] [facility] [address] [place] [address] Grisel Khan PA [address] [place] [address] [facility] CI FMStart: 74-85-5547Sgypltlqp vaccination Influenza Vaccine (#1)[facility] HealthcareCefuroxime free [Mass/volume] in Serum or PlasmaTrinity Health System East CampusPatient EducationMercy Health Defiance Hospital Ctr Work Phone: Patient referralMercy Health Defiance Hospital Ctr Work Phone: [facility] Payers DatePayer CategoryPayerPolicy [id number] MedicaidCARESOURCE MEDICAID [employer] [place]ICA[place] [id number] 2023- Present [address] [place] [address] [id number] Health Insurance [employer] MEDICAID [id number] [id number] 2.1.425323.3.57[id number] 2.1.036054.3.579.2.[id number] 2.1.520196.3.579.2.028897-20-3873Imnmjhy0358145 .1.729968.3.579.2.806913-55-8249Pyzcdlq7557136 2.1.832736.3.579.2.216208-35-4236Xkkkjcv3338357 2.1.947439.3.57[id number] 2.1.492477.19 UnknownMutual Health [id number] UnknownRegular [id number]-[id number] HCAP/HFA/FAP [id number]-[id number]-[id number] 2.16.840.1.3820[id number] 2.16.840.1.854663.3.579.2.531 [id number] 2.16.840.1.905547.3.579.2.531 Social History DateTypeDetailFacilityStart: 10-24-2023 End: 20-32-8488Jlx Assigned At [facility] [employer] Other Start: 10-24-2023 End: 45-36-8444Etedgbr smoking status NHISSmokes tobacco dailyNOMS Healthcare Start: 03-50-8650Lkobdis of tobacco useCigarette SmokerNOMS HealthcareStart: 10-24-2023 End: 16-03-2732Ttxquyjqnw smoked current (pack per day) - Reported0.5N[facility]S HealthcareStart: 10-24-2023 End: 40-64-2245Jshmcmt use and exposureSmokeless tobacco non-userN[facility]S Healthcare Start: 10-31-2023 End: 00-50-8967Nlmhchu intakeEx-drinker (finding)[facility] HealthcareStart: 49-17-6126Isbvnhn Comment6-10 cigs/dayNOMS HealthcareStart: 03-85-3580Xiw Assigned At BirthNot on fileNOMS HealthcareStart: 04-23-2024 End: 79-86-8886Iewjajj smoking status NHISSmoker (finding)[facility]: 96-51-5498San [facility]igned At [facility]: 33-94-3740Swfpbh identityIdentifies as male gender (finding)[facility] HealthcareStart: 11-20-2024 End: 49-86-8405TfuBcyw (finding)[facility]tart: 51-48-9198Nsvfrbols beverage intakeCurrent drinker of alcohol (finding)[facility] HealthcareStart: 74-24-4662Ymjrnfn CommentTwisted TeaVALLEY VIEW MEDICAL CENTER HealthcareStart: 35-88-5933KomXwqqTWLY Healthcare Goals DatePatient GoalDesired Activity/State Functional Status PckoLjzuzqrhbrUghsdsZeqfscgy42-19-1441Awedncczeq statusPatient at Baseline [facility] Work Phone: [phone]okbdagi statusPatient at Baseline [facility] Work Phone: Mental Status LpndFjhlrgrjdpVyulfoIhwlhcli27-50-6314Ggcxtnuif functionCognitive Status Patient at [facility] Work Phone: [phone] 112-202708-165787-39-4125Maxtebslp functionCognitive Status Patient at [facility] Work Phone: Clinical Notes 09-23-2015 to 05-06-2025 Note Date & QnwiFxiiEepuyefb01-10-6488 Evaluation note* Diagnosis Onset Date Resolution Status Admit Date Bipolar disorder, current episode manic without psychotic features acuteAugust 2024 8:17amMarijuana useacuteAugust 2024 8:17am PericarditisacuteAugust 2024 8:17amSevere alcohol use disorderacuteAugust 2024 8:17amTobacco use disorderacuteAugust 2024 8:17am [facility] Work Phone: 1(576) 808-325607-11-2025 History of Present illness Narrative* ROSALINDA Ivey - 04/02/2025 9:30 AM EDT Images from the original note were not included. Subjective Patient ID: Sean Malone is a 30 y.o. male who presents [...] disorder, current episode manic without psychotic features (HCC) 06/29/2024 History of being hospitalized 11/20/2024 Suicidal Ideations, Bipolar Disorder Pericarditis ([facility]-H[facility]) 04/23/2024 Severe alcohol use disorder (HCC) 06/29/2024 Past Surgical History: Procedure Laterality Date [...] contractions) The patient is seeing a medical sales for this condition, treatment is deferred to [...] would like to get these done at [facility]. Follow up in about 6 months (around 10/03/2025) for Wellness. documented in this encounterCameron Regional Medical CenterDmqqnutlle68-10-6280 Progress note Author Kash mendoza [facility] System [facility] CampusNote Date/TimeMarch 2024 7:22[place] [address] Psychiatry Progress Note Signed Patient: Sean Malone MR#: [id number] : 1995 Acct:[id number] Age/Sex: 29 / M Adm Date: 5 Loc: Room: [address] [place] [address] Type : ADM IN Attending Dr: Kash Connor MD Copies to: ~ Date of Service: 11/22/2024 Subjective Subjective Narrative: Mr. Malone said he is feeling better and tolearating [...] explained Documented By: Kash Connor MD 5 0727 Signed By: <Electronically signed by Kash Connor MD> 11/22/24 0722 [facility] Work Phone: 1(865) 725-256603-02-2025 Progress notePaul [place] [id number] Psychiatry Progress Note Signed Patient: Sean Malone MR#: [id number] : 1995 Acct:[id number] Age/Sex: 29 / M Adm Date: 5 Loc: Room: 3D0268-4 Type : ADM IN Attending Dr: Kash Connor MD Copies to: ~ Date of Service: 11/22/2024 Subjective Subjective Narrative: Mr. Malone said he is feeling better and tolearating [...] explained Documented By: Kash Connor MD 5 [id number] Signed By: 11/22/24 0722 [facility]03-01-2025 History and physical note Author Kash mendoza [facility] CampusNote Date/TimeMarch 2024 7:28[place] [address] Psychiatry H&P Signed Patient: Sean Malone MR#: [id number] : 1995 Acct:[id number] Age/Sex: 29 / M Adm Date: 5 Loc: 1S Room: 0Y7428-5 Type: ADM IN Attending Dr: Kash Connor MD Copies to: MD Grisel Tyler PA-C~ Date of Service: 11/20/2024 HPI History of Present Illness History of present illness: Mr. Malone is a 29 year old male with a reported history of depression, bipolar disorder, suicidal ideation presents for inpatient admission due to suicidal ideation. Reportedly, patient presented to [facility] emergency department from counselor's office with suicidal [...] everything sets him off. Him and his fpc girlfriend recently broke up, due to hisanger [...] disorder Previous Psych Hospitalizations: previously hospitalized at [facility] in 2016 Past Suicide attempts: Denies Past Psych Meds: Patient states he was on prozac many years ago Alcohol and drug use: marijuana, alcohol use - last drink 4 days ago Living Situation: lives with ex-girlfriend Employment: Works at a [employer] spot on [email or web address] Review of Systems: Constitutional: Denies chills and [...] AVH (as above) Insight: limited Judgment: limited [facility] Medical History Tobacco use disorder Bipolar disorder, [...] Appearance Clear Urine pH 6.5 Ur Specific [place] 1.026 Urine Protein 30 H Urine Glucose [...] explained Documented By: Kash Connor MD 5 2008 Signed By: <Electronically signed by Kash Connor MD> 11/21/24 0728 [facility] Work Phone: 1(597) 883-504503-01-2025 [place] [address] Psychiatry H&P Signed Patient: MichaelSean J MR#: [id number] : 1995 Acct:[id number] Age/Sex: 29 / M Adm Date: 5 Loc: 1S Room: 3B8197-5 Type: ADM IN Attending Dr: Kash Connor MD Copies to: MD Grisel Tyler PA-C~ Date of Service: 11/20/2024 HPI History of Present Illness History of present illness: Mr. Malone is a 29 year old male with a reported history of depression, bipolar disorder, suicidal ideation presents for inpatient admission due to suicidal ideation. Reportedly, patient presented to [facility] emergency department from counselor's office with suicidal [...] everything sets him off. Him and his fpc girlfriend recently broke up, due to hisanger [...] disorder Previous Psych Hospitalizations: previously hospitalized at [facility] in 2016 Past Suicide attempts: Denies Past Psych Meds: Patient states he was on prozac many years ago Alcohol and drug use: marijuana, alcohol use - last drink 4 days ago Living Situation: lives with ex-girlfriend Employment: Works at a [employer] spot on [email or web address] Review of Systems: Constitutional: Denies chills and [...] AVH (as above) Insight: limited Judgment: limited [facility] Medical History Tobacco use disorder Bipolar disorder, [...] Appearance Clear Urine pH 6.5 Ur Specific [place] 1.026 Urine Protein 30 H Urine Glucose [...] MD 5 0555 Signed By: 11/21/24 0728 [facility]02-28-2025 Chief complaint+Reason for visit Narrative* Chief Complaint Admit Date medical clearance November 20, 2024 12:46pm medical clearance November 21, 2024 5:55 am Reason for Visit Admit Date Bipolar disorder, current ep isode manic without psychotic features November 20, 2024 12:46pm Major depressive disorder, r ecurrent, severe with psychotic symptoms November 20, 2024 12:46pm Suicidal ideation November 20, 2024 12:46pm [facility] Work Phone: 1(253) 366-231002-28-2025 Chief complaint+Reason for visit Narrative * Chief Complaint Admit Date medical clearance November 20, 2024 12:46pm medical clearance November 21, 2024 5:55 am BH December 02, 2024 12: 16pm 6 month [...] use disorder February 04, 2025 10:1 9am [facility] Work Phone: 1(924) 150-146302-28-2025 Evaluation note* Diagnosis Onset Date Resolution Status Admit Date Bipolar disorder, current episode manic without psychotic features acuteFebruary 2024 12:46pmMajor depressive disorder, recurrent, severe with psychotic symptomsacuteFebruary 2024 12:46pmSuicidal ideationacute November 20, 2024 12:46pm [facility] Work Phone: 1(884) 328-510002-28-2025 Evaluation note* Diagnosis Onset Date Resolution Status Admit Date Bipolar disorder, current episode manic without psychotic features acuteFebruary 2024 12:46pmMajor depressive disorder, recurrent, severe with psychotic symptomsacuteFebruary 2024 12:46pmSuicidal ideationresolved November 20, 2024 12:46pmBipolar disorder, current episode manic without psychotic featuresacuteMay 2024 10:19amMarijuana useacuteMay 2024 10:19amPericarditisacuteMay 2024 10:19amSevere alcohol use disorderacute February 04, 2025 10:19amTobacco use disorderacuteMa2024 10:19am [facility] Work Phone: 1(828) 294-804001-07-2025 History of Present illness Narrative* ROSALINDA Ivey - 09/29/2024 8:30 AM EST Images from the original note were not included. HPI Med Refill Additional comments: Meloxicam - will use good rx Last edited by Lenore Brown LPN on 09/29/2024 8:34 AM. Subjective Patient ID: Sean Malone is a 29 y.o. male who presents [...] disorder, current episode manic without psychotic features (CMS/HCC) 06/29/2024 Pericarditis 04/23/2024 Severe alcohol use disorder ([facility]/HCC) 06/29/2024 Past Surgical History: Procedure Laterality Date [...] for Medication Follow Up. documented in this encounterCameron Regional Medical [id number] History of Present illness Narrative* ROSALINDA Ivey - 06/29/2024 9:00 AM EDT Images from the original note were not included. HPI Med Refill Additional comments: Nicoderm patch Last edited by Lenore Brown LPN on 06/29/2024 9:02 AM. Subjective Patient ID: Sean Malone is a 29 y.o. male who presents [...] disorder, current episode manic without psychotic features ([facility]) 06/29/2024 Pericarditis 04/23/2024 Severe alcohol use disorder ([facility]) 06/29/2024 Past Surgical History: Procedure Laterality Date [...] type The patient is seeing a medical sales for this condition, treatment is deferred to that specialist. Correspondence from that specialist and any available testing were reviewed during today's visit. Will see pt back in 3-6 months. Follow up in about 3 months (around 09/29/2024) for Recheck. documented in this encounterCameron Regional Medical [id number] History of Present illness Narrative* ROSALINDA Ivey - 06/01/2024 9:00 AM EDT Images from the original note were not included. HPI Med Refill Additional comments: Nicotine patches Last edited by Hailey Hemphill MA on 06/01/2024 9:01 AM. Subjective Patient ID: Sean Malone is a 29 y.o. male who presents [...] Complete; Future Will obtain updated ECHO at [facility] for re-evaluation due to ongoing symptoms. [...] (around 06/29/2024) for Recheck. documented in this encounterCameron Regional Medical [id number] Discharge summary Author Rani Delong [facility] April 24, 2024 12:47pmNote Date/TimeAugust 2023 12:47pm[place] [address] Discharge Summary Signed Patient: Sean Malone MR#: [id number] : 1995 Acct:[id number] Age/Sex: 29 / M Adm Date: 4 Loc: Room: 2D4525-[address]: Rani Delong MD Copies to: [...] of tobacco and marijuana use but nosignificant medicalhistory who presented with 1 day history of [...] was consistent with diffuse ST elevations with WA depression in aVR consistent with pericarditis. Labs were significant for elevated CRP; normaltroponin; mildly elevated WBC. UDS was positive for opiates (took tramadol for pain) & marijuana. Patient was monitored in the hospital and started on colchicine and ibuprofen with significant improvement and complete resolution ofhis chest pain. Cardiology was consulted, echocardiogram was done which appea rsnormal. Recommendation to continue to maintain colchicine for 3 months and ibuprofen for 2 weeks,patient also been initiated on Protonix daily for [...] am (You have been scheduled for a followup appointment for the following date and time, [...] % (Auto) 40.6, Lymph % (Auto) 38.7, [place] % (Auto) 16.2, Eos % (Auto) 3.8, Baso % (Auto) 0.7, Nucleat RBC Rel Count 0.2, Neut # (Auto) 3.2,Lymph # (Auto) 3.1, [place] # (Auto) 1.3 H, Eos # (Auto) [...] signed by Rani Delong MD> 04/24/24 1247 [facility] Work Phone: 1(181) 630-704008-02-2024 Progress note Author Ashlee Moura [facility] April 24, 2024 12:28pmNote Date/TimeAugust 2023 12:[address] [place] [address] Cardiology Progress Note Signed Patient: Sean Malone MR#: [id number] : 1995 Acct:[id number] Age/Sex: 29 / M Adm Date: 4 Loc: 4P Room: 6H6774-7 Type: ADM INOo Attending Dr: Rani Delong MD Copies to: ~ Date of Service: 04/24/2024 Subjective Interval history: Mr. Malone is a 29 year old male with history of tobacco and marijuana use but nosignificant medicalhistory who presented with 1 day history of [...] was consistent with diffuse ST elevations with WA depression in aVR consistent with pericarditis. Labs [...] 04/24/24 11:31 04/24/24 11:31 04/24/24 11:31 04/24/24 11:04/24/24 11:31 Narrative: GEN: AAOx3. No acute distress. [...] % (Auto) 40.6 Lymph % (Auto) 38.7 [place] % (Auto) 16.2 Eos % (Auto) 3.8 Baso % (Auto) 0.7 Nucleat RBC Rel Count 0.2 Neut # (Auto) 3.2 Lymph # (Auto) 3.1 [place] # (Auto) 1.3 H Eos # (Auto) [...] signed by Ashlee Moura MD> 04/24/24 1228 [facility] Work Phone: 1(954) 608-598508-01-2024 Consult note Author Ashlee Moura [facility] April 23, 2024 3:02pmNote Date/TimeAugust 2023 2:18pm[place] [address] Cardiology Consult Note Signed Patient: Sean Malone MR#: [id number] : 1995 Acct:[id number] Age/Sex: 29 / M Adm Date: 4 Loc: Room: [address] [place] [address] Type: ADM INOo Attending Dr: Rani Delong MD Copies to: SPENCER Ivey MD Obaydah M Daromar, MD~ Cardiology HPI History of Present Illness Consult Date: 04/23/24 Reason for Consult: Acute pericarditis HPI: Mr. Malone is a 29 year old male with history of tobacco and marijuana use but nosignificant medicalhistory who presented with 1 day history of [...] was consistent with diffuse ST elevations with WA depression in aVR consistent with pericarditis. Labs were significant for elevated CRP; normal troponin; mildly elevated WBC. UDS was positive for opiates (took tramadol for pain) & marijuana. He was started on colchicine and Ibuprofen. Review of Systems Review of Systems All other systems reviewed & are negative unless noted below or in HPI [facility] Medical History (Updated 04/23/24 @ 15:01 by [...] x10E3/uL Lymph # (Auto) 3.3 (1.00-4.8) x10E3/uL [place] # (Auto) 1.6 H (0.0-0.8) x10E3/uL Eos [...] <Electronically signed by Ashlee Moura MD> 04/23/24 1508 [facility] Work Phone: 1(555) 661-526308-01-2024 Progress note Author Rani Delong [facility] April 23, 2024 12:54pmNote Date/TimeAugust 2023 12:54pm[place] [address] Hospitalist Progress Note Signed Patient: Sean Malone MR#: [id number] : 1995 Acct:[id number] Age/Sex: 29 / M Adm Date: 4 Loc: Room: [address] [place] [address] Type: ADM INOo Attending Dr: Rani Delong MD Copies to: ~ Date of Service: 04/23/2024 Subjective Subjective Narrative: This is a 29-year-old male with no significant past medical history presented [facility] with main complaints of chest pressure like symptoms which started yesterday morning when he woke up and continued throughout the day gets worse with deep inspiration and with movement. Denies any history ofhypertension, diabetes or dyslipidemia. Patient smokes half a pack of cigarettes a day. Denies any family history of heart disease. Denies any drug abuse. Patient also denies any recent viral syndrome. EKG done in [place] shows ST elevation in multiple leads with WA depression. Troponins at [place] was negative Interval history 04/23/2024: Patient was [...] Dose Route Start Last Admin Trade Name Luzmaria PRN Reason Stop Dose Admin Acetaminophen 650 [...] <Electronically signed by Rani Delong MD> 04/23/24 1254 [facility] Work Phone: 1(143) 964-637808-01-2024 History and physical note Author Martin Phillip [facility] April 23, 2024 6:11amNote Date/TimeAugust 2023 6:11am[place] [address] Hospitalist H&P Signed Patient: Sean Malone MR#: [id number] : 1995 Acct:[id number] Age/Sex: 29 / M Adm Date: 4 Loc: Room: [address] [place] [address] Type: ADM IN Attending Dr: Martin Phillip MD Copies to: MD Grisel Ramires PA-C~ HPI DATE OF EXAMINATION: 04/23/24 CHIEF COMPLAINT: Chest pain HISTORY OF PRESENT ILLNESS: This is a 29-year-old male with no significant past medical history presented [facility] ED with main complaints of chest pressure like symptoms which started yesterday morning when he woke up and continued throughout the day gets worse with deep inspiration and with movement. Denies any history ofhypertension, diabetes or dyslipidemia. Patient smokes half a pack of cigarettes a day. Denies any family history of heart disease. Denies any drug abuse. Patient also denies any recent viral syndrome. EKG done in [place] shows ST elevation in multiple leads with WA depression. Troponins at [place] was negative Review of Systems Review of Systems All other systems reviewed & are negative unless noted below or in HPI [facility] Medical History (Updated 04/23/24 @ 06:08 by [...] By: <Electronically signed by Martin Phillip MD> 04/23/24610 [facility] Work Phone: 1(747) 332-410902-09-2024 History of Present illness Narrative* ROSALINDA Ivey - 11/01/2023 11:00 AM EST Subjective Patient ID: Sean Malone is a [...] or fail to improve. documented in this encounterCameron Regional Medical [id number] Evaluation note* Encounter Date Diagnosis Assessment Notes Treatment Notes Treatment Clinical Notes Oct, Contact with and (kiser spected) exposure to other viral communicable diseases (ICD-10 [...] is performed too soon. It is recommended thateven if results are negative and you have been exposed to someone that has COVID that you follow current CDC recommendations. These can be found at CDC.GOV. Follow up with primary care provider if symptoms persist or do not improve *VIRAL URI HANOUT GIVEN ON OTC TREATMENTS, FOLLOW UP AND WHEN TO SEEK EMERGENCY TREATMENT Oct,ight acute otitis media (ICD-10 - H66.91) Ear infections are often a secondary infection caused from an URI, the flu or allergies. Take medication as directed. Complete all doses, even if you feel better. Tylenol or ibuprofen can help with pain. Warm pack to area for comfort helps as well. Follow up with primary care provider if no improvement of symptoms. Oct,ther Additional time spent conducting pre-visit phone call, screening for symptoms, instructions on social distancing, application and removal of PPE, and cleaning of examination room, equipment and supplies was preformed. Patient education given for testing methodology and results. Patient care instructions given in writting by [facility] Care At Home document. [facility] Other 01-01-2016 History general Narrative - Reported* Type Description Date Hospitalization History [facility] psych sep 2015 [facility] Other Chinl complaint+Reason for visit Narrative* Chief Complaint Admit Date medical clearance November 20, 2024 12:46pm Reason for Visit Admit Date Bipolar disorder, current ep isode manic without psychotic features November 20, 2024 12:46pm Suicidal ideation November 20, 2024 12:46pm [facility] Work Phone: Evaluation note* Diagnosis Chronic pain of left knee- Primary Chronic pain of right knee Chronic pain of left hand [facility]* Diagnosis Onset Date Resolution Status Acute pericarditis acuteChest painacuteMarijuana useacuteTobacco use disorderacute [facility] Work Phone: Evaluation note* Diagnosis Onset Date Resolution Status Chest pain resolved [facility] Work Phone: Evaluation note* Diagnosis Onset Date Resolution Status Marijuana use acuteTobacco use disorderacuteChest painresolvedBipolar disorder, current episode manic without psychotic featuresacuteMarijuana useacutePericarditisacute Severe alcohol use disorderacuteTobacco use disorderacute [facility] Work Phone: Evaluation note* Diagnosis Epigastric pain- Primary Abdominal pain, epigastric Tobacco dependence Tobacco use disorder Acute pericarditis, unspecified type [facility]* Diagnosis Onset Date Resolution Status Marijuana use acuteTobacco use disorderacuteChest painresolvedBipolar disorder, current episode manic without psychotic featuresacuteMarijuana useacutePericarditisacute Severe alcohol use disorderacuteTobacco use disorderacuteBipolar disorder, current episode manic without psychotic featuresacuteMarijuana useacute PericarditisacuteSevere alcohol use disorderacuteTobacco use disorderacute [facility] Work Phone: Evaluation note* Diagnosis Accelerated junctional [...] disorder, current episode manic without psychotic features acuteFebruary 2024 12:46pmSuicidal ideationacuteFebruary 2024 12:46pm [facility] Work Phone: Evaluation note* Diagnosis Chronic pain of left hand- Primary PVC's (premature ventricular contractions) Other premature beats Chronic pain of right knee Tobacco dependence Tobacco use disorder Fall, initial encounter documented [facility] this encounter [facility]* Diagnosis Onset Date Resolution Status Admit Date Bipolar disorder, current episode manic without psychotic features acuteAugust 2024 8:17amMarijuana useacuteAugust 2024 8:17am PericarditisacuteAugust 2024 8:17amSevere alcohol use disorderacuteAugust 2024 8:17amTobacco use disorderacuteAugust 2024 8:17am [facility] Work Phone: Hospital Discharge instructionsAdditional Instructions Stitches are taken out in 7 to 10 days Medically cleared for incarceration.[facility] Work Phone: Reason for referral (narrative)No reason for referral information availableUniversity Hospitals [facility] Work Phone: Summary Purpose Family History No [...] for Visit Chief Complaint r/o pericarditis r/o pericarditisReason for VisitAcute pericarditis Chest pain Marijuana use Tobacco use disorder Chief Complaint r/o pericarditis r/o pericarditis [facility] 8/2Reason for VisitChest pain Chief Complaint r/o pericarditis r/o pericarditis [facility] 8/2Reason for VisitMarijuana use Tobacco use disorder Chest pain Bipolar disorder, current episode manic without psychotic features Marijuana use Pericarditis Severe alcohol use disorder Tobacco use disorder Chief Complaint r/o pericarditis r/o pericarditis [facility] 8/ N31.9 ZioReason for VisitMarijuana use Tobacco use disorder Chest pain Bipolar disorder, current episode manic without psychotic features Marijuana use Pericarditis Severe alcohol use disorder Tobacco use disorder Chief Complaint r/o pericarditis r/o pericarditis [facility] 04/24 N31.9 Zio losing insurance needed to come in before the 30thReason for VisitMarijuana use Tobacco use disorder Chest pain Bipolar disorder, current episode manic without psychotic features Marijuana use Pericarditis Severe alcohol use disorder Tobacco use disorder Bipolar disorder, current episode manic without psychotic features Marijuana use Pericarditis Severe alcohol use disorder Tobacco use disorder Chief Complaint Admit Date April 28, 2025 10: 53am 3 month f/u May 06, 2025 8: 17am Reason for Visit Admit Date Bipolar disorder, current ep isode manic without psychotic features May 06, 2025 8:17am Marijuana use May 06, 2025 8: 17am Pericarditis May 06, 2025 8: 17am Severe alcohol use disorder May 06, 2025 8:17am Tobacco use disorder May 06, 2025 8 :17am Chief Complaint Admit Date 3 month f/u May 06, 2025 8: 17am June 25, 2025 10 :19am med clearance July 24, 2025 1 1:21pm Reason for Referral SpecialtyDiagnoses / ProceduresReferred By ContactReferred To ContactRadiology Diagnoses Accelerated junctional rhythm PVC's (premature ventricular contractions) Other chest pain Acute pericarditis, unspecified type Second degree AV block, Mobitz type I Procedures Transthoracic Echo (TTE) Complete Grisel Khan, PA [address] [place] [address] [place] [facility] [address] [place] [address] Phone: [phone] Referral IDStatusReasonStart DateExpiration DateVisits RequestedVisits [id number] Perform Procedure / Additional Source Comments REASON FOR VISIT (unrecogniz ed section and content) ReasonCommentsKnee PainReasonCommentsMed RefillNicoderm patchReasonCommentsMed RefillNicotine patchesReasonCommentsMed RefillMeloxicam - will use good rxReason Commentsmedication follow up (unrecognized sect ion and content) No Status Records FoundNo Status Records FoundNo Status Records FoundNo Status Records Found INFORMATION SOURCE (unrecogn ized section and content) DATE CREATED AUTHOR 08/21/2022 [facility] DATE CREATED AUTHOR AUTHOR'S ORGANIZ ATION 04/06/2025 [facility] DATE CREATED AUTHOR AUTHOR'S ORGANIZ ATION 07/29/2025 [facility] DATE CREATED AUTHOR AUTHOR'S ORGANIZ ATION 07/31/2025 [facility] Care Teams (unrecognized sec tion and content) Team Status: Active Member Role Status Dates Grisel Khan GAS WELDER-C Primary Care Provider Active Team Status: Active Member Role Status Dates Grisel Khan GAS WELDER-C Primary Care Provider Active Start: April 28, 2025 Mica Tyler ProviderActiveStart: April 28, 2025 Team Status: Inactive Member Role Status Dates Grisel Khan GAS WELDER-C Primary Care Provider Active Start: May 06, 2025 End: May 06, 2025Mica Servin ProviderActiveStart: May 06, 2025 End: May 06, 2025 Team Status: Inactive Member Role Status Dates Grisel Khan GAS WELDER-C Primary Care Provider Active Start: November 20, 2024 End: November 23Dominique Valdez ProviderActiveStart: November 20, 2024 End: November 23Bethanie Manzanares Provider, Attending Provider ActiveStart: November 20, 2024 End: November 23, 2024 Team Status: Active Member Role Status Dates Grisel Khan GAS WELDER-C Primary Care Provider Active Start: November 21, 2024 Dominique Bender ProviderActiveStart: November 21, 2024 Bethanie Tyler Provider, Attending Provider, Other Provider ActiveStart: November 21, 2024 Team Status: Active Member Role Status Dates Grisel Khan GAS WELDER-C Primary Care Provider Active Start: November 20, 2024 Dominique Bender ProviderActiveStart: November 20, 2024 Bethanie Tyler Provider, Attending ProviderActiveStart: November 20, 2024 Team Status: Inactive Member Role Status Dates Martin Phillip MD Admit Provider Active Start: 2023 End: April 24, 2024Grisel Khan , GAS WELDER-CPrimary Care ProviderActiveStart: April 23, 2024 End: April 24, 2024Joe Aguilarending ProviderActiveStart: April 23, 2024 End: April 24, 2024Fabiola Perdomo RNOther ProviderActiveStart: April 23, 2024 End: April 24, 2024Gilberto Sosa MDOther ProviderActiveStart: April 23, 2024 End: April 24, 2024GeAlbert Frost ProviderActiveStart: April 23, 2024 End: April 24, 2024Albert Servin ProviderActiveStart: April 23, 2024 End: April 24, 2024Betty Tubbs DOOther ProviderActiveStart: April 23, 2024 End: April 24, 2024 Team Status: Active Member Role Status Dates Martin Phillip MD Admarianna Provider Active Start: 2023 Grisel Khan , GAS WELDER-CPrimary Care ProviderActiveStart: April 23, 2024 Rani Delong MDOther ProviderActiveStart: April 23, 2024 Fabiola Perdomo RNOther ProviderActiveStart: April 23, 2024 Albert Larsen ProviderActiveStart: April 23, 2024 Albert Sales ProviderActiveStart: April 23, 2024 Joe Servinending Provider, Other ProviderActiveStart: April 23, 2024 Betty Tubbs DOOther ProviderActiveStart: April 23, 2024 Team Status: Active Member Role Status Dates Grisel Khan GAS WELDER-C Primary Care Provider Active Start: April 23, 2024 Fernando Velazquez ProviderActiveStart: April 23, 2024 Team Status: Active Member Role Status Dates Grisel Khan GAS WELDER-C Primary Care Provider Active Start: May 19, 2024 Fernando Velazquez ProviderActiveStart: May 19, 2024 Team Status: Inactive Member Role Status Dates Grisel Khan GAS WELDER-C Primary Care Provider Active Start: June 12, 2024 End: June 12, 2024Mica Servin ProviderActiveStart: June 12, 2024 End: June 12, 2024 Team Status: Active Member Role Status Dates Grisel Khan GAS WELDER-C Primary Care Provider Active Start: June 12, 2024 Joe Servinending ProviderActiveStart: June 12, 2024 Team Status: Inactive Member Role Status Dates Grisel Khan GAS WELDER-C Primary Care Provider Active Start: June 26, 2024 End: June 26, 2024Lingila Moura MDAttending ProviderActiveStart: June 26, 2024 End: June 26, 2024Team MemberRelationshipSpecialtyStart DateEnd Date Grisel Khan PA [address] [facility] [address] [place] [address] PCP - [facility]06/26/24 Team Status: Inactive Member Role Status Dates Grisel Khan GAS WELDER-C Primary Care Provider Active Start: July 20, 2024 End: July 20, 2024LinMica Shin ProviderActiveStart: July 20, 2024 End: July 20, 2024Team MemberRelationshipSpecialtyStart DateEnd Date Grisel Khan PA [address] [facility] [address] [place] [address] [facility] - [facility]06/26/24Team MemberRelationshipSpecialtyStart DateEnd Date Grisel Khan PA [address] [place] [address] PCP - [facility]06/26/24 Team Status: Inactive Member Role Status Dates Grisel Khan GAS WELDER-C Primary Care Provider Active Start: November 20, 2024 End: November 23Dominique Valdez ProviderActiveStart: November 20, 2024 End: November 23nan Bass MDAttending ProviderActiveStart: November 20, 2024 End: November 23nicole Connor MDAdmarianna ProviderActiveStart: November 20, 2024 End: November 23, 2024 Team Status: Active Member Role Status Dates Grisel Khan GAS WELDER-C Primary Care Provider Active Start: December 02, 2024 Mica Tyler ProviderActiveStart: December 02, 2024 Team Status: Inactive Member Role Status Dates Grisel Khan GAS WELDER-C Primary Care Provider Active Start: February 04, 2025 End: February 04, 2025Mica Servin ProviderActiveStart: February 04, 2025 End: February 04, 2025Team MemberRelationshipSpecialtyStart DateEnd Date Meghann Moffett MD [address] [place] [address] [facility]/24Team MemberRelationshipSpecialtyStart DateEnd Date Meghann Moffett MD [address] [place] [address] PCP - Generalmi Medicine11/24/24Team MemberRelationshipSpecialtyStart DateEnd Date Meghann Moffett MD [address] [place] [address] PCP - Generalmily Medicine11/24/24Team MemberRelationshipSpecialtyStart DateEnd Date Grisel Khan PA [address] [place] [address] PCP - GeneralFamily [id number] Meghann Moffett MD [address] [place] [address] [facility] - [facility] Team Status: Active Member Role/Relationship Status Dates Grisel Khan NP-C Primary Care Provider Active Team Status: Inactive Member Role/Relationship Status Dates Grisel Garciabritt , GAS WELDER-C Primary Care Provider Active Start: May 06, 2025 End: May 06, 2025Ashlee AntonioMica smallwood ProviderActiveStart: May 06, 2025 End: May 06, 2025 Team Status: Active Member Role/Relationship Status Dates Grisel Jeane , GAS WELDER-C Primary Care Provider Active Start: June 25, 2025 Kash Connor MDAstacia ProviderActiveStart: June 25, 2025 Team Status: Inactive Member Role/Relationship Status Dates Grisel Khan , GAS WELDER-C Primary Care Provider Active Start: July 24, 2025 End: July 25, 2025Dominique Howe ProviderActiveStart: July 24, 2025 End: July 25, 2025 Goals (unrecognized section and content) Goals may [...] BE BASED ON THE PRIMARY CLINICAL RECORDS. [employer] [employer] provides no warranty or guarantee of the accuracy or completeness of information in this document.
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
== END 2025-08-02 09:11 | disposition home or self-care (01) ==
LOC: ER 09:10
PROVIDERS: Emergency Provider Student in an Organized Health Care Education/Training Program; PCP Physician Assistant
DX: S61.411D Laceration without foreign body of right hand, subsequent encounter (principal); S61.012D Laceration without foreign body of left thumb without damage to nail, subsequent encounter; S01.81XD Laceration without foreign body of other part of head, subsequent encounter; Y09 Assault by unspecified means
CPT/HCPCS: 99281